=== PATIENT | female | born 1970 | race Caucasian/White ===

== ENCOUNTER 2017-05-24 13:49 | Emergency (ER) | payer MEDICARE, OTHER ==
[2017-05-24 13:59] VITALS: BP 123/62; PULSE 69; RESP 20; TEMP 98
--- NOTE | 2017-05-24 14:07 | ED ---
General Adult HPI - General Chief complaint: ENT Stated complaint: R ear pain Time Seen by Provider: 05/24/17 13:59 Source: patient, RN notes reviewed Mode of arrival: ambulatory Limitations: no limitations - History of Present Illness Initial comments: 46-year-old female presents emergency Department chief complaint of right ear pain. Patient states she's having some right ear pain and drainage and pain when she moves the ear. Patient states that she has no pain. Patient states she chronically is congestion because she is a smoker. Patient states she had some chills no history of fever. Patient states that she was concerned due to her pain and discomfort so she thought that she should be evaluated.Patient denies any recent fever, chills, shortness of breath, chest pain, back pain, abdominal pain, nausea vomiting, numbness or tingling, dysuria or hematuria, constipation or diarrhea, headaches or visual changes, or any other current symptoms. - Related Data Home Medications Medication Instructions Recorded Confirmed Aspirin [Adult Low Dose Aspirin EC] 1 tab PO DAILY 05/24/17 05/24/17 Previous Rx's Medication Instructions Recorded Ofloxacin 0.3% Otic Soln [Floxin 10 drops RIGHT EAR BID 10 Days 05/24/17 0.3% Otic Soln] Allergies Allergy/AdvReac Type Severity Reaction Status Date / Time No Known Allergies Allergy Verified 05/24/17 13:56 Review of Systems ROS Statement: Those systems with pertinent positive or pertinent negative responses have been documented in the HPI. ROS Other: All systems not noted in ROS Statement are negative. Past Medical History Past Medical History: GERD/Reflux History of Any Multi-Drug Resistant Organisms: None Reported Past Surgical History: Tubal Ligation Past Psychological History: Anxiety, Depression Smoking Status: Current every day smoker Past Alcohol Use History: None Reported Past Drug Use History: Marijuana General Exam - General Exam Comments Initial Comments: General exam: Alert, active, comfortable in no apparent distress Head: Normocephalic Eyes: Normal reaction of pupils, equal size, normal range of extraocular motion Ears: normal external ear canals on the left, pink tympanic membranes with normal cone of light, patient does have some fluid collection behind the right tympanic membrane with pain to movement of the tragus and auricle of the right ear. There is some swelling to the external ear canal noted. Nose: clear with pink turbinates Throat: no erythema or exudates with normal sized tonsils Neck: no masses, no nuchal rigidity Chest: no chest wall deformity Lungs: equal air entry with no crackles or wheeze CVS: S1 and S2 normal with no audible mumurs, regular rhythm Abdomen: no hepatosplenomegaly, normal bowel sounds, no guarding or rigidity Spine: no scoliosis or deformity Skin: no rashes Neurological: No focal deficits, tone is normal in all 4 extremities Limitations: no limitations Course Vital Signs 05/24/17 13:57 Temperature 98 F Pulse Rate 69 Respiratory 20 Rate Blood Pressure 123/62 O2 Sat by Pulse 98 Oximetry Medical Decision Making - Medical Decision Making 46-year-old male presents for appears to be otitis externa. Patient is fairly for pain. We discussed [id number] Zyrtec for her congestion symptoms. We did discuss return parameters and follow-up. Patient stated she understood and all her questions and she'll be discharged. Disposition Clinical Impression: Right otitis externa Disposition: HOME SELF-CARE Condition: Stable Instructions: Otitis Externa (ED) Additional Instructions: Please use medication as discussed. Please follow up with family doctor if symptoms have not improved over the next two days. Please return to the emergency room if your symptoms increase or worsen or for any other concerns. Prescriptions: Ofloxacin 0.3% Otic Soln [Floxin 0.3% Otic Soln] 10 drops RIGHT EAR BID 10 Days Referrals: Ruth Dugan MD [STAFF PHYSICIAN] - 1-2 days Time of Disposition: 14:06
== END 2017-05-24 14:15 | disposition home or self-care (01) ==
LOC: EC 13:49
DX: H60.91 Unspecified otitis externa, right ear (principal); R09.89 Other specified symptoms and signs involving the circulatory and respiratory systems; Z79.82 Long term (current) use of aspirin; F17.200 Nicotine dependence, unspecified, uncomplicated
CPT/HCPCS: 99282

== ENCOUNTER 2017-12-08 14:27 | Inpatient (IN) | payer MEDICARE, MEDICAID ==
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
[2017-12-08 15:28] LABS: Amphetamine Screen,Urine Not Detected (NotDetected); Barbiturate Screen,Urine Not Detected (NotDetected); Benzodiazepines Screen,Urine Not Detected (NotDetected); Cocaine Screen,Urine Not Detected (NotDetected); Methadone Screen, Urine Not Detected (NotDetected); Opiate Screen,Urine Not Detected (NotDetected); Oxycodone Screen, Urine Not Detected (NotDetected); Phencyclidine Screen,Urine Not Detected (NotDetected); Tricyclic Antidepressant,Urine Not Detected (NotDetected); Urn Cannabinoid Scrn Detected (NotDetected)
[2017-12-08] MEDS ORDERED: LORazepam 1 MG TAB PO PRN (18:18)
[2017-12-08] MEDS ORDERED: ZIPRASIDONE 20 MG VIAL IM PRN (18:18)
[2017-12-08] MEDS ORDERED: MAG HYDROX/AL HYDROX/SIMETH 30 ML CUP PO PRN (18:18)
[2017-12-08] MEDS ORDERED: ACETAMINOPHEN TAB 325 MG TAB PO PRN (18:18)
[2017-12-08 18:38] LABS: Appearance,Urine Cloudy (Clear); Bilirubin,Urine Negative (Negative); Blood,Urine Moderate (Negative); Color,Urine Yellow; Glucose,Urine (UA) Negative (Negative); Ketones,Urine 1+ (Negative); Leukocyte Esterase,Urine Negative (Negative); Mucus,Urine Many /hpf; Nitrite,Urine Negative (Negative); Protein,Urine 2+ (Negative); RBC,Urine 37 /hpf (0-5); Specific Gravity,Urine 1.021 (1.001-1.035); Squamous Epithelial Cell,Urine 2 /hpf (0-4); WBC,Urine 5 /hpf (0-5)
[2017-12-08] MEDS ORDERED: OLANZapine 10 MG TAB PO SCH (21:00)
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
[2017-12-09] MEDS: FAMOTIDINE 20 MG TAB PO SCH (08:12)
[2017-12-09] MEDS: NICOTINE 14MG/24HR PATCH TRANSDERM SCH (08:12)
[2017-12-09 09:38] LABS: Basophils # (A) 0.1 k/uL (0-0.2); Basophils % (A) 1 %; Eosinophils # (A) 0.3 k/uL (0-0.7); Eosinophils % (A) 2 %; HCT 47.9 % (34.0-46.0); HGB 15.7 gm/dL (11.4-16.0); Lymphocytes % (A) 29 %; MCH 27.6 pg (25.0-35.0); MCHC 32.7 g/dL (31.0-37.0); MCV 84.4 fL (80.0-100.0); Mean Platelet Volume 7.9; Monocytes # (A) 0.5 k/uL (0-1.0); Monocytes % (A) 5 %; Neutrophils # (A) 6.6 k/uL (1.3-7.7); Neutrophils % (A) 63 %; Platelet Count 217 k/uL (150-450); RBC 5.68 m/uL (3.80-5.40); RDW 14.2 % (11.5-15.5); WBC 10.6 k/uL (3.8-10.6)
[2017-12-09 09:58] LABS: ALT 35 U/L (9-52); AST 22 U/L (14-36); Albumin 4.4 g/dL (3.5-5.0); Alkaline Phosphatase 60 U/L (38-126); Anion Gap 10 mmol/L; Blood Urea Nitrogen 14 mg/dL (7-17); Calcium 10.1 mg/dL (8.4-10.2); Carbon Dioxide 29 mmol/L (22-30); Chloride 103 mmol/L (98-107); Cholesterol 283 mg/dL (<200); Glucose 73 mg/dL (74-99); HDL Cholesterol 59 mg/dL (40-60); LDL Cholesterol,Calculated 196 mg/dL (0-99); Potassium 4.1 mmol/L (3.5-5.1); Sodium 142 mmol/L (137-145); Total Bilirubin 0.5 mg/dL (0.2-1.3); Triglycerides 142 mg/dL (<150)
[2017-12-09] MEDS: MULTIVITAMINS, THERA 1 EACH TAB PO SCH (11:37)
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
[2017-12-09 19:34] LABS: Hemoglobin A1C 5.6 % (4.0-6.0)
[2017-12-10] MEDS: FAMOTIDINE 20 MG TAB PO SCH (08:54)
[2017-12-10] MEDS: NICOTINE 14MG/24HR PATCH TRANSDERM SCH (08:54)
--- NOTE | 2017-12-10 10:15 | P.PN ---
Progress Note - Text Progress Note Date: 12/10/17 Patient was seen for a routine follow-up examination. She came for the interview quite willingly. She is not able to provide good history she said she is here because her mother and sister where interfering with her happiness. She refused to elaborate on this statement. She also said she has invisible winks, flow to [place] and [place] in 3 minutes, stayed there for 5 minutes and returned. She also said she is but is going to get soon to a person named Eliseo in [facility]. She said she is 1 month which is and immaculate conception. She said got appeared in front of her colder to close her eyes and blessed her and is 1 month now. Initially she had told me that she is 3 months . She also said heavenly father is watching her all the time. Continues to refuse to take her medications saying that God will take care of her. Patient smiles to herself talks/mumbles to herself as if she is conversing with somebody. She continues to refuse to take medications in spite of counseling and requests to take medication. She denies suicidal and homicidal ideas. She is oriented to the place. Her insight is extremely poor and judgment is grossly impaired as evidenced by her psychotic thinking. Assessment: Schizoaffective disorder bipolar type F 25.0 Plan: Wait until after court hearing to medicate her against her will unless she gets acutely agitated and needs when necessary medication.
[2017-12-10] MEDS: MULTIVITAMINS, THERA 1 EACH TAB PO SCH (12:52)
[2017-12-11] MEDS: FAMOTIDINE 20 MG TAB PO SCH ×2 (08:39→09:21)
[2017-12-11] MEDS: MULTIVITAMINS, THERA 1 EACH TAB PO SCH (08:39)
--- NOTE | 2017-12-11 10:17 | P.PN ---
Progress Note - Text Progress Note Date: 12/11/17 Patient was seen for a routine follow-up examination. She is lying down in bed. She is friendly and cooperative. She has not been taking her medications , has not been attending groups, and does not socialize with peers and usually stays by herself. Has not engaged in any bizarre violent or self destructive behavior. Continues to refuse to take her medications. This is a white ambulatory female with adequate hygiene she is like friendly and cooperative. She does not show any psychomotor agitation or retardation. Her speech is spontaneous becomes quite irrelevant and irrational. Talks about being engaged having a fiance and another boyfriend etc. she also talks about being from [facility] and her intention to go back there. She denies hallucinations but appears to be responding to internal stimuli. She denies suicidal and homicidal ideas. She is well oriented with adequate memory concentration etc. Next Plan: Waiting for court hearing to start her on medications to stabilize her mood and improve her thinking.
[2017-12-12] MEDS: FAMOTIDINE 20 MG TAB PO SCH (08:57)
--- NOTE | 2017-12-12 09:25 | P.PN ---
Progress Note - Text Progress Note Date: 12/12/17 Patient was seen for routine follow-up examination. She came for the interview willingly. But, she continues to refuse to take medications, insists that she is doing well, and does not need to be in the hospital, will get to [place] today etc. She reported that she can sing any kind of songs, the animals are talking to her. She said the animals are in [facility]. She said the animals talk 5 different languages and she knows all those languages. She refused to tell me what these animals tell her. She also said she can be in [facility] in 3 minutes and get . When she was asked if she has anything else to tell me she said "go fuck yourself". She also told me not to make her mad. Patient usually stays by herself and does not socialize with peers, continues to refuse to take her medications. Otherwise she is cheerful and does not show any psychomotor agitation or retardation. Continues to be quite paranoid and grandiose. Denies suicidal and homicidal ideas. She is oriented with adequate memory concentration etc. Plan: Wait until she has court hearing and is committed before I can start her on any medication.
[2017-12-12] MEDS: MULTIVITAMINS, THERA 1 EACH TAB PO SCH (11:30)
[2017-12-13] MEDS: FAMOTIDINE 20 MG TAB PO SCH (07:59)
--- NOTE | 2017-12-13 10:48 | P.PN ---
Progress Note - Text Progress Note Date: 12/13/17 Patient was seen for routine follow-up examination. She continues to deny all psychiatric problems and refuses to take medications. She was seen by her packing machine inspector for court hearing this morning. She said she had fired him since her packing machine inspector is Mr. Vazquez. She continues to make delusional remarks. She does not attend groups. But she socializes with peers sometimes. This is a white ambulatory female with adequate hygiene. She is superficially cooperative. She continues to report of delusional including. She denies suicidal and homicidal ideas. Her insight is poor and judgment is impaired as evidenced by denying her problems and refusing treatment. She is well oriented with adequate memory concentration etc. Plan: Wait until after she is committed to administer medications.
[2017-12-13] MEDS: MULTIVITAMINS, THERA 1 EACH TAB PO SCH (12:01)
[2017-12-14] MEDS: FAMOTIDINE 20 MG TAB PO SCH (09:25)
--- NOTE | 2017-12-14 10:02 | P.PN ---
Progress Note - Text Progress Note Date: 12/14/17 Patient continues to refuse to take her medication. Apparently her assistant county attorney came to see her but she had refused to talk to him insisting that she has a different assistant county attorney. She stays by herself most of the time except occasional interaction with her peers she does not attend the groups. She continues to be delusional, elated with labile affect. She did not exhibit any bizarre violent or inappropriate behavior while in the unit. This is a white ambulatory female with adequate hygiene. She does not show any psychomotor agitation or retardation. Her speech is spontaneous and goal- directed. Her mood is cheerful and affect is labile. She continues to be quite delusional with grandiose and persecutory thinking. She denies hallucinations, suicidal and homicidal thoughts. She is well oriented with adequate memory concentration general fund of knowledge etc. Plan: Wait for court order to start her on medication.
[2017-12-14] MEDS: MULTIVITAMINS, THERA 1 EACH TAB PO SCH (12:26)
[2017-12-15] MEDS: FAMOTIDINE 20 MG TAB PO SCH (09:03)
[2017-12-15] MEDS: MULTIVITAMINS, THERA 1 EACH TAB PO SCH (12:18)
--- NOTE | 2017-12-15 12:59 | P.PN ---
Progress Note - Text Progress Note Date: 12/15/17 Patient was seen for a follow-up examination. She is polite and fairly cooperative except for taking medications and attending groups. She does not have any particular complaints. She continues to refuse medications. This is a white ambulatory female with good hygiene. She is polite and cooperative except with her treatment. She has not shown any violent or bizarre behavior. Her speech is spontaneous and goal-directed. Her mood is euthymic to cheerful and affect is appropriate to the thought content. She continues to be quite delusional with grandiose and [place] thinking. She denies suicidal and homicidal thoughts. She is well oriented with good memory concentration etc. Plan: Continue milieu therapy and wait for the court order to start her on medication.
[2017-12-16] MEDS: FAMOTIDINE 20 MG TAB PO SCH (08:52)
[2017-12-16] MEDS: MULTIVITAMINS, THERA 1 EACH TAB PO SCH (13:28)
--- NOTE | 2017-12-16 14:34 | P.PN ---
Progress Note - Text Progress Note Date: 12/16/17 Patient was seen for a follow-up examination. She does not have any particular complaint. She does not attend groups, socializes minimally with peers and interacts with staff only when necessary. Continues to refuse to take medication. This is a white ambulatory female with adequate hygiene. She does not show any psychomotor agitation or retardation. Her speech is spontaneous and goal- directed. Her mood is euthymic and affect is appropriate to the thought content she continues to deny suicide and homicide thoughts. She continues to be quite delusional with grandiose thinking. Her insight is poor and judgment is impaired as evidenced by refusal to be treated. She is well oriented with adequate memory concentration etc. Plan: Wait until she is committed to administer medications against her will.
--- NOTE | 2017-12-17 10:12 | P.PN ---
Progress Note - Text Progress Note Date: 12/17/17 Patient refused to talk to me today, used very foul language and walked away. She continues to refuse medications, does not attend the groups, does not socialize with peers and does not interact with staff except to meet her needs. This is an uncooperative ambulatory white female with adequate hygiene. She is irritable and hostile. Her speech is short, cryptic and hostile. She apparently continues to be delusional with grandiose thinking. Her cognitive functions appear to be intact. Her suicide and homicide thoughts could not be assessed because of her hostility and uncooperativeness. Plan: Start on antipsychotic medications after she is committed by the court.
[2017-12-17] MEDS: FAMOTIDINE 20 MG TAB PO SCH (10:30)
[2017-12-17] MEDS: MULTIVITAMINS, THERA 1 EACH TAB PO SCH (11:24)
[2017-12-17] MEDS ORDERED: ZIPRASIDONE 20 MG VIAL IM ONE (20:41)
[2017-12-17] MEDS: LORazepam 2 MG/ML INJ IM PRN (20:43)
[2017-12-18] MEDS: FAMOTIDINE 20 MG TAB PO SCH (08:02)
--- NOTE | 2017-12-18 09:53 | P.PN ---
Progress Note - Text Progress Note Date: 12/18/17 Patient was briefly seen for a follow-up examination. She is laying down in her bed. She refused to talk to me and repeatedly said "Go fuck yourself" when I approached her to inquire about her status today. She is also breathing loudly grabbing her hands and is saying "" repeatedly. She has been more irritable hostile and uncooperative for the last 2 or 3 days now. She continues not to socialize with peers or interact with staff members. Continues to refuse medications. This is a white ambulatory female with adequate hygiene. She is quite uncooperative and hostile. She is agitated. She repeats her statements and refuses to participate in a conversation. Her mood is angry and affect is increased in intensity. She continues to be quite delusional with grandiose and persecutory thinking. Cognitive functions could not be assessed but it appears to be intact. Suicide and homicide risk could not be assessed completely but she appears to have increased potential for violence. Plan: She will have a court hearing tomorrow. Start her on antipsychotic medication if the director of web marketing commits her.
[2017-12-18] MEDS: MULTIVITAMINS, THERA 1 EACH TAB PO SCH (12:40)
[2017-12-19] MEDS: FAMOTIDINE 20 MG TAB PO SCH (08:06)
--- NOTE | 2017-12-19 11:27 | P.PN ---
Progress Note - Text Progress Note Date: 12/19/17 Patient continues to refuse medication. He has a court hearing this afternoon. He said he is quite a bit nervous about it. He was counseled. No behavioral issues except for medication refusal. This is a white ambulatory male with adequate hygiene. He does not show psychomotor agitation or retardation. His speech is spontaneous and goal- directed. His mood is anxious and affect is appropriate to the thought content. He denies hallucinations. He continues to be delusional with thoughts of persecution and paranoia. He denies suicide and homicide thoughts. He is well oriented with good memory concentration etc. Plan: Start him on Abilify by mouth and then consider long-acting Abilify if he is committed by the modeling agency manager this afternoon.
--- NOTE | 2017-12-19 11:29 | P.PN ---
Progress Note - Text Progress Note Date: 12/19/17 Patient is lying down in bed and refused to speak or acknowledge my presence. This is a ambulatory white female. She is uncooperative and refuses to speak. She does not show psychomotor agitation or retardation. Her speech is short and was using foul language yesterday. She continues to be delusional with grandiose thinking. Her sensorium appears to be intact. Her insight and judgment are poor. Plan: Start her on Haldol by mouth or IM if refuses by mouth and then Haldol D if she does not have any adverse effect if the tribal judge commits her this afternoon.
[2017-12-19] MEDS: MULTIVITAMINS, THERA 1 EACH TAB PO SCH (12:46)
--- NOTE | 2017-12-19 14:51 | P.PN ---
Progress Note - Text Progress Note Date: 12/19/[address] hearing this afternoon and judgment has ordered her to be treated even if she refuses treatment. Plan: Start on Haldol 5 mg twice a day by mouth and if she refuses by mouth, give Haldol 5 mg IM twice a day. If she does not develop any adverse effect start her on Haldol D monthly injection.
[2017-12-19] MEDS: HALOPERIDOL 5 MG TAB PO SCH (21:12)
[2017-12-19] MEDS: HALOPERIDOL LACTATE 5 MG/ML 1 ML VIAL IM PRN (21:13)
[2017-12-20] MEDS: HALOPERIDOL 5 MG TAB PO SCH ×2 (10:09→22:44)
[2017-12-20] MEDS: FAMOTIDINE 20 MG TAB PO SCH (10:09)
[2017-12-20] MEDS: HALOPERIDOL LACTATE 5 MG/ML 1 ML VIAL IM PRN ×2 (10:10→22:50)
--- NOTE | 2017-12-20 11:50 | P.PN ---
Progress Note - Text Progress Note Date: 12/20/17 Patient has been refusing Haldol by mouth. But she is willingly taking Haldol IM 5 mg twice a day. She does not have any adverse effects from Haldol so far. She continues to stay by herself and does not socialize or attend groups. She does not have any particular complaint today and she did not use foul language. This is a white ambulatory female with fair hygiene. She does not show any psychomotor agitation or retardation. Her speech is spontaneous and goal- directed. Her mood is dull to euphoric. Affect is appropriate to the thought content. She denies hallucinations but she is quite delusional. Her insight is poor and judgment is impaired. She is well oriented with adequate memory concentration etc. Plan: Continue Haldol 5 mg twice a day. Start on Haldol D IM on 01-09 if she does not develop any adverse effects. Continue groups and other therapies if she will attend.
[2017-12-20] MEDS: MULTIVITAMINS, THERA 1 EACH TAB PO SCH (13:03)
[2017-12-21] MEDS: HALOPERIDOL 5 MG TAB PO SCH ×2 (08:56→20:55)
[2017-12-21] MEDS: FAMOTIDINE 20 MG TAB PO SCH (08:56)
[2017-12-21] MEDS: HALOPERIDOL LACTATE 5 MG/ML 1 ML VIAL IM PRN (09:02)
--- NOTE | 2017-12-21 10:18 | P.PN ---
Progress Note - Text Progress Note Date: 12/21/17 Patient refuses to participate in the examination. She usually stays by herself and does not attend the groups. She continues to refuse oral Haldol and has been getting IM Haldol. So far she does not have any adverse effects from Haldol. This is a white ambulatory female with adequate hygiene. She is uncooperative. She does not show any psychomotor agitation or retardation. Her speech is unspontaneous very short or refuses to speak. Formal assessment of her hallucinations delusional thinking cognition etc. could not be made. But she does not appear to be confused and did not show any suicidal or homicidal behavior. Plan: Continue Haldol 5 mg twice a day and start on Haldol D on Sunday the December 24 if she continues not to have adverse effects from Haldol.
[2017-12-21] MEDS: MULTIVITAMINS, THERA 1 EACH TAB PO SCH (12:50)
[2017-12-22] MEDS: FAMOTIDINE 20 MG TAB PO SCH (09:13)
[2017-12-22] MEDS: HALOPERIDOL 5 MG TAB PO SCH ×2 (09:13→21:46)
[2017-12-22] MEDS: MULTIVITAMINS, THERA 1 EACH TAB PO SCH (12:58)
--- NOTE | 2017-12-22 20:01 | P.PN ---
Progress Note - Text Progress Note Date: 12/22/17 Patient was seen today. She is delusional and states krystal andrade visited her at her door two days ago. She also says she goes up and down to heaven and earth. She reports hearing voices of krystal father, fish, whales telling her that they all are her pets. She reports seeing ghosts. She says voices and visual hallucinations bother her sometimes but not most of the time. She reports feeling sad about not being able to her children and claims her mother is blocking her from not seeing her children. She also says that her fiance is trying to visit her but the staff her are not not letting him come visit her. SHe says her fiance will take her tanesha enad that she is ready to get discharged. She reorts good sleep and appetite. Her insight and judgment are limited Patient is 47 year old women. She appeared her stated age in fair grooming and hygiene. She is pleasant and cooperative. She maintains good eye contact. She is dressed casually. Her mood is reported as sad and affect flat. She is delusional, paranoid. She reports hearing voices of krystal father and reports seeing ghosts. She is alert and oreinted to time, place and person. She denies current suicidal or homicidal ideations. Her insight and judgment are limited Assessment Schizophrenia Plan Continue her current medications. No side effects reported. Plan to be started on haldol decanoate on december. Monitor for symptoms.
[2017-12-23] MEDS: HALOPERIDOL 5 MG TAB PO SCH ×2 (10:38→21:29)
[2017-12-23] MEDS: FAMOTIDINE 20 MG TAB PO SCH (10:38)
[2017-12-23] MEDS: LORazepam 2 MG/ML INJ IM PRN (11:22)
[2017-12-23] MEDS: HALOPERIDOL LACTATE 5 MG/ML 1 ML VIAL IM PRN (11:23)
[2017-12-23] MEDS: MULTIVITAMINS, THERA 1 EACH TAB PO SCH (13:43)
--- NOTE | 2017-12-23 21:19 | P.PN ---
Progress Note - Text Progress Note Date: 12/23/17 Patient was seen today. She reports hearing voices sometimes. she reports going to some group therapies and not all. She says she has her own group called to su. She asked if she could go home to [facility] and stated its been six months since she has been with a man. She reports good sleep and appetite. Patient is 47 year old women. She appeared her stated age in fair grooming and hygiene. She is pleasant and cooperative. She maintains good eye contact. She is dressed casually. Her mood is reported as good and affect blunt. She is delusional, paranoid. She reports hearing voices . She is alert and oreinted to time, place and person. She denies current suicidal or homicidal ideations. Her insight and judgment are limited Assessment Schizophrenia Plan Continue Haldol 5 mg twice a day. Start on Haldol D on Sunday the December 24 2017
--- NOTE | 2017-12-24 09:37 | P.PN ---
Progress Note - Text Progress Note Date: 12/24/17 Patient was seen for follow-up examination. She did not use foul language and participated in the exam fairly well. She has been taking either Haldol by mouth or sometimes by injections. She does not have any adverse effect from Haldol. But she has been telling staff that we are killing her spirits by giving her medication. She does not attend groups regularly and does not interact with peers and staff regularly. This is a white ambulatory female with adequate hygiene. She does not show any psychomotor agitation or retardation. Her speech is fairly spontaneous and goal -directed. Her mood is euthymic and affect is fairly appropriate to the thought content. She continues to be delusional with ideas of grandeur and persecution. She denies suicide and homicide thoughts. She seems to be well oriented with adequate memory concentration general fund of knowledge etc. Plan: Continue Haldol 5 mg twice a day and start on Haldol D 150 mg IM today and every month since she continues to be delusional and not very cooperative.
[2017-12-24] MEDS ORDERED: HALOPERIDOL DECANOATE 100 MG/ML 1 ML VIAL IM SCH (09:45)
[2017-12-24] MEDS: HALOPERIDOL 5 MG TAB PO SCH ×2 (09:55→21:11)
[2017-12-24] MEDS: MULTIVITAMINS, THERA 1 EACH TAB PO SCH ×2 (12:13→22:03)
[2017-12-25] MEDS: HALOPERIDOL 5 MG TAB PO SCH ×2 (09:37→20:18)
[2017-12-25] MEDS: MULTIVITAMINS, THERA 1 EACH TAB PO SCH (09:37)
--- NOTE | 2017-12-25 10:19 | P.PN ---
Progress Note - Text Progress Note Date: 12/25/17 Patient was seen for a follow-up examination. Today she came to the office to talk. Apparently she has not been showering or changing her clothes. She was strongly requested to shower and changed clothes. But she is reluctant. She sometimes takes by mouth Haldol and sometimes she takes only IM Haldol. She had her Haldol D injection yesterday. She does not have any adverse effects. She continues to stay by herself, does not socialize or attend groups. Today she said she would like to go home, stay with her father in [place] for a couple of days before she goes to her "'s" house. This is a white ambulatory female with chin hair about half a centimeter long. She refuses to shave it. She has strong body odor. She does not show any psychomotor agitation or retardation. Her speech is fairly spontaneous short and goal directed. She continues to be delusional but is not preoccupied with those. She denies suicide and homicide thoughts her sensorium is intact. Plan: Continue Haldol by mouth, groups and other therapies.
[2017-12-26] MEDS: HALOPERIDOL 5 MG TAB PO SCH ×2 (09:21→20:17)
--- NOTE | 2017-12-26 10:26 | P.PN ---
Progress Note - Text Progress Note Date: 12/26/17 Patient was seen in her room. She was lying down when I talked to her. The room is filled with foul odor. She continues not to shower or changed clothes. She said she does not like the medication she is on because it took away her pleasures. When it was further discussed she implied she is masturbating and is not able to reach orgasm. She said she did not talk with her father since she doesn't have the number. She said her sister is in correction or fci and does not have her mother's number either. This is in ambulatory female with poor hygiene and very foul body odor. She continues to refuse to shower. She has taken her oral Haldol yesterday and this morning. She does not show any psychomotor agitation or retardation. She continues to be delusional with grandiose and piscatory ideas. Her insight is poor and judgment is impaired by refusing to shower and changed clothes. She is oriented with adequate memory concentration etc. Plan: Continue Haldol by mouth and discussed with the treatment team about getting her to shower.
[2017-12-26] MEDS: MULTIVITAMINS, THERA 1 EACH TAB PO SCH (12:36)
[2017-12-27] MEDS: HALOPERIDOL 5 MG TAB PO SCH ×2 (09:45→20:03)
[2017-12-27] MEDS: MULTIVITAMINS, THERA 1 EACH TAB PO SCH (09:45)
--- NOTE | 2017-12-27 11:40 | P.PN ---
Progress Note - Text Progress Note Date: 12/27/17 Patient was seen for a follow-up examination. She stays by herself, does not shower or changed clothes. She has a very foul body odor. She was again advised to shower since she can develop skin infection if she doesn't shower and clean herself well. She said she may do it after lunch today. She does not attend groups and does not socialize or interact with others. She has been taking her Haldol by mouth. This is a white ambulatory female with poor hygiene. She has very strong body odor. She does not show any psychomotor agitation or retardation. Her speech is spontaneous and goal-directed. Her mood is euthymic and affect is somewhat constricted in range. She denies suicidal and homicidal thoughts. She denies hallucinations. She continues to be quite delusional with very poor insight and judgment. She is oriented with adequate memory concentration etc. Plan: Continue Haldol, groups and other therapies.
[2017-12-28] MEDS: HALOPERIDOL 5 MG TAB PO SCH ×2 (09:30→21:52)
--- NOTE | 2017-12-28 11:41 | P.PN ---
Progress Note - Text Progress Note Date: 12/28/17 Patient was seen for routine follow-up examination. She continues to stay in her room, does not change her clothes or shower. Even though she had promised her short as today she did not. She said she will shower today. She has been taking her Haldol by mouth without any problems. Continues not to have any adverse effects from Haldol. This is a white ambulatory female with pretty strong body odor. She does not show any psychomotor agitation or retardation. Her speech is spontaneous and goal-directed. She denies suicidal and homicidal ideas. She denies hallucinations. She continues to be quite delusional with grandiose thinking. She is oriented with adequate memory concentration etc. Plan: Continue Haldol by mouth, groups and other therapies.
[2017-12-28] MEDS: MULTIVITAMINS, THERA 1 EACH TAB PO SCH (11:56)
[2017-12-29] MEDS: HALOPERIDOL 5 MG TAB PO SCH ×2 (08:37→20:07)
--- NOTE | 2017-12-29 08:56 | P.PN ---
Progress Note - Text Progress Note Date: 12/29/17 Interval History: Patient is a 47-year-old female who was seen today, she was in her room. Patient states that she did not sleep well last evening or the night before. She states that she has been eating well but not attending groups because she does not like them. She reports continuing to hear voices which are making positive statements about her and she feels that they are from the spiritual world. Patient denied that these were bothersome to her and denied that she felt anyone was after her out to get her. Patient states when she is lying in bed her thoughts are racing, she then stated she was "talking to the [email or web address] and zoo". Patient had no complaints of side effects from the medication. Mental Status: Appearance/Attitude: Patient was dressed in a hospital gown, made intermittent eye contact and was cooperative Behavior: Patient did not display any psychomotor agitation or retardation Speech/Language: Patient only responded to questions, speech was of normal volume and a slightly slowed rhythm and she was coherent Thought Process: Patient's responses to questions were very brief, no evidence of loose associations Thought Content: Patient reported that she continues to hear voices which are not bothersome mentor saying positive things about her. She denied visual hallucinations. Patient denied any paranoid ideation she stated when she is lying in bed she is talking to the [email or web address] and zoo. Patient states that she did not sleep well the last 2 evenings although per report she did sleep. Patient states that her appetite is good. Suicidal/Homicidal Ideation: Patient denied any current suicidal or homicidal ideation Sensorium/Cognition: Patient is alert and oriented to person, place and further cognitive testing was not performed Mood/Affect: Patient's mood is restricted and her affect is flat Insight/Judgment: Patient's insight and judgment are limited Assessment: Patient reports that she is not sleeping [facility] reported that the patient slept 6 hours last evening. Patient is not attending groups or activities she states that she stays in her room in bed all day. Patient has been eating. She has been taking her medication. Patient reported that she continues to hear voices that are saying positive things to her and she thinks that they're from the spiritual world. She reports when she is lying in bed and her thoughts are racing she's talking to the [employer] [place] and zoo. Patient is dressed in a hospital gown today was no evidence of body odor. Plan: Patient will continue on Haldol 5 mg twice a day and she received Haldol long-acting on December 24. There is no evidence of any side effects. Patient continues to require hospitalization and was encouraged to attend groups and activities.
[2017-12-29] MEDS: MULTIVITAMINS, THERA 1 EACH TAB PO SCH (12:15)
[2017-12-29] MEDS: DOCUSATE 100 MG CAP PO SCH (12:15)
[2017-12-30] MEDS: DOCUSATE 100 MG CAP PO SCH (08:50)
[2017-12-30] MEDS: HALOPERIDOL 5 MG TAB PO SCH ×2 (08:50→20:38)
[2017-12-30] MEDS: MAGNESIUM HYDROXIDE 2,400 MG/10 ML CUP PO PRN (08:51)
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
[2017-12-30] MEDS: MULTIVITAMINS, THERA 1 EACH TAB PO SCH (12:30)
[2017-12-31] MEDS: HALOPERIDOL 5 MG TAB PO SCH ×2 (09:01→21:29)
[2017-12-31] MEDS: DOCUSATE 100 MG CAP PO SCH (09:02)
--- NOTE | 2017-12-31 11:44 | P.PN ---
Progress Note - Text Progress Note Date: 12/31/17 Patient was seen for routine follow-up examination. She usually stays in her bed and does not socialize with peers. She has been taking her medications orally. She showered and is currently wearing hospital gowns. She still talks about her father, /future and says she can go and stay with her future . She was asked to tell him to give us a call so that we can make some arrangements for her. She agreed. This is a white ambulatory female wearing hospital gowns. She does not show any psychomotor agitation or retardation. Her speech is spontaneous and goal- directed. Her mood is euthymic and affect is appropriate. She denies hallucinations, but, she is still delusional. However she is not preoccupied with those delusions. She is oriented with adequate memory concentration etc. Plan: Continue Haldol by mouth and Haldol D IM every 28 days. Continue groups and other therapies. Patient is again encouraged to attend the groups.
[2017-12-31] MEDS: MULTIVITAMINS, THERA 1 EACH TAB PO SCH (12:18)
[2018-01-01] MEDS: HALOPERIDOL 5 MG TAB PO SCH ×2 (08:14→21:47)
[2018-01-01] MEDS: DOCUSATE 100 MG CAP PO SCH (08:14)
--- NOTE | 2018-01-01 09:25 | P.PN ---
Progress Note - Text Progress Note Date: 01/01/18 Patient was seen for routine follow-up examination. She is friendly and cooperative. She spontaneously told me today that she will be showering later today. She has been showering, taking her medications attending some of the groups etc. She also agreed to discuss her discharge plans with her transition social worker. This is a white ambulatory female with adequate hygiene. She is polite and cooperative. She does not show any psychomotor agitation or retardation. Her speech is spontaneous and goal-directed. Her mood is euthymic and affect is appropriate. She continues to hallucinate and is delusional. But, she is not preoccupied and does not spontaneously talk about it. She is well oriented with adequate memory concentration etc. Plan: Continue Haldol by mouth, groups and other therapies.
--- NOTE | 2018-01-01 09:35 | P.PN ---
Progress Note - Text Progress Note Date: 01/01/18 Patient was seen for routine follow-up examination. He has been attending groups, socializes with select group of peers and interacts with staff to meet his needs. He again asked to be put back on Cymbalta. He was again counseled that Cymbalta is an antidepressant and antidepressants are not recommended for a person with mood changes/bipolar disorder since it interferes with mood stabilization. He reluctantly agreed. He apparently has requested a change of doctor and wants to be seen by Dr. Fernando who had prescribed Cymbalta in the past. He said he had already talked to the patient patient access representative about it. He also said he is fine with Geodon 40 mg twice a day and does not want that to be increased to 60 mg twice a day. This is an obese ambulatory white male with adequate hygiene. But he is poorly combed. He does not show psychomotor agitation or retardation. But he is quite obese and is slow in moving around. His speech is spontaneous and goal- directed. His mood is rather dull and affect is fairly appropriate to the thought content. He continues to report of having suicidal thoughts, but, he said he is not going to do anything to hurt himself and will discuss that with staff if he should get any. He denies homicidal thoughts. He is well oriented with adequate memory concentration etc. Plan: Continue Geodon, Trileptal, naproxen and Neurontin, groups and other therapies.
[2018-01-01] MEDS: MULTIVITAMINS, THERA 1 EACH TAB PO SCH (11:32)
[2018-01-01] MEDS: MAGNESIUM HYDROXIDE 2,400 MG/10 ML CUP PO PRN (18:57)
[2018-01-02] MEDS: HALOPERIDOL 5 MG TAB PO SCH ×2 (08:58→21:37)
[2018-01-02] MEDS: DOCUSATE 100 MG CAP PO SCH (08:58)
[2018-01-02] MEDS: MULTIVITAMINS, THERA 1 EACH TAB PO SCH (11:56)
--- NOTE | 2018-01-02 12:06 | P.PN ---
Progress Note - Text Progress Note Date: 01/02/18 Patient was seen for a follow-up examination. She continues to stay in her bed a lot. She however socializes with peers and little and interacts a little also. She has been showering and taking her medications regularly. She said she had talked to her /boyfriend who said she can come and stay with him in his house in [facility]. She also said he had called here and talk to somebody. This happens to be untrue since her reported / boyfriend apparently is her high school sweetheart whom she had not seen or talked to in multiple years. She insists that she does not want to return to her sister's or mother's house. This is a white ambulatory female with adequate hygiene. She is polite and cooperative. She does not show any psychomotor agitation or retardation. Her speech is spontaneous and goal-directed. But they do not make good sense. She denies hallucinations, suicidal and homicidal ideas. But she appears to be quite delusional and does not make good sense in her history or her plans for the future. She is well oriented with adequate memory concentration etc. Plan: Continue Haldol by mouth and Haldol D IM every 28 days. Continue groups and other therapies.
[2018-01-02] MEDS ORDERED: diphenhydrAMINE 50 MG CAP PO STA (22:15)
[2018-01-03] MEDS: HALOPERIDOL 5 MG TAB PO SCH ×2 (08:33→21:47)
[2018-01-03] MEDS: DOCUSATE 100 MG CAP PO SCH (08:34)
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
[2018-01-03 10:31] VITALS: BMI 26.6
[2018-01-03] MEDS: MULTIVITAMINS, THERA 1 EACH TAB PO SCH (11:08)
[2018-01-04] MEDS: HALOPERIDOL 5 MG TAB PO SCH ×2 (09:16→21:48)
[2018-01-04] MEDS: DOCUSATE 100 MG CAP PO SCH (09:16)
[2018-01-04] MEDS: MULTIVITAMINS, THERA 1 EACH TAB PO SCH (09:16)
--- NOTE | 2018-01-04 09:44 | P.PN ---
Progress Note - Text Progress Note Date: 01/04/18 Today patient said she was able to talk to her mother, got her sister's number and hopefully will be able to talk with the sister about her discharge plan. Patient became quite paranoid when I asked her if she will be taking her medications when she goes home. She said a lot of people are after her don't like her etc. She has not been violent or combative. She has been showering and is wearing hospital gowns. She said she is saving her street clothes to use when she goes home. She has been taking her by mouth medications. This is a white ambulatory female with adequate hygiene. She is polite and cooperative. She does not show any psychomotor agitation or retardation. Her speech is spontaneous. Her mood is euthymic and affect is appropriate. She denies suicide and homicide thoughts. She denies hallucinations but she is still quite delusional. She is oriented with adequate memory concentration etc. Plan: continue Haldol by mouth, groups and other therapies
[2018-01-05] MEDS: HALOPERIDOL 5 MG TAB PO SCH ×2 (09:29→20:15)
[2018-01-05] MEDS: DOCUSATE 100 MG CAP PO SCH (09:29)
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
[2018-01-05] MEDS: MULTIVITAMINS, THERA 1 EACH TAB PO SCH (12:48)
[2018-01-06] MEDS: DOCUSATE 100 MG CAP PO SCH (09:43)
[2018-01-06] MEDS: HALOPERIDOL 5 MG TAB PO SCH ×2 (09:43→22:01)
--- NOTE | 2018-01-06 13:55 | P.PN ---
Progress Note - Text Interval history: The patient is found in group she follows me to an interview room. She states her mood is much improved. She had a family meeting involving her sister. She was told that she could put a lock on her door so she had more privacy. The patient states she feels more optimistic. She reports no hallucinations today and she states she has no suicidal thoughts. Mental status exam: The patient is alert she is dressed in hospital gowns hygiene grooming adequate. Eye contact is appropriate. Her affect is much brighter she demonstrates smiling and laughter. She reports having no suicidal or homicidal ideation intent or plan. She is endorsing no symptoms of psychosis including hallucinations. Thought process is linear she demonstrates no tangential thinking loose associations or flight of ideas. She demonstrates no verbal or physical aggressiveness. She demonstrates no abnormal involuntary movements. She remains oriented to person place and date. Plan: The patient will continue on her current psychotropic medications. We will continue to monitor her for safety. She is encouraged to continue participating in the milieu.
[2018-01-06] MEDS: MULTIVITAMINS, THERA 1 EACH TAB PO SCH (15:23)
[2018-01-07] MEDS: DOCUSATE 100 MG CAP PO SCH (09:14)
[2018-01-07] MEDS: HALOPERIDOL 5 MG TAB PO SCH ×2 (09:14→20:14)
--- NOTE | 2018-01-07 09:54 | P.PN ---
Progress Note - Text Progress Note Date: 01/07/18 Patient was seen for a follow-up examination. She said she has talked to her sister and she can return to live with her. She also agreed to take her medications as prescribed. I am waiting for the high school social studies teacher to make sure patient can return and live with her sister who can supervise her medications before I can discharge the patient. This is a white ambulatory female with good hygiene. She is polite and cooperative. She does not show any psychomotor agitation or retardation. Her speech is spontaneous relevant and goal-directed. Her mood is euthymic and affect is appropriate. She denies hallucinations but she is still delusional and states that she is and has some grandiose thinking. She denies suicide and homicide thoughts. She is well oriented with adequate memory concentration general knowledge etc. Plan: Continue Haldol by mouth and Haldol D IM. Discharged to sister if the high school social studies teacher can verify that patient can go there and sister can supervise her medication compliance. Continue groups and other therapies.
[2018-01-07] MEDS ORDERED: HALOPERIDOL DECANOATE 100 MG/ML 1 ML VIAL IM STA (12:09)
[2018-01-07] MEDS: MULTIVITAMINS, THERA 1 EACH TAB PO SCH (12:18)
[2018-01-08 06:36] VITALS: BP 96/46; PULSE 78; RESP 18; TEMP 98.4
[2018-01-08] MEDS: HALOPERIDOL 5 MG TAB PO SCH (08:45)
[2018-01-08] MEDS: DOCUSATE 100 MG CAP PO SCH (08:45)
[2018-01-08] MEDS: MULTIVITAMINS, THERA 1 EACH TAB PO SCH (08:45)
--- NOTE | 2018-01-08 12:25 | P.DS ---
Providers Date of admission: 12/08/17 17:57 Attending physician: Dakota Davila Consults: 12/08/17 18:18 Consult Physician Routine Consulting Provider: Scott Rader Consult Reason/Comments: follow up H & P Do you want consulting provider notified?: Yes Primary care physician: Stated None Hospital Course: Patient had psychiatric evaluation done by Dr. Lyn, had physical examination and psychosocial evaluation. After psychiatric evaluation patient was started on Zyprexa. But she refused to take medication. In view of this a psych consult was made and sent to court. Patient continued to refuse to take medication. She continued to make delusional remarks, stayed by herself, stopped showering, was wearing the same clothes and started to have panic body odor. Encouragement to shower and changed clothes did not help at all. After the court hearing she was ordered to take her medications by the immigration judge and was started on Haldol 5 mg twice a day. Initially she took only IM Haldol. Later on she started to take by mouth. She did not have any adverse effects and so she was started on Haldol D 150 mg IM. Gradually she improved, agreed to shower , change clothes, attending groups, socialize with others etc. But she continued to be delusional stating that she is to her high school boyfriend whom she did not meet or hearing things since schooldays, grandiose statements etc. Finally she agreed to talk to her sister about returning home and was not preoccupied with delusional thinking. She has been complying with medications milieu therapies etc. She continued not to have any adverse effects from medications. Since she promised to comply with treatment and her sister is willing to take her home it was agreed to discharge her. She got her second dose of Haldol D 150 mg IM yesterday. Condition on discharge: This is a white ambulatory female with good hygiene. She is polite and cooperative. She apologized a few times for using bad language yesterday. She was counseled. She does not show any psychomotor agitation or retardation. Her speech is spontaneous relevant and goal- directed. Her mood is euthymic and affect is appropriate. She denies hallucinations and is not preoccupied with delusional thinking. She denies suicidal and homicidal thoughts. She is oriented with adequate memory concentration general fund of knowledge etc. Her insight and judgment have improved. She agreed to take her medications as prescribed and go to [facility] for outpatient follow-up. Diagnosis on discharge: Schizoaffective disorder bipolar type F 25.0. ALLERGY to codeine. Patient was advised and agreed to take her medications as prescribed, not to drink alcohol or use drugs, not to drive or operate machinery if she feels sleepy, to call her psychiatrist or therapist if she feels confused, agitated or gets thoughts of suicide and if she cannot get hold of them to go to nearest ER. Plan - Discharge Summary Discharge Rx Participant: No New Discharge Prescriptions: New Docusate [Colace] 100 mg PO DAILY 30 Days #30 cap Haloperidol [Haldol] 5 mg PO BID 30 Days #60 tab Haloperidol Decanoate [Haldol D] 150 mg IM Q28D 30 Days #1 vial Continue Multivit-Min/Iron/Folic/Lutein [Centrum Silver Women Tablet] 1 tab PO DAILY Discontinued OLANZapine [ZyPREXA] 10 mg PO DAILY Discharge Medication List Multivit-Min/Iron/Folic/Lutein [Centrum Silver Women Tablet] 1 tab PO DAILY [History] Docusate [Colace] 100 mg PO DAILY 30 Days #30 cap 01/08/18 [Rx] Haloperidol Decanoate [Haldol D] 150 mg IM Q28D 30 Days #1 vial 01/08/18 [Rx] Haloperidol [Haldol] 5 mg PO BID 30 Days #60 tab 01/08/18 [Rx] Follow up Appointment(s)/Referral(s): Ofelia Aguilar MD [STAFF PHYSICIAN] - 1-2 days Patient Instructions/Handouts: Depression (DC), Brief Psychotic Disorder (DC) Activity/Diet/Wound Care/Special Instructions: Activity and diet as tolerated. Avoid the use of street drugs and alcohol. Remove all firearms from the home. Take all medications as prescribed. Follow up with you Primary Care provider in 1-2 days. When you are in need of refills on your medications please contact your medical provider and/or outpatient psychiatrist to have this done. Please go to scheduled outpatient appointment for aftercare. If symptoms return or become worse call the crisis line at [phone] and/or go to the nearest emergency room for an evaluation.
== END 2018-01-08 14:08 | disposition home or self-care (01) | DRG 885 ==
LOC: EC 14:27 → 3MHU 17:57
PROVIDERS: ADMIT Psychiatry & Neurology Psychiatry; ATTEND Psychiatry & Neurology Psychiatry
DX: F25.0 Schizoaffective disorder, bipolar type (principal); F22 Delusional disorders; F12.90 Cannabis use, unspecified, uncomplicated; F17.210 Nicotine dependence, cigarettes, uncomplicated; K21.9 Gastro-esophageal reflux disease without esophagitis; K59.00 Constipation, unspecified; R51 Headache; R45.1 Restlessness and agitation; R45.5 Hostility; Z88.5 Allergy status to narcotic agent; Z79.899 Other long term (current) drug therapy; Z91.5 Personal history of self-harm; Z98.51 Tubal ligation status; W22.09XA Striking against other stationary object, initial encounter
CPT/HCPCS: 70450; 80053; 80061; 80306; 81001; 81025; 82075; 83036; 84443; 85025

== ENCOUNTER 2018-01-20 21:05 | Emergency (ER) | payer MEDICARE, OTHER ==
[2018-01-20 21:26] VITALS: TEMP 97.8
--- NOTE | 2018-01-20 22:11 | ED ---
Psych HPI - General Chief Complaint: Psychiatric Symptoms Stated Complaint: Suicidal Time Seen by Provider: 01/20/18 21:57 Source: patient, RN notes reviewed Mode of arrival: ambulatory - History of Present Illness Initial Comments: This is a 47-year-old female who presents to the emergency department with chief complaint of suicidal ideation. Patient is accompanied by her sister who did transport patient to the emergency department for evaluation. They state the patient has a history of bipolar and schizophrenia. She was discharged 2 weeks ago from our psychiatric unit here. She states the patient is currently on Haldol 5 mg daily. Patient states that she has been having suicidal thoughts for the past couple of weeks. She states that she plans to cut herself and attempted to do so this evening. She states that the razor blade was too dull to cause any significant harm to self. She denies homicidal ideation but states that she feels "like I'm going to get angry." She denies auditory or visual hallucinations. She denies alcohol or illicit drug use. She denies any recent illnesses. Denies fever, chills, chest pain, shortness of breath, abdominal pain, nausea or vomiting, diarrhea, dysuria or hematuria, numbness or tingling, headache or vision changes. She does state that she has chronic constipation which she takes stool softeners for. She states her last bowel movement was today. - Related Data Home Medications Medication Instructions Recorded Confirmed Multivit-Min/Iron/Folic/Lutein 1 tab PO DAILY 12/08/17 12/09/17 [Centrum Silver Women Tablet] Previous Rx's Medication Instructions Recorded Docusate [Colace] 100 mg PO DAILY 30 Days #30 cap 01/08/18 Haloperidol Decanoate [Haldol D] 150 mg IM Q28D 30 Days #1 vial 01/08/18 Haloperidol [Haldol] 5 mg PO BID 30 Days #60 tab 01/08/18 Allergies Allergy/AdvReac Type Severity Reaction Status Date / Time codeine Allergy Unknown Verified 01/20/18 21:25 Review of Systems ROS Statement: Those systems with pertinent positive or pertinent negative responses have been documented in the HPI. ROS Other: All systems not noted in ROS Statement are negative. Past Medical History Past Medical History: GERD/Reflux History of Any Multi-Drug Resistant Organisms: None Reported Past Surgical History: Tubal Ligation Past Psychological History: Anxiety, Depression Smoking Status: Current every day smoker Past Alcohol Use History: None Reported Past Drug Use History: None Reported - Past Family History Family Family Medical History: Coronary Artery Disease (CAD) General Exam - General Exam Comments Initial Comments: General: Awake and alert, well-developed; in no apparent distress. Lying comfortably on ED stretcher with sister and niece at bedside. HEENT: Head atraumatic, normocephalic. Pupils are equal, round and reactive to light. Extraocular movements intact. Oropharynx moist without erythema or exudate. Neck: Supple. Normal ROM. Cardiovascular: Regular rate and rhythm. No murmurs, rubs or gallops. Chest symmetrical. Respiratory: Lungs clear to auscultation bilaterally. No wheezes, rales or rhonchi. Normal respiratory effort with no use of accessory muscles. Abdomen: Soft, non-tender, non-distended. No rigidity, rebound or guarding. Normal bowel sounds in all 4 quadrants. Musculoskeletal: Normal ROM, no tenderness bilateral upper and lower extremities. Ambulating normally. Skin: [place], warm and dry without rashes or lesions. Neurological: Alert and oriented x3. CN II-XII grossly intact. Speech is fluent and answers are appropriate. No focal neuro deficits. Psychiatric: Flat affect. Making bizarre movements with her hands. Limitations: no limitations Course Vital Signs 01/20/18 21:20 Temperature 97.8 F Pulse Rate 114 H Respiratory 18 Rate Blood Pressure 132/87 O2 Sat by Pulse 97 Oximetry Medical Decision Making - Medical Decision Making This is a 47-year-old female who presented to the emergency department with chief complaint of suicidal ideation. Patient was medically cleared and evaluated by EPS. They are recommending discharge home. Patient denies current suicidal ideation and contracts for safety. She will follow up with [facility] tomorrow. Patient's vital signs are stable and she is in no acute distress. She will be discharged home at this time. - Lab Data Lab Results 01/20/18 Range/Units 22:30 Urine Opiates Screen Not Detected (NotDetected) Ur Oxycodone Screen Not Detected (NotDetected) Urine Methadone Screen Not Detected (NotDetected) Ur Propoxyphene Screen Not Detected (NotDetected) Ur Barbiturates Screen Not Detected (NotDetected) U Tricyclic Antidepress Not Detected (NotDetected) Ur Phencyclidine Scrn Not Detected (NotDetected) Ur Amphetamines Screen Not Detected (NotDetected) U Methamphetamines Scrn Not Detected (NotDetected) U Benzodiazepines Scrn Not Detected (NotDetected) Urine Cocaine Screen Not Detected (NotDetected) U Marijuana (THC) Screen Not Detected (NotDetected) Disposition Clinical Impression: Suicidal ideation Disposition: HOME SELF-CARE Condition: Good Instructions: Bipolar Disorder (ED), Depression (ED) Additional Instructions: Please follow up with [facility] tomorrow. Please follow up with primary care provider within 1-2 days. Return to emergency department if symptoms should worsen or any concerns arise. Is patient prescribed a controlled substance at d/c from ED?: No Referrals: Ofelia Aguilar MD [Primary Care Provider] - 1-2 days Time of Disposition: 00:14
[2018-01-20] MEDS ORDERED: LORazepam 1 MG TAB PO STA (22:27)
[2018-01-20 22:48] LABS: Amphetamine Screen,Urine Not Detected (NotDetected); Barbiturate Screen,Urine Not Detected (NotDetected); Benzodiazepines Screen,Urine Not Detected (NotDetected); Cocaine Screen,Urine Not Detected (NotDetected); Methadone Screen, Urine Not Detected (NotDetected); Opiate Screen,Urine Not Detected (NotDetected); Oxycodone Screen, Urine Not Detected (NotDetected); Phencyclidine Screen,Urine Not Detected (NotDetected); Tricyclic Antidepressant,Urine Not Detected (NotDetected); Urn Cannabinoid Scrn Not Detected (NotDetected)
[2018-01-21 00:25] VITALS: BP 138/75; PULSE 95; RESP 16
== END 2018-01-21 00:25 | disposition home or self-care (01) ==
LOC: EC 21:05
DX: R45.851 Suicidal ideations (principal); F20.9 Schizophrenia, unspecified; F17.200 Nicotine dependence, unspecified, uncomplicated; Z79.899 Other long term (current) drug therapy; Z88.5 Allergy status to narcotic agent
CPT/HCPCS: 80306; 82075; 99284

== ENCOUNTER → 2018-01-28 | Outpatient (CLI) | payer MEDICARE, OTHER ==
[2018-01-28 10:47] LABS: Blood Urea Nitrogen 14 mg/dL (7-17); Cholesterol 168 mg/dL (<200); Glucose 89 mg/dL (74-99); HDL Cholesterol 53 mg/dL (40-60); LDL Cholesterol,Calculated 93 mg/dL (0-99); Triglycerides 108 mg/dL (<150)
[2018-01-28 10:55] LABS: T4, Free (Free Thyroxine) 1.14 ng/dL (0.78-2.19)
[2018-01-28 11:39] LABS: Lithium 0.5 mmol/L
[2018-01-28 18:55] LABS: Hemoglobin A1C 5.4 % (4.0-6.0)
== END | disposition home or self-care (01) ==
LOC: LABWHC1 09:49
PROVIDERS: ATTEND Psychiatry & Neurology Psychiatry
DX: Z51.81 Encounter for therapeutic drug level monitoring (principal); Z79.899 Other long term (current) drug therapy
CPT/HCPCS: 36415; 80061; 80178; 82565; 82947; 83036; 84439; 84443; 84520

== ENCOUNTER 2018-05-17 17:12 | Inpatient (IN) | payer MEDICARE, MEDICAID ==
--- NOTE | 2018-05-17 17:53 | ED ---
General Adult HPI - General Chief complaint: Psychiatric Symptoms Stated complaint: Mental Health Time Seen by Provider: 05/17/18 17:26 Source: patient, RN notes reviewed Mode of arrival: ambulatory - History of Present Illness Initial comments: 47-year-old pleasant female presents to the emergency department for EPS evaluation. Patient states she was seen at [facility] earlier today and they recommended she be evaluated in the emergency department. Patient states she does have a history of bipolar disorder. She also states she has a history of schizophrenia but states she does not believe this is an accurate diagnosis. Patient states she is on medications but is unsure of what they are at this time. Patient speaks often in a disorganized manner and states that she is a whale living in the ocean. She also talks about [place] quite often. Patient denies suicidal thoughts or thoughts of harming herself. She does admit to thoughts of harming others, specifically her brother -in-law who she states is a "child of the devil." Patient has no other complaints at this time including fevers, shortness of breath, chest pain, abdominal pain, nausea or vomiting, headache, or visual changes. - Related Data Home Medications Medication Instructions Recorded Confirmed Aspirin EC [Ecotrin Low Dose] 81 mg PO DAILY 05/17/18 05/17/18 Brexpiprazole [Rexulti] 1 mg PO HS 05/17/18 05/17/18 Ibuprofen [Motrin] 800 mg PO Q6H 05/17/18 05/17/18 Hood Carbonate 600 mg PO HS 05/17/18 05/17/18 Venlafaxine HCl [Effexor XR] 75 mg PO DAILY 05/17/18 05/17/18 Venlafaxine HCl [Effexor XR] 150 mg PO DAILY 05/17/18 05/17/18 Previous Rx's Medication Instructions Recorded Docusate [Colace] 100 mg PO DAILY 30 Days #30 cap 01/08/18 Allergies Allergy/AdvReac Type Severity Reaction Status Date / Time codeine Allergy Unknown Verified 05/17/18 17:30 Review of Systems ROS Statement: Those systems with pertinent positive or pertinent negative responses have been documented in the HPI. ROS Other: All systems not noted in ROS Statement are negative. Past Medical History Past Medical History: GERD/Reflux History of Any Multi-Drug Resistant Organisms: None Reported Past Surgical History: Tubal Ligation Past Psychological History: Anxiety, Bipolar, Depression Smoking Status: Current every day smoker Past Alcohol Use History: None Reported Past Drug Use History: None Reported - Past Family History Family Family Medical History: Coronary Artery Disease (CAD) General Exam General appearance: alert (sitting on edge of bed, pleasant, cooperative, patients speech is often non-sensicle.), in no apparent distress Head exam: Present: atraumatic, normocephalic, normal inspection Eye exam: Present: normal appearance. Absent: scleral icterus, conjunctival injection ENT exam: Present: normal exam, mucous membranes moist Neck exam: Present: normal inspection, full ROM. Absent: tenderness, meningismus, lymphadenopathy Respiratory exam: Present: normal lung sounds bilaterally. Absent: respiratory distress, wheezes, rales, rhonchi, stridor Cardiovascular Exam: Present: regular rate, normal rhythm, normal heart sounds. Absent: systolic murmur, diastolic murmur, rubs, gallop, clicks Neurological exam: Present: alert, CN II-XII intact Psychiatric exam: Present: manic (patient is pleasant, cooperative, calm but speaks in a nonsensical manner). Absent: homicidal ideation, suicidal ideation Course Vital Signs 05/17/18 05/17/18 17:15 19:31 Temperature 97.9 F Pulse Rate 98 88 Respiratory 18 18 Rate Blood Pressure 138/59 122/62 O2 Sat by Pulse 100 99 Oximetry Medical Decision Making - Medical Decision Making 47-year-old female presents to the emergency department for EPS evaluation. Patient was started she should be seen in the emergency department by [facility]. Patient does have a history of bipolar disorder and schizophrenia. Patient speaking in a nonsensical manner. She is seeking about [place]. She is stating she is a white male in the ocean. Otherwise, patient is cooperative and pleasant. She denies suicidal or homicidal thoughts. She does admit to thoughts of hurting her [id number] as he is a "child of the devil." Patient was cleared medically for evaluation. EPS did evaluate and recommend admission due to patient's history, manic thoughts at this time, and past refusal to change medications. Dr Saucedo did fill out petition. - Lab Data Lab Results 05/17/18 05/17/18 Range/Units 18:47 18:47 Urine HCG, Qual Not Detected (Not Detectd) Urine Opiates Screen Not Detected (NotDetected) Ur Oxycodone Screen Not Detected (NotDetected) Urine Methadone Screen Not Detected (NotDetected) Ur Propoxyphene Screen Not Detected (NotDetected) Ur Barbiturates Screen Not Detected (NotDetected) U Tricyclic Antidepress Not Detected (NotDetected) Ur Phencyclidine Scrn Not Detected (NotDetected) Ur Amphetamines Screen Not Detected (NotDetected) U Methamphetamines Scrn Not Detected (NotDetected) U Benzodiazepines Scrn Not Detected (NotDetected) Urine Cocaine Screen Not Detected (NotDetected) U Marijuana (THC) Screen Detected H (NotDetected) Disposition Clinical Impression: Bipolar disorder Disposition: TRANSFER TO PSYCH HOSP/UNIT Condition: Good Is patient prescribed a controlled substance at d/c from ED?: No Referrals: Ofelia Aguilar MD [Primary Care Provider] - 1-2 days Time of Disposition: 20:02
[2018-05-17 19:13] LABS: Amphetamine Screen,Urine Not Detected (NotDetected); Barbiturate Screen,Urine Not Detected (NotDetected); Benzodiazepines Screen,Urine Not Detected (NotDetected); Cocaine Screen,Urine Not Detected (NotDetected); Methadone Screen, Urine Not Detected (NotDetected); Opiate Screen,Urine Not Detected (NotDetected); Oxycodone Screen, Urine Not Detected (NotDetected); Phencyclidine Screen,Urine Not Detected (NotDetected); Tricyclic Antidepressant,Urine Not Detected (NotDetected); Urn Cannabinoid Scrn Detected (NotDetected)
[2018-05-17] MEDS ORDERED: MAGNESIUM HYDROXIDE 2,400 MG/10 ML CUP PO PRN (20:21)
[2018-05-17] MEDS ORDERED: MAG HYDROX/AL HYDROX/SIMETH 30 ML CUP PO PRN (20:21)
[2018-05-17] MEDS ORDERED: REXULTI 1 MG PO SCH (21:00)
[2018-05-17] MEDS: IBUPROFEN 800 MG TAB PO SCH (21:10)
[2018-05-17] MEDS: LORazepam 1 MG TAB PO PRN (21:11)
[2018-05-18] MEDS: IBUPROFEN 800 MG TAB PO SCH ×4 (03:03→21:31)
[2018-05-18 08:26] LABS: Basophils # (A) 0.1 k/uL (0-0.2); Basophils % (A) 1 %; Eosinophils # (A) 0.5 k/uL (0-0.7); Eosinophils % (A) 5 %; HCT 48.2 % (34.0-46.0); HGB 16.1 gm/dL (11.4-16.0); Lymphocytes # (A) 2.7 k/uL (1.0-4.8); Lymphocytes % (A) 29 %; MCH 29.4 pg (25.0-35.0); MCHC 33.4 g/dL (31.0-37.0); Mean Platelet Volume 7.6; Monocytes # (A) 0.5 k/uL (0-1.0); Monocytes % (A) 5 %; Neutrophils # (A) 5.5 k/uL (1.3-7.7); Neutrophils % (A) 59 %; Platelet Count 251 k/uL (150-450); RBC 5.48 m/uL (3.80-5.40); RDW 12.8 % (11.5-15.5); WBC 9.3 k/uL (3.8-10.6)
[2018-05-18] MEDS: ASPIRIN 81 MG PO SCH (08:27)
[2018-05-18] MEDS: VENLAFAXINE HCL ER 150 MG CAP PO SCH (08:27)
[2018-05-18] MEDS: NICOTINE 14MG/24HR PATCH TRANSDERM SCH (08:27)
[2018-05-18 08:46] LABS: ALT 30 U/L (9-52); AST 24 U/L (14-36); Albumin 4.3 g/dL (3.5-5.0); Alkaline Phosphatase 61 U/L (38-126); Anion Gap 7 mmol/L; Bilirubin, Delta 0.3 mg/dL (0.0-0.2); Bilirubin,Unconjugated 0.4 mg/dL (0.0-1.1); Blood Urea Nitrogen 11 mg/dL (7-17); Calcium 10.3 mg/dL (8.4-10.2); Carbon Dioxide 28 mmol/L (22-30); Chloride 105 mmol/L (98-107); Cholesterol 258 mg/dL (<200); Glucose 101 mg/dL (74-99); HDL Cholesterol 57 mg/dL (40-60); LDL Cholesterol,Calculated 167 mg/dL (0-99); Potassium 4.4 mmol/L (3.5-5.1); Sodium 140 mmol/L (137-145); Total Bilirubin 0.7 mg/dL (0.2-1.3); Triglycerides 169 mg/dL (<150)
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
[2018-05-18] MEDS: ARIPiprazole 5 MG TAB PO SCH (09:36)
[2018-05-18 17:46] LABS: Hemoglobin A1C 5.4 % (4.0-6.0)
--- NOTE | 2018-05-18 18:32 | P.MDCNMH ---
History of Present Illness H&P Date: 05/18/18 Chief Complaint: Schizoaffective disorder Mrs. Koch is a 47-year-old female with a past medical history of bipolar disorder and she is or affective disorder, GERD admitted to the psych unit for exacerbation of her symptoms. We have been consulted for a medical H&P. Patient has past medical history of GERD and chronic low back pain. Reviewed her home medications- Colace, aspirin, Effexor, lithium carbonate, Motrin, Rexulti. Patient is currently in the psych unit. She states that she has chronic low back pain and Motrin helps her on and off with her low back pain. Other than that patient denies having any chest pain cough difficulty in breathing. No fevers chills or rigors. She complains of some sores in her feet. Patient denies having any abdominal pain nausea vomiting or diarrhea. No dysuria or hematuria. Review of Systems REVIEW OF SYSTEMS: NEURO:No c/o weakness of the extremties, No facial droop, No speech abnormalities. VASCULAR: Peripheral nervous system within the normal limits no edema HEMATOLOGIC: No history of easy bleeding and bruising . No recent infections . RESPIRATORY: No cough, No SOB, No chest discomfort. IMMUNE: No infections INTEGUMENT: no rashes OPHTHALMOLOGIC: No blurry vision and no eye discharge : No dysuria or hematuria CORPORATE DEVELOPMENT OFFICER: No bleeding PV CARDIAC: No chest pain , shortness of breath , paroxysmal nocturnal dyspnea MUSCULOSKELETAL : Chronic low back pain GI: No abdominal pain, Nausea or vomiting. No constipation or diarrhea. Past Medical History Past Medical History: GERD/Reflux History of Any Multi-Drug Resistant Organisms: None Reported Past Surgical History: Tubal Ligation Smoking Status: Current every day smoker - Past Family History Family Family Medical History: Coronary Artery Disease (CAD) Medications and Allergies Home Medications Medication Instructions Recorded Confirmed Type Docusate [Colace] 100 mg PO DAILY 30 Days #30 cap 01/08/18 05/18/18 Rx Aspirin EC [Ecotrin Low Dose] 81 mg PO DAILY 05/17/18 05/18/18 History Brexpiprazole [Rexulti] 1 mg PO HS 05/17/18 05/18/18 History Ibuprofen [Motrin] 800 mg PO Q6H 05/17/18 05/18/18 History [place] Carbonate 600 mg PO HS 05/17/18 05/18/18 History Venlafaxine HCl [Effexor XR] 75 mg PO DAILY 05/17/18 05/18/18 History Venlafaxine HCl [Effexor XR] 150 mg PO DAILY 05/17/18 05/18/18 History Allergies Allergy/AdvReac Type Severity Reaction Status Date / Time codeine Allergy Unknown Verified 05/18/18 01:37 Physical Exam Vitals: Vital Signs Temp Pulse Pulse Resp BP BP Pulse Ox 05/18/18 06:42 98.0 F 84 14 104/60 05/17/18 21:10 97.1 F L 83 148/97 05/17/18 20:28 97.4 F L 85 18 145/81 100 05/17/18 19:31 88 18 122/62 99 - Constitutional General appearance: average body habitus - EENT Eyes: PERRLA ENT: normal oropharynx - Neck Neck: normal ROM - Respiratory Bilateral breath sounds positive no wheezes - Cardiovascular S1 S2 heardnot sounds Heart sounds: normal: S1, S2 - Gastrointestinal Normal bowel sounds no organomegaly - Genitourinary Not done - Integumentary Integumentary: calor - Neurologic Neurologic: CNII-XII intact - Musculoskeletal Musculoskeletal: gait normal - Psychiatric Psychiatric: A&O x's 3 Cranial Nerve Examination - Cranial Nerves Cranial Nerve II- Optic: Intact Cranial Nerve III- Oculomotor: Intact Cranial Nerve IV- Trochlear: Intact Cranial Nerve V- Trigeminal: Intact Cranial Nerve - Abducens: Intact Cranial Nerve VII- Facial: Intact Cranial Nerve VIII- Auditory: Intact Cranial Nerve IX- Glossopharyngeal: Intact Cranial Nerve X- Vagus: Intact Cranial Nerve XI- Accessory: Intact Cranial Nerve XII- Hypoglossal: Intact Results CBC & Chem 7: 05/18/18 08:02 05/18/18 08:02 Labs: Abnormal Lab Results - Last 24 Hours (Table) 05/17/18 05/18/18 05/18/18 Range/Units 18:47 08:02 08:02 RBC 5.48 H (3.80-5.40) m/uL Hgb 16.1 H (11.4-16.0) gm/dL Hct 48.2 H (34.0-46.0) % Glucose 101 H (74-99) mg/dL Calcium 10.3 H (8.4-10.2) mg/dL Delta Bilirubin 0.3 H (0.0-0.2) mg/dL Triglycerides 169 H (<150) mg/dL Cholesterol 258 H (<200) mg/dL LDL Cholesterol, Calc 167 H (0-99) mg/dL U Marijuana (THC) Screen Detected H (NotDetected) Assessment and Plan Assessment: ASSESSMENT Schizoeffective disorder GERD Chronic low back pain Mild polycythemia Mild hypercalcemia Hypercholesterolemia Urine positive for marijuana Plan: Management of her acute issues by psych team. Motrin when necessary for her low chronic back pain. Eucerin for had bilateral dry feet. Repeat CBC and BMP for tomorrow morning. We will follow the patient on when necessary basis.
[2018-05-18] MEDS: MINERAL OIL-WHITE PETROLATUM 120 GM JAR TOPICAL SCH (21:31)
[2018-05-19] MEDS: IBUPROFEN 800 MG TAB PO SCH ×5 (04:31→20:31)
[2018-05-19] MEDS ORDERED: WATER FOR INJECTION, STERILE 10 ML IV ONE (06:26)
[2018-05-19] MEDS: ZIPRASIDONE 20 MG VIAL IM PRN (06:34)
[2018-05-19] MEDS: NICOTINE 14MG/24HR PATCH TRANSDERM SCH (08:58)
[2018-05-19] MEDS: ARIPiprazole 5 MG TAB PO SCH (09:00)
[2018-05-19] MEDS: VENLAFAXINE HCL ER 150 MG CAP PO SCH (09:00)
[2018-05-19] MEDS: ASPIRIN 81 MG PO SCH (09:00)
[2018-05-19] MEDS: MINERAL OIL-WHITE PETROLATUM 120 GM JAR TOPICAL SCH ×2 (09:00→20:32)
--- NOTE | 2018-05-19 12:51 | P.PN ---
Progress Note - Text Progress Note Date: 05/19/18 Interval History: Patient is a 47-year-old female who was seen today and she reports that she wasn't able to sleep last night. She states that the aneeshy father is working through her. She also reports that she continues to have auditory hallucinations they are her family's voices. Patient stated that she was afraid of another patient and then made the comment that her kidneys were fine. Patient denies any suicidal or homicidal ideation. Mental Status: Appearance/Attitude: Patient is casually dressed, makes intermittent eye contact and was cooperative Behavior: Patient does not exhibit any psychomotor agitation or retardation. Speech/Language: Agents speech is spontaneous of normal volume and rhythm and she is coherent Thought Process: Patient at times is goal-directed at other times her responses are irrelevant with evidence of loose associations Thought Content: Patient reports hearing voices that are her family, no visual hallucinations and patient continues to feel that the aneeshy father is working through her, she states that she was frightened of one of the other patients was yelling at her. During our interview she stopped and asked the aneeshy father if it was okay to continue taking her medication. Patient did not sleep last night Suicidal/Homicidal Ideation: Patient denies any current suicidal or homicidal ideation Sensorium/Cognition: Patient alert and oriented to person, place, and time Mood/Affect: Patient's mood is distressed and her affect is blunted Insight/Judgment: Patient's insight and judgment are fair Assessment: Patient continues to express delusional ideation, evidence of loose associations today and continues to have auditory hallucinations. Patient did not sleep at all last evening denies any current suicidal or homicidal ideation. She was frightened about another patient, she states that she's been trying to attend groups but today was too tired. Plan: Will increase patient's Abilify to 10 mg beginning tomorrow morning and continue to taper her Effexor but currently at 150 mg extended release in the morning. Will add melatonin 3 mg at bedtime to target her sleep. Patient continues to require hospitalization to target her mood and psychotic symptoms.
[2018-05-19 13:44] LABS: Appearance,Urine Clear (Clear); Bacteria,Urine Rare /hpf; Bilirubin,Urine Negative (Negative); Blood,Urine Small (Negative); Color,Urine Yellow; Glucose,Urine (UA) Negative (Negative); Hyaline Casts,Urine 4 /lpf (0-2); Ketones,Urine Negative (Negative); Leukocyte Esterase,Urine Negative (Negative); Mucus,Urine Occasional /hpf; Nitrite,Urine Negative (Negative); PH, Urine 5.5 (5.0-8.0); Protein,Urine Trace (Negative); RBC,Urine 4 /hpf (0-5); Specific Gravity,Urine 1.018 (1.001-1.035); Squamous Epithelial Cell,Urine 1 /hpf (0-4); Urobilinogen,Urine <2.0 mg/dL (<2.0); WBC,Urine 5 /hpf (0-5)
[2018-05-19] MEDS: MELATONIN 3 MG TABLET PO SCH ×2 (23:38→23:39)
[2018-05-20] MEDS ORDERED: VENLAFAXINE HCL ER 75 MG CAP PO SCH (09:00)
[2018-05-20] MEDS: MINERAL OIL-WHITE PETROLATUM 120 GM JAR TOPICAL SCH ×2 (09:52→21:11)
[2018-05-20] MEDS: ASPIRIN 81 MG PO SCH (09:52)
[2018-05-20] MEDS: ARIPiprazole 10 MG TAB PO SCH (09:53)
[2018-05-20] MEDS: IBUPROFEN 800 MG TAB PO SCH ×4 (09:54→21:10)
[2018-05-20] MEDS: NICOTINE 14MG/24HR PATCH TRANSDERM SCH (09:54)
--- NOTE | 2018-05-20 12:37 | P.PN ---
Progress Note - Text Progress Note Date: 05/20/18 Interval History: Patient is a 47-year-old female who was seen today and she states that she refused her medication because the heavenly father was telling her to not take the medication. She states that the Holy Ghost is in her and that her wings are flapping. 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 Patient states that she has been refusing her medication and will pray about whether she should take it or not. Patient states she doesn't think that she needs the medication because she's been told this by the heavenly father. Mental Status: Appearance/Attitude: Patient is casually dressed, makes good eye contact and was cooperative Behavior: Patient did not exhibit any psychomotor agitation or retardation but was praying during the interview Speech/Language: Patient speech is of normal volume and rhythm and she is coherent Thought Process: Patient's responses at times are goal-directed at other times they're irrelevant and delusional Thought Content: Patient states that she hears hegregy father talking to her, she states that she sees angels and continues to state that she is a whale and was up working in the [place] last evening. Patient states that she is refusing medications because the heavenly father has told her to do so and during the interview the patient was praying to the heavenly father asking him she should take medications if she should trust me. Patient slept 2 hours last night. Suicidal/Homicidal Ideation: Patient denies suicidal or homicidal ideation at this time Sensorium/Cognition: Patient is alert and oriented to person, place, and time Mood/Affect: Patient's mood is bland and her affect is blunted Insight/Judgment: Patient's insight and judgment are impaired Assessment: Patient today refused her medication because she states that the heavenly father is telling her to not take the medication, does not trust me. Patient continues to report that she is a whale, and states that she was up all night swimming in the [place]. Patient states that she will pray to see if she should trust me and if the heavenly father will tell her to take her medication. Patient slept about 2 hours last night. Plan: Patient is refused her medications today, her Effexor was decreased to 75 mg extended release if she does not take the Effexor over the next 3 days will eventually discontinue it. We will continue the Abilify 10 mg daily and encourage the patient to take her medications. The patient's deferral hearing is scheduled for Sunday. Patient continues to require hospitalization to stabilize her psychotic symptoms.
[2018-05-20] MEDS: MELATONIN 3 MG TABLET PO SCH (21:11)
[2018-05-21] MEDS: ASPIRIN 81 MG PO SCH (09:19)
[2018-05-21] MEDS: IBUPROFEN 800 MG TAB PO SCH ×4 (09:19→20:36)
[2018-05-21] MEDS: MINERAL OIL-WHITE PETROLATUM 120 GM JAR TOPICAL SCH ×3 (09:23→20:37)
[2018-05-21] MEDS: ARIPiprazole 10 MG TAB PO SCH (09:23)
[2018-05-21] MEDS: NICOTINE 14MG/24HR PATCH TRANSDERM SCH (09:23)
--- NOTE | 2018-05-21 14:40 | P.PN ---
Progress Note - Text Progress Note Date: 05/21/18 Interval History: Patient is a 47-year-old female seen today and she states that she is not going to take her Abilify because the chucking machine set up operator tool has been watching. She stated that she is in [place] and the [facility] and doesn't need the medication. She again stated that she was a whale and doesn't trust them believe in trouble. She stated that she doesn't trust me and stated that I had sex with a greenhouse assistant, the one that has been watching her on camera. Patient stated that she only needs marijuana and tobacco smoke as her medication. Mental Status: Appearance/Attitude: Patient is casually dressed, makes intermittent eye contact and is cooperative Behavior: Patient does not exhibit any psychomotor agitation or retardation, patient was noted to be praying during the interview, stating krystal andrade can I trust her Speech/Language: Patient's speech is of normal volume and rhythm and she is coherent Thought Process: Patient at times is goal-directed at other times her responses are irrelevant to the question there is evidence of loose associations Thought Content: Patient is responding to internal stimuli, states that krystal andrade is talking to her, states that she does see things. Patient stated again that she was a whale, stated that she couldn't trust me that she thought I had sex with a greenhouse assistant who is watching her on camera. She then went on to discuss the chucking machine set up operator tool has been watching her that she is in [place] in the [facility], she declines medication stating she only needs marijuana and tobacco smoke. Patient states that she is eating and sleeping. Suicidal/Homicidal Ideation: Patient denied any current suicidal or homicidal ideation Sensorium/Cognition: She is alert and oriented to person, place, and time Mood/Affect: Patient's mood is restricted and her affect is blunted Insight/Judgment: Patient's insight and judgment are impaired Assessment: Patient continues to express delusional ideation, refusing medication stating that she can't trust me, stating that she only needs tobacco smoke and marijuana. Patient has not been attending groups or activities, slept for 6 hours last night. Patient states that she will continue to refuse medication until she meets with the chucking machine set up operator tool who knows her. Plan: Patient will continue to be offered Abilify 10 mg daily, her Effexor is been discontinued. Patient is also being given melatonin 3 mg at bedtime to target her sleep. Patient declined a deferral and her hearing will be SundayMay 29. Patient continues to require hospitalization to stabilize her psychotic symptoms.
[2018-05-21] MEDS: MELATONIN 3 MG TABLET PO SCH (20:37)
[2018-05-22] MEDS ORDERED: ZIPRASIDONE 20 MG VIAL IM ONE (00:11)
[2018-05-22] MEDS: MELATONIN 3 MG TABLET PO SCH ×2 (00:11→22:22)
[2018-05-22] MEDS ORDERED: WATER FOR INJECTION, STERILE 10 ML IV ONE (00:11)
[2018-05-22] MEDS: ZIPRASIDONE 20 MG VIAL IM PRN ×2 (00:14→18:53)
[2018-05-22] MEDS: LORazepam 2 MG/ML INJ IM PRN ×2 (00:14→18:53)
[2018-05-22] MEDS: NICOTINE 14MG/24HR PATCH TRANSDERM SCH (09:02)
[2018-05-22] MEDS: IBUPROFEN 800 MG TAB PO SCH ×4 (09:03→20:19)
[2018-05-22] MEDS: ASPIRIN 81 MG PO SCH (09:03)
[2018-05-22] MEDS: ARIPiprazole 10 MG TAB PO SCH (09:03)
[2018-05-22] MEDS: MINERAL OIL-WHITE PETROLATUM 120 GM JAR TOPICAL SCH ×2 (09:03→20:22)
--- NOTE | 2018-05-22 13:53 | P.PN ---
Progress Note - Text Progress Note Date: 05/22/18 Interval History: Patient is a 47-year-old female who was seen today and she was noticed in the hallway walking with her arms up in the air, she later told me she was Reji. Patient in the office told me that she did take her medicine this morning, she states that the beverage inspection machine tender told me to take it, I'm going to be president. She stated then that she is a whale at the [employer], the eagles or dancing and are upset that she is on Abilify. She then made the statement that "Manjeet's are not in the [facility]". She supposed to not be sleeping at night she stated because the whale needs to bless the [employer], needs to find the evil whale. Mental Status: Appearance/Attitude: Patient is dressed in a hospital gown, makes intermittent eye contact, cooperative Behavior: Patient does not display any psychomotor agitation or retardation although she is noticed to be talking to herself during the interview. Speech/Language: Patient's speech is of normal volume and rhythm and she is coherent however at times is not relevant Thought Process: Patient's responses are nonsensical, not relevant to the questions and exhibited loose associations Thought Content: Patient is responding to internal stimuli, she was talking to herself during the interview, she states that she is talking to see if I am to be trusted. Patient continues to report multiple delusional thoughts regarding being a whale, going to the [place] or [employer], that she is going to be president. Patient stated her name was Jennifer Tracey. Suicidal/Homicidal Ideation: Patient denies any current suicidal or homicidal ideation Sensorium/Cognition: Patient is alert and oriented to person, place, and time Mood/Affect: Patient's mood remains bland and blunted Insight/Judgment: Patient's insight and judgment are poor Assessment: Patient did take her Abilify this morning but during our interview continued to verbalize multiple delusional thoughts regarding being a whale, being the president going to the [employer] some of which are nonsensical and exhibit loose associations. Patient continues to report that she doesn't trust me doesn't trust that she should be taking the medications, stating that the eagles are upset that she is on Abilify. Patient was noticed in the hallway walking with her arms up in the air bent at the elbow and stated she was Reji. Patient is not attending groups or activities. Plan: patient will continue on Abilify 10 mg and continue to be encouraged to take each day, her Effexor has been discontinued. Patient's hearing is scheduled for Sunday, May 29. Patient continues to require hospitalization to target her psychotic symptoms.
[2018-05-22] MEDS: LORazepam 1 MG TAB PO PRN (16:17)
[2018-05-23] MEDS: ACETAMINOPHEN TAB 325 MG TAB PO PRN (04:35)
[2018-05-23] MEDS: NICOTINE 14MG/24HR PATCH TRANSDERM SCH (08:05)
[2018-05-23] MEDS: ASPIRIN 81 MG PO SCH (08:05)
[2018-05-23] MEDS: IBUPROFEN 800 MG TAB PO SCH ×4 (08:05→21:06)
[2018-05-23] MEDS: ARIPiprazole 10 MG TAB PO SCH (08:05)
[2018-05-23] MEDS: LORazepam 1 MG TAB PO PRN ×2 (08:06→17:50)
[2018-05-23] MEDS: MINERAL OIL-WHITE PETROLATUM 120 GM JAR TOPICAL SCH ×2 (08:48→21:05)
[2018-05-23] MEDS ORDERED: ARIPiprazole 5 MG TAB PO STA (11:35)
--- NOTE | 2018-05-23 12:24 | P.PN ---
Progress Note - Text Progress Note Date: 05/23/18 Interval History: Patient is a 47-year-old female who was seen today and she reports that the Azerbaijani on the unit told her to bury her bracelet. She states that this will help us to have not no. Patient states that she didn't sleep last night at all. Patient states that she wants to be discharged home because she is doing fine. Patient reports no side effects from the medication. Mental Status: Appearance/Attitude: Patient is casually dressed, makes eye contact and was cooperative Behavior: Patient did not exhibit any psychomotor agitation or retardation Speech/Language: Patient's speech is of normal volume and rhythm, she is not pressured and she is coherent however at times not relevant Thought Process: Patient's responses at times or not relevant with evidence of loose associations Thought Content: Patient is responding to internal stimuli, she stated today that the member of the legislative council was talking to her and that she was responding to him, during the interview she was whispering. Patient states that she does see things but could not describe it to me. She requested that she wanted to leave the hospital because she felt better. She told me that the member of the legislative council is an alcoholic and wants her to leave as well. Patient also stated that the Azerbaijani on the unit wanted her to bury her bracelet so there would be no snow. Patient has not been sleeping at night and her appetite is been fair. Suicidal/Homicidal Ideation: Patient denied any current suicidal or homicidal ideation Sensorium/Cognition: Patient is alert and oriented to person, place and time Mood/Affect: Patient's mood remains irritable at times her affect is blunted Insight/Judgment: Patient's insight and judgment are poor Assessment: Patient today requested she wanted to leave the hospital, she has been compliant with her medication last several days she required IM Geodon and Ativan last night for agitated behavior. She also received oral Ativan this morning because she was becoming increasingly agitated loudly singing on the unit. Patient continues to exhibit loose association and delusional ideation and is responding to internal stimuli. Patient does not report any side effects from the medication. Patient is not able to attend groups or activities but did shower this morning. Plan: Will increase the patient's Abilify to 15 mg daily, I encouraged the patient to continue taking her medications and discussed with her that her court date was next May 29. Patient continues to require hospitalization to target her psychotic symptoms.
[2018-05-23] MEDS: MELATONIN 3 MG TABLET PO SCH (21:05)
[2018-05-23] MEDS: LORazepam 2 MG/ML INJ IM PRN (23:56)
[2018-05-23] MEDS: ZIPRASIDONE 20 MG VIAL IM PRN (23:57)
[2018-05-24] MEDS: ASPIRIN 81 MG PO SCH (08:56)
[2018-05-24] MEDS: IBUPROFEN 800 MG TAB PO SCH ×4 (08:56→20:16)
[2018-05-24] MEDS: ARIPiprazole 15 MG TAB PO SCH (08:57)
[2018-05-24] MEDS: NICOTINE 14MG/24HR PATCH TRANSDERM SCH (09:23)
[2018-05-24] MEDS: MINERAL OIL-WHITE PETROLATUM 120 GM JAR TOPICAL SCH ×2 (09:23→21:51)
--- NOTE | 2018-05-24 15:57 | P.PN ---
Progress Note - Text Progress Note Date: 05/24/18 Interval History: Patient is a 47-year-old female who is dressed in a hospital gown and states that she got upset last night because she wants a cigarette and the patch welsh and the gum is no good either. She states that she is being tested by the Holy Ghost and the krystal father because Ebony is here with Russ at the [place]. Patient states that she still a whale and can't speak well and alien. She states that she walks with the krystal father and then began talking to herself. Patient became quite tearful during the interview stating that [place] is going to flood and her friends surgery has been delayed. Mental Status: Appearance/Attitude: Patient is dressed in a hospital gown, makes intermittent eye contact and was cooperative. Behavior: Patient does not exhibit any psychomotor retardation or agitation but became quite tearful during the interview and she began discussing a friend and her upcoming surgery. Speech/Language: Patient's speech is of normal volume and rhythm and she is coherent Thought Process: Patient's thought processes exhibit loose association Thought Content: Patient is responding to auditory stimuli stating that the krystal father is speaking to her, patient begins talking to herself during the interview, patient is having visual hallucinations which she cannot describe and patient continues to exhibit delusional ideation that she is a whale, that she is talking alien and whale, that her dog was talking to her as well as oriental orthodox preoccupation. Patient slept 6 hours last night and states that her appetite is good. Suicidal/Homicidal Ideation: Patient denies any suicidal or homicidal ideation at this time Sensorium/Cognition: Patient is alert and oriented to person, place and time Mood/Affect: Patient's mood is labile, she was calm during the interview and then began sobbing and became quite upset and then return to being calm her affect is appropriate to her mood Insight/Judgment: Patient's insight and judgment are limited Assessment: Patient continues to exhibit loose association, delusional ideation and auditory hallucinations. Patient required injectable Geodon and Ativan last night because she became quite agitated and upset patient states it was because she wanted a cigarette and declines using a patch because it welsh and gum because it doesn't work. Patient is not attending groups or activities, she has been caring for her personal hygiene. Patient slept 6 hours last night and is eating. Plan: Patient's Abilify was increased yesterday to 15 mg daily and will continue to titrate the dose to 20 mg. Patient is also receiving melatonin 3 mg at bedtime. Patient has been taking her medications and has a court hearing on Sunday, May 29. Patient continues to require hospitalization to further target her psychotic symptoms.
[2018-05-24] MEDS: MELATONIN 3 MG TABLET PO SCH (20:16)
[2018-05-25] MEDS: LORazepam 1 MG TAB PO PRN (00:55)
[2018-05-25] MEDS: IBUPROFEN 800 MG TAB PO SCH ×4 (08:44→21:47)
[2018-05-25] MEDS: ASPIRIN 81 MG PO SCH (08:44)
[2018-05-25] MEDS: NICOTINE 14MG/24HR PATCH TRANSDERM SCH (08:45)
[2018-05-25] MEDS: MINERAL OIL-WHITE PETROLATUM 120 GM JAR TOPICAL SCH ×2 (08:45→21:47)
[2018-05-25] MEDS: ARIPiprazole 15 MG TAB PO SCH (08:45)
[2018-05-25] MEDS: ACETAMINOPHEN TAB 325 MG TAB PO PRN (12:11)
--- NOTE | 2018-05-25 19:21 | P.PN ---
Progress Note - Text Progress Note Date: 05/25/18 IDENTIFICATION DATA: 47-year-old female with history of Schizoaffective disorder was referred to the emergency room by [facility] due to not taking care of self and being delusional. INTERVAL HISTORY : She is still delusional and states she has satan inside her. She reports hearing voices telling her good things and bad things. She claims to have not slept well over the past one month but [facility]. She is delusional about Christopher the sindy coming. MENTAL STATUS EXAMINATION: Patient is 47 year old woman, dressed in hospital gown. She appears in fair grooming and hygiene. She maintains good eye contact. No abnormal movements noted. Her speech and thought process are disorganized and illogical. Her mood is labile, became tearful during the interview. She is delusional and reports hearing voices. She reports being referred to the hospital by her therapist. She is alert and oriented X 4. Her insight and judgment are poor. ASSESSMENT AND PLAN: Continue her current treatment Encourage participation in groups Monitor symptoms Continue safety precautions
[2018-05-25] MEDS ORDERED: WATER FOR INJECTION, STERILE 10 ML IV ONE (21:10)
[2018-05-25] MEDS ORDERED: ZIPRASIDONE 20 MG VIAL IM ONE (21:10)
[2018-05-25] MEDS: LORazepam 2 MG/ML INJ IM PRN (21:22)
[2018-05-25] MEDS: ZIPRASIDONE 20 MG VIAL IM PRN (21:22)
[2018-05-25] MEDS: MELATONIN 3 MG TABLET PO SCH (21:47)
[2018-05-26] MEDS: IBUPROFEN 800 MG TAB PO SCH ×4 (08:38→20:43)
[2018-05-26] MEDS: ASPIRIN 81 MG PO SCH (08:38)
[2018-05-26] MEDS: ARIPiprazole 15 MG TAB PO SCH (08:38)
[2018-05-26] MEDS: MINERAL OIL-WHITE PETROLATUM 120 GM JAR TOPICAL SCH ×2 (08:39→20:43)
[2018-05-26] MEDS: NICOTINE 14MG/24HR PATCH TRANSDERM SCH (09:38)
--- NOTE | 2018-05-26 12:01 | P.PN ---
Progress Note - Text Progress Note Date: 05/26/18 IDENTIFYING INFORMATION 47-year-old female with history of Schizoaffective disorder was [facility] due to not taking care of self and being delusional. INTERVAL HISTORY : She has received geodon IM last night due to being delusional responding to internal stimuli and going into other patients rooms. She is still delusional and states she her dinosaur is going to be [place] and will be brought to [place]. She is paranoid that hospital staff are forbidding her family members to come and visit her. She states [facility] and will change the diet plan for every one. She claims she is 14 million years old and states she doesnt go the groups but blesses the groups. She was seen walking it the hallways drawing lines in the air. MENTAL STATUS EXAMINATION: Patient is 47 year old woman, dressed in hospital gown. She appears in fair grooming and hygiene. She maintains good eye contact. No abnormal movements noted. Her speech and thought process are disorganized and illogical. Her mood is elated and affect flat. She is delusional and reports hearing voices. She is alert and oriented X 4. Her insight and judgment are poor. ASSESSMENT AND PLAN: Will increase the dose of abilify to 20mg po qday Encourage participation in groups Monitor symptoms Continue safety precautions
[2018-05-26] MEDS ORDERED: ZIPRASIDONE 20 MG VIAL IM ONE (15:29)
[2018-05-26] MEDS ORDERED: WATER FOR INJECTION, STERILE 10 ML IV ONE (15:30)
[2018-05-26] MEDS: ZIPRASIDONE 20 MG VIAL IM PRN (15:32)
[2018-05-26] MEDS: LORazepam 2 MG/ML INJ IM PRN (15:33)
[2018-05-26] MEDS: MELATONIN 3 MG TABLET PO SCH (20:43)
[2018-05-27] MEDS: ACETAMINOPHEN TAB 325 MG TAB PO PRN ×2 (02:41→09:31)
[2018-05-27] MEDS: ASPIRIN 81 MG PO SCH (09:29)
[2018-05-27] MEDS: IBUPROFEN 800 MG TAB PO SCH ×5 (09:29→21:37)
[2018-05-27] MEDS: NICOTINE 14MG/24HR PATCH TRANSDERM SCH (09:32)
[2018-05-27] MEDS: MINERAL OIL-WHITE PETROLATUM 120 GM JAR TOPICAL SCH ×2 (09:34→21:29)
--- NOTE | 2018-05-27 17:12 | P.PN ---
Progress Note - Text Progress Note Date: 05/27/18 Clinical Problems: Schizoaffective disorder bipolar type Interim history: I reviewed the medical record and attempted to interview the patient. She would not come into my office for interview but spoke to me at a table in the hallway. She denied problems or concerns. She voluntarily expressed unusual beliefs such as she is , she has a appointment at the [facility] and that she is in conference with her toppiece cutter (she pointed to an empty chair at the table). She has been compliant with her current medication Abilify 20 mg daily. Mental status exam: She presented as a casually dressed and groomed 47-year-old female who was guarded and suspicious. She made eye contact and appeared to attend to the interview. She had no prominent physical modalities. She had a blunted facial expression. She showed psychomotor retardation but no abnormal movements. Her speech was spontaneous with normal rate, rhythm and volume. She had no articulation difficulty. Affect was guarded, suspicious and at times intense and appropriate. She did not express suicidal ideation or wishes. She's she denied homicidal ideation. She did not express such depressive cognitions as hopelessness, helplessness or worthlessness. She described ideas reference, paranoid ideation and multiple delusional beliefs. His thinking was concrete and associations were not coherent, logical and goal directed. She appeared to be responding to internal stimuli and described auditory and visual hallucinations. Assessment: She is chronically and severely mentally ill and experiencing acute psychotic symptoms. Plan: Continue inpatient psychiatric hospitalization. Continue safety precautions. She has a probate hearing for involuntary hospitalization scheduled for 05/29/2018. Continue Abilify 20 mg daily and consider transitioning to Abilify Maintenna after the court hearing. Continue Geodon 20 mg IM twice a day when necessary for agitation and lorazepam 1 mg 3 times a day by mouth when necessary and 1 mg IM every 8 hours when necessary for agitation or anxiety. Encourage participation in therapeutic groups and activities as tolerated. Evaluate clinical status response to treatment daily basis.
[2018-05-27] MEDS: MELATONIN 3 MG TABLET PO SCH ×2 (21:28→21:37)
[2018-05-28] MEDS: ACETAMINOPHEN TAB 325 MG TAB PO PRN ×2 (06:28→16:28)
[2018-05-28] MEDS: ASPIRIN 81 MG PO SCH (09:04)
[2018-05-28] MEDS: NICOTINE 14MG/24HR PATCH TRANSDERM SCH (09:05)
[2018-05-28] MEDS: MINERAL OIL-WHITE PETROLATUM 120 GM JAR TOPICAL SCH ×2 (09:05→20:29)
[2018-05-28] MEDS: IBUPROFEN 800 MG TAB PO SCH ×4 (09:05→20:29)
--- NOTE | 2018-05-28 15:51 | P.PN ---
Progress Note - Text Progress Note Date: 05/28/18 Clinical Problems: Schizoaffective disorder bipolar type, poor compliance with psychiatric medications Interim history: I reviewed the medical records, attempted to interview the patient and discuss her treatment and treatment plan during team meeting. She refused to come into my office for the interview and would not sit down to speak with me and a public area. In the morning she told me that she is leaving. When I asked her where she is going she replied "that's none of your business." After treatment team I asked her why she refused taking her medications today. She gave an incoherent response and walked away. Mental status exam: She presented as a casually groomed 47-year-old female who was bizarre and irritable. She had no prominent physical abnormalities. She had an angry facial expression. She was intermittently restless. Her speech was not spontaneous but had normal volume. Her affect was labile, intense and appropriate. She expressed paranoid ideation. Her associations were grossly disorganized and her speech was at times incoherent. She did not appear to be responding to internal stimuli. Assessment: She remains severely mentally ill and mentally improve from admission. She is again refusing to take Abilify 20 mg daily. Plan: Continue inpatient psychiatric hospitalization. Continue safety precautions. Continue Abilify 20 mg daily and encourage compliance. Probate hearing for involuntary hospitalization and treatment scheduled for 05/29/2018. Begin Abilify Maintenna after we obtain an involuntary treatment order. Continue with when necessary Geodon and Ativan for agitation or aggressive behavior. Evaluate clinical status response to treatment on a daily basis.
[2018-05-28] MEDS: MELATONIN 3 MG TABLET PO SCH (20:29)
[2018-05-29] MEDS: ACETAMINOPHEN TAB 325 MG TAB PO PRN ×2 (00:05→04:21)
[2018-05-29] MEDS: IBUPROFEN 800 MG TAB PO SCH ×4 (09:41→21:20)
[2018-05-29] MEDS: ASPIRIN 81 MG PO SCH (09:41)
[2018-05-29] MEDS: MINERAL OIL-WHITE PETROLATUM 120 GM JAR TOPICAL SCH ×2 (09:42→21:20)
[2018-05-29] MEDS: NICOTINE 14MG/24HR PATCH TRANSDERM SCH (09:44)
--- NOTE | 2018-05-29 15:41 | P.PN ---
Progress Note - Text Progress Note Date: 05/29/18 Clinical Problems: Schizoaffective disorder bipolar type, poor compliance with psychotropic medications Interim history: I reviewed the medical record, interviewed the patient and discussed her treatment and treatment plan during team meeting. Her probate hearing was postponed until 05/31/2018. When I told her that the hearing was postponed she replied "no. the prepared foods associate told me I can go. ... My grandmother is here and if you prescribed her psychotropic medications I am going to kill you." She pointed to an another patient and stated "she is my grandmother." (The other patient is not related to her). She refused Abilify again this morning. She stated that she will not take and "does not need psychiatric medications." Mental status exam: She presented as a casually groomed 47-year-old female who was wearing a hospital gown. She made eye contact but did not appear to attend to the interview. She was restless but not agitated or aggressive. Her speech was spontaneous and the rate and volume is consistent with her affect. Her affect was labile. Her thinking was disorganized and she expressed paranoid and delusional beliefs. Her thinking was concrete and grossly disorganized. She did not appear to be responding to internal stimuli. Assessment: She remains seriously mentally ill and refusing psychotropic medications. Her probate hearing for involuntary treatment was rescheduled for 05/31/2018. Considering her lack of insight, level psychosis and: Poor compliance with psychiatric medications she will need treatment with long acting injectable antipsychotic medications. Consider haloperidol since it is available as a pill and as a short acting and long acting (decanoate) preparation. Plan: Continue inpatient hospitalization. Continue safety precautions. Begin oral or intramuscular haloperidol after receive the involuntary treatment order then transition to Haldol Decanoate. Continue ziprasidone 20 mg IM twice a day for severe agitation or aggression. Continue Ativan 1 mg by mouth/IM when necessary for anxiety or agitation. Encourage participation in therapeutic groups and activities as tolerated and appropriate. Evaluate clinical status response to treatment on a daily basis.
[2018-05-29] MEDS: MELATONIN 3 MG TABLET PO SCH (21:20)
[2018-05-30] MEDS: ASPIRIN 81 MG PO SCH (09:30)
[2018-05-30] MEDS: IBUPROFEN 800 MG TAB PO SCH ×4 (09:31→22:14)
[2018-05-30] MEDS: MINERAL OIL-WHITE PETROLATUM 120 GM JAR TOPICAL SCH ×2 (09:32→22:14)
[2018-05-30] MEDS: NICOTINE 14MG/24HR PATCH TRANSDERM SCH (09:32)
--- NOTE | 2018-05-30 14:53 | P.PN ---
Progress Note - Text Progress Note Date: 05/30/18 Clinical Problems: Schizoaffective disorder bipolar type, poor compliance with psychotropic medications Interim history: I reviewed the medical record, attempted to interview the patient and discuss her treatment and treatment plan during team meeting. The patient was not cooperative with the interview. When I approached her she said "I don't want to talk to you, I don't like to, I don't trust you. ... You tried to medicate my grandmother. You gave my son a shot. He is the holiest one here. He is the holiest." She continues to refuse to take psychotropic medication. She does not participate in therapeutic groups and activities. She slept 6 hours last night. She is not received when necessary medications for agitation or aggression over the last 24 hours. Mental status exam: She presented as a restless and irritable 47-year-old female. She did not make eye contact and would not cooperate with an interview. She had a angry facial expression. She was restless and pacing the hallways. Her speech was spontaneous and consistent with her mood. Her her affect was irritable. She was paranoid and expressed fragmented delusional beliefs. Her thinking was concrete and associations were incoherent, illogical and disorganized. She did not appear to be responding to internal stimuli. Assessment: She remains severely mentally ill and noncompliant with psychiatric treatment. We will need a court order to involuntarily administer antipsychotic medications. Plan: Continue inpatient psychiatric hospitalization. Probate hearing is scheduled for 05/31/2018. I completed the second clinical certificate and the school secretary faxed the document to probate court. Begin Haldol 5 mg by mouth or IM (if she refused the by mouth medication) after receive the involuntary treatment order and transition to Haldol Decanoate. Continue safety precautions. Evaluate clinical status response to treatment daily basis.
[2018-05-30] MEDS: ZIPRASIDONE 20 MG VIAL IM PRN (19:30)
[2018-05-30] MEDS: LORazepam 2 MG/ML INJ IM PRN (19:31)
[2018-05-30] MEDS: MELATONIN 3 MG TABLET PO SCH (22:14)
[2018-05-31] MEDS: NICOTINE 14MG/24HR PATCH TRANSDERM SCH (07:55)
[2018-05-31] MEDS: MINERAL OIL-WHITE PETROLATUM 120 GM JAR TOPICAL SCH ×2 (07:55→20:56)
[2018-05-31] MEDS: ASPIRIN 81 MG PO SCH (07:55)
[2018-05-31] MEDS: IBUPROFEN 800 MG TAB PO SCH ×4 (07:55→20:56)
--- NOTE | 2018-05-31 15:28 | P.PN ---
Progress Note - Text Progress Note Date: 05/31/18 Clinical Problems: Schizoaffective disorder bipolar type severe, noncompliance with psychiatric treatment Interim history: I reviewed the medical record, attempted to interview the patient and discussed her treatment and treatment plan during team meeting. She told me that she is leaving the hospital today because she is going to [place] to become "the president". When I asked her how she could become president when presidents are usually elected she replied "I am the exception." She then began singing a christian hymn. She took the 20 mg dose of Abilify today. The probate hearing was rescheduled today because the petitioner did not show. Mental status exam: She presented as a casually groomed 47-year-old woman who made eye contact and appeared to attend to the interview. She had a euphoric facial expression. She was alert to person. She was restless but not agitated or impulsive. His speech was spontaneous with increased rate but normal volume. Her affect was elevated and inappropriate. She did not express suicidal ideations, wishes or homicidal ideation. She expressed grandiose delusional beliefs. Her thinking was concrete and associations were not coherent and logical. She did not appear to be responding to internal stimuli. Assessment: She remains psychotic and only intermittently compliant with antipsychotic medications. Her probate hearing was once again postponed Plan: Continue inpatient hospitalization. Continue safety precautions. Continue to encourage her to take Abilify 20 mg daily. Continue Ativan Geodon when necessary for agitation or aggressive behavior. Encourage participation in therapeutic groups and activities as tolerated. Evaluate clinical status response to treatment daily basis.
[2018-05-31] MEDS ORDERED: WATER FOR INJECTION, STERILE 10 ML IV ONE ×2 (15:40→21:51)
[2018-05-31] MEDS: MELATONIN 3 MG TABLET PO SCH (20:56)
[2018-05-31] MEDS: LORazepam 2 MG/ML INJ IM PRN (21:56)
[2018-05-31] MEDS: ZIPRASIDONE 20 MG VIAL IM PRN (21:56)
[2018-06-01] MEDS: NICOTINE 14MG/24HR PATCH TRANSDERM SCH (09:33)
[2018-06-01] MEDS: ASPIRIN 81 MG PO SCH (09:34)
[2018-06-01] MEDS: ACETAMINOPHEN TAB 325 MG TAB PO PRN (09:35)
[2018-06-01] MEDS: IBUPROFEN 800 MG TAB PO SCH ×4 (09:35→21:04)
[2018-06-01] MEDS: MINERAL OIL-WHITE PETROLATUM 120 GM JAR TOPICAL SCH ×2 (09:39→20:31)
--- NOTE | 2018-06-01 15:38 | P.PN ---
Progress Note - Text Progress Note Date: 06/01/18 Interval history: Patient seen in [facility] today. She makes reference to being ready to go to the [facility]. She reports that she does have a history of anxiety and she manages it as an outpatient was smoking cigarettes or marijuana it sounds. She does make reference to having some ongoing anxiety. She does have Ativan ordered as needed. Mental status exam: She is alert and cooperative. She does not show any significant agitation. Her thought processes are disorganized. Her affect overall is restricted. She does not verbalize any thoughts of harm to self. Regarding thoughts of harm to others she makes reference to at times having some thoughts to kill, then relays thoughts of harm to others being in response to them messing with her, relays that she is able to not hurt people here. Plan: Maintain current psychotropic medication regimen. Continue to monitor regarding any thoughts of harm to self or others. Discussed with patient regarding going to staff if she needs. Continue to monitor for any medication side effects. We'll continue to cover this patient through the weekend.
[2018-06-01] MEDS: LORazepam 1 MG TAB PO PRN (19:19)
[2018-06-01] MEDS: MELATONIN 3 MG TABLET PO SCH (20:31)
[2018-06-02] MEDS: ASPIRIN 81 MG PO SCH (08:52)
[2018-06-02] MEDS: IBUPROFEN 800 MG TAB PO SCH ×4 (08:52→20:44)
[2018-06-02] MEDS: NICOTINE 14MG/24HR PATCH TRANSDERM SCH (08:53)
[2018-06-02] MEDS: MINERAL OIL-WHITE PETROLATUM 120 GM JAR TOPICAL SCH ×2 (08:53→20:04)
--- NOTE | 2018-06-02 12:53 | P.PN ---
Progress Note - Text Progress Note Date: 06/02/18 Interval history: Patient seen in [facility] today. She makes reference to wanting to be out of the hospital. She says she hasn't slept for at least 6 weeks. She initially just seems to describe her mood is good and then describes it as a 3 out of 10, relays it would be better if she were with her family. Mental status exam: She is alert and overall cooperative. Her affect is restricted. Her mood she initially described as doing well and then describes it as a 3 out of 10. She when asked about thoughts of harm to self or others relays "don't tread on me." When asked about thoughts of harm to self or others again she relays that she has thoughts of harm to the people playing with themselves in the lobby. Her thought processes are disorganized. She does not show any significant agitation. I met with the patient again to encourage her to go to staff if she needs help and she made reference to concerns about the food being poisoned and also about her medication this morning not being baby aspirin. Plan: Continue current psychotropic medications, patient is encouraged to take her medication as prescribed. Continue to monitor her response to treatment monitor for any medication side effects.
[2018-06-02] MEDS: MELATONIN 3 MG TABLET PO SCH (20:04)
[2018-06-03] MEDS: MINERAL OIL-WHITE PETROLATUM 120 GM JAR TOPICAL SCH ×2 (10:05→20:58)
[2018-06-03] MEDS: NICOTINE 14MG/24HR PATCH TRANSDERM SCH (10:05)
[2018-06-03] MEDS: ASPIRIN 81 MG PO SCH (10:05)
[2018-06-03] MEDS: IBUPROFEN 800 MG TAB PO SCH ×4 (10:05→20:58)
--- NOTE | 2018-06-03 15:25 | P.PN ---
Progress Note - Text Progress Note Date: 06/03/18 Clinical Problems: Schizoaffective disorder, poor compliance with psychiatric treatment Interim history: Reviewed the medical record, interviewed the patient and discuss her treatment and treatment plan during team meeting. She refused to take Abilify yesterday and this morning. She would not speak to me. She became upset when I attempted to enter room. She demanded that I speak to her from the threshold of her room. Her probate hearing was rescheduled for 06/05/18. Mental status exam: She presented as a neatly groomed middle-aged woman who is dressed in hospital. She did not make eye contact but appeared to attend to the interview. Her speech was spontaneous but not coherent and organized. She had intermittent periods of restlessness throughout the day but displayed no agitation or aggressive behavior. She appears to be responding to internal stimuli. Assessment: She remains severely mentally ill and unchanged from admission. She continues to be intermittently noncompliant with treatment. Plan: Continue hospitalization. Continue safety precautions. Encourage compliance with prescribed medication Abilify 20 mg daily. She will definitely need treatment for a long acting injectable antipsychotic. Encourage participation in therapeutic groups and activities as tolerated. Evaluate clinical status response to treatment daily basis.
[2018-06-03] MEDS ORDERED: WATER FOR INJECTION, STERILE 10 ML IV ONE (18:28)
[2018-06-03] MEDS ORDERED: ZIPRASIDONE 20 MG VIAL IM ONE (18:28)
[2018-06-03] MEDS: LORazepam 2 MG/ML INJ IM PRN (18:39)
[2018-06-03] MEDS: ZIPRASIDONE 20 MG VIAL IM PRN (18:39)
[2018-06-03] MEDS: MELATONIN 3 MG TABLET PO SCH (20:58)
[2018-06-04] MEDS: ASPIRIN 81 MG PO SCH (09:27)
[2018-06-04] MEDS: NICOTINE 14MG/24HR PATCH TRANSDERM SCH (09:28)
[2018-06-04] MEDS: IBUPROFEN 800 MG TAB PO SCH ×4 (09:28→20:24)
[2018-06-04] MEDS: MINERAL OIL-WHITE PETROLATUM 120 GM JAR TOPICAL SCH ×2 (09:28→20:24)
--- NOTE | 2018-06-04 14:05 | P.PN ---
Progress Note - Text Progress Note Date: 06/04/18 Clinical Problems: Schizoaffective disorder bipolar type, poor compliance with mental health treatment Interim history: I reviewed the medical record, attempted to interview the patient and discuss her treatment and treatment plan during team meeting. She received 20 mg of Geodon and 1 mg of lorazepam IM yesterday at 1839 for agitation and psychotic behavior. She threw a cup of pop at one of the staff accusing staff of poisoning her. She again refused Abilify today. Mental status exam: She was uncooperative and did not make eye contact. She was restless but displayed no aggressive behavior today. She appears to be responding to internal stimuli and she paces the unit. Assessment: She remains severely mentally ill and unchanged from admission. We are awaiting involuntary treatment order to forcibly administer antipsychotic medications. Plan: Continue inpatient hospitalization. Continue safety precautions. Encourage compliance with Abilify 20 mg daily. Probate hearing scheduled for . She will need treatment with long acting injectable antipsychotic.
--- NOTE | 2018-06-04 14:07 | P.PN ---
Subjective Progress Note Date: 06/04/18 Principal diagnosis: Interval History: The patient presents alert, pleasant, and cooperative. There seated with agitated behavior. [She reports that she hears things and voices telling her to kill other people including killing myself while examining family room] reports that [she admits to being depressed and agitated] mood is poor. Affect is congruent and . [She] having any suicidal or homicidal ideation intent or plan. [She has auditory and visual hallucinations] a There is evidence of any delusional thought content. [] thought process is disorganized and not goal-directed. [] speech is fluent and pressured. [] memory and concentration is grossly intact for the purposes of this session. Mental Status: [She is not oriented to person place and time she denies any psychiatric problems but rambles and very tangential and circumstantial] Appearance/Attitude: [Very withdrawn agitated and responding to internal stimuli ] Behavior: [Dressed in hospital gown and was unable to sit still during the interview] Speech/Language: [She has very pressured speech tangential and circumstantial nature] Thought Process: [Delusional with ideas of homicide] Thought Content: [Delusional content regarding thoughts ideas racing thoughts and unable to focus] Suicidal/Homicidal Ideation: [Currently homicidal towards others] Sensorium/Cognition: [Not oriented to person place or time] Mood/Affect: [Depressed angry irritable and agitated] Insight/Judgment: [Poor insight and does not know why she needs to be here] Assessment: [Schizoaffective bipolar type] Plan: [second clinical service a lot today for court tomorrow; continued treatment and encourage her to take her antipsychotics which she is very resistant to do] Objective - Vital Signs Vital signs: Vital Signs Temp 97.7 F 06/04/18 02:46 Pulse 98 06/04/18 02:46 Resp 20 06/04/18 02:46 BP 153/59 06/04/18 02:46 Pulse Ox 99 06/04/18 02:46 - Labs CBC & Chem 7: 05/18/18 08:02 05/18/18 08:02
[2018-06-04] MEDS: ACETAMINOPHEN TAB 325 MG TAB PO PRN ×2 (17:14→22:00)
[2018-06-04] MEDS: MELATONIN 3 MG TABLET PO SCH (20:23)
[2018-06-05] MEDS: IBUPROFEN 800 MG TAB PO SCH ×4 (07:37→20:28)
[2018-06-05] MEDS: ASPIRIN 81 MG PO SCH (07:37)
[2018-06-05] MEDS: MINERAL OIL-WHITE PETROLATUM 120 GM JAR TOPICAL SCH ×2 (07:38→20:28)
[2018-06-05] MEDS: NICOTINE 14MG/24HR PATCH TRANSDERM SCH (07:38)
--- NOTE | 2018-06-05 12:54 | P.PN ---
Progress Note - Text Progress Note Date: 06/05/18 Clinical Problems: Schizoaffective disorder bipolar type, poor compliance with mental health treatment Interim history: I reviewed the medical record, attempted to interview the patient and discuss her treatment and treatment plan during team meeting. She threw a cup of pop at one of the staff accusing staff of poisoning her. She again refused Abilify today. Mental status exam: She was uncooperative and did not make eye contact. She was restless but displayed no aggressive behavior today. She appears to be responding to internal stimuli and she paces the unit. Assessment: She remains severely mentally ill and unchanged from admission. We are awaiting involuntary treatment order to forcibly administer antipsychotic medications. Plan: Continue inpatient hospitalization. Continue safety precautions. Encourage compliance with Abilify 20 mg daily. Probate hearing scheduled for . She will need treatment with long acting injectable antipsychotic. Plan today is court hearing for involuntary treatment since she has been so treatment resistant and not wanting to take medications as bizarre and delusional
[2018-06-05] MEDS: ZIPRASIDONE 20 MG VIAL IM PRN (18:35)
[2018-06-05] MEDS: LORazepam 2 MG/ML INJ IM PRN (18:35)
[2018-06-05] MEDS ORDERED: WATER FOR INJECTION, STERILE 10 ML IV ONE (19:19)
[2018-06-05] MEDS: MELATONIN 3 MG TABLET PO SCH (20:28)
[2018-06-06] MEDS: MINERAL OIL-WHITE PETROLATUM 120 GM JAR TOPICAL SCH ×2 (08:22→19:42)
[2018-06-06] MEDS: IBUPROFEN 800 MG TAB PO SCH ×4 (08:22→19:44)
[2018-06-06] MEDS: ASPIRIN 81 MG PO SCH (08:22)
[2018-06-06] MEDS: NICOTINE 14MG/24HR PATCH TRANSDERM SCH (08:23)
--- NOTE | 2018-06-06 11:19 | P.PN ---
Progress Note - Text Progress Note Date: 06/06/18 Clinical Problems: Schizoaffective disorder bipolar type, poor compliance with mental health treatment Interim history: I reviewed the medical record, attempted to interview the patient and discuss her treatment and treatment plan during team meeting. She threw a cup of pop at one of the staff accusing staff of poisoning her. Mental status exam: She was uncooperative and did not make eye contact. She was restless but displayed no aggressive behavior today. She appears to be responding to internal stimuli and she paces the unit. She remains delusional psychotic tangential with magical thinking. Assessment: She remains severely mentally ill and unchanged from admission. We are awaiting involuntary treatment order to forcibly administer antipsychotic medications. She has diagnoses of schizoaffective disorder bipolar type. Plan: Continue inpatient hospitalization. Continue safety precautions. Encourage compliance with Abilify 20 mg daily. Probate hearing scheduled for . She will need treatment with long acting injectable antipsychotic. Plan today is court hearing for involuntary treatment since she has been so treatment resistant and not wanting to take medications as bizarre and delusional Discussed with patient today that she is court ordered and needs medication and she'll be started on Geodon 20 mg twice a day I am on a schedule. Discussed the treatment with the treatment team this morning and they agreed that she needs this medication.
[2018-06-06] MEDS: LORazepam 2 MG/ML INJ IM PRN (14:45)
[2018-06-06] MEDS ORDERED: WATER FOR INJECTION, STERILE 10 ML IV ONE (18:05)
[2018-06-06] MEDS: ZIPRASIDONE 20 MG VIAL IM SCH (19:44)
[2018-06-07] MEDS: ZIPRASIDONE 20 MG VIAL IM SCH ×2 (09:23→21:06)
[2018-06-07] MEDS: NICOTINE 14MG/24HR PATCH TRANSDERM SCH (09:27)
[2018-06-07] MEDS: ASPIRIN 81 MG PO SCH (09:27)
[2018-06-07] MEDS: IBUPROFEN 800 MG TAB PO SCH ×4 (09:27→20:29)
[2018-06-07] MEDS: MINERAL OIL-WHITE PETROLATUM 120 GM JAR TOPICAL SCH ×2 (09:27→20:29)
--- NOTE | 2018-06-07 10:20 | P.PN ---
Progress Note - Text Progress Note Date: 06/07/18 Progress Note - Text Progress Note Date: 06/06/18 Clinical Problems: Schizoaffective disorder bipolar type, poor compliance with mental health treatment Interim history: I reviewed the medical record, attempted to interview the patient and discuss her treatment and treatment plan during team meeting. She threw a cup of pop at one of the staff accusing staff of poisoning her. Mental status exam: She was uncooperative and did not make eye contact. She was restless but displayed no aggressive behavior today. She appears to be responding to internal stimuli and she paces the unit. She remains delusional psychotic tangential with magical thinking. Assessment: She remains severely mentally ill and unchanged from admission. We are awaiting involuntary treatment order to forcibly administer antipsychotic medications. She has diagnoses of schizoaffective disorder bipolar type. Plan: Continue inpatient hospitalization. Continue safety precautions. Encourage compliance with Abilify 20 mg daily. Probate hearing scheduled for . She will need treatment with long acting injectable antipsychotic. Plan today is court hearing for involuntary treatment since she has been so treatment resistant and not wanting to take medications as bizarre and delusional Discussed with patient today that she is court ordered and needs medication and she'll be started on Geodon 20 mg twice a day I am on a schedule. Discussed the treatment with the treatment team this morning and they agreed that she needs this medication. Patient discussed today in a lengthy process that she wants to smoke cigarettes because it's part of the earth. Explained to her that it is not approved in this hospital and she will not get a cigarette when she is in the hospital. I did discuss with her Nicotrol inhaler but is not on the hospital formulary. She needs constant redirection. [id number] time 15 minutes.
[2018-06-08] MEDS: NICOTINE 14MG/24HR PATCH TRANSDERM SCH (10:01)
[2018-06-08] MEDS: MINERAL OIL-WHITE PETROLATUM 120 GM JAR TOPICAL SCH ×2 (10:01→20:34)
[2018-06-08] MEDS: IBUPROFEN 800 MG TAB PO SCH ×4 (10:02→20:34)
[2018-06-08] MEDS: ASPIRIN 81 MG PO SCH (10:02)
[2018-06-08] MEDS: ZIPRASIDONE 20 MG VIAL IM SCH ×2 (10:02→20:34)
[2018-06-08] MEDS: ACETAMINOPHEN TAB 325 MG TAB PO PRN (17:44)
--- NOTE | 2018-06-08 19:22 | PN ---
PROGRESS NOTE The patient is seen, interviewed in detail. I found her in a better mood. She reports that she came here because she was suicidal and she said her medications were not working and she came in a depressed phase. She states she has been dealing with the mood swings all her life. She states she did not sleep good last night because she has a habit of sleeping with her . She is missing her family. She is missing her kids. Very pleasant in approach. Denies any other issues. MENTAL STATUS EXAM: Patient is alert, oriented x4. Has fair eye contact. Speech few word sentences. Mood anxious, dysphoric with congruent affect. Denies suicidal ideation. I did not see her responding to internal stimuli. Insight and judgment are improving slowly and gradually. ASSESSMENT: Schizoaffective disorder, bipolar type. PLAN OF TREATMENT: We will continue to adjust medications accordingly. So far, she is responding well to Abilify. We might titrate up the Abilify to 25 and may offer the Abilify Maintena for complaints purposes. Encouraged groups and meetings. Supportive therapy provided. MMPATTIL / SABASN: [id number] /
[2018-06-08] MEDS ORDERED: WATER FOR INJECTION, STERILE 10 ML IV ONE (20:28)
[2018-06-08] MEDS ORDERED: ZIPRASIDONE 20 MG VIAL IM ONE (20:28)
[2018-06-09] MEDS: NICOTINE 14MG/24HR PATCH TRANSDERM SCH (09:40)
[2018-06-09] MEDS: MINERAL OIL-WHITE PETROLATUM 120 GM JAR TOPICAL SCH ×2 (09:40→21:07)
[2018-06-09] MEDS: IBUPROFEN 800 MG TAB PO SCH ×4 (09:40→21:07)
[2018-06-09] MEDS: ZIPRASIDONE 20 MG VIAL IM SCH ×2 (09:40→21:10)
[2018-06-09] MEDS: ASPIRIN 81 MG PO SCH (09:40)
[2018-06-09] MEDS: ACETAMINOPHEN TAB 325 MG TAB PO PRN (10:48)
--- NOTE | 2018-06-09 12:53 | PN ---
PROGRESS NOTE Patient seen, interviewed. Found writing in a journal, which she was writing a lot of disorganized thoughts. She said she continues to hear voices. She stated this time she has peaceful thoughts and then she went on saying that she has holy dreams. She is very preoccupied religiously and also having some somatic delusions. She said she has not been sleeping as good and she sleeps only a couple of hours. She did receive intramuscular p.r.n. for agitation and psychosis. MENTAL STATUS EXAM: Patient is alert, oriented x3. Has fair eye contact. Speech few word sentences. Mood dysphoric with flat affect. Denies suicidal, homicidal ideation. She continues to respond to internal stimuli. She has paranoid delusional. Insight and judgment are still impaired. ASSESSMENT: Schizoaffective disorder, bipolar type. PLAN: Will continue to adjust medications accordingly. Encouraged her to attend groups and meetings. Support therapy provided. We might increase Abilify to 25 mg daily to optimize efficacy of medication. MMDELILAH / SABASN: [id number] /
[2018-06-10] MEDS: ACETAMINOPHEN TAB 325 MG TAB PO PRN ×2 (05:11→20:18)
[2018-06-10] MEDS ORDERED: WATER FOR INJECTION, STERILE 10 ML IV ONE (06:30)
[2018-06-10] MEDS: NICOTINE 14MG/24HR PATCH TRANSDERM SCH (08:11)
[2018-06-10] MEDS: IBUPROFEN 800 MG TAB PO SCH ×4 (08:11→20:19)
[2018-06-10] MEDS: ZIPRASIDONE 20 MG VIAL IM SCH (08:11)
[2018-06-10] MEDS: ASPIRIN 81 MG PO SCH (08:11)
[2018-06-10] MEDS: MINERAL OIL-WHITE PETROLATUM 120 GM JAR TOPICAL SCH ×2 (08:13→20:19)
[2018-06-10] MEDS: flUPHENAZine 2.5 MG/ML (MDV) 10 ML VIAL IM SCH ×2 (11:18→11:32)
--- NOTE | 2018-06-10 11:36 | P.PN ---
Progress Note - Text Progress Note Date: 06/10/18 Clinical Problems: Schizoaffective disorder bipolar type, poor compliance with mental health treatment severe Interim history: I reviewed the medical record, attempted to interview the patient and discuss her treatment and treatment plan during team meeting. She . You are fired !!!!!!!! Mental status exam: She was uncooperative and did not make eye contact. She was restless but displayed no aggressive behavior today. She appears to be responding to internal stimuli and she paces the unit. She remains delusional psychotic tangential with magical thinking. She was actually got worse since 06/07/2018 and appears quite delusional and not slow down. Assessment: She remains severely mentally ill and unchanged from admission. We are awaiting involuntary treatment order to forcibly administer antipsychotic medications. She has diagnoses of schizoaffective disorder bipolar type. Her current intellectual functioning is severely impaired Plan: Continue inpatient hospitalization. Continue safety precautions. Encourage compliance with Abilify 20 mg daily. Probate hearing scheduled for . She will need treatment with long acting injectable antipsychotic. Plan today is court hearing for involuntary treatment since she has been so treatment resistant and not wanting to take medications as bizarre and delusional Discussed with patient today that she is court ordered and needs medication. Discussed the treatment with the treatment team this morning and they agreed that she needs this medication. Today after seeing the patient this would after this weekend she is tired and fatigued irritable and agitated and overwhelmed. It appears German has not been decreasing her agitation and will changed to Prolixin 2 mg 3 times a day or Prolixin IM daily and gave her the choice and she prefers to take the Tablet. Patient discussed today in a lengthy process why she is in the hospital and she lacks total insight and has no memory of the court hearing last week. I did discuss with her Nicotrol inhaler but is not on the hospital formulary. She needs constant redirection. [id number] time 15 minutes.
[2018-06-10] MEDS ORDERED: flUPHENAZine 2.5 MG/ML (MDV) 10 ML VIAL IM PRN ×2 (12:15)
[2018-06-10] MEDS ORDERED: flUPHENAZine 2.5 MG/ML (MDV) 10 ML VIAL IM ONE (18:34)
[2018-06-11] MEDS: ACETAMINOPHEN TAB 325 MG TAB PO PRN ×2 (09:06→21:11)
[2018-06-11] MEDS: ASPIRIN 81 MG PO SCH (09:06)
[2018-06-11] MEDS: MINERAL OIL-WHITE PETROLATUM 120 GM JAR TOPICAL SCH ×2 (09:07→21:11)
[2018-06-11] MEDS: IBUPROFEN 800 MG TAB PO SCH ×4 (09:07→21:14)
[2018-06-11] MEDS: NICOTINE 14MG/24HR PATCH TRANSDERM SCH (09:07)
[2018-06-11] MEDS: LITHIUM CARBONATE ER 450 MG TABLET.ER PO SCH (21:11)
[2018-06-12] MEDS: ASPIRIN 81 MG PO SCH (09:34)
[2018-06-12] MEDS: LITHIUM CARBONATE ER 450 MG TABLET.ER PO SCH ×3 (09:35→11:21)
[2018-06-12] MEDS: NICOTINE 14MG/24HR PATCH TRANSDERM SCH (09:41)
[2018-06-12] MEDS: MINERAL OIL-WHITE PETROLATUM 120 GM JAR TOPICAL SCH ×2 (09:41→22:10)
[2018-06-12] MEDS: IBUPROFEN 800 MG TAB PO SCH ×4 (09:42→22:10)
--- NOTE | 2018-06-12 13:00 | P.PN ---
Subjective Progress Note Date: 06/12/18 Principal diagnosis: Interval History: The patient presents alert, pleasant, and cooperative. There seated with agitated behavior. [She reports that she hears things and voices telling her to kill other people including killing myself while examining family room] reports that [she admits to being depressed and agitated] mood is poor. Affect is congruent and . [She] having any suicidal or homicidal ideation intent or plan. [She has auditory and visual hallucinations] a There is evidence of any delusional thought content. [] thought process is disorganized and not goal-directed. [] speech is fluent and pressured. [] memory and concentration is grossly intact for the purposes of this session. Mental Status: [She is not oriented to person place and time she denies any psychiatric problems but rambles and very tangential and circumstantial] Appearance/Attitude: [Very withdrawn agitated and responding to internal stimuli ] Behavior: [Dressed in hospital gown and was unable to sit still during the interview] Speech/Language: [She has very pressured speech tangential and circumstantial nature] Thought Process: [Delusional with ideas of homicide] Thought Content: [Delusional content regarding thoughts ideas racing thoughts and unable to focus] Suicidal/Homicidal Ideation: [Currently homicidal towards others] Sensorium/Cognition: [Not oriented to person place or time] Mood/Affect: [Depressed angry irritable and agitated] Insight/Judgment: [Poor insight and does not know why she needs to be here] Assessment: [Schizoaffective bipolar type] Plan: [second clinical service a lot today for court tomorrow; continued treatment and encourage her to take her antipsychotics which she is very resistant to do] Interim history: I reviewed the medical record, attempted to interview the patient and discuss her treatment and treatment plan during team meeting. She remains tangential and delusional. Mental status exam: She was uncooperative and did not make eye contact. She was restless but displayed no aggressive behavior today. She appears to be responding to internal stimuli and she paces the unit. She remains delusional psychotic tangential with magical thinking. She was actually got worse since 06/07/2018 and appears quite delusional and not slow down. Assessment: She remains severely mentally ill and unchanged from admission. We are awaiting involuntary treatment order to forcibly administer antipsychotic medications. She has diagnoses of schizoaffective disorder bipolar type. Her current intellectual functioning is severely impaired Plan: Continue inpatient hospitalization. Continue safety precautions. Encourage compliance with Abilify 20 mg daily. Probate hearing scheduled for . She will need treatment with long acting injectable antipsychotic. Plan is court mandated for involuntary treatment since she has been so treatment resistant and not wanting to take medications as bizarre and delusional Discussed with patient today that she is court ordered and needs medication. Discussed the treatment with the treatment team this morning and they agreed that she needs this medication. Today after seeing the patient this would after this weekend she is tired and fatigued irritable and agitated and overwhelmed. It appears German has not been decreasing her agitation and will changed to Prolixin 2 mg 3 times a day or Prolixin IM daily and gave her the choice and she prefers to take the Tablet.Will add Lithobid 450 mgat bedtime. She was able to take her Lithobid today when the nurse offered that she would have to get him a Prolixin shot. Slow status and treatment but slowly getting to treatment. Patient discussed today in a lengthy process why she is in the hospital and she lacks total insight and has no memory of the court hearing last week. I did discuss with her Nicotrol inhaler but is not on the hospital formulary. She needs constant redirection. [id number] time 15 minutes. Objective - Vital Signs Vital signs: Vital Signs Temp 98.1 F 06/11/18 03:46 Pulse 80 06/11/18 03:46 Resp 18 06/11/18 03:46 BP 133/69 06/11/18 03:46 Pulse Ox 97 06/10/18 06:18 - Labs CBC & Chem 7: 05/18/18 08:02 05/18/18 08:02
[2018-06-13] MEDS: ASPIRIN 81 MG PO SCH (09:35)
[2018-06-13] MEDS: IBUPROFEN 800 MG TAB PO SCH ×4 (09:41→20:49)
[2018-06-13] MEDS: LITHIUM CARBONATE ER 450 MG TABLET.ER PO SCH (09:41)
[2018-06-13] MEDS: NICOTINE 14MG/24HR PATCH TRANSDERM SCH (09:41)
[2018-06-13] MEDS: MINERAL OIL-WHITE PETROLATUM 120 GM JAR TOPICAL SCH ×2 (09:41→20:49)
--- NOTE | 2018-06-13 10:08 | P.PN ---
Subjective Progress Note Date: 06/13/18 Principal diagnosis: Interval History: The patient presents alert, pleasant, and cooperative. There seated with agitated behavior. [She reports that she hears things and voices telling her to kill other people including killing myself while examining family room] reports that [she admits to being depressed and agitated] mood is poor. Affect is congruent and . [She] having any suicidal or homicidal ideation intent or plan. [She has auditory and visual hallucinations] a There is evidence of any delusional thought content. [] thought process is disorganized and not goal-directed. [] speech is fluent and pressured. [] memory and concentration is grossly intact for the purposes of this session. Mental Status: [She is not oriented to person place and time she denies any psychiatric problems but rambles and very tangential and circumstantial] Appearance/Attitude: [Very withdrawn agitated and responding to internal stimuli ] Behavior: [Dressed in hospital gown and was unable to sit still during the interview] Speech/Language: [She has very pressured speech tangential and circumstantial nature] Thought Process: [Delusional with ideas of homicide] Thought Content: [Delusional content regarding thoughts ideas racing thoughts and unable to focus] Suicidal/Homicidal Ideation: [Currently homicidal towards others] Sensorium/Cognition: [Not oriented to person place or time] Mood/Affect: [Depressed angry irritable and agitated] Insight/Judgment: [Poor insight and does not know why she needs to be here] Assessment: [Schizoaffective bipolar type] Plan: [second clinical service a lot today for court tomorrow; continued treatment and encourage her to take her antipsychotics which she is very resistant to do] Interim history: I reviewed the medical record, attempted to interview the patient and discuss her treatment and treatment plan during team meeting. She remains tangential and delusional. Mental status exam: She was uncooperative and did not make eye contact. She was restless but displayed no aggressive behavior today. She appears to be responding to internal stimuli and she paces the unit. She remains delusional psychotic tangential with magical thinking. She was actually got worse since 06/07/2018 and appears quite delusional and not slow down. Assessment: She remains severely mentally ill and unchanged from admission. We are awaiting involuntary treatment order to forcibly administer antipsychotic medications. She has diagnoses of schizoaffective disorder bipolar type. Her current intellectual functioning is severely impaired Plan: Continue inpatient hospitalization. Continue safety precautions. Encourage compliance with Abilify 20 mg daily. Probate hearing scheduled for . She will need treatment with long acting injectable antipsychotic. Plan is court mandated for involuntary treatment since she has been so treatment resistant and not wanting to take medications as bizarre and delusional Discussed with patient today that she is court ordered and needs medication. Discussed the treatment with the treatment team this morning and they agreed that she needs this medication. Today after seeing the patient this would after this weekend she is tired and fatigued irritable and agitated and overwhelmed. It appears German has not been decreasing her agitation and will changed to Prolixin 2 mg 3 times a day or Prolixin IM daily and gave her the choice and she prefers to take the Tablet.Will add Lithobid 450 mgat bedtime. She was able to take her Lithobid today when the nurse offered that she would have to get him a Prolixin shot. Slow status and treatment but slowly getting to treatment. Patient discussed today in a lengthy process why she is in the hospital and she lacks total insight and has no memory of the court hearing last week. I did discuss with her Nicotrol inhaler but is not on the hospital formulary. She needs constant redirection. [id number] time 15 minutes. Objective - Vital Signs Vital signs: Vital Signs Temp 97.8 F 06/13/18 07:02 Pulse 69 06/13/18 07:02 Resp 12 06/13/18 07:02 BP 107/61 06/13/18 07:02 Pulse Ox 97 06/10/18 06:18 Intake & Output 06/12/18 06/13/18 06/13/18 18:59 06:59 18:59 Weight 75.7 kg - Labs CBC & Chem 7: 05/18/18 08:02 05/18/18 08:02
[2018-06-14] MEDS: IBUPROFEN 800 MG TAB PO SCH ×4 (08:15→20:53)
[2018-06-14] MEDS: NICOTINE 14MG/24HR PATCH TRANSDERM SCH (08:15)
[2018-06-14] MEDS: LITHIUM CARBONATE ER 450 MG TABLET.ER PO SCH ×2 (08:15→16:01)
[2018-06-14] MEDS: MINERAL OIL-WHITE PETROLATUM 120 GM JAR TOPICAL SCH ×2 (08:16→20:53)
[2018-06-14] MEDS: ASPIRIN 81 MG PO SCH (08:16)
--- NOTE | 2018-06-14 14:09 | P.PN ---
Subjective Progress Note Date: 06/14/18 Principal diagnosis: Interval History: The patient presents alert, pleasant, and cooperative. There seated with agitated behavior. [She reports that she hears things and voices telling her to kill other people including killing myself while examining family room] reports that [she admits to being depressed and agitated] mood is poor. Affect is congruent and . [She] having any suicidal or homicidal ideation intent or plan. [She has auditory and visual hallucinations] a There is evidence of any delusional thought content. [] thought process is disorganized and not goal-directed. [] speech is fluent and pressured. [] memory and concentration is grossly intact for the purposes of this session. Mental Status: [She is not oriented to person place and time she denies any psychiatric problems but rambles and very tangential and circumstantial] Appearance/Attitude: [Very withdrawn agitated and responding to internal stimuli ] Behavior: [Dressed in hospital gown and was unable to sit still during the interview] Speech/Language: [She has very pressured speech tangential and circumstantial nature] Thought Process: [Delusional with ideas of homicide] Thought Content: [Delusional content regarding thoughts ideas racing thoughts and unable to focus] Suicidal/Homicidal Ideation: [Currently homicidal towards others] Sensorium/Cognition: [Not oriented to person place or time] Mood/Affect: [Depressed angry irritable and agitated] Insight/Judgment: [Poor insight and does not know why she needs to be here] Assessment: [Schizoaffective bipolar type] Plan: [second clinical service a lot today for court tomorrow; continued treatment and encourage her to take her antipsychotics which she is very resistant to do] Interim history: I reviewed the medical record, attempted to interview the patient and discuss her treatment and treatment plan during team meeting. She remains tangential and delusional. Mental status exam: She was uncooperative and did not make eye contact. She was restless but displayed no aggressive behavior today. She appears to be responding to internal stimuli and she paces the unit. She remains delusional psychotic tangential with magical thinking. She was actually got worse since 06/07/2018 and appears quite delusional and not slow down. However she is slowly gettting better. Assessment: She remains severely mentally ill and unchanged from admission. We are awaiting involuntary treatment order to forcibly administer antipsychotic medications. She has diagnoses of schizoaffective disorder bipolar type. Her current intellectual functioning is severely impaired Plan: Continue inpatient hospitalization. Continue safety precautions. Encourage compliance with Abilify 20 mg daily. Probate hearing scheduled for . She will need treatment with long acting injectable antipsychotic. Plan is court mandated for involuntary treatment since she has been so treatment resistant and not wanting to take medications as bizarre and delusional Discussed with patient today that she is court ordered and needs medication. Discussed the treatment with the treatment team this morning and they agreed that she needs this medication. Today after seeing the patient this would after this weekend she is tired and fatigued irritable and agitated and overwhelmed. It appears German has not been decreasing her agitation and will changed to Prolixin 2 mg 3 times a day or Prolixin IM daily and gave her the choice and she prefers to take the Tablet.Will add Lithobid 450 mgat bedtime. She was able to take her Lithobid today when the nurse offered that she would have to get him a Prolixin shot. Slow status and treatment but slowly getting to treatment.She is not to refuse medications otherwise she is to be injectable prolixin. Patient discussed today in a lengthy process why she is in the hospital and she lacks total insight and has no memory of the court hearing last week. She is able sleep now and eat meals. I did discuss with her Nicotrol inhaler but is not on the hospital formulary. She needs constant redirection. [id number]-[id number]-[id number] time 15 minutes. Objective - Vital Signs Vital signs: Vital Signs Temp 97.9 F 06/14/18 06:45 Pulse 81 06/14/18 06:45 Resp 18 06/14/18 06:45 BP 111/80 06/14/18 06:45 Pulse Ox 97 06/10/18 06:18 Intake & Output 06/13/18 06/14/18 06/14/18 18:59 06:59 18:59 Weight 75.7 kg - Labs CBC & Chem 7: 05/18/18 08:02 05/18/18 08:02
[2018-06-15] MEDS: ASPIRIN 81 MG PO SCH (09:20)
[2018-06-15] MEDS: IBUPROFEN 800 MG TAB PO SCH ×4 (09:20→21:33)
[2018-06-15] MEDS: LITHIUM CARBONATE ER 450 MG TABLET.ER PO SCH (09:20)
[2018-06-15] MEDS: MINERAL OIL-WHITE PETROLATUM 120 GM JAR TOPICAL SCH ×2 (09:21→21:33)
[2018-06-15] MEDS: NICOTINE 14MG/24HR PATCH TRANSDERM SCH (09:21)
--- NOTE | 2018-06-15 12:51 | P.PN ---
Progress Note - Text Interval history: The patient is found in her room she follows me to an interview room. The patient has a known schizoaffective disorder. She is being treated with Prolixin and lithium. The patient states she's not doing well because she is being "From the ones I love". She has not been attending groups. Mental status exam: The patient is alert she is dressed in her own clothing she is mildly disheveled. Eye contact is staring in nature. She does have spontaneous speech. She is verbose but nonpressured. She denies experiencing any hallucinations. She feels that she is being kept from family and friends. She demonstrates poor insight into her presenting symptoms. She is not able to provide any rationale as to why she would've been hospitalized. Insight and judgment are impaired. She demonstrates no verbal or physical aggressiveness she demonstrates no abnormal involuntary movements. Affect is flat throughout the session. She remains calmly seated in the chair. Plan: The patient will continue on her current medication. Vital signs reviewed they're within normal limits. We will continue to monitor her for safety and encourage participation in the milieu.
[2018-06-16] MEDS: IBUPROFEN 800 MG TAB PO SCH ×4 (08:07→20:46)
[2018-06-16] MEDS: ASPIRIN 81 MG PO SCH (08:07)
[2018-06-16] MEDS: NICOTINE 14MG/24HR PATCH TRANSDERM SCH (08:07)
[2018-06-16] MEDS: MINERAL OIL-WHITE PETROLATUM 120 GM JAR TOPICAL SCH ×2 (08:07→20:46)
[2018-06-16] MEDS: LITHIUM CARBONATE ER 450 MG TABLET.ER PO SCH (08:08)
--- NOTE | 2018-06-16 12:09 | P.PN ---
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 She states that she is tired of being here and being kept from her family. She believes the nurses and doctors were giving her medication at inappropriate times and amounts. She spontaneously states that she is . She has not been attending groups and did not attend breakfast this morning per her report. Mental status exam: The patient is an alert female she has a disheveled appearance she is dressed in her own clothing. She is observed ambulating without difficulty. She is seated in a chair calmly. Eye contact is poor. She has little spontaneous speech but provides brief answers to questions asked. She reports no thoughts of harming herself or others. She endorses feelings of persecution and that she is here in the hospital and being provided education she does not believe she needs. She endorses a delusion of being . Thought process is disorganized at times. She demonstrates no abnormal involuntary movements she demonstrates no verbal or physical aggressiveness. Insight and judgment are impaired. Affect is flat with no reactivity. Plan: The patient will continue on the prescribe psychotropic medication. We' ll continue to monitor her for safety. Reality orientation is provided when possible. Vital signs reviewed.
[2018-06-17] MEDS: LITHIUM CARBONATE ER 450 MG TABLET.ER PO SCH ×2 (08:36→20:25)
[2018-06-17] MEDS: IBUPROFEN 800 MG TAB PO SCH ×4 (08:36→21:27)
[2018-06-17] MEDS: ASPIRIN 81 MG PO SCH (08:36)
[2018-06-17] MEDS: NICOTINE 14MG/24HR PATCH TRANSDERM SCH (08:37)
[2018-06-17] MEDS: MINERAL OIL-WHITE PETROLATUM 120 GM JAR TOPICAL SCH ×2 (08:37→20:27)
--- NOTE | 2018-06-17 15:23 | P.PN ---
Subjective Progress Note Date: 06/17/18 Principal diagnosis: Interval History: The patient presents alert, pleasant, and cooperative. There seated with agitated behavior. [She reports that she hears things and voices telling her to kill other people including killing myself while examining family room] reports that [she admits to being depressed and agitated] mood is poor. Affect is congruent and . [She] having any suicidal or homicidal ideation intent or plan. [She has auditory and visual hallucinations] a There is evidence of any delusional thought content. [] thought process is disorganized and not goal-directed. [] speech is fluent and pressured. [] memory and concentration is grossly intact for the purposes of this session. Mental Status: [She is not oriented to person place and time she denies any psychiatric problems but rambles and very tangential and circumstantial] Appearance/Attitude: [Very withdrawn agitated and responding to internal stimuli ] Behavior: [Dressed in hospital gown and was unable to sit still during the interview] Speech/Language: [She has very pressured speech tangential and circumstantial nature] Thought Process: [Delusional with ideas of homicide] Thought Content: [Delusional content regarding thoughts ideas racing thoughts and unable to focus] Suicidal/Homicidal Ideation: [Currently homicidal towards others] Sensorium/Cognition: [Not oriented to person place or time] Mood/Affect: [Depressed angry irritable and agitated] Insight/Judgment: [Poor insight and does not know why she needs to be here] Assessment: [Schizoaffective bipolar type] Plan: [second clinical service a lot today for court tomorrow; continued treatment and encourage her to take her antipsychotics which she is very resistant to do] Interim history: I reviewed the medical record, interviewed the patient and discuss her treatment and treatment plan during team meeting. She remains tangential and delusional but complains of sleep and less disorganized. Mental status exam: She was uncooperative and did not make eye contact. She was restless but displayed no aggressive behavior today. She appears to be responding to internal stimuli and she paces the unit. She remains delusional psychotic tangential with magical thinking. She was actually got worse since 06/07/2018 and appears quite delusional and not slow down. However she is slowly gettting better. Assessment: She remains severely mentally ill and unchanged from admission. We are awaiting involuntary treatment order to forcibly administer antipsychotic medications. She has diagnoses of schizoaffective disorder bipolar type. Her current intellectual functioning has improved since Sunday. Plan: Continue inpatient hospitalization. Continue safety precautions. Change her medication to Prolixin and will increase to 7.5 mg tonight and add Cogentin 1 mg at bedtime. She will need treatment with long acting injectable antipsychotic. This patient may be a state hospital candidate since she's relapsed 3 times in the last [address] mandated for involuntary treatment since she has been so treatment resistant and not wanting to take medications as bizarre and delusional Discussed with patient today that she is court ordered and needs medication. Discussed the treatment with the treatment team this morning and they agreed that she needs this medication. Today after seeing the patient this would after this weekend she is tired and fatigued irritable and agitated and overwhelmed. It appears Geodon has not been decreasing her agitation and will changed to Prolixin 7.5 mg at bedtime a day or Prolixin IM daily and gave her the choice and she prefers to take the Tablet.Will add Lithobid 450 mg twice a day, we'll obtain CBC CMP lithium level. She was able to take her Lithobid today when the nurse offered that she would have to get him a Prolixin shot. Slow status and treatment but slowly getting to treatment.She is not to refuse medications otherwise she is to be injectable prolixin. Patient discussed today in a lengthy process why she is in the hospital and she lacks total insight and has no memory of the court hearing last week. She is able sleep now and eat meals but complains of insomnia at night. This may be related to the Prolixin 3 times a day therefore changed to Prolixin at bedtime. I did discuss with her Nicotrol inhaler but is not on the hospital formulary. She needs less redirection today. [id number] time 15 minutes. Objective - Vital Signs Vital signs: Vital Signs Temp 97.7 F 06/17/18 06:38 Pulse 59 L 06/17/18 06:38 Resp 14 06/17/18 06:38 BP 103/51 06/17/18 06:38 Pulse Ox 97 06/10/18 06:18 - Labs CBC & Chem 7: 05/18/18 08:02 05/18/18 08:02
[2018-06-17] MEDS: BENZTROPINE MESYLATE 1 MG TAB PO SCH (20:25)
[2018-06-18] MEDS: ASPIRIN 81 MG PO SCH (08:34)
[2018-06-18] MEDS: IBUPROFEN 800 MG TAB PO SCH ×4 (08:34→22:41)
[2018-06-18] MEDS: MINERAL OIL-WHITE PETROLATUM 120 GM JAR TOPICAL SCH ×2 (08:34→20:48)
[2018-06-18] MEDS: LITHIUM CARBONATE ER 450 MG TABLET.ER PO SCH ×2 (08:34→20:47)
[2018-06-18] MEDS: NICOTINE 14MG/24HR PATCH TRANSDERM SCH (08:34)
[2018-06-18 09:52] LABS: Basophils # (A) 0.1 k/uL (0-0.2); Basophils % (A) 1 %; Eosinophils # (A) 0.5 k/uL (0-0.7); Eosinophils % (A) 5 %; HCT 44.1 % (34.0-46.0); HGB 14.2 gm/dL (11.4-16.0); Lymphocytes # (A) 2.5 k/uL (1.0-4.8); Lymphocytes % (A) 27 %; MCH 28.4 pg (25.0-35.0); MCHC 32.3 g/dL (31.0-37.0); Mean Platelet Volume 7.3; Monocytes # (A) 0.4 k/uL (0-1.0); Monocytes % (A) 5 %; Neutrophils # (A) 5.4 k/uL (1.3-7.7); Neutrophils % (A) 60 %; Platelet Count 202 k/uL (150-450); RBC 5.01 m/uL (3.80-5.40); RDW 12.6 % (11.5-15.5)
[2018-06-18 10:18] LABS: ALT 20 U/L (9-52); AST 18 U/L (14-36); Albumin 3.7 g/dL (3.5-5.0); Alkaline Phosphatase 45 U/L (38-126); Anion Gap 9 mmol/L; Blood Urea Nitrogen 17 mg/dL (7-17); Carbon Dioxide 25 mmol/L (22-30); Chloride 105 mmol/L (98-107); Glucose 113 mg/dL (74-99); Potassium 4.4 mmol/L (3.5-5.1); Sodium 139 mmol/L (137-145); Total Bilirubin 0.3 mg/dL (0.2-1.3); Total Protein 6.1 g/dL (6.3-8.2)
--- NOTE | 2018-06-18 11:47 | P.PN ---
Subjective Progress Note Date: 06/18/18 Principal diagnosis: Interval History: The patient presents alert, pleasant, and cooperative. There seated with agitated behavior. [She reports that she hears things and voices telling her to kill other people including killing myself while examining family room] reports that [she admits to being depressed and agitated] mood is poor. Affect is congruent and . [She] having any suicidal or homicidal ideation intent or plan. [She has auditory and visual hallucinations] a There is evidence of any delusional thought content. [] thought process is disorganized and not goal-directed. [] speech is fluent and pressured. [] memory and concentration is grossly intact for the purposes of this session. Mental Status: [She is not oriented to person place and time she denies any psychiatric problems but rambles and very tangential and circumstantial] Appearance/Attitude: [Very withdrawn agitated and responding to internal stimuli ] Behavior: [Dressed in hospital gown and was unable to sit still during the interview] Speech/Language: [She has very pressured speech tangential and circumstantial nature] Thought Process: [Delusional with ideas of homicide] Thought Content: [Delusional content regarding thoughts ideas racing thoughts and unable to focus] Suicidal/Homicidal Ideation: [Currently homicidal towards others] Sensorium/Cognition: [Not oriented to person place or time] Mood/Affect: [Depressed angry irritable and agitated] Insight/Judgment: [Poor insight and does not know why she needs to be here] Assessment: [Schizoaffective bipolar type] Plan: [second clinical service a lot today for court tomorrow; continued treatment and encourage her to take her antipsychotics which she is very resistant to do] Interim history: I reviewed the medical record, interviewed the patient and discuss her treatment and treatment plan during team meeting. She is less tangential and delusional but complains of sleep and less disorganized. Mental status exam: She was cooperative and did not make eye contact. She was restless but displayed no aggressive behavior today. She appears to be responding to less internal stimuli and isolating to room. She remains delusional psychotic tangential with magical thinking. Assessment: She remains severely mentally ill and is taking medications . She is involuntary treatment order to forcibly administer antipsychotic medications. She has diagnoses of schizoaffective disorder bipolar type. Her current intellectual functioning has improved since Sunday. Plan: Continue inpatient hospitalization. Continue safety precautions. Change her medication to Prolixin and will increase to 7.5 mg tonight and add Cogentin 1 mg at bedtime. She will need treatment with long acting injectable antipsychotic. This patient may be a state hospital candidate since she's relapsed 3 times in the last 6 months. Added venlafaxine 37.5 mg po qhs for depression and anxiety. Plan is court mandated for involuntary treatment since she has been so treatment resistant and not wanting to take medications as bizarre and delusional Discussed with patient today that she is court ordered and needs medication. Discussed the treatment with the treatment team this morning and they agreed that she needs this medication. Today after seeing the patient this would after this weekend she is tired and fatigued irritable and agitated and overwhelmed. It appears German has not been decreasing her agitation and will changed to Prolixin 7.5 mg at bedtime a day or Prolixin IM daily and gave her the choice and she prefers to take the Tablet.Will add Lithobid 450 mg twice a day, we'll obtain CBC CMP lithium level which is wnl. She was able to take her Lithobid today when the nurse offered that she would have to get him a Prolixin shot. Slow status and treatment but slowly getting to adhere to medical/ psychiatric treatment.She is not to refuse medications otherwise she is to be injectable prolixin. Patient discussed today in a lengthy process why she is in the hospital and she lacks total insight and has no memory of the court hearing last week. She is able sleep now and eat meals but complains of insomnia at night. This may be related to the Prolixin 3 times a day therefore changed to Prolixin at bedtime. I did discuss with her Nicotrol inhaler but is not on the hospital formulary. She needs less redirection today. [id number] time 15 minutes. Objective - Vital Signs Vital signs: Vital Signs Temp 98 F 06/18/18 06:30 Pulse 66 06/18/18 06:30 Resp 16 06/18/18 06:30 BP 102/53 06/18/18 06:30 Pulse Ox 97 06/10/18 06:18 - Labs CBC & Chem 7: 06/18/18 09:09 06/18/18 09:09 Labs: Abnormal Lab Results - Last 24 Hours (Table) 06/18/18 Range/Units 09:09 Glucose 113 H (74-99) mg/dL Total Protein 6.1 L (6.3-8.2) g/dL
[2018-06-18] MEDS: BENZTROPINE MESYLATE 1 MG TAB PO SCH (20:47)
[2018-06-18] MEDS ORDERED: VENLAFAXINE HCL ER 37.5 MG CAP PO SCH (21:00)
[2018-06-19] MEDS: ASPIRIN 81 MG PO SCH (08:03)
[2018-06-19] MEDS: NICOTINE 14MG/24HR PATCH TRANSDERM SCH (08:03)
[2018-06-19] MEDS: IBUPROFEN 800 MG TAB PO SCH ×4 (08:03→20:22)
[2018-06-19] MEDS: LITHIUM CARBONATE ER 450 MG TABLET.ER PO SCH ×2 (08:04→20:20)
[2018-06-19] MEDS: MINERAL OIL-WHITE PETROLATUM 120 GM JAR TOPICAL SCH ×2 (08:14→20:22)
--- NOTE | 2018-06-19 13:52 | P.PN ---
Subjective Progress Note Date: 06/19/18 Principal diagnosis: Interval History: The patient presents alert, pleasant, and cooperative. There seated with agitated behavior. [She reports that she hears things and voices telling her to kill other people including killing myself while examining family room] reports that [she admits to being depressed and agitated] mood is poor. Affect is congruent and . [She] having any suicidal or homicidal ideation intent or plan. [She has auditory and visual hallucinations] a There is evidence of any delusional thought content. [] thought process is disorganized and not goal-directed. [] speech is fluent and pressured. [] memory and concentration is grossly intact for the purposes of this session. Mental Status: [She is not oriented to person place and time she denies any psychiatric problems but rambles and very tangential and circumstantial] Appearance/Attitude: [Very withdrawn agitated and responding to internal stimuli ] Behavior: [Dressed in hospital gown and was unable to sit still during the interview] Speech/Language: [She has very pressured speech tangential and circumstantial nature] Thought Process: [Delusional with ideas of homicide] Thought Content: [Delusional content regarding thoughts ideas racing thoughts and unable to focus] Suicidal/Homicidal Ideation: [Currently homicidal towards others] Sensorium/Cognition: [Not oriented to person place or time] Mood/Affect: [Depressed angry irritable and agitated] Insight/Judgment: [Poor insight and does not know why she needs to be here] Assessment: [Schizoaffective bipolar type] Plan: [second clinical service a lot today for court tomorrow; continued treatment and encourage her to take her antipsychotics which she is very resistant to do] Interim history: I reviewed the medical record, interviewed the patient and discuss her treatment and treatment plan during team meeting. She is less tangential and delusional but complains of sleep and less disorganized. Mental status exam: She was cooperative and did not make eye contact. She was restless but displayed no aggressive behavior today. She appears to be responding to less internal stimuli and isolating to room. She remains delusional psychotic tangential with magical thinking. Assessment: She remains severely mentally ill and is taking medications . She is involuntary treatment order to forcibly administer antipsychotic medications. She has diagnoses of schizoaffective disorder bipolar type. Her current intellectual functioning has improved since Sunday. Plan: Continue inpatient hospitalization. Continue safety precautions. Change her medication to Prolixin and will increase to 7.5 mg tonight and add Cogentin 1 mg at bedtime. She will need treatment with long acting injectable antipsychotic. This patient may be a state hospital candidate since she's relapsed 3 times in the last 6 months. Added venlafaxine 75 mf ER mg po qhs for depression and anxiety. Plan is court mandated for involuntary treatment since she has been so treatment resistant and not wanting to take medications as bizarre and delusional Discussed with patient today that she is court ordered and needs medication. Discussed the treatment with the treatment team this morning and they agreed that she needs this medication. Today after seeing the patient this would after this weekend she is tired and fatigued irritable and agitated and overwhelmed. It appears German has not been decreasing her agitation and will changed to Prolixin 7.5 mg at bedtime a day or Prolixin IM daily and gave her the choice and she prefers to take the Tablet.Will add Lithobid 450 mg twice a day, we'll obtain CBC CMP lithium level which is wnl. She was able to take her Lithobid today when the nurse offered.. Slow status and treatment but slowly getting to adhere to medical/psychiatric treatment.She is not to refuse medications otherwise she is to be injectable prolixin. Today she was able to go her medications in detail and discuss the side effect risk-benefit profile and she signed for her medications. Patient discussed today in a lengthy process why she is in the hospital and she lacks total insight and has no memory of the court hearing last week. She is able sleep now and eat meals but complains of insomnia at night. This may be related to the Prolixin 3 times a day therefore changed to Prolixin at bedtime. I did discuss with her Nicotrol inhaler but is not on the hospital formulary. She needs less redirection today. [id number] time 20 minutes. She will need to continue mental health involvement including act team for adherence to her medications and therefore her Prolixin will be titrated until resolution and Prolixin Decanoate will be given the day before she is discharged. Objective - Vital Signs Vital signs: Vital Signs Temp 98 F 06/18/18 06:30 Pulse 66 09/25/18 06:30 Resp 16 06/18/18 06:30 BP 102/53 06/18/18 06:30 Pulse Ox 97 06/10/18 06:18 - Labs CBC & Chem 7: 06/18/18 09:09 06/18/18 09:09
[2018-06-19] MEDS: VENLAFAXINE HCL ER 75 MG CAP PO SCH (20:20)
[2018-06-19] MEDS: BENZTROPINE MESYLATE 1 MG TAB PO SCH (20:20)
[2018-06-20] MEDS: LITHIUM CARBONATE ER 450 MG TABLET.ER PO SCH ×2 (08:14→22:40)
[2018-06-20] MEDS: NICOTINE 14MG/24HR PATCH TRANSDERM SCH (08:14)
[2018-06-20] MEDS: ASPIRIN 81 MG PO SCH (08:15)
[2018-06-20] MEDS: MINERAL OIL-WHITE PETROLATUM 120 GM JAR TOPICAL SCH ×2 (08:16→20:47)
[2018-06-20] MEDS: IBUPROFEN 800 MG TAB PO SCH ×4 (08:16→20:46)
--- NOTE | 2018-06-20 11:26 | P.PN ---
Subjective Progress Note Date: 06/20/18 Principal diagnosis: Interval History: The patient presents alert, pleasant, and cooperative. There seated with agitated behavior. [She reports that she hears things and voices telling her to kill other people including killing myself while examining family room] reports that [she admits to being depressed and agitated] mood is poor. Affect is congruent and . [She] having any suicidal or homicidal ideation intent or plan. [She has auditory and visual hallucinations] a There is evidence of any delusional thought content. [] thought process is disorganized and not goal-directed. [] speech is fluent and pressured. [] memory and concentration is grossly intact for the purposes of this session. Mental Status: [She is not oriented to person place and time she denies any psychiatric problems but rambles and very tangential and circumstantial] Appearance/Attitude: [Very withdrawn agitated and responding to internal stimuli ] Behavior: [Dressed in hospital gown and was unable to sit still during the interview] Speech/Language: [She has very pressured speech tangential and circumstantial nature] Thought Process: [Delusional with ideas of homicide] Thought Content: [Delusional content regarding thoughts ideas racing thoughts and unable to focus] Suicidal/Homicidal Ideation: [Currently homicidal towards others] Sensorium/Cognition: [Not oriented to person place or time] Mood/Affect: [Depressed angry irritable and agitated] Insight/Judgment: [Poor insight and does not know why she needs to be here] Assessment: [Schizoaffective bipolar type] Plan: [second clinical service a lot today for court tomorrow; continued treatment and encourage her to take her antipsychotics which she is very resistant to do] Interim history: I reviewed the medical record, interviewed the patient and discuss her treatment and treatment plan during team meeting. She is less tangential and delusional but complains of sleep and less disorganized. Mental status exam: She was cooperative and did not make eye contact. She was restless but displayed no aggressive behavior today. She appears to be responding to less internal stimuli and isolating to room. She remains delusional psychotic tangential with magical thinking. Assessment: She remains severely mentally ill and is taking medications . She is involuntary treatment order to forcibly administer antipsychotic medications. She has diagnoses of schizoaffective disorder bipolar type. Her current intellectual functioning has improved since Sunday. Plan: Continue inpatient hospitalization. Continue safety precautions. Change her medication to Prolixin and will increase to 7.5 mg tonight and add Cogentin 1 mg at bedtime. She will need treatment with long acting injectable antipsychotic. This patient may be a state hospital candidate since she's relapsed 3 times in the last 6 months. Added venlafaxine 75 mf ER mg po qhs for depression and anxiety. Plan is court mandated for involuntary treatment since she has been so treatment resistant and not wanting to take medications as bizarre and delusional Discussed with patient today that she is court ordered and needs medication. Discussed the treatment with the treatment team this morning and they agreed that she needs this medication. Today after seeing the patient this would after this weekend she is tired and fatigued irritable and agitated and overwhelmed. It appears German has not been decreasing her agitation and will changed to Prolixin 7.5 mg at bedtime a day or Prolixin IM daily and gave her the choice and she prefers to take the Tablet.Will add Lithobid 450 mg twice a day, we'll obtain CBC CMP lithium level which is wnl. She was able to take her Lithobid today when the nurse offered.. Slow status and treatment but slowly getting to adhere to medical/psychiatric treatment.She is not to refuse medications otherwise she is to be injectable prolixin. Today she was able to go her medications in detail and discuss the side effect risk-benefit profile and she signed for her medications. Patient discussed today in a lengthy process why she is in the hospital and she lacks total insight and has no memory of the court hearing last week. She is able sleep now and eat meals but complains of insomnia at night. This may be related to the Prolixin 3 times a day therefore changed to Prolixin at bedtime. I did discuss with her Nicotrol inhaler but is not on the hospital formulary. She needs less redirection today. [id number] time 20 minutes. She will need to continue mental health involvement including act team for adherence to her medications and therefore her Prolixin will be titrated until resolution and Prolixin Decanoate 27.5 mg was given today and that for will be given the day before she is discharged. Objective - Vital Signs Vital signs: Vital Signs Temp 98 F 09/25/18 06:30 Pulse 67 06/19/18 20:21 Resp 16 06/18/18 06:30 BP 115/59 06/19/18 20:21 Pulse Ox 97 06/10/18 06:18 - Labs CBC & Chem 7: 06/18/18 09:09 06/18/18 09:09
[2018-06-20] MEDS ORDERED: fluPHENAZine DECANOATE 25 MG/ML 5ML MDV IM ONE (12:00)
[2018-06-20] MEDS ORDERED: LITHIUM CARBONATE ER 450 MG TABLET.ER PO SCH (16:00)
[2018-06-20] MEDS: BENZTROPINE MESYLATE 1 MG TAB PO SCH (20:46)
[2018-06-20] MEDS: VENLAFAXINE HCL ER 75 MG CAP PO SCH (20:46)
[2018-06-21] MEDS: IBUPROFEN 800 MG TAB PO SCH ×4 (08:28→20:24)
[2018-06-21] MEDS: MINERAL OIL-WHITE PETROLATUM 120 GM JAR TOPICAL SCH ×2 (08:28→20:24)
[2018-06-21] MEDS: NICOTINE 14MG/24HR PATCH TRANSDERM SCH (08:28)
[2018-06-21] MEDS: LITHIUM CARBONATE ER 450 MG TABLET.ER PO SCH ×3 (08:29→20:22)
[2018-06-21] MEDS: ASPIRIN 81 MG PO SCH (08:29)
--- NOTE | 2018-06-21 12:06 | P.PN ---
Subjective Progress Note Date: 06/21/18 Principal diagnosis: Interval History: The patient presents alert, pleasant, and cooperative. There seated with agitated behavior. [She reports that she hears things and voices telling her to kill other people including killing myself while examining family room] reports that [she admits to being depressed and agitated] mood is poor. Affect is congruent and . [She] having any suicidal or homicidal ideation intent or plan. [She has auditory and visual hallucinations] a There is evidence of any delusional thought content. [Her] thought process is disorganized and not goal-directed. [Her] speech is fluent and pressured. [ Her] memory and concentration is grossly intact for the purposes of this session. Mental Status: [She is not oriented to person place and time she denies any psychiatric problems but rambles and very tangential and circumstantial] Appearance/Attitude: [Very withdrawn agitated and responding to internal stimuli ] Behavior: [Dressed in hospital gown and was unable to sit still during the interview] Speech/Language: [She has very pressured speech tangential and circumstantial nature] Thought Process: [Delusional with ideas of homicide] Thought Content: [ racing thoughts and unable to focus] Suicidal/Homicidal Ideation: [Denies] Sensorium/Cognition: [person place or time] Mood/Affect: [Stable] Insight/Judgment: [Poor insight and does not know why she needs to be here] Assessment: [Schizoaffective bipolar type] Plan: [second clinical service a lot today for court tomorrow; continued treatment and encourage her to take her antipsychotics which she is very resistant to do] Interim history: I reviewed the medical record, interviewed the patient and discuss her treatment and treatment plan during team meeting. She is less tangential and delusional but complains of sleep and less disorganized. Mental status exam: She was cooperative and did not make eye contact. She was restless but displayed no aggressive behavior today. She appears to be responding to less internal stimuli and isolating to room. She remains delusional psychotic tangential with magical thinking. Assessment: She remains severely mentally ill and is taking medications . She is involuntary treatment order to forcibly administer antipsychotic medications. She has diagnoses of schizoaffective disorder bipolar type. Her current intellectual functioning has improved since Sunday. Plan: Continue inpatient hospitalization. Continue safety precautions. Change her medication to Prolixin and will increase to 7.5 mg tonight and add Cogentin 1 mg at bedtime. She will need treatment with long acting injectable antipsychotic. This patient may be a state hospital candidate since she's relapsed 3 times in the last 6 months. Added venlafaxine 150 mg ER mg po qhs for depression and anxiety. Plan is court mandated for involuntary treatment since she has been so treatment resistant and not wanting to take medications as bizarre and delusional Discussed with patient today that she is court ordered and needs medication. Discussed the treatment with the treatment team this morning and they agreed that she needs this medication. Today after seeing the patient this would after this weekend she is tired and fatigued irritable and agitated and overwhelmed. It appears German has not been decreasing her agitation and will changed to Prolixin 7.5 mg at bedtime a day or Prolixin IM daily and gave her the choice and she prefers to take the Tablet.Will add Lithobid 450 mg twice a day, we'll obtain CBC CMP lithium level which is wnl. She was able to take her Lithobid today when the nurse offered.. Slow status and treatment but slowly getting to adhere to medical/psychiatric treatment.She is not to refuse medications otherwise she is to be injectable prolixin. Today she was able to go her medications in detail and discuss the side effect risk-benefit profile and she signed for her medications. [id number] time 20 minutes. She will need to continue mental health involvement including act team for adherence to her medications and therefore her Prolixin will be titrated until resolution and Prolixin Decanoate 27.5 mg was given today and that for will be given the day before she is discharged. Wants to move close to boyfriend. Objective - Vital Signs Vital signs: Vital Signs Temp 98.1 F 06/21/18 07:06 Pulse 65 06/21/18 07:06 Resp 18 06/21/18 07:06 BP 118/56 06/21/18 07:06 Pulse Ox 97 06/10/18 06:18 - Constitutional General appearance: Present: mild distress - Labs CBC & Chem 7: 06/18/18 09:09 06/18/18 09:09 Assessment and Plan (1) Bipolar disorder Current Visit: Yes Status: Acute Code(s): F31.9 - BIPOLAR DISORDER, UNSPECIFIED SNOMED Code(s): 21231574 (2) Acute psychosis Current Visit: No Status: Acute Code(s): F23 - BRIEF PSYCHOTIC DISORDER SNOMED Code(s): 93312791 Time with Patient: Less than 30
[2018-06-21] MEDS: VENLAFAXINE HCL ER 150 MG CAP PO SCH (20:22)
[2018-06-21] MEDS: BENZTROPINE MESYLATE 1 MG TAB PO SCH (20:22)
[2018-06-22] MEDS: MINERAL OIL-WHITE PETROLATUM 120 GM JAR TOPICAL SCH ×2 (08:00→21:06)
[2018-06-22] MEDS: LITHIUM CARBONATE ER 450 MG TABLET.ER PO SCH ×3 (08:00→21:00)
[2018-06-22] MEDS: NICOTINE 14MG/24HR PATCH TRANSDERM SCH (08:00)
[2018-06-22] MEDS: IBUPROFEN 800 MG TAB PO SCH ×4 (08:00→21:06)
[2018-06-22] MEDS: ASPIRIN 81 MG PO SCH (08:00)
--- NOTE | 2018-06-22 19:35 | P.PN ---
Progress Note - Text Progress Note Date: 06/22/18 IDENTIFICATION DATA: 47-year-old female with history of Schizoaffective disorder was referred to the emergency room by [facility] due to not taking care of self and being delusional. INTERVAL HISTORY: Behavioral problems No major behavioral problems reported. Per staff patients symptoms have improved significantly. She denies symptoms of psychosis. Is complaint with medications. No side effects reported. She reports good sleep and appetite. She communicates well with staff and peers. She is able to voice her needs and is able to handle stress well with getting overwhelmed or delusional . MENTAL STATUS EXAMINATION: 47- year-old female. appeared stated age in fair grooming and hygiene. dressed casually. No abnormal movements noted. The patient is alert and oriented 4 and in no apparent distress. speech and thought process are linear and goal directed. Mood is reported as getting better and affect is constricted. Denies suicidal or homicidal ideation. Denies auditory and visual hallucaintions. Not delusional. insight and judgment are improving. ASSESSMENT AND PLAN: Continue current medications Continue all precuations Monitor for symptoms
[2018-06-22] MEDS: BENZTROPINE MESYLATE 1 MG TAB PO SCH (21:00)
[2018-06-22] MEDS: VENLAFAXINE HCL ER 150 MG CAP PO SCH (21:01)
[2018-06-23] MEDS: LITHIUM CARBONATE ER 450 MG TABLET.ER PO SCH ×3 (08:33→21:03)
[2018-06-23] MEDS: IBUPROFEN 800 MG TAB PO SCH ×4 (08:33→21:04)
[2018-06-23] MEDS: ASPIRIN 81 MG PO SCH (08:33)
[2018-06-23] MEDS: NICOTINE 14MG/24HR PATCH TRANSDERM SCH (08:34)
[2018-06-23] MEDS: MINERAL OIL-WHITE PETROLATUM 120 GM JAR TOPICAL SCH ×2 (08:34→21:04)
--- NOTE | 2018-06-23 18:13 | P.PN ---
Progress Note - Text Progress Note Date: 06/23/18 IDENTIFICATION DATA : 47-year-old female with history of Schizoaffective disorder was referred to the emergency room by [facility] due to not taking care of self and being delusional. INTERVAL HISTORY: Patient claims to have slept only for three hours last night. She reports good appetite. She participates in groups and is complaint with unit rules. She is planning to move back with her boyfriend in [place]. She denies current symptoms of depression. She is able to communicate her needs and is no longer delusional. MENTAL STATUS EXAMINATION: The patient is alert and oriented 4 and in no apparent distress. She appears in fair grooming and hygiene. Dressed casually. SHe is pleasant and cooperative. Mood is "better" and affect is constricted. Denies auditory and visual hallucinations. thought processes is linear and goal directed. thought content is negative for suicidal or homicidal ideation. insight and judgment are improving ASSESSMENT AND PLAN: Continue current medications Continue precuations Monitor for symptoms
[2018-06-23] MEDS: VENLAFAXINE HCL ER 150 MG CAP PO SCH (21:01)
[2018-06-23] MEDS: BENZTROPINE MESYLATE 1 MG TAB PO SCH (21:03)
[2018-06-24] MEDS: LITHIUM CARBONATE ER 450 MG TABLET.ER PO SCH ×3 (08:07→20:32)
[2018-06-24] MEDS: IBUPROFEN 800 MG TAB PO SCH ×4 (08:07→20:32)
[2018-06-24] MEDS: ASPIRIN 81 MG PO SCH (08:07)
[2018-06-24] MEDS: NICOTINE 14MG/24HR PATCH TRANSDERM SCH (08:07)
[2018-06-24] MEDS: MINERAL OIL-WHITE PETROLATUM 120 GM JAR TOPICAL SCH ×2 (08:08→20:30)
--- NOTE | 2018-06-24 09:48 | P.PN ---
Subjective Progress Note Date: 06/24/18 Principal diagnosis: Interval History: The patient presents alert, pleasant, and cooperative. There seated with agitated behavior. [She reports that she hears things and voices telling her to kill other people including killing myself while examining family room] reports that [she admits to being depressed and agitated] mood is poor. Affect is congruent and . [She] having any suicidal or homicidal ideation intent or plan. [She has auditory and visual hallucinations] a There is evidence of any delusional thought content. [Her] thought process is disorganized and not goal-directed. [Her] speech is fluent and pressured. [ Her] memory and concentration is grossly intact for the purposes of this session. Mental Status: [She is not oriented to person place and time she denies any psychiatric problems but rambles and very tangential and circumstantial] Appearance/Attitude: [Very withdrawn agitated and responding to internal stimuli ] Behavior: [Dressed in hospital gown and was unable to sit still during the interview] Speech/Language: [She has very pressured speech tangential and circumstantial nature] Thought Process: [Delusional with ideas of homicide] Thought Content: [ racing thoughts and unable to focus] Suicidal/Homicidal Ideation: [Denies] Sensorium/Cognition: [person place or time] Mood/Affect: [Stable] Insight/Judgment: [Poor insight and does not know why she needs to be here] Assessment: [Schizoaffective bipolar type] Plan: [second clinical service a lot today for court tomorrow; continued treatment and encourage her to take her antipsychotics which she is very resistant to do] Interim history: I reviewed the medical record, interviewed the patient and discuss her treatment and treatment plan during team meeting. She is less tangential and delusional but complains of sleep and less disorganized. Mental status exam: She was cooperative and did not make eye contact. She was restless but displayed no aggressive behavior today. She appears to be responding to less internal stimuli and isolating to room. She remains delusional psychotic tangential with magical thinking. Assessment: She remains severely mentally ill and is taking medications . She is involuntary treatment order to forcibly administer antipsychotic medications. She has diagnoses of schizoaffective disorder bipolar type. Her current intellectual functioning has improved since Sunday. Plan: Continue inpatient hospitalization. Continue safety precautions. Change her medication to Prolixin and will increase to 7.5 mg tonight and add Cogentin 1 mg at bedtime. She will need treatment with long acting injectable antipsychotic. This patient may be a state hospital candidate since she's relapsed 3 times in the last 6 months. Added venlafaxine 150 mg ER mg po qhs for depression and anxiety. Plan is court mandated for involuntary treatment since she has been so treatment resistant and not wanting to take medications as bizarre and delusional Discussed with patient today that she is court ordered and needs medication. Discussed the treatment with the treatment team this morning and they agreed that she needs this medication. Today after seeing the patient this would after this weekend she is tired and fatigued irritable and agitated and overwhelmed. It appears German has not been decreasing her agitation and will changed to Prolixin 7.5 mg at bedtime a day or Prolixin IM daily and gave her the choice and she prefers to take the Tablet.Will add Lithobid 450 mg three a day, we'll obtain CBC CMP lithium level which is wnl. She was able to take her Lithobid today when the nurse offered.. Slow status and treatment but slowly getting to adhere to medical/psychiatric treatment.She is not to refuse medications otherwise she is to be injectable prolixin. Today she was able to go her medications in detail and discuss the side effect risk-benefit profile and she signed for her medications. [id number] time 20 minutes. She will need to continue mental health involvement including act team for adherence to her medications and therefore her Prolixin will be titrated until resolution and Prolixin Decanoate 27.5 mg was given today and that for will be given the day before she is discharged. Wants to move close to boyfriend. Objective - Vital Signs Vital signs: Vital Signs Temp 98.0 F 06/24/18 07:12 Pulse 60 06/24/18 07:12 Resp 14 06/24/18 07:12 BP 122/58 06/24/18 07:12 Pulse Ox 97 06/10/18 06:18 Intake & Output 06/23/18 06/24/18 06/24/18 18:59 06:59 18:59 Weight 78.1 kg - Labs CBC & Chem 7: 06/18/18 09:09 09/25/18 09:09 Assessment and Plan (1) Bipolar disorder Current Visit: Yes Status: Acute Code(s): F31.9 - BIPOLAR DISORDER, UNSPECIFIED SNOMED Code(s): 37698037 (2) Acute psychosis Current Visit: No Status: Acute Code(s): F23 - BRIEF PSYCHOTIC DISORDER SNOMED Code(s): 36573568
[2018-06-24] MEDS: BENZTROPINE MESYLATE 1 MG TAB PO SCH (20:32)
[2018-06-24] MEDS: VENLAFAXINE HCL ER 150 MG CAP PO SCH (20:33)
[2018-06-25 07:08] VITALS: PULSE 61; TEMP 97.9
[2018-06-25] MEDS: IBUPROFEN 800 MG TAB PO SCH ×4 (08:44→20:16)
[2018-06-25] MEDS: NICOTINE 14MG/24HR PATCH TRANSDERM SCH (08:44)
[2018-06-25] MEDS: LITHIUM CARBONATE ER 450 MG TABLET.ER PO SCH ×3 (08:44→20:16)
[2018-06-25] MEDS: ASPIRIN 81 MG PO SCH (08:44)
[2018-06-25] MEDS: MINERAL OIL-WHITE PETROLATUM 120 GM JAR TOPICAL SCH ×2 (08:45→20:16)
[2018-06-25] MEDS: ACETAMINOPHEN TAB 325 MG TAB PO PRN (09:24)
--- NOTE | 2018-06-25 11:09 | P.PN ---
Subjective Progress Note Date: 06/25/18 Principal diagnosis: Interval History: The patient presents alert, pleasant, and cooperative. There seated with agitated behavior. [She reports that she hears things and voices telling her to kill other people including killing myself while examining family room] reports that [she admits to being depressed and agitated] mood is poor. Affect is congruent and . [She] having any suicidal or homicidal ideation intent or plan. [She has auditory and visual hallucinations] a There is evidence of any delusional thought content. [Her] thought process is disorganized and not goal-directed. [Her] speech is fluent and pressured. [ Her] memory and concentration is grossly intact for the purposes of this session. Mental Status: [She is not oriented to person place and time she denies any psychiatric problems but rambles and very tangential and circumstantial] Appearance/Attitude: [Very withdrawn agitated and responding to internal stimuli ] Behavior: [Dressed in hospital gown and was unable to sit still during the interview] Speech/Language: [She has very pressured speech tangential and circumstantial nature] Thought Process: [Delusional with ideas of homicide] Thought Content: [ racing thoughts and unable to focus] Suicidal/Homicidal Ideation: [Denies] Sensorium/Cognition: [person place or time] Mood/Affect: [Stable] Insight/Judgment: [Poor insight and does not know why she needs to be here] Assessment: [Schizoaffective bipolar type] Plan: [second clinical service a lot today for court tomorrow; continued treatment and encourage her to take her antipsychotics which she is very resistant to do] Interim history: I reviewed the medical record, interviewed the patient and discuss her treatment and treatment plan during team meeting. She is less tangential and delusional but complains of sleep and less disorganized. Mental status exam: She was cooperative and did not make eye contact. She was restless but displayed no aggressive behavior today. She appears to be responding to less internal stimuli and isolating to room. She remains delusional psychotic tangential with magical thinking. Assessment: She remains severely mentally ill and is taking medications . She is involuntary treatment order to forcibly administer antipsychotic medications. She has diagnoses of schizoaffective disorder bipolar type. Her current intellectual functioning has improved since Sunday. Plan: Continue inpatient hospitalization. Continue safety precautions. Change her medication to Prolixin and will increase to 7.5 mg tonight and add Cogentin 1 mg at bedtime. She will need treatment with long acting injectable antipsychotic. This patient may be a state hospital candidate since she's relapsed 3 times in the last 6 months. Added venlafaxine 150 mg ER mg po qhs for depression and anxiety. Plan is court mandated for involuntary treatment since she has been so treatment resistant and not wanting to take medications as bizarre and delusional Discussed with patient today that she is court ordered and needs medication. Discussed the treatment with the treatment team this morning and they agreed that she needs this medication. Today after seeing the patient this would after this weekend she is tired and fatigued irritable and agitated and overwhelmed. It appears German has not been decreasing her agitation and will changed to Prolixin 7.5 mg at bedtime a day or Prolixin IM daily and gave her the choice and she prefers to take the Tablet.Will add Lithobid 450 mg three a day, we'll obtain CBC CMP lithium level which is wnl. She was able to take her Lithobid today when the nurse offered.. Slow status and treatment but slowly getting to adhere to medical/psychiatric treatment.She is not to refuse medications otherwise she is to be injectable prolixin. Today she was able to go her medications in detail and discuss the side effect risk-benefit profile and she signed for her medications. [id number] time 20 minutes. She will need to continue mental health involvement including act team for adherence to her medications and therefore her Prolixin will be titrated until resolution and Prolixin Decanoate 27.5 mg was given today and that for will be given the day before she is discharged. Discussed nursing home care but decided on ACT team and [facility]/ Objective - Vital Signs Vital signs: Vital Signs Temp 97.9 F 06/25/18 07:07 Pulse 61 06/25/18 07:07 Resp 18 06/25/18 07:07 BP 91/54 06/25/18 07:07 Pulse Ox 97 06/10/18 06:18 - Labs CBC & Chem 7: 06/18/18 09:09 06/18/18 09:09 Assessment and Plan (1) Bipolar disorder Current Visit: Yes Status: Acute Code(s): F31.9 - BIPOLAR DISORDER, UNSPECIFIED SNOMED Code(s): 83963548 (2) Acute psychosis Current Visit: No Status: Acute Code(s): F23 - BRIEF PSYCHOTIC DISORDER SNOMED Code(s): 94556580
[2018-06-25] MEDS: VENLAFAXINE HCL ER 150 MG CAP PO SCH (20:16)
[2018-06-25] MEDS: BENZTROPINE MESYLATE 1 MG TAB PO SCH (20:16)
[2018-06-26] MEDS: IBUPROFEN 800 MG TAB PO SCH ×4 (07:58→20:20)
[2018-06-26] MEDS: NICOTINE 14MG/24HR PATCH TRANSDERM SCH (07:58)
[2018-06-26] MEDS: MINERAL OIL-WHITE PETROLATUM 120 GM JAR TOPICAL SCH ×2 (07:58→20:20)
[2018-06-26] MEDS: ASPIRIN 81 MG PO SCH (07:58)
[2018-06-26] MEDS: LITHIUM CARBONATE ER 450 MG TABLET.ER PO SCH ×3 (07:58→20:20)
[2018-06-26 09:37] VITALS: BMI 29.5
--- NOTE | 2018-06-26 12:34 | P.PN ---
Subjective Progress Note Date: 06/26/18 Principal diagnosis: Interval History: The patient presents alert, pleasant, and cooperative. There seated with agitated behavior. [She reports that she hears things and voices telling her to kill other people including killing myself while examining family room] reports that [she admits to being depressed and agitated] mood is poor. Affect is congruent and . [She] having any suicidal or homicidal ideation intent or plan. [She has auditory and visual hallucinations] a There is evidence of any delusional thought content. [Her] thought process is disorganized and not goal-directed. [Her] speech is fluent and pressured. [ Her] memory and concentration is grossly intact for the purposes of this session. Mental Status: [She is not oriented to person place and time she denies any psychiatric problems but rambles and very tangential and circumstantial] Appearance/Attitude: [Very withdrawn agitated and responding to internal stimuli ] Behavior: [Dressed in hospital gown and was unable to sit still during the interview] Speech/Language: [She has very pressured speech tangential and circumstantial nature] Thought Process: [Delusional with ideas of homicide] Thought Content: [ racing thoughts and unable to focus] Suicidal/Homicidal Ideation: [Denies] Sensorium/Cognition: [person place or time] Mood/Affect: [Stable] Insight/Judgment: [Poor insight and does not know why she needs to be here] Assessment: [Schizoaffective bipolar type] Plan: [second clinical service a lot today for court tomorrow; continued treatment and encourage her to take her antipsychotics which she is very resistant to do] Interim history: I reviewed the medical record, interviewed the patient and discuss her treatment and treatment plan during team meeting. She is less tangential and delusional but complains of sleep and less disorganized. Mental status exam: She was cooperative and did not make eye contact. She was restless but displayed no aggressive behavior today. She appears to be responding to less internal stimuli and isolating to room. She remains delusional psychotic tangential with magical thinking. Assessment: She remains severely mentally ill and is taking medications . She is involuntary treatment order to forcibly administer antipsychotic medications. She has diagnoses of schizoaffective disorder bipolar type. Her current intellectual functioning has improved since daily.. Plan: Continue inpatient hospitalization. Continue safety precautions. Change her medication to Prolixin and will increase to 7.5 mg tonight and add Cogentin 1 mg at bedtime. She will need treatment with long acting injectable antipsychotic. This patient may be a state hospital candidate since she's relapsed 3 times in the last 6 months. venlafaxine 150 mg ER mg po qhs for depression (10/03) and anxiety (10/03). Plan is court mandated for involuntary treatment since she has been so treatment resistant and not wanting to take medications as bizarre and delusional Discussed with patient today that she is court ordered and needs medication. Discussed the treatment with the treatment team this morning and they agreed that she needs this medication. Today after seeing the patient this would after this weekend she is tired and fatigued irritable and agitated and overwhelmed. It appears German has not been decreasing her agitation and will changed to Prolixin 7.5 mg at bedtime a day or Prolixin IM daily and gave her the choice and she prefers to take the Tablet. Lithobid 450 mg three a day, we' ll obtain CBC CMP lithium level which is wnl. She was able to take her Lithobid today when the nurse offered.. Slow status and treatment but slowly getting to adhere to medical/psychiatric treatment.She is not to refuse medications otherwise she is to be injectable prolixin. Today she was able to go her medications in detail and discuss the side effect risk-benefit profile and she signed for her medications. [id number] time 20 minutes. She will need to continue mental health involvement including act team for adherence to her medications and therefore her Prolixin will be titrated until resolution and Prolixin Decanoate 27.5 mg and that for will be given the day before she is discharged. Discussed alf care but decided on ACT team and [facility]. Talked with Eliseo her boyfriend/fiance and he is willing to take care of her. Objective - Vital Signs Vital signs: Vital Signs Temp 97.9 F 06/26/18 06:24 Pulse 61 06/26/18 06:24 Resp 12 06/26/18 06:24 BP 106/57 06/26/18 06:24 Pulse Ox 97 06/10/18 06:18 Intake & Output 06/25/18 06/26/18 06/26/18 18:59 06:59 18:59 Weight 78.1 kg - Labs CBC & Chem 7: 06/18/18 09:09 06/18/18 09:09 Assessment and Plan (1) Bipolar disorder Current Visit: Yes Status: Acute Priority: Low Code(s): F31.9 - BIPOLAR DISORDER, UNSPECIFIED SNOMED Code(s): 74748461 (2) Acute psychosis Current Visit: No Status: Acute Priority: Low Code(s): F23 - BRIEF PSYCHOTIC DISORDER SNOMED Code(s): 90655926 Time with Patient: Less than 30
[2018-06-26] MEDS: BENZTROPINE MESYLATE 1 MG TAB PO SCH (20:20)
[2018-06-26] MEDS: VENLAFAXINE HCL ER 150 MG CAP PO SCH (20:20)
[2018-06-27] MEDS: MINERAL OIL-WHITE PETROLATUM 120 GM JAR TOPICAL SCH ×2 (08:02→20:42)
[2018-06-27] MEDS: IBUPROFEN 800 MG TAB PO SCH ×3 (08:02→17:24)
[2018-06-27] MEDS: LITHIUM CARBONATE ER 450 MG TABLET.ER PO SCH ×3 (08:02→20:42)
[2018-06-27] MEDS: ASPIRIN 81 MG PO SCH (08:02)
[2018-06-27] MEDS: NICOTINE 14MG/24HR PATCH TRANSDERM SCH (08:03)
--- NOTE | 2018-06-27 17:31 | P.PN ---
Subjective Progress Note Date: 06/27/18 Interim history: I reviewed the medical record, interviewed the patient and discuss her treatment and treatment plan during team meeting. She is less tangential and delusional but complains of sleep and less disorganized. Mental status exam: She was cooperative and did not make eye contact. She was restless but displayed no aggressive behavior today. She appears to be responding to less internal stimuli and isolating to room. Mental Status: [She is oriented to person place and time she denies any psychiatric problems] Appearance/Attitude: [more stable but tearful] Behavior: [She was unable to sit still during the interview] Speech/Language: [She has very pressured speech] Thought Process: [wnl] Thought Content: [ racing thoughts and able to focus] Suicidal/Homicidal Ideation: [Denies] Sensorium/Cognition: [person place or time] Mood/Affect: [Stable] Insight/Judgment: [Poor insight and tearful today] Assessment: [Schizoaffective bipolar type] Assessment: She remains severely mentally ill and is taking medications . She is involuntary treatment order to forcibly administer antipsychotic medications. She has diagnoses of schizoaffective disorder bipolar type. Her current intellectual functioning has improved since daily.. Plan: Continue inpatient hospitalization. Continue safety precautions. Change her medication to Prolixin and will increase to 7.5 mg tonight and add Cogentin 1 mg at bedtime. She will need treatment with long acting injectable antipsychotic. This patient may be a state hospital candidate since she's relapsed 3 times in the last 6 months. venlafaxine 150 mg ER mg po qhs for depression (11/03) and anxiety (2/). Plan is court mandated for involuntary treatment since she has been so treatment resistant and not wanting to take medications as bizarre and delusional Discussed with patient today that she is court ordered and needs medication. Discussed the treatment with the treatment team this morning and they agreed that she needs this medication. Today after seeing the patient this would after this weekend she is tired and fatigued irritable and agitated and overwhelmed. Prolixin 7.5 mg at bedtime a day or Prolixin IM daily and gave her the choice and she prefers to take the Tablet. Lithobid 450 mg three a day, we'll obtain CBC CMP lithium level which is wnl. She was able to take her Lithobid today when the nurse offered.. Slow status and treatment but slowly getting to adhere to medical/psychiatric treatment.She is not to refuse medications otherwise she is to be injectable prolixin. Today she was able to go her medications in detail and discuss the side effect risk-benefit profile and she signed for her medications. [id number] time 15 minutes. She will need to continue mental health involvement including act team for adherence to her medications and therefore her Prolixin will be titrated until resolution and Prolixin Decanoate 27.5 mg and that for will be given the day before she is discharged. Discussed jail care but decided on ACT team and [facility] Talked with Eliseo her boyfriend/fiance and he is willing to take care of her. Decrease dose of [place]ley 450 mg po bid and draw labs Objective - Vital Signs Vital signs: Vital Signs Temp 97.9 F 06/26/18 06:24 Pulse 61 06/26/18 06:24 Resp 12 06/26/18 06:24 BP 106/57 06/26/18 06:24 Pulse Ox 97 06/10/18 06:18 Intake & Output 06/26/18 06/27/18 06/27/18 18:59 06:59 18:59 Weight 78.1 kg - Labs CBC & Chem 7: 06/18/18 09:09 06/18/18 09:09 Assessment and Plan (1) Bipolar disorder Current Visit: Yes Status: Acute Priority: Low Code(s): F31.9 - BIPOLAR DISORDER, UNSPECIFIED SNOMED Code(s): 78181526 (2) Acute psychosis Current Visit: No Status: Acute Priority: Low Code(s): F23 - BRIEF PSYCHOTIC DISORDER SNOMED Code(s): 64784846 Time with Patient: Less than 30
[2018-06-27] MEDS: VENLAFAXINE HCL ER 150 MG CAP PO SCH (20:42)
[2018-06-27] MEDS: BENZTROPINE MESYLATE 1 MG TAB PO SCH (20:42)
[2018-06-28] MEDS: IBUPROFEN 800 MG TAB PO SCH ×3 (01:08→12:54)
[2018-06-28 07:04] VITALS: BP 115/54; RESP 14
[2018-06-28] MEDS: MINERAL OIL-WHITE PETROLATUM 120 GM JAR TOPICAL SCH (09:47)
[2018-06-28] MEDS: LITHIUM CARBONATE ER 450 MG TABLET.ER PO SCH (09:47)
[2018-06-28] MEDS: NICOTINE 14MG/24HR PATCH TRANSDERM SCH (09:47)
[2018-06-28] MEDS: ASPIRIN 81 MG PO SCH (09:47)
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
== END 2018-06-28 15:06 | disposition home or self-care (01) | DRG 885 ==
LOC: EC 17:12 → 3MHU 20:13
PROVIDERS: ADMIT Psychiatry & Neurology Psychiatry; ATTEND Psychiatry & Neurology Psychiatry
DX: F25.0 Schizoaffective disorder, bipolar type (principal); F17.200 Nicotine dependence, unspecified, uncomplicated; F41.9 Anxiety disorder, unspecified; K21.9 Gastro-esophageal reflux disease without esophagitis; Z79.899 Other long term (current) drug therapy; Z82.49 Family history of ischemic heart disease and other diseases of the circulatory system; Z85.41 Personal history of malignant neoplasm of cervix uteri; Z91.19 Patient's noncompliance with other medical treatment and regimen; Z98.51 Tubal ligation status; Z88.5 Allergy status to narcotic agent; Z79.1 Long term (current) use of non-steroidal anti-inflammatories (NSAID); Z79.82 Long term (current) use of aspirin; D75.1 Secondary polycythemia; M54.5 Low back pain; G89.29 Other chronic pain; E83.52 Hypercalcemia; E78.00 Pure hypercholesterolemia, unspecified
CPT/HCPCS: 80053; 80061; 80178; 80306; 81001; 81025; 82075; 82248; 83036; 84443; 85025; 87086; 93005; 99285

== ENCOUNTER 2020-06-29 17:17 | Inpatient (IN) | payer MEDICARE, MEDICAID ==
[2020-06-29] MEDS ORDERED: HALOPERIDOL LACTATE 5 MG/ML 1 ML VIAL IM PRN (18:05)
[2020-06-29] MEDS ORDERED: LORazepam 2 MG/ML INJ IM STA ×2 (18:05→20:18)
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
[2020-06-29 19:55] LABS: Amphetamine Screen,Urine Not Detected (NotDetected); Barbiturate Screen,Urine Not Detected (NotDetected); Benzodiazepines Screen,Urine Not Detected (NotDetected); Cocaine Screen,Urine Not Detected (NotDetected); Methadone Screen, Urine Not Detected (NotDetected); Opiate Screen,Urine Not Detected (NotDetected); Oxycodone Screen, Urine Not Detected (NotDetected); Phencyclidine Screen,Urine Not Detected (NotDetected); Tricyclic Antidepressant,Urine Not Detected (NotDetected); Urn Cannabinoid Scrn Not Detected (NotDetected)
[2020-06-29] MEDS ORDERED: MAG HYDROX/AL HYDROX/SIMETH 30 ML CUP PO PRN (22:07)
[2020-06-29] MEDS ORDERED: ZIPRASIDONE 20 MG VIAL IM PRN (22:07)
[2020-06-29] MEDS ORDERED: hydrOXYzine HCL 50 MG/ML 1 ML VIAL IM PRN (22:10)
--- NOTE | 2020-06-29 22:48 | P.EN ---
Notified regarding new admission however patient was uncooperative was medicated and currently sleeping unable to evaluate at this time Please notify sound physician when patient is more appropriate for evaluation please verify primary care physician
[2020-06-29] MEDS: NICOTINE 14MG/24HR PATCH TRANSDERM SCH (23:24)
[2020-06-30 08:10] LABS: Basophils # (A) 0.1 k/uL (0-0.2); Basophils % (A) 1 %; Eosinophils # (A) 0.2 k/uL (0-0.7); Eosinophils % (A) 3 %; HCT 46.9 % (34.0-46.0); HGB 15.3 gm/dL (11.4-16.0); Lymphocytes # (A) 2.3 k/uL (1.0-4.8); Lymphocytes % (A) 33 %; MCH 28.6 pg (25.0-35.0); MCHC 32.7 g/dL (31.0-37.0); MCV 87.4 fL (80.0-100.0); Mean Platelet Volume 8.7; Monocytes # (A) 0.4 k/uL (0-1.0); Monocytes % (A) 6 %; Neutrophils % (A) 56 %; Platelet Count 173 k/uL (150-450); RBC 5.36 m/uL (3.80-5.40); RDW 14.3 % (11.5-15.5)
[2020-06-30] MEDS: NICOTINE 14MG/24HR PATCH TRANSDERM SCH (08:21)
[2020-06-30 08:30] LABS: ALT 104 U/L (4-34); AST 59 U/L (14-36); African American GFR (CKD) >90 (>60 ml/min/1.73 sqM); Alkaline Phosphatase 56 U/L (38-126); Anion Gap 6 mmol/L; Blood Urea Nitrogen 13 mg/dL (7-17); Calcium 9.8 mg/dL (8.4-10.2); Carbon Dioxide 25 mmol/L (22-30); Chloride 106 mmol/L (98-107); Cholesterol 217 mg/dL (<200); Glucose 98 mg/dL (74-99); HDL Cholesterol 50 mg/dL (40-60); LDL Cholesterol,Calculated 132 mg/dL (0-99); Non-African American GFR(CKD) >90 (>60 ml/min/1.73 sqM); Potassium 4.2 mmol/L (3.5-5.1); Sodium 137 mmol/L (137-145); Total Bilirubin 0.6 mg/dL (0.2-1.3); Total Protein 6.4 g/dL (6.3-8.2); Triglycerides 175 mg/dL (<150)
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
[2020-06-30] MEDS: LITHIUM CARBONATE 300 MG CAP PO SCH ×2 (17:11→20:45)
[2020-06-30 18:52] LABS: Hemoglobin A1C 5.6 % (4.0-6.0)
[2020-06-30] MEDS: risperiDONE 0.5 MG TAB PO SCH (20:45)
--- NOTE | 2020-07-01 00:53 | P.CONS ---
History of Present Illness - Reason for Consult Consult date: 07/01/20 medical eval Requesting physician: Waldo Vallejo - Chief Complaint delusional thoughts - History of Present Illness patient agreed to be evaluated , she walked into the exam room, she was mumbling incoherent words. then showed me her ankle and was telling me that it hurts. then suddenly put her socks back on and said "I am done, " and " thank you!" she was very nice, however, did not agree to my request to stay in the exam room for evaluation and interview , and claimed that she is done with me and has no other medical concerns. and she left the room when I explained to her RN, she indicated that the patient is still delusional per ED notes, she was petitioned by her sister due to hearing voices and delusional thoughts regarding imaginary boy friend that she was waiting for in a gas station . she is non compliant with her meds Review of Systems ROS unobtainable: due to mental status Past Medical History Past Medical History: GERD/Reflux, Seizure Disorder History of Any Multi-Drug Resistant Organisms: None Reported Past Surgical History: Unable to Obtain, Tubal Ligation Past Anesthesia/Blood Transfusion Reactions: Unable to Obtain Past Psychological History: Anxiety, Bipolar, Depression Smoking Status: Current every day smoker Past Alcohol Use History: None Reported Past Drug Use History: None Reported - Past Family History Family Family Medical History: Coronary Artery Disease (CAD) Medications and Allergies Home Medications Medication Instructions Recorded Confirmed Type Benztropine Mesylate [Cogentin] 1 mg PO BID 06/29/20 06/29/20 History Divalproex [Depakote] 500 mg PO BID 06/29/20 06/29/20 History Paliperidone IM [Invega Sustenna] 234 mg IM QMONTHLY 06/29/20 06/29/20 History Paliperidone [Paliperidone ER] 6 mg PO DAILY 06/29/20 06/29/20 History Allergies Allergy/AdvReac Type Severity Reaction Status Date / Time codeine Allergy Unknown Verified 05/18/18 01:37 Physical Exam Vitals: Vital Signs Temp Pulse Resp BP Pulse Ox 06/30/20 06:23 98.0 F 67 17 132/67 99 patient was not interested in continuing the interview. Results CBC & Chem 7: 06/30/20 07:34 06/30/20 07:34 Labs: Abnormal Lab Results - Last 24 Hours (Table) 06/30/20 06/30/20 Range/Units 07:34 07:34 Hct 46.9 H (34.0-46.0) % AST 59 H (14-36) U/L ALT 104 H (4-34) U/L Triglycerides 175 H (<150) mg/dL Cholesterol 217 H (<200) mg/dL LDL Cholesterol, Calc 132 H (0-99) mg/dL Assessment and Plan Assessment: delusional thoughts bipolar disorder schizoaffective disorder management per psych please notify sound physician group for any medical concerns if patient is willing to talk
[2020-07-01] MEDS: NICOTINE 14MG/24HR PATCH TRANSDERM SCH (09:08)
[2020-07-01] MEDS: LITHIUM CARBONATE 300 MG CAP PO SCH ×3 (09:08→20:44)
[2020-07-01] MEDS: risperiDONE 0.5 MG TAB PO SCH ×2 (09:08→20:44)
--- NOTE | 2020-07-01 09:17 | P.PN ---
Progress Note - Text Progress Note Date: 07/01/20 Interval History: Patient was seen resting in bed and was directable and agreeable to speak with signwriter in the office. A she continues to endorse delusional thinking. She asked this provider if he is a space cowboys. She asked this provider if he believes in aliens, space cowboys, and UFOs. She has been refusing medications and reports that she does not believe she needs any. She is expressing a strong desire for discharge. At this time patient denies any suicidal or homicidal ideations, intent or plan. She continues to endorse auditory and visual hallucinations but has been unable to share the content. She denies any issues with sleep. She reports mild nausea. Mental Status Exam: General Appearance: Patient appears to be stated age is alert, directable, and intermittently cooperative. Behavior: Patient is calmly seated without any agitated behavior. Speech: Patient's speech is fluent and nonpressured. Monotone. Spontaneous. Mood/Affect: Mood is nauseous, affect is flat. Suicidality/Homicidality: Patient denies having any suicidal or homicidal i deation intent or plan. Perceptions: Patient endorses both auditory and visual hallucinations. Though content/process: To delusional thought processes are evident. Patient is illogical. Memory and concentration: AOX3, grossly intact for the purposes of this session Judgment and insight: Very poor Assessment Schizoaffective disorder, bipolar type Plan: -Patient is admitted under involuntary status to [facility] for stabilization of psychiatric symptoms and safety. A second certificate was completed on 06/30/2020. -She has been refusing following medications: [place] 300 mg by mouth 3 times a day for mood stabilization Risperdal 0.5 mg by mouth twice a day for mood stabilization/psychosis -When necessary Ativan and Geodon for agitation/aggression. -NRT - nicotine patch -SW on board for discharge planning. Encouraged the patient to participate in milieu.
[2020-07-01] MEDS: ACETAMINOPHEN TAB 325 MG TAB PO PRN ×2 (09:53→21:22)
--- NOTE | 2020-07-02 09:59 | P.PN ---
Progress Note - Text Progress Note Date: 07/02/20 Interval History: Patient was seen resting in bed and was directable and agreeable to speak with underwriter in the office. Patient continues to endorse some delusional thoughts. She is endorsing sikh preoccupation today. She states that she is out here fighting the devil. She is carrying with her a copy of the clinical certificate's which she states are lies. She is not endorsing any visual hallucinations today. She reports auditory hallucinations of hearing the devil. At this time patient denies any suicidal or homical ideations, intent or plan. She continues to refuse any medications and states that she does not need any of them. Mental Status Exam: General Appearance: Patient appears to be stated age is alert, directable, and cooperative. Behavior: Patient is calmly seated without any agitated behavior. Speech: Patient's speech is fluent and nonpressured. Monotone. Spontaneous. Mood/Affect: Mood is "okay," affect is flat. Suicidality/Homicidality: Patient denies having any suicidal or homicidal ideation intent or plan. Perceptions: Patient endorses both auditory and visual hallucinations. Though content/process: delusional thought processes are evident. Patient is illogical. Religiously preoccupied. Memory and concentration: AOX3, grossly intact for the purposes of this session Judgment and insight: Very poor Assessment Schizoaffective disorder, bipolar type Plan: -Patient is admitted under involuntary status to [facility] for stabilization of psychiatric symptoms and safety. A second certificate was completed on 06/30/2020. -She has been refusing following medications: [place] 300 mg by mouth 3 times a day for mood stabilization Risperdal 0.5 mg by mouth twice a day for mood stabilization/psychosis -When necessary Ativan and Geodon for agitation/aggression. -NRT - nicotine patch -SW on board for discharge planning. Encouraged the patient to participate in milieu.
[2020-07-02] MEDS: NICOTINE 14MG/24HR PATCH TRANSDERM SCH (10:09)
[2020-07-02] MEDS: LITHIUM CARBONATE 300 MG CAP PO SCH ×2 (10:09→20:08)
[2020-07-02] MEDS: risperiDONE 0.5 MG TAB PO SCH ×2 (10:09→20:08)
--- NOTE | 2020-07-03 08:48 | P.PN ---
Progress Note - Text Progress Note Date: 07/03/20 Interval history: Patient was seen in her bedroom and was directable and agreeable to speak with writer technical publications. Patient states that she has a headache today. She refuses to take any as needed pain medications as she states that it will give her Coronavirus. She continues to endorse auditory hallucinations. She states that she hears the voices of her fianc calling out to her. At this time patient denies any suicidal or homicidal ideations intent or plan. Denies any visual hallucinations at this time. She is noncompliant with any medications prescribed. Mental status exam: General Appearance: Patient appears to be stated age is alert, directable, and cooperative. Behavior: No agitated behavior. Patient is calm and directable patient is resting in bed comfortably in no acute distress. Speech: Patient's speech is fluent and nonpressured. Mood/Affect: Mood is ""okay", affect is congruent and blunted. Suicidality/Homicidality: Patient denies having any suicidal or homicidal ideation intent or plan. Perceptions: Patient endorses auditory hallucinations. She denies any visual hallucinations today. Though content/process: She continues to be quite delusional. She is illogical. Memory and concentration: AOX3, grossly intact for the purposes of this session Judgment and insight: Very poor Assessment/Plan: Continue with current diagnosis. Patient continues to meet criteria for inpatient psychiatric admission for symptom stabilization and safety.Patient will be maintained on current psychotropic medication regimen. She continues to refuse any medications. We are awaiting court order. Monitor for medication compliance and for any psychotropic medication side effects. Will continue to monitor ongoing response to treatment. Encouraged participation in milieu.
[2020-07-03] MEDS: risperiDONE 0.5 MG TAB PO SCH ×2 (09:44→20:59)
[2020-07-03] MEDS: LITHIUM CARBONATE 300 MG CAP PO SCH ×3 (09:44→21:00)
[2020-07-03] MEDS: NICOTINE 14MG/24HR PATCH TRANSDERM SCH (09:44)
[2020-07-04] MEDS: risperiDONE 0.5 MG TAB PO SCH ×2 (10:52→21:11)
[2020-07-04] MEDS: NICOTINE 14MG/24HR PATCH TRANSDERM SCH (10:52)
[2020-07-04] MEDS: LITHIUM CARBONATE 300 MG CAP PO SCH ×3 (10:52→21:12)
--- NOTE | 2020-07-04 11:12 | P.PN ---
Progress Note - Text Progress Note Date: 07/04/20 Interval history: Patient was seen resting in bed and was directable and agreeable to speak with procedure writer. She continues to endorse delusional thinking. She endorses auditory and visual hallucinations. She states her fianc came to visit her last night and spoke with her. She is continuing to demand discharge. At this time patient denies any suicidal or homicidal ideations intent or plan. Denies any Auditory or visual hallucinations. She continues to refuse any medication. Mental status exam: General Appearance: Patient appears to be stated age is alert, directable, and cooperative. Behavior: No agitated behavior. Patient is calm and directable patient is resti ng in bed comfortably in no acute distress. Speech: Patient's speech is fluent and nonpressured. Mood/Affect: Mood is "ready to go", affect is congruent and blunted. Suicidality/Homicidality: Patient denies having any suicidal or homicidal ideation intent or plan. Perceptions: Patient endorses auditory and visual hallucinations. Though content/process: She continues to be quite delusional. She is illogical. Memory and concentration: AOX3, grossly intact for the purposes of this session Judgment and insight: Very poor Assessment/Plan: Continue with current diagnosis. Patient continues to meet criteria for inpatient psychiatric admission for symptom stabilization and safety. Patient will be maintained on current psychotropic medication regimen that she has been refusing. We are awaiting court order. Monitor for medication compliance and for any psychotropic medication side effects. Will continue to monitor ongoing response to treatment. Encouraged participation in milieu.
[2020-07-05] MEDS: NICOTINE 14MG/24HR PATCH TRANSDERM SCH (07:59)
[2020-07-05] MEDS: LITHIUM CARBONATE 300 MG CAP PO SCH ×3 (07:59→20:39)
[2020-07-05] MEDS: risperiDONE 0.5 MG TAB PO SCH ×2 (07:59→20:39)
--- NOTE | 2020-07-05 09:09 | P.PN ---
Progress Note - Text Progress Note Date: 07/05/20 Interval History: Patient was seen wandering the hallways and was directable and agreeable to speak with underwriter solicitation director in the office. She continues to believe that she is being discharged. When confronted with the reasons for admission, patient reports that she is only here because of what her sister said. This provider discussed that she has been noted not by just her sister but also by the officer as well as multiple staff as well as this provider himself that she has been delusional. Patient reports that the officer apologized and that this provider will no longer be her provider. She reports that "[facility] will be my psychiatrist.". Patient endorses auditory, visual hallucinations and delusions. She continues to refuse any medications. She is unable to verbalize reasons why she wants to refuse. Mental Status Exam: General Appearance: Patient appears to be stated age is alert, directable, and cooperative. Behavior: Patient is calmly seated without any agitated behavior. Eye contact is intense. Speech: Patient's speech is monotone, nonspontaneous, and paucity of speech. Mood/Affect: Mood is "ready to go." Affect is flat. Suicidality/Homicidality: Patient denies having any suicidal or homicidal ideation intent or plan. Perceptions: Auditory and visual hallucinations are evident. Though content/process: Delusional thought content is evident. Patient is responding to internal stimuli. Memory and concentration: AOX3, grossly intact for the purposes of this session Judgment and insight: Very poor Assessment Schizoaffective disorder, bipolar type Tobacco use Plan: -Patient continues to meet criteria for inpatient psychiatric admission for s ymptom stabilization and safety. Patient is scheduled for court on 07/14/2020 -She has been refusing following medications: [place] 300 mg by mouth 3 times a day for mood stabilization Risperdal 0.5 mg by mouth twice a day for mood stabilization/psychosis -When necessary Ativan and Geodon for agitation/aggression. -NRT - nicotine patch -SW on board for discharge planning. Encouraged the patient to participate in milieu.
[2020-07-05] MEDS: ACETAMINOPHEN TAB 325 MG TAB PO PRN (20:42)
[2020-07-06] MEDS: risperiDONE 0.5 MG TAB PO SCH ×2 (11:42→21:12)
[2020-07-06] MEDS: NICOTINE 14MG/24HR PATCH TRANSDERM SCH (11:42)
[2020-07-06] MEDS: LITHIUM CARBONATE 300 MG CAP PO SCH ×3 (11:42→21:12)
[2020-07-07] MEDS: NICOTINE 14MG/24HR PATCH TRANSDERM SCH (09:05)
[2020-07-07] MEDS: LITHIUM CARBONATE 300 MG CAP PO SCH ×3 (09:05→21:10)
[2020-07-07] MEDS: risperiDONE 0.5 MG TAB PO SCH ×2 (09:05→21:09)
--- NOTE | 2020-07-07 09:23 | P.PN ---
Progress Note - Text Progress Note Date: 07/06/20 This note was entered in error on another patient's chart. It is now corrected: Interval History: Patient was seen resting in bed and was undirectable and refused to speak with singer songwriter in the office. Patient expresses that she is discharged and refused to cooperate with this provider. She states that Jaxon Angel came in and told her she is discharged. She said that she does not need court because the supreme court has told her she is free. She continues to be very delusional and refusing medications. Mental Status Exam: General Appearance: Patient appears to be stated age is alert, undirectable, and uncooperative. Behavior: Patient is calmly lying in bed without any agitated behavior. Speech: Patient's speech is fluent and nonpressured. Monotone. Mood/Affect: Mood is upset, affect is congruent and flat. Suicidality/Homicidality: Patient denies having any suicidal or homicidal ideation intent or plan. Perceptions: Endorses both auditory and visual hallucinations Though content/process: Very delusional and illogical. Memory and concentration: AOX3, grossly intact for the purposes of this session Judgment and insight: Very poor Assessment Schizoaffective Disorder, bipolar type Tobacco Use Disorder Plan: -Patient continues to meet criteria for inpatient psychiatric admission for symptom stabilization and safety. Patient is currently awaiting court scheduled for 07/14/2020. -She continues to refuse the following medications: [place] 300 mg by mouth 3 times a day for mood stabilization Risperdal 0.5 mg by mouth twice a day for mood stabilization/psychosis -When necessary Ativan and Geodon for agitation/aggression. -NRT - nicotine patch -SW on board for discharge planning. Encouraged the patient to participate in milieu.
--- NOTE | 2020-07-07 09:25 | P.PN ---
Progress Note - Text Progress Note Date: 07/07/20 Interval History: Patient was seen resting in bed and was undirectable and not agreeable to speak with copy writer in the office. Patient continues to express a strong desire for discharge. Currently she is stating she has "fifth amendment rights." She continues to endorse psychotic symptoms of auditory and visual hallucinations and delusions. She reports speaking and seeing her family on the unit as well as having the [address] visit her. At this time patient denies any suicidal or homicidal ideations, intent or plan. She continues to refuse medications. Mental Status Exam: General Appearance: Patient appears to be stated age is alert, undirectable, and uncooperative. Behavior: Patient is calmly lying in bed without any agitated behavior. Speech: Patient's speech is fluent and nonpressured. Monotone. Mood/Affect: Mood is upset, affect is congruent and flat. Suicidality/Homicidality: Patient denies having any suicidal or homicidal ideation intent or plan. Perceptions: Endorses both auditory and visual hallucinations Though content/process: Very delusional and illogical. Memory and concentration: AOX3, grossly intact for the purposes of this session Judgment and insight: Very poor Assessment Schizoaffective Disorder, bipolar type Tobacco Use Disorder Plan: No change in plan. Waiting court order. -Patient continues to meet criteria for inpatient psychiatric admission for symptom stabilization and safety. Patient is currently awaiting court scheduled for 07/14/2020. -She continues to refuse the following medications: [place] 300 mg by mouth 3 times a day for mood stabilization Risperdal 0.5 mg by mouth twice a day for mood stabilization/psychosis -When necessary Ativan and Geodon for agitation/aggression. -NRT - nicotine patch -SW on board for discharge planning. Encouraged the patient to participate in milieu.
[2020-07-08] MEDS: NICOTINE 14MG/24HR PATCH TRANSDERM SCH (08:29)
[2020-07-08] MEDS: risperiDONE 0.5 MG TAB PO SCH ×2 (08:29→20:02)
[2020-07-08] MEDS: LITHIUM CARBONATE 300 MG CAP PO SCH ×3 (08:29→20:02)
--- NOTE | 2020-07-08 11:14 | P.PN ---
Progress Note - Text Progress Note Date: 07/08/20 Interval History: Patient was seen resting in bed and refused to get out of bed to speak with press writer. Patient continues endorse significant psychotic symptoms including auditory and visual hallucinations. She also reports delusions. She states that she hears her family and hat renovator talking to her despite no one visiting her on the unit. She continues to refuse any medications. Mental Status Exam: General Appearance: Patient appears to be stated age is alert, undirectable, and uncooperative. Behavior: Patient is calmly lying in bed without any agitated behavior. Speech: Patient's speech is fluent and nonpressured. Monotone. Mood/Affect: Mood is upset, affect is congruent and flat. Suicidality/Homicidality: Patient denies having any suicidal or homicidal ideation intent or plan. Perceptions: Endorses both auditory and visual hallucinations Though content/process: Very delusional and illogical. Memory and concentration: AOX3, grossly intact for the purposes of this session Judgment and insight: Very poor Assessment Schizoaffective Disorder, bipolar type Tobacco Use Disorder Plan: No change in plan. Waiting court order. -Patient continues to meet criteria for inpatient psychiatric admission for symptom stabilization and safety. Patient is currently awaiting court scheduled for 07/14/2020. -She continues to refuse the following medications: [place] 300 mg by mouth 3 times a day for mood stabilization Risperdal 0.5 mg by mouth twice a day for mood stabilization/psychosis -When necessary Ativan and Geodon for agitation/aggression. -NRT - nicotine patch -SW on board for discharge planning. Encouraged the patient to participate in milieu.
[2020-07-09] MEDS: risperiDONE 0.5 MG TAB PO SCH ×2 (08:04→17:00)
[2020-07-09] MEDS: NICOTINE 14MG/24HR PATCH TRANSDERM SCH (08:04)
[2020-07-09] MEDS: LITHIUM CARBONATE 300 MG CAP PO SCH ×3 (08:04→18:39)
--- NOTE | 2020-07-09 10:00 | P.PN ---
Progress Note - Text Progress Note Date: 07/09/20 Interval History: Patient was seen resting in bed and was directable and agreeable to speak with writer technical publications in the office. She continues endorse auditory and visual hallucinations. She states that her family members, cleaning custodian, and the ELECTRICAL ASSEMBLY SUPERVISOR were present in her room. At this time patient denies any suicidal or homicidal ideations, intent or plan. Patient denies any auditory, visual hallucinations and denies any paranoia or delusions. She continues to refuse any medications. Mental Status Exam: General Appearance: Patient appears to be stated age is alert, directable, and intermittently cooperative. Behavior: Patient is calmly seated without any agitated behavior. Speech: Patient's speech is fluent and nonpressured. Mood/Affect: Mood is improving mildly, affect is congruent and blunted. Suicidality/Homicidality: Patient denies having any suicidal or homicidal ideation intent or plan. Perceptions: Auditory and visual hallucinations are endorsed. Though content/process: Delusional thought content is evident. Patient is illogical. Memory and concentration: AOX3, grossly intact for the purposes of this session Judgment and insight: Very poor Assessment Schizophrenia Autism spectrum disorder Intellectual disability Plan: -Patient continues to meet criteria for inpatient psychiatric admission for symptom stabilization and safety. Patient is waiting for court order. -Medications: Patient is refusing Abilify and other medications: [place] 30 mg by mouth twice a day Lexapro 20 mg by mouth at bedtime -When necessary Ativan and Geodon for agitation/aggression. -SW on board for discharge planning. Encouraged the patient to participate in milieu.
[2020-07-10] MEDS: LITHIUM CARBONATE 300 MG CAP PO SCH ×3 (08:27→21:00)
[2020-07-10] MEDS: risperiDONE 0.5 MG TAB PO SCH ×2 (08:27→21:00)
[2020-07-10] MEDS: NICOTINE 14MG/24HR PATCH TRANSDERM SCH (08:27)
--- NOTE | 2020-07-10 22:35 | PN ---
PROGRESS NOTE DATE OF SERVICE: 07/10/2020 CHIEF COMPLAINT: The patient was having delusions and disorganized thoughts. She had some high-risk behaviors. She was admitted on petition for involuntary hospitalization. INTERVAL HISTORY: The patient has been quite resistant to care. She has chosen not to take medications. She says she does not believe she needs medications. She has not been attending groups. Mostly she keeps to herself. She will spend a fair amount of time in bed. She will come out some in the day area. She makes statements that she has no thoughts of harming herself or others. She does not engage much in conversations so it is difficult to assess her thought process or issues relating to mood. When I talked to her today, she declined coming to the office and insisted with staff that she just was going to stay in her bed. I stood in the doorway with staff and made an effort to interview her. She did raise her head up some, though did not really respond to any questions in any direct way other than saying she was not needing medications and did not have any specific complaints or concerns. MENTAL STATUS: Patient was in bed. She gave a little eye contact at the most. She responded to few questions. She declined to answer most questions. Her affect was flat. Her mood reserved. It was difficult to say if she was distressed. It was difficult to assess for thought disorder. She denied any thoughts of self-harm. She appeared oriented to surroundings and her circumstances. She understood that she is under petition and is facing a court process. ASSESSMENT: I will continue the current diagnosis and treatment plan. We will continue to make efforts to engage the patient in individual and group therapeutic activities. I strongly encouraged the patient to reach out to staff with any problems or concerns. I made an effort to review some of her history briefly, though the patient did not pay much attention to that. We will focus on stabilization and discharge planning. MMODL / IJN: [id number] /
[2020-07-11] MEDS: NICOTINE 14MG/24HR PATCH TRANSDERM SCH (09:07)
[2020-07-11] MEDS: LITHIUM CARBONATE 300 MG CAP PO SCH ×3 (09:07→20:50)
[2020-07-11] MEDS: risperiDONE 0.5 MG TAB PO SCH ×2 (09:08→20:50)
--- NOTE | 2020-07-11 16:06 | PN ---
PROGRESS NOTE DATE OF SERVICE: 07/11/2020 CHIEF COMPLAINT: The patient was having delusions and disorganized thoughts. She had some high-risk behavior. She was admitted on petition for involuntary hospitalization. INTERVAL HISTORY: Patient continues to do the same. Yesterday she spent most of the day in her room in bed. She will come out for meals. She continues to decline consideration of taking any medications. She slept 6 hours last night. Today she has been up and again she was in her room. She does not come down to the office when staff encouraged her to do so. She continues to say that she has no interest in taking medications. I had an extensive discussion with the patient regarding expectations relating to her involuntary status. We discussed the process of the court issues. In spite of that, the patient was quite clear that she would not take any medications. She felt that she was being "harassed." She made odd comments about some outpatient people she has worked with, though it was not clear what her references were or what that had to do with her current situation or taking medications. She did not seem to have a clear understanding about what is anticipated with the involuntary treatment process. MENTAL STATUS EXAM: Patient was in her room lying down. She sat somewhat up. She gave fair eye contact. She responded to questions though mostly she made comments about not believing she should be in the hospital. She made references to things that was difficult for me to follow what she was referring to. Her affect was somewhat constricted. Her mood reserved. She seems somewhat distressed. It was difficult to assess for thought disorder or thoughts of harm. She was oriented to her immediate circumstances and surroundings. ASSESSMENT: I will continue the current diagnosis and treatment plan. I had an extensive discussion with the patient regarding the potential situation if she does go to court and is given a treatment order. We discussed the option of long-acting injectables. I did encourage the patient to consider taking oral medications. We will focus on stabilization and discharge plan. MMODL / IJN: [id number] /
[2020-07-12] MEDS: risperiDONE 0.5 MG TAB PO SCH ×2 (09:31→21:50)
[2020-07-12] MEDS: NICOTINE 14MG/24HR PATCH TRANSDERM SCH (09:31)
[2020-07-12] MEDS: LITHIUM CARBONATE 300 MG CAP PO SCH ×3 (09:31→21:50)
--- NOTE | 2020-07-12 10:07 | P.PN ---
Progress Note - Text Progress Note Date: 07/12/20 Interval History: Patient was seen resting in bed and was refused to get out of bed and speak with the repairer typewriter in the office. She continues to endorse auditory and visual hallucinations. She reports that she has been able to speak with her family members while on the unit and see them. She is not endorsing any suicidal or homicidal ideations, intentions, and/or plans. She continues to be quite delusional. She continues to refuse any medications. Mental Status Exam: General Appearance: Patient appears to be stated age is alert, directable, and intermittently cooperative. Behavior: Patient is calmly seated without any agitated behavior. Speech: Patient's speech is fluent and nonpressured. Mood/Affect: Mood is"okay", affect is congruent and blunted. Suicidality/Homicidality: Patient denies having any suicidal or homicidal ideation intent or plan. Perceptions: Auditory and visual hallucinations are endorsed. Though content/process: Delusional thought content is evident. Patient is illogical. Memory and concentration: AOX3, grossly intact for the purposes of this session Judgment and insight: Very poor Assessment Schizophrenia Autism spectrum disorder Intellectual disability Plan: No change in plan. Waiting court order. -Patient continues to meet criteria for inpatient psychiatric admission for symptom stabilization and safety. Patient is currently awaiting court scheduled for 07/14/2020. -She continues to refuse the following medications: [place] 300 mg by mouth 3 times a day for mood stabilization Risperdal 0.5 mg by mouth twice a day for mood stabilization/psychosis -When necessary Ativan and Geodon for agitation/aggression. -NRT - nicotine patch -SW on board for discharge planning. Encouraged the patient to participate in milieu.
[2020-07-13] MEDS: NICOTINE 14MG/24HR PATCH TRANSDERM SCH (09:26)
[2020-07-13] MEDS: LITHIUM CARBONATE 300 MG CAP PO SCH ×3 (09:26→21:05)
[2020-07-13] MEDS: risperiDONE 0.5 MG TAB PO SCH ×2 (09:26→21:05)
--- NOTE | 2020-07-13 09:42 | P.PN ---
Progress Note - Text Progress Note Date: 07/13/20 Interval History: Patient was seen resting in bed and was directable and refused to get out of bed to speak with designer writer. He continues to endorse significant psychotic symptoms. She is reporting auditory hallucinations. She states that she is hearing the voice of the "sergeant mccormack, captain, as well as her attorneys and family." She continues to refuse any medications. She does not endorse any suicidal ideation or intention. She reports homicidal thoughts towards "the Captain." She denies any issues with appetite or sleep. She reports no health concerns at this time. Mental Status Exam: General Appearance: Patient appears to be stated age is alert, directable, and intermittently cooperative. Behavior: Patient is calmly seated without any agitated behavior. Speech: Patient's speech is fluent and nonpressured. Mood/Affect: Mood is"okay", affect is congruent and blunted. Suicidality/Homicidality: Patient denies having any suicidal or homicidal ideation intent or plan. Perceptions: Auditory and visual hallucinations are endorsed. Though content/process: Delusional thought content is evident. Patient is illogical. Memory and concentration: AOX3, grossly intact for the purposes of this session Judgment and insight: Very poor Assessment Schizoaffective Disorder, bipolar type Tobacco Use Disorder Plan: -Patient continues to meet criteria for inpatient psychiatric admission for symptom stabilization and safety. Patient is scheduled for court appearance tomorrow at 10:45 AM. -Medications: -She continues to refuse the following medications: Lawson 300 mg by mouth 3 times a day for mood stabilization Risperdal 0.5 mg by mouth twice a day for mood stabilization/psychosis -When necessary Ativan and Geodon for agitation/aggression. -NRT - nicotine patch -SW on board for discharge planning. Encouraged the patient to participate in milieu.
[2020-07-14] MEDS: risperiDONE 0.5 MG TAB PO SCH (09:33)
[2020-07-14] MEDS: NICOTINE 14MG/24HR PATCH TRANSDERM SCH (09:33)
[2020-07-14] MEDS: LITHIUM CARBONATE 300 MG CAP PO SCH ×3 (09:33→21:29)
--- NOTE | 2020-07-14 10:59 | P.PN ---
Progress Note - Text Progress Note Date: 07/14/20 Interval History: Patient was seen wandering the hallways and was directable and agreeable to speak with process description writer in the office. Patient continues to endorse significant psychotic symptoms. She is reporting auditory hallucinations. She states she is able to hear her to director of casino, family members, as well as her . She reports that 2 psychiatrists have told her that she does not require any medications. She reports visual hallucinations stating that she has seen [facility] [place] [facility]. She states that she will continue to refuse any medications. She is not endorsing any suicidal or homicidal ideation or intention. She reports no health concerns at this time. Patient is scheduled for court today. Mental Status Exam: General Appearance: Patient appears to be stated age is alert, directable, and intermittently cooperative. Behavior: Patient is calmly seated without any agitated behavior. Speech: Patient's speech is fluent and nonpressured. Mood/Affect: Mood is"okay", affect is congruent and blunted. Suicidality/Homicidality: Patient denies having any suicidal or homicidal ideation intent or plan. Perceptions: Auditory and visual hallucinations are endorsed. Though content/process: Delusional thought content is evident. Patient is illogical. Memory and concentration: AOX3, grossly intact for the purposes of this session Judgment and insight: Very poor Assessment Schizoaffective Disorder, bipolar type Tobacco Use Disorder Plan: -Patient continues to meet criteria for inpatient psychiatric admission for symptom stabilization and safety. Patient has received a court order on 07/14/2020. -Medications: We will start invega 3 mg by mouth at bedtime for mood stabilization/psychosis with plans to transition her to invega sustenna. If patient refuses invega, she will receive 5 mg IM Zyprexa. -When necessary Ativan and Geodon for agitation/aggression. -NRT - nicotine patch -SW on board for discharge planning. Encouraged the patient to participate in milieu.
[2020-07-14] MEDS ORDERED: OLANZapine 10 MG VIAL IM PRN (11:47)
[2020-07-14] MEDS: PALIPERIDONE 3 MG TAB.ER.24 PO SCH (21:29)
[2020-07-15] MEDS ORDERED: PALIPERIDONE 3 MG TAB.ER.24 PO SCH (09:00)
--- NOTE | 2020-07-15 09:27 | P.PN ---
Progress Note - Text Progress Note Date: 07/15/20 Interval History: Patient was seen resting in bed and was directable and agreeable to speak with group underwriter in the office. Patient is not endorsing any psychotic symptoms today. She reports no auditory or visual hallucinations. She does appear to respond to internal stimuli and stares off blankly prior to answering these questions. At this time patient denies any suicidal or homicidal ideations, intent or plan. She expresses a strong desire to not be on any medications. Despite being on court order, the patient states that she will refuse any medications. Mental Status Exam: General Appearance: Patient appears to be stated age is alert, directable, and uncooperative. Behavior: Patient is calmly seated but after the topic medications came about, the patient abruptly ended the interview and walked out of the room. Speech: Patient's speech is fluent and nonpressured. Mood/Affect: Mood is"ready to go", affect is flat. Suicidality/Homicidality: Patient denies having any suicidal or homicidal ideation intent or plan. Perceptions: Auditory and visual hallucinations are endorsed. Though content/process: Patient appears to respond to internal stimuli. Memory and concentration: AOX3, grossly intact for the purposes of this session Judgment and insight: Very poor Assessment Schizoaffective Disorder, bipolar type Tobacco Use Disorder Plan: -Patient continues to meet criteria for inpatient psychiatric admission for symptom stabilization and safety. Patient has received a court order on 07/14/2020. -Medications: Continue invega 3 mg by mouth at bedtime for mood stabilization/psychosis with plans to transition her to invega sustenna. If patient refuses invega, she will receive 5 mg IM Zyprexa. -When necessary Ativan and Geodon for agitation/aggression. -NRT - nicotine patch -SW on board for discharge planning. Encouraged the patient to participate in milieu.
[2020-07-15] MEDS: NICOTINE 14MG/24HR PATCH TRANSDERM SCH (12:22)
[2020-07-15] MEDS: LITHIUM CARBONATE 300 MG CAP PO SCH ×3 (12:22→21:39)
[2020-07-15] MEDS: PALIPERIDONE 3 MG TAB.ER.24 PO SCH (19:23)
--- NOTE | 2020-07-16 10:00 | P.PN ---
Progress Note - Text Progress Note Date: 07/16/20 Interval History: Patient was seen in and [facility] and was directable and refused to speak with the signwriter in the office. Patient continues to endorse psychotic symptoms. She expresses that the "academy education director of the hospital is raping my Ronaldo." She expresses a strong desire to leave here so that she may help Ronaldo. She is endorsing auditory and visual hallucinations. She is not endorsing any suicidal or homicidal ideation, intention, and/or plan. She continues to refuse any medications but is not endorsing any side effects of the IM Zyprexa Mental Status Exam: General Appearance: Patient appears to be stated age is alert, directable, and uncooperative. Behavior: Psychomotor activity slightly elevated. Eye contact is intense. Speech: Patient's speech is fluent and nonpressured. Mood/Affect: Mood is " angry and worried", affect is blunted. Suicidality/Homicidality: Patient denies having any suicidal or homicidal ideation intent or plan. Perceptions: Auditory and visual hallucinations are endorsed. Though content/process: Delusions are evident. Memory and concentration: AOX3, grossly intact for the purposes of this session Judgment and insight: Very poor Assessment Schizoaffective Disorder, bipolar type Tobacco Use Disorder Plan: -Patient continues to meet criteria for inpatient psychiatric admission for symptom stabilization and safety. Patient has received a court order on 07/14/2020. -Medications: We will increase Invega to 3 mg by mouth twice a day for mood stabilization/psychosis. The patient refuses Invega, she will receive 5 g IM of Zyprexa. Over the weekend, we will increase Zyprexa to 7.5 mg IM if she continues to refuse oral medications. -When necessary Ativan and Geodon for agitation/aggression. -NRT - nicotine patch -SW on board for discharge planning. Encouraged the patient to participate in milieu.
[2020-07-16] MEDS: LITHIUM CARBONATE 300 MG CAP PO SCH (10:16)
[2020-07-16] MEDS: NICOTINE 14MG/24HR PATCH TRANSDERM SCH (10:16)
[2020-07-16] MEDS: PALIPERIDONE 3 MG TAB.ER.24 PO SCH (22:12)
[2020-07-17] MEDS: PALIPERIDONE 3 MG TAB.ER.24 PO SCH ×2 (10:04→22:26)
[2020-07-17] MEDS: NICOTINE 14MG/24HR PATCH TRANSDERM SCH (10:07)
--- NOTE | 2020-07-17 11:49 | P.PN ---
Progress Note - Text Progress Note Date: 07/17/20 Interval history: Patient was seen coming out of her room today and was directable and agreeable to speak with science writer. Patient was cooperative with science writer however claims that she wants to be discharged and does not want to take her medications. She states that she was just started on paliperidone and "hates it". When asked why she states that "it takes away my emotions". She states that she wants to get out of the hospital does not believe she needs to be here. She states that other people on the unit are "not nice". She claims that her mood has been okay and denies any anxiety. States he was able to sleep throughout the night. She denies going to any groups and she is not interested in them. At this time patient denies any suicidal or homicidal ideations intent or plan. Denies any Auditory or visual hallucinations. Mental status exam: General Appearance: Patient appears to be stated age is alert, directable, and attempts to be cooperative. Significant facial hair, disheveled appearance. Behavior: No agitated behavior. Patient is calm and directable Speech: Patient's speech is fluent and nonpressured. Mood/Affect: Mood is improving mildly, affect is congruent and constricted. Suicidality/Homicidality: Patient denies having any suicidal or homicidal ideation intent or plan. Perceptions: Patient denies any auditory or visual hallucinations. Though content/process: Thought process is linear and goal-directed. Poor insight when speaking about medications. Not endorsing any delusions Memory and concentration: AOX3, grossly intact for the purposes of this session Judgment and insight: Poor, improving mildly Assessment/Plan: Continue with current diagnosis. Patient continues to meet criteria for inpatient psychiatric admission for symptom stabilization and safety.Patient will be maintained on current psychotropic medication regimen. Monitor for medication compliance and for any psychotropic medication side effects. Will continue to monitor ongoing response to treatment. Encouraged participation in milieu.
[2020-07-18] MEDS ORDERED: OLANZapine 10 MG VIAL IM PRN (08:00)
[2020-07-18] MEDS: PALIPERIDONE 3 MG TAB.ER.24 PO SCH ×2 (09:32→21:16)
[2020-07-18] MEDS: NICOTINE 14MG/24HR PATCH TRANSDERM SCH (09:32)
--- NOTE | 2020-07-18 12:25 | P.PN ---
Progress Note - Text Progress Note Date: 07/18/20 Interval history: Patient was seen laying down in her bed this morning and was directable and a greeable to speak with director underwriter sales. Patient was cooperative with director underwriter sales however continues to focus on discharge. She has poor insight and judgment and claims that "I don't need medications". She states that the medications are making her feel tired throughout the day and states that she is not able to participate in groups. She also claims that she is not interested in going to any groups at this time. She states that she wants to talk to her doctor about the medications and wants to "get off of them". She also claims that her sister petitioned her to be in the hospital. She states that her mood is "fine" and denies any anxiety today. States he was able to sleep throughout the night. She denies going to any groups and she is not interested in them. At this time patient denies any suicidal or homicidal ideations intent or plan. She admits to hearing her and her childrens voice. Denies any visual hallucinations. Mental status exam: General Appearance: Patient appears to be stated age is alert, directable, and attempts to be cooperative. Significant facial hair, disheveled appearance. Behavior: No agitated behavior. Patient is calm and directable Speech: Patient's speech is fluent and nonpressured. Mood/Affect: Mood is improving mildly, affect is congruent and constricted. Suicidality/Homicidality: Patient denies having any suicidal or homicidal ideation intent or plan. Perceptions: Patient denies any visual hallucinations. Admits to hearing her and her children's voice. Though content/process: Thought process is linear and goal-directed. Poor i nsight when speaking about medications. Not endorsing any delusions Memory and concentration: AOX3, grossly intact for the purposes of this session Judgment and insight: Poor Assessment/Plan: Continue with current diagnosis. Patient continues to meet criteria for inpatient psychiatric admission for symptom stabilization and safety.Patient will be maintained on current psychotropic medication regimen. Monitor for medication compliance and for any psychotropic medication side effects. Will continue to monitor ongoing response to treatment. Encouraged participation in milieu.
[2020-07-18] MEDS: hydrOXYzine pamoate 25 MG CAP PO PRN (21:16)
[2020-07-19] MEDS ORDERED: OLANZapine 10 MG VIAL IM PRN (09:31)
[2020-07-19] MEDS: NICOTINE 14MG/24HR PATCH TRANSDERM SCH (09:35)
--- NOTE | 2020-07-19 09:38 | P.PN ---
Progress Note - Text Progress Note Date: 07/19/20 Interval History: Patient was seen resting in bed and refused to get out of bed to speak with service writer in the office. She preferred to stay in her room as there was no one else present. Patient continues to endorse significant psychotic symptoms. She reports that she has been talking to and seeing her Ronaldo. She reports that she also has 7 children but not with Ronaldo. She expresses that she does not want any medications as she is concerned about weight gain and high blood pressure. She was informed of the treatment team will be monitoring closely her blood pressure. She did not endorse any suicidal ideation, intention, and/or plan. She stated that she started feeling homicidal towards this provider as she wants to be discharged and not taking any medications. Mental Status Exam: General Appearance: Patient appears to be stated age is alert, directable, and uncooperative. Behavior: Psychomotor activity is normal Eye contact is intense. Patient is resting in bed. Speech: Patient's speech is fluent and nonpressured. Mood/Affect: Mood is " angry", affect is blunted. Suicidality/Homicidality: Patient denies having any suicidal ideation. She reports homicidal ideation towards this provider. Perceptions: Auditory and visual hallucinations are endorsed. Though content/process: Delusions are evident. Memory and concentration: AOX3, grossly intact for the purposes of this session Judgment and insight: Very poor Assessment Schizoaffective Disorder, bipolar type Tobacco Use Disorder Plan: -Patient continues to meet criteria for inpatient psychiatric admission for symptom stabilization and safety. Patient has received a court order on 07/14/2020. -Medications: We will increase Invega to 3 mg by mouth every morning and 6 mg by mouth daily at bedtime for mood stabilization/psychosis. If the patient refuses Invega, she will receive 10 mg IM of Zyprexa. -When necessary Vistaril and Geodon for agitation/aggression. -NRT - nicotine patch -SW on board for discharge planning. Encouraged the patient to participate in milieu.
[2020-07-19] MEDS: PALIPERIDONE 3 MG TAB.ER.24 PO SCH (10:01)
[2020-07-19] MEDS: PALIPERIDONE 6 MG TAB.ER.24 PO SCH (21:44)
[2020-07-20] MEDS: PALIPERIDONE 3 MG TAB.ER.24 PO SCH (09:24)
[2020-07-20] MEDS: NICOTINE 14MG/24HR PATCH TRANSDERM SCH (09:24)
--- NOTE | 2020-07-20 10:15 | P.PN ---
Progress Note - Text Progress Note Date: 07/20/20 Interval History: Patient was seen standing in bed and refused to get out of bed to speak with the senior grant writer in the office. Patient preferred to stay in her room as there was no one else present. Patient has been adherent with her oral Invega. Today she expresses continued delusional thoughts and auditory hallucinations stating that she has been speaking with her cooker cleaner as well as Ronaldo. She does express no visual hallucinations today. She states that she has not seen anyone today. She is not reporting any suicidal or homicidal ideation, intention, and/or plan. She reports weight gain and elevated blood pressure as side effects of the medications. Her blood pressure is observed to be 112/75. It is unlikely that the patient has gained weight over the 3 days of taking Invega. Mental Status Exam: General Appearance: Patient appears to be stated age is alert, directable, and uncooperative. Behavior: Psychomotor activity is normal Eye contact is intense. Patient is resting in bed. Speech: Patient's speech is fluent and nonpressured. Mood/Affect: Mood is "annoyed", affect is blunted. Suicidality/Homicidality: Patient denies any suicidal or homicidal ideation. Perceptions: Auditory hallucinations are endorsed. No visual hallucinations today. Though content/process: Delusions are evident. Memory and concentration: AOX3, grossly intact for the purposes of this session Judgment and insight: Very poor Assessment Schizoaffective Disorder, bipolar type Tobacco Use Disorder Plan: -Patient continues to meet criteria for inpatient psychiatric admission for symptom stabilization and safety. Patient has received a court order on 07/14/2020. -Medications: We will increase Invega to 3 mg by mouth every morning and 6 mg by mouth daily at bedtime for mood stabilization/psychosis. If the patient refuses Invega, she will receive 10 mg IM of Zyprexa. We will likely transition the patient to Invega Sustenna if she remains adherent with the medications with no significant side effects in the next 1-2 days. -When necessary Vistaril and Geodon for agitation/aggression. -NRT - nicotine patch -SW on board for discharge planning. Encouraged the patient to participate in milieu.
[2020-07-20] MEDS: PALIPERIDONE 6 MG TAB.ER.24 PO SCH (21:05)
[2020-07-21] MEDS: PALIPERIDONE 3 MG TAB.ER.24 PO SCH (09:19)
[2020-07-21] MEDS: NICOTINE 14MG/24HR PATCH TRANSDERM SCH (09:20)
--- NOTE | 2020-07-21 10:05 | P.PN ---
Progress Note - Text Progress Note Date: 07/21/20 Interval History: Patient was seen resting in bed and was directable and agreeable to speak with staff writer in the office. Patient reports that she is feeling "okay." She continues to endorse auditory hallucinations, stating that she has been able to hear the voice of Ronaldo as well as that of her [place] attorney. She reports that they told her that she will be discharged soon. Despite all of this, the patient is less forthcoming with any paranoia or other delusions. She is not reporting any visual hallucinations either. She has been adherent with her medications and denies any side effects at this time. She reports no suicidal or homicidal ideation, intention, and/or plan. She reports sleep has been difficult due to the milieu. She denies any issues with appetite. She does express some vaginal pain. Mental Status Exam: General Appearance: Patient appears to be stated age is alert, directable, and cooperative. Patient has noticeable hirsutism. Behavior: Psychomotor activity is normal Eye contact is intense. Speech: Patient's speech is fluent and nonpressured. Mood/Affect: Mood is "okay", affect is blunted. Suicidality/Homicidality: Patient denies any suicidal or homicidal ideation. Perceptions: Auditory hallucinations are endorsed. No visual hallucinations today. Though content/process: Patient continues to be somewhat illogical but is less forthcoming with delusions. She does not appear to be responding to internal stimuli as much as before. Memory and concentration: AOX3, grossly intact for the purposes of this session Judgment and insight: Very poor Assessment Schizoaffective Disorder, bipolar type Tobacco Use Disorder Plan: -Patient continues to meet criteria for inpatient psychiatric admission for symptom stabilization and safety. Patient has received a court order on 07/14/2020. -Medications: We will increase Invega to 3 mg by mouth every morning and 6 mg by mouth daily at bedtime for mood stabilization/psychosis. If the patient refuses Invega, she will receive 10 mg IM of Zyprexa. Invega Sustenna 234 mg IM will be admi nistered tomorrow. Once administered, we will decrease her oral Invega to 3 mg by mouth twice a day. -When necessary Vistaril and Geodon for agitation/aggression. -NRT - nicotine patch -SW on board for discharge planning. Encouraged the patient to participate in milieu.
[2020-07-21] MEDS: PALIPERIDONE 6 MG TAB.ER.24 PO SCH (20:14)
[2020-07-21 22:24] LABS: Appearance,Urine Clear (Clear); Bacteria,Urine Few /hpf; Bilirubin,Urine Negative (Negative); Blood,Urine Moderate (Negative); Color,Urine Yellow; Glucose,Urine (UA) Negative (Negative); Ketones,Urine Negative (Negative); Leukocyte Esterase,Urine Small (Negative); Mucus,Urine Rare /hpf; Nitrite,Urine Negative (Negative); Protein,Urine Trace (Negative); RBC,Urine 8 /hpf (0-5); Specific Gravity,Urine 1.021 (1.001-1.035); Squamous Epithelial Cell,Urine 1 /hpf (0-4); Urobilinogen,Urine <2.0 mg/dL (<2.0); WBC,Urine 2 /hpf (0-5)
[2020-07-22] MEDS ORDERED: PALIPERIDONE IM 234 MG/1.5 ML SYG IM STA (08:59)
[2020-07-22] MEDS ORDERED: PALIPERIDONE IM 234 MG/1.5 ML SYG IM ONE (09:00)
--- NOTE | 2020-07-22 09:18 | P.PN ---
Progress Note - Text Progress Note Date: 07/22/20 Interval History: Patient was seen resting in bed and was directable and agreeable to speak with grant writer in the office. Patient is less forthcoming with her hallucinations and delusions today. She does report that she continues to express auditory hallucinations and is able to hear Ronaldo and her family. She reports that they are becoming harder to hear. She states that she last heard them last night. She is not reporting any visual hallucinations. She denies any pa ranoia. She reports no significant side effects of her medications. She does express some pain on urination. She denies any suicidal or homicidal ideation, intention, and/or plan. Mental Status Exam: General Appearance: Patient appears to be stated age is alert, directable, and cooperative. Patient has noticeable hirsutism. Behavior: Psychomotor activity is normal normal eye contact. Speech: Patient's speech is fluent and nonpressured. Mood/Affect: Mood is "fine", affect is blunted. Suicidality/Homicidality: Patient denies any suicidal or homicidal ideation. Perceptions: Auditory hallucinations are endorsed. No visual hallucinations today. Though content/process: Mild delusional thinking but is overall less forthcoming with her delusions. Does not appear to respond to internal stimuli at this time. Memory and concentration: AOX3, grossly intact for the purposes of this session Judgment and insight: Improving mildly Assessment Schizoaffective Disorder, bipolar type Tobacco Use Disorder Plan: -Patient continues to meet criteria for inpatient psychiatric admission for symptom stabilization and safety. Patient has signed adult voluntary form and medication consent and was placed in patient's chart. -Medications: Invega Sustenna 234 mg IM will be administered today. We will decrease oral Invega to 3 mg twice a day for mood stabilization/psychosis. -When necessary Vistaril and Geodon for agitation/aggression. -NRT - nicotine patch -SW on board for discharge planning. Encouraged the patient to participate in milieu.
[2020-07-22] MEDS: NICOTINE 14MG/24HR PATCH TRANSDERM SCH (09:26)
[2020-07-22] MEDS: PALIPERIDONE 3 MG TAB.ER.24 PO SCH ×2 (09:26→20:43)
[2020-07-23] MEDS: NICOTINE 14MG/24HR PATCH TRANSDERM SCH (08:57)
[2020-07-23] MEDS: PALIPERIDONE 3 MG TAB.ER.24 PO SCH ×5 (08:57→21:29)
--- NOTE | 2020-07-23 09:53 | P.PN ---
Progress Note - Text Progress Note Date: 07/23/20 Interval History: Patient was seen resting in bed and was directable and agreeable to speak with senior writer in the office. Patient reports that she has auditory hallucinations but states that they are less frequent than before. She is not reporting any visual hallucinations. She continues to report hearing the voice of "Ronaldo." She denies any other delusions at this time. She reports no suicidal or homicidal ideation, intention, and/or plan. She reports sleep was difficult last night but is unable to explain why. She appears to be tolerating the medications well and has been adherent. Mental Status Exam: General Appearance: Patient appears to be stated age is alert, directable, and cooperative. Patient has noticeable hirsutism. Behavior: Psychomotor activity is normal normal eye contact. Speech: Patient's speech is fluent and nonpressured. Mood/Affect: Mood is "okay", affect is blunted. Suicidality/Homicidality: Patient denies any suicidal or homicidal ideation. Perceptions: Auditory hallucinations are endorsed. No visual hallucinations today. Though content/process: Patient is not endorsing any delusional thoughts aside believing that she is to a "Ronaldo." She does not appear to respond to internal stimuli. Memory and concentration: AOX3, grossly intact for the purposes of this session Judgment and insight: Improving mildly Assessment Schizoaffective Disorder, bipolar type Tobacco Use Disorder Plan: -Patient continues to meet criteria for inpatient psychiatric admission for symptom stabilization and safety. Patient has been court ordered for psychiatric treatment on 07/14/2020. -Medications: Invega Sustenna 234 mg IM was administered on 07/22/2020. We will continue Invega 3 mg by mouth twice a day for mood stabilization/psychosis. We will gradually taper over the weekend. -When necessary Vistaril and Geodon for agitation/aggression. -NRT - nicotine patch -SW on board for discharge planning. Encouraged the patient to participate in milieu.
[2020-07-24] MEDS: PALIPERIDONE 3 MG TAB.ER.24 PO SCH ×3 (08:54→20:49)
[2020-07-24] MEDS: NICOTINE 14MG/24HR PATCH TRANSDERM SCH (08:54)
[2020-07-24] MEDS: MAGNESIUM HYDROXIDE 2,400 MG/10 ML CUP PO PRN (11:30)
--- NOTE | 2020-07-24 11:36 | P.PN ---
Subjective Progress Note Date: 07/24/20 Principal diagnosis: schizoaffective disorder bipolar type SUBJECTIVE:I am constipated but I don't want medications, give me a list of my medications to give to my tanbark laborer. OBJECTIVE: Vital signs:temp 97.8, patient resistive to vital signs Labs:nothing new Staff report:Patient remains on safety precautions with 15 min checks without incident, no threats to self or others observed at this time, no behaviors. No concerns voiced at this time. She is reported to be calm withdrawn disheveled cooperative guarded vague low energy but denies hallucinations delusions or suicidal ideas or desire to hurt others. She has not been attending groups Medications:Invega 3mg TID Mental status:The patient is oriented x4 gait and station are normal eye contact good evidence of responding to voices or delusions: behaviour she came to the interview but was anxious about any changes even to help with sleep or constipation insight:none cognitive funtion: affect:Flat stare appearance:in a hospital gown with minimal ADL's ASSESSMENT:She has not been needing prn's so the Invega must be starting to help PLAN:no change Objective - Vital Signs Vital signs: Vital Signs Temp 97.8 F 07/23/20 19:04 Pulse 67 07/23/20 06:31 Resp 16 07/23/20 06:31 BP 127/57 07/23/20 06:31 Pulse Ox 98 07/23/20 06:31 Intake & Output 07/23/20 07/24/20 07/24/20 18:59 06:59 18:59 Weight 83.3 kg - Labs CBC & Chem 7: 06/30/20 07:34 06/30/20 07:34
[2020-07-24] MEDS: hydrOXYzine pamoate 25 MG CAP PO PRN (20:49)
[2020-07-25] MEDS: NICOTINE 14MG/24HR PATCH TRANSDERM SCH (08:21)
[2020-07-25] MEDS: PALIPERIDONE 3 MG TAB.ER.24 PO SCH ×2 (16:41→21:20)
[2020-07-26] MEDS: PALIPERIDONE 3 MG TAB.ER.24 PO SCH (08:20)
[2020-07-26] MEDS: NICOTINE 14MG/24HR PATCH TRANSDERM SCH (08:21)
[2020-07-26] MEDS ORDERED: PALIPERIDONE IM 156 MG/ML SYG IM STA (08:56)
--- NOTE | 2020-07-26 11:06 | P.PN ---
Progress Note - Text Progress Note Date: 07/26/20 Interval History: Patient was seen wandering the hallways and was directable and agreeable to speak with life insurance underwriter in the office. Patient reports that upon discharge, that she will be going to stay with her "Ronaldo." She refuses to sign a release of information for her sister with whom she was originally staying with prior to this admission. She does not endorse any auditory or visual hallucinations. She reports no other delusions aside from being " to Ronaldo." She has been adherent with her medications and denies any side effects. She reports no suicidal or homicidal ideation, intention, and/or plan. She has been adherent with the medications and denies any side effects at this time. Mental Status Exam: General Appearance: Patient appears to be stated age is alert, directable, and cooperative. Behavior: Psychomotor activity is normal normal eye contact. Speech: Patient's speech is fluent and nonpressured. Mood/Affect: Mood is "okay", affect is blunted. Suicidality/Homicidality: Patient denies any suicidal or homicidal ideation. Perceptions: Auditory hallucinations are endorsed. No visual hallucinations today. Though content/process: Patient is not endorsing any delusional thoughts aside believing that she is to a "Ronaldo." She does not appear to respond to internal stimuli. Memory and concentration: AOX3, grossly intact for the purposes of this session Judgment and insight: Poor Assessment Schizoaffective Disorder, bipolar type Tobacco Use Disorder Plan: -Patient continues to meet criteria for inpatient psychiatric admission for symptom stabilization and safety. Patient has been court ordered for psychiatric treatment on 07/14/2020. -Medications: Invega sustenna 234 mg IM was administered on 07/22/2020. Invega sustenna 156 mg IM was administered on 07/26/2020. We will decrease oral invega to 3 mg by mouth at bedtime for psychosis We will need to consider alternative placement if patient is unwilling to return to her home. Questionable whether patient is at a new baseline or if medications will require augmentation or more itme. -When necessary Vistaril and Geodon for agitation/aggression. -NRT - nicotine patch -SW on board for discharge planning. Encouraged the patient to participate in milieu.
[2020-07-26] MEDS: MAGNESIUM HYDROXIDE 2,400 MG/10 ML CUP PO PRN (16:47)
[2020-07-26] MEDS ORDERED: PALIPERIDONE 3 MG TAB.ER.24 PO SCH (21:00)
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
[2020-07-27] MEDS ORDERED: PALIPERIDONE 3 MG TAB.ER.24 PO SCH (21:00)
--- NOTE | 2020-07-28 10:10 | P.PN ---
Progress Note - Text Progress Note Date: 07/28/20 Interval History: Patient was seen wandering the hallways and was directable and agreeable to speak with tag writer in the office. She continues to endorse delusion that she is to Ronaldo. She expresses tearfully, "Why does nobody believed me that Ronaldo is real?" She does express that she will return to live with her sister. When informed that this entails not leaving the home and wandering off, the patient reports she would not wander off if she had someone to drive her to picker and packer cigarettes. She does report other delusional thoughts that she has children with Ronaldo and that they are being abused but is able to challenge the validity of these thoughts. She denies any suicidal or homicidal ideation, intention, and/or plan. She reports no side effects of her medications. Mental Status Exam: General Appearance: Patient appears to be stated age is alert, directable, and cooperative. Behavior: Psychomotor activity is normal normal eye contact. Speech: Patient's speech is fluent and nonpressured. Mood/Affect: Mood is "upset", affect is tearful but blunted Suicidality/Homicidality: Patient denies any suicidal or homicidal ideation. Perceptions: Auditory hallucinations are endorsed. No visual hallucinations today. Though content/process: Patient is not endorsing any delusional thoughts aside believing that she is to a "Ronaldo." She does not appear to respond to internal stimuli. Memory and concentration: AOX3, grossly intact for the purposes of this session Judgment and insight: Poor Assessment Schizoaffective Disorder, bipolar type Tobacco Use Disorder Plan: -Patient continues to meet criteria for inpatient psychiatric admission for symptom stabilization and safety. Patient has been court ordered for psychiatric treatment on 07/14/2020. -Medications: Invega sustenna 234 mg IM was administered on 07/22/2020. Invega sustenna 156 mg IM was administered on 07/26/2020. Change invega to risperdal 1 my by mouth in the morning and 2 mg by mouth at bedtime for psychosis. -May need to discuss alternative housing for the patient. -When necessary Vistaril and Geodon for agitation/aggression. -NRT - nicotine patch -SW on board for discharge planning. Encouraged the patient to participate in milieu.
[2020-07-28] MEDS: risperiDONE 2 MG TAB PO SCH (20:58)
[2020-07-29] MEDS: risperiDONE 1 MG TAB PO SCH (09:29)
--- NOTE | 2020-07-29 09:44 | P.PN ---
Progress Note - Text Progress Note Date: 07/29/20 Interval History: Patient was seen resting in bed. No one else was present in the room and the patient preferred to be interviewed in her room by herself. Patient continues to endorse a delusion that she is to Ronaldo. She reports that she is going to be picked up by her Ronaldo's children. She states that they will pick her up if she is not otherwise going to her sister Justine's place. She does report that she slept better last night after trying Risperdal. She is not reporting any visual hallucinations. She reports that she was able to her Ronaldo's voice last night. She denies any paranoia or other delusions. She denies any side effects of medications. She reports no suicidal or homicidal ideation, intention, and/or plan. Mental Status Exam: General Appearance: Patient appears to be stated age is alert, directable, and cooperative. Behavior: Psychomotor activity is normal normal eye contact. Speech: Patient's speech is fluent and nonpressured. Mood/Affect: Mood is "okay", affect is blunted but otherwise euthymic Suicidality/Homicidality: Patient denies any suicidal or homicidal ideation. Perceptions: Auditory hallucinations are endorsed of Ronaldo' voice. No visual hallucinations today. Though content/process: Patient is not endorsing any delusional thoughts aside believing that she is to a "Ronaldo." She does not appear to respond to internal stimuli. Memory and concentration: AOX3, grossly intact for the purposes of this session Judgment and insight: Poor Assessment Schizoaffective Disorder, bipolar type Tobacco Use Disorder Plan: -Patient continues to meet criteria for inpatient psychiatric admission for [facility] stabilization and safety. Patient has been court ordered for psychiatric treatment on 07/14/2020. -Medications: Invega sustenna 234 mg IM was administered on 07/22/2020. Invega sustenna 156 mg IM was administered on 07/26/2020. Continue risperdal 1 my by mouth in the morning and 2 mg by mouth at bedtime for psychosis. -May need to discuss alternative housing for the patient. -When necessary Vistaril and Geodon for agitation/aggression. -NRT - nicotine patch -SW on board for discharge planning. Encouraged the patient to participate in milieu.
[2020-07-29] MEDS: MAGNESIUM HYDROXIDE 2,400 MG/10 ML CUP PO PRN (16:28)
[2020-07-29] MEDS: risperiDONE 2 MG TAB PO SCH (20:42)
--- NOTE | 2020-07-29 22:20 | P.PN ---
Subjective Progress Note Date: 07/25/20 Principal diagnosis: schizoaffective disorder bipolar type SUBJECTIVE:I am doing fine, I have a good appetite and sleep well, no sucidal or homicidal ideas OBJECTIVE: Vital signs: temp 98.2 resp 14 heart rate 63 blood pressure 114/59 Labs:none new STAFF REPORT:group report:not attending on the unit they see her only out for meals and meds is very vague and superficial disheveled and needs encouragement to shower low energy, alert, minimal interactions MENTAL STATUS: Appearance: basic ADL'S adequate with urging Gait and station:normal Speech:normal in rate and volume but not detailed or goal directed , it is as if she is afraid to talk lest she revel her problems Eye contact: good Behavior: cooperative Affect:flat No evidence or acknowlegment of voices or delusions Orientation: good to person place and time MEDICATIONS:She is on invega 3 mg TID and somehow the BID part was discontinued so I reinstated it as she needs to full dose because she is still paranoid ASSESSMENT:patient is not participant in the program and still too anxious and fearful PLAN: no change Objective - Vital Signs Vital signs: Vital Signs Temp 98.0 F 07/25/20 13:03 Pulse 63 07/25/20 06:45 Resp 14 07/25/20 06:45 BP 114/59 07/25/20 06:45 Pulse Ox 98 07/23/20 06:31 Intake & Output 07/24/20 07/25/20 07/25/20 19:59 06:59 18:59 Weight 84.7 kg - Labs CBC & Chem 7: 06/30/20 07:34 06/30/20 07:34
[2020-07-30] MEDS: risperiDONE 1 MG TAB PO SCH (09:11)
--- NOTE | 2020-07-30 09:51 | P.PN ---
Progress Note - Text Progress Note Date: 07/30/20 Interval History: Patient was seen wandering the hallways and was directable and agreeable to speak with inspector automatic typewriter in the office. Patient continues to endorse her illusion about being to Ronaldo. She reports that she talked to her sister, and was told that she would not be able to live with her sister. She reports that she would be picked up by Ronaldo to live somewhere else. She is otherwise not reporting any auditory or visual hallucinations. She does state that she has "visions of Ronaldo and my family" but does not see them physically present on the psychiatric unit. She is not reporting any significant side effects or medications and has been adherent. She denies any suicidal or homicidal ideation, intention, and/or plan. Mental Status Exam: General Appearance: Patient appears to be stated age is alert, directable, and cooperative. Behavior: Psychomotor activity is normal normal eye contact. Speech: Patient's speech is fluent and nonpressured. Mood/Affect: Mood is "okay", affect is blunted but otherwise euthymic Suicidality/Homicidality: Patient denies any suicidal or homicidal ideation. Perceptions: Auditory hallucinations are endorsed of Ronaldo' voice. No visual hallucinations today. Though content/process: Patient is not endorsing any delusional thoughts aside believing that she is to a "Ronaldo." She does not appear to respond to internal stimuli. Memory and concentration: AOX3, grossly intact for the purposes of this session Judgment and insight: Poor Assessment Schizoaffective Disorder, bipolar type Tobacco Use Disorder Plan: -Patient continues to meet criteria for inpatient psychiatric admission for symptom stabilization and safety. Patient has been court ordered for psychiatric treatment on 07/14/2020. -Medications: Invega sustenna 234 mg IM was administered on 07/22/2020. Invega sustenna 156 mg IM was administered on 07/26/2020. Increase Risperdal to 2 mg by mouth twice daily for psychosis. -May need to discuss alternative housing for the patient. -When necessary Vistaril and Urbanodon for agitation/aggression. -NRT - nicotine patch -SW on board for discharge planning. Encouraged the patient to participate in milieu.
[2020-07-30] MEDS: risperiDONE 2 MG TAB PO SCH (20:40)
[2020-07-31] MEDS: risperiDONE 2 MG TAB PO SCH ×2 (08:57→20:43)
[2020-07-31] MEDS: MAGNESIUM HYDROXIDE 2,400 MG/10 ML CUP PO PRN (13:08)
--- NOTE | 2020-08-01 00:17 | PN ---
PROGRESS NOTE DATE OF SERVICE: 07/31/2020. CHIEF COMPLAINT: The patient was delusional. She had auditory and visual hallucinations and was quite disorganized in her thoughts. INTERVAL HISTORY: Patient had a quiet day yesterday, mostly she stayed in her room. She did not attend groups. She continues with delusional thinking, though was not reporting any auditory or visual hallucinations. Has not had problems with initiation of Invega Sustenna. Has received her 2nd dose of 156 mg IM on the 3rd. She apparently sleeps on and off through the day. Today, she has continued to isolate to her room. She will make vague comments that are not in touch with reality. As noted by Dr. Jacobs, she has not been able to engage in discussion about housing and followup care. She appears to tolerate her psychotropic medications. MENTAL STATUS: Patient was in her room lying down. She chose not to come to the office. She responded with brief answers to questions. She did not say much. Her affect was flat. Her mood reserved. She did not appear to be significantly distressed. She continues to have delusional thinking. She voiced no thoughts of harm. She appeared to be oriented to his circumstances and surroundings. ASSESSMENT: I will continue the current diagnosis and treatment plan. Patient continues to show psychotic symptoms. I will increase Risperdal from 2 mg twice a day to 3 mg twice a day. I made an effort at reviewing medication issues with the patient. I kept the discussion brief as the patient did not make much effort to engage in the conversation. We will focus on stabilization and discharge planning. MMODL / SABASN: [id number] /
[2020-08-01] MEDS: risperiDONE 2 MG TAB PO SCH ×2 (08:44→20:31)
[2020-08-02] MEDS: hydrOXYzine pamoate 25 MG CAP PO PRN ×2 (01:13→22:29)
--- NOTE | 2020-08-02 02:56 | PN ---
PROGRESS NOTE DATE OF SERVICE: 08/01/2020. CHIEF COMPLAINT: The patient was delusional. She had auditory and visual hallucinations and was quite disorganized in her thoughts. INTERVAL HISTORY: Patient has been doing fair. She has not shown significant changes one way or another. Yesterday things were quiet for her. She tends to stay in her room more than not. She will come out and walk some around the unit. She does not interact much with others. She will respond appropriately to staff. She said she slept fair last night. Today she has been up again. She has spent most of the time in her room. She did attend the late afternoon group today. She has been taking her medications. When I reviewed some of her history, she continues to see things quite differently compared to what is documented in the record. On the other hand, she seemed to be a little less delusional in the thoughts she was expressing. She voiced no specific complaints or concerns today. She feels that she is tolerating her psychotropic medications. She has not needed or requested p.r.n. MENTAL STATUS: Patient gave fairly good eye contact. Psychomotor activity was slowed. At times she seemed to have a staring gaze. She answered questions with brief responses. Her thoughts were at times vague and generalized without giving specifics. She was not spontaneous or interactive. Her affect was blunted. Her mood reserved. It was difficult to assess if she was distressed in any way. I suspect she has some underlying thought disorder issues based on a sense of hesitancy that she has in her thought process. She voiced no thoughts of harm. She was oriented and alert. ASSESSMENT: I will continue the current diagnosis and treatment plan. I will continue psychotropic medications the same. I briefly reviewed discharge planning issues. At this point it is not clear what her living circumstances would be. I reviewed issues relating to her Invega Sustenna and discussed issues relating to the indication for the medication, potential side effects along with metabolic concerns and potential for movement disorder issues. We will focus on stabilization and discharge planning. MMODL / IJN: [id number] /
[2020-08-02] MEDS: risperiDONE 2 MG TAB PO SCH ×2 (09:51→22:29)
--- NOTE | 2020-08-02 14:05 | P.PN ---
Progress Note - Text Progress Note Date: 08/02/20 Interval History: Patient was seen resting in bed and was agreeable to speak to the teletypewriter operator in her room with no one else present. today, the patient is not endorsing any auditory or visual hallucinations. She is not reporting any suicidal or homicidal ideation, intention, and/or plan. She has been adherent with her medications and denies any side effects. She is unsure about where she is to go after discharge as her sister does not want herto return to her home. The patient is less forthcoming with any delusions and does not make any mention of Ronaldo today. Mental Status Exam: General Appearance: Patient appears to be stated age is alert, directable, and cooperative. Behavior: Psychomotor activity is normal normal eye contact. Speech: Patient's speech is fluent and nonpressured. Mood/Affect: Mood is "okay", affect is blunted but otherwise euthymic Suicidality/Homicidality: Patient denies any suicidal or homicidal ideation. Perceptions: Auditory hallucinations are endorsed of Ronaldo' voice. No visual hallucinations today. Though content/process: Patient is not endorsing any delusions. She is linear and logical in short conversation. Memory and concentration: AOX3, grossly intact for the purposes of this session Judgment and insight: Improving Assessment Schizoaffective Disorder, bipolar type Tobacco Use Disorder Plan: -Patient continues to meet criteria for inpatient psychiatric admission for symptom stabilization and safety. Patient has been court ordered for psychiatric treatment on 07/14/2020. -Medications: Invega sustenna 234 mg IM was administered on 07/22/2020. Invega sustenna 156 mg IM was administered on 07/26/2020. Continue Risperdal to 3 mg by mouth twice daily for psychosis. -May need to discuss alternative housing for the patient. -When necessary Vistaril and Geodon for agitation/aggression. -NRT - nicotine patch -SW on board for discharge planning. Encouraged the patient to participate in milieu. Possible discharge in 1-2 days.
[2020-08-03] MEDS: risperiDONE 2 MG TAB PO SCH ×2 (08:36→20:27)
[2020-08-03 11:28] VITALS: BMI 31.5
--- NOTE | 2020-08-03 13:00 | P.PN ---
Progress Note - Text Progress Note Date: 08/03/20 Interval History: Patient was seen resting in bed and was agreeable to speak to the speech writer in her room with no one else present. Patient is not endorsing any significant psychotic symptoms today. She denies any delusion that is not as forthcoming with any delusional thoughts today. She does not mention "Ronaldo" today. She reports no auditory or visual hallucinations. She denies any paranoia. She reports no significant side effects of her medications. She denies any chest pain, shortness of breath, muscle tightness, or other EPS symptoms. She reports no suicidal or homicidal ideation, intention, and/or plan. Mental Status Exam: General Appearance: Patient appears to be stated age is alert, directable, and cooperative. Behavior: Psychomotor activity is normal normal eye contact. Speech: Patient's speech is fluent and nonpressured. Mood/Affect: Mood is "okay", affect is blunted but otherwise euthymic Suicidality/Homicidality: Patient denies any suicidal or homicidal ideation. Perceptions: Patient reports no auditory or visual hallucinations today. Though content/process: Patient is not endorsing any delusions. She is linear and logical in short conversation. Memory and concentration: AOX3, grossly intact for the purposes of this session Judgment and insight: Improving Assessment Schizoaffective Disorder, bipolar type Tobacco Use Disorder Plan: -Patient continues to meet criteria for inpatient psychiatric admission for symptom stabilization and safety. Patient has been court ordered for psychiatric treatment on 07/14/2020. -Medications: Invega sustenna 234 mg IM was administered on 07/22/2020. Invega sustenna 156 mg IM was administered on 07/26/2020. Continue Risperdal to 3 mg by mouth twice daily for psychosis. -Will consider possible jail placement if we are unable to find housing at this time. -When necessary Vistaril and Geodon for agitation/aggression. -NRT - nicotine patch -SW on board for discharge planning. Encouraged the patient to participate in milieu. Possible discharge in 1-2 days.
[2020-08-03 14:40] VITALS: RESP 16
[2020-08-03] MEDS: hydrOXYzine pamoate 25 MG CAP PO PRN (22:18)
[2020-08-04] MEDS: risperiDONE 2 MG TAB PO SCH ×2 (08:52→20:43)
--- NOTE | 2020-08-04 09:40 | P.PN ---
Progress Note - Text Progress Note Date: 08/04/20 Interval History: Patient was seen resting in bed and was agreeable to speak to the justowriter operator in the office. Patient is not endorsing any significant psychotic symptoms today. She is not reporting any auditory or visual hallucinations. She denies any delusions and makes no mention of "Ronaldo" today. She expresses that her mother is requesting that she move closer to her home in [place]. Patient is not reporting any significant paranoia or other delusions. She is currently tolerating her medications well and denies any side effects. She denies any chest pain, shortness of breath, muscle tightness, or other EPS symptoms. She reports no suicidal or homicidal ideation, intention, and/or plan. Mental Status Exam: General Appearance: Patient appears to be stated age is alert, directable, and cooperative. Behavior: Psychomotor activity is normal normal eye contact. Speech: Patient's speech is fluent and nonpressured. Mood/Affect: Mood is "okay", affect is blunted but otherwise euthymic Suicidality/Homicidality: Patient denies any suicidal or homicidal ideation. Perceptions: Patient reports no auditory or visual hallucinations today. Though content/process: Patient is not endorsing any delusions. She is linear and logical in short conversation. Memory and concentration: AOX3, grossly intact for the purposes of this session Judgment and insight: Improving Assessment Schizoaffective Disorder, bipolar type Tobacco Use Disorder Plan: -Patient continues to meet criteria for inpatient psychiatric admission for symptom stabilization and safety. Patient has been court ordered for psychiatric treatment on 07/14/2020. -Medications: Invega sustenna 234 mg IM was administered on 07/22/2020. Invega sustenna 156 mg IM was administered on 07/26/2020. We will decrease Risperdal to 2 mg by mouth twice daily for psychosis. -Will consider possible skilled nursing placement if we are unable to find housing at this time. -When necessary Vistaril and Geodon for agitation/aggression. -NRT - nicotine patch -SW on board for discharge planning. Encouraged the patient to participate in milieu.
[2020-08-04] MEDS: hydrOXYzine pamoate 25 MG CAP PO PRN (20:43)
[2020-08-05] MEDS: risperiDONE 2 MG TAB PO SCH ×2 (08:52→20:32)
--- NOTE | 2020-08-05 10:04 | P.PN ---
Progress Note - Text Progress Note Date: 08/05/20 Interval History: Patient was seen resting in bed and was agreeable to speak to the program writer in the office. Patient is not reporting any significant psychiatric pathology today. She reports no auditory or visual hallucinations. She reports no paranoia or other delusions. She denies any suicidal or homicidal ideation, intention, or plan. She reports no issues with her prescribed medications and has been adherent. She reports she is okay to wait for [facility]'s recommendation on placement and is agreeable to the treatment team's plans. Mental Status Exam: General Appearance: Patient appears to be stated age is alert, directable, and cooperative. Behavior: Psychomotor activity is normal normal eye contact. Speech: Patient's speech is fluent and nonpressured. Mood/Affect: Mood is "okay", affect is blunted but otherwise euthymic Suicidality/Homicidality: Patient denies any suicidal or homicidal ideation. Perceptions: Patient reports no auditory or visual hallucinations today. Though content/process: Patient is not endorsing any delusions. She is linear and logical in short conversation. Memory and concentration: AOX3, grossly intact for the purposes of this session Judgment and insight: Improving Assessment Schizoaffective Disorder, bipolar type Tobacco Use Disorder Plan: -Patient continues to meet criteria for inpatient psychiatric admission for symptom stabilization and safety. Patient has been court ordered for psychiatric treatment on 07/14/2020. -Medications: Invega sustenna 234 mg IM was administered on 07/22/2020. Invega sustenna 156 mg IM was administered on 07/26/2020. Continue Risperdal 2 mg by mouth twice daily for psychosis. Will taper again tomorrow. -When necessary Vistaril and Geodon for agitation/aggression. -NRT - nicotine patch -SW on board for discharge planning. Encouraged the patient to participate in milieu.
[2020-08-06 06:23] VITALS: BP 123/59; PULSE 76; TEMP 97.9
[2020-08-06] MEDS: risperiDONE 2 MG TAB PO SCH (08:45)
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
== END 2020-08-06 13:00 | disposition home or self-care (01) | DRG 885 ==
LOC: EC 17:17 → 3MHU 21:02
PROVIDERS: ADMIT Psychiatry & Neurology Psychiatry; ATTEND Psychiatry & Neurology Psychiatry
DX: F25.0 Schizoaffective disorder, bipolar type (principal); F17.210 Nicotine dependence, cigarettes, uncomplicated; F79 Unspecified intellectual disabilities; F84.0 Autistic disorder; G40.909 Epilepsy, unspecified, not intractable, without status epilepticus; K59.00 Constipation, unspecified; R45.850 Homicidal ideations; Z91.5 Personal history of self-harm; Z91.19 Patient's noncompliance with other medical treatment and regimen; T43.96XA Underdosing of unspecified psychotropic drug, initial encounter; Z91.128 Patient's intentional underdosing of medication regimen for other reason; Z79.899 Other long term (current) drug therapy; Z82.49 Family history of ischemic heart disease and other diseases of the circulatory system; Z88.5 Allergy status to narcotic agent
CPT/HCPCS: 80053; 80061; 80306; 81001; 82075; 83036; 84443; 85025; 96372; 99285

== ENCOUNTER 2020-09-05 01:03 | Emergency (ER) | payer MEDICARE, OTHER ==
--- NOTE | 2020-09-05 01:28 | ED ---
SOB HPI - General Chief Complaint: Shortness of Breath Stated Complaint: SOB Source: patient, EMS, RN notes reviewed, old records reviewed Mode of arrival: EMS Limitations: physical limitation - History of Present Illness Initial Comments: This is a 49-year-old female presented today for evaluation of cough and congestion shortness of breath. Upper respiratory type symptoms. Patient admits some some mild anxiety. Patient's from [address] [place] [address] facility agreeable, denying any known sick contacts. Patient has no specific medical history aside from seizures as of psychiatric illness as well as otherwise has no complaints MD Complaint: shortness of breath, cough, anxiety -: hour(s) Radiation: back Severity: mild Severity scale (1-10): 3 Quality: aching Consistency: intermittent Improves With: nothing Worsens With: nothing Context: recent URI - Related Data Previous Rx's Medication Instructions Recorded Paliperidone IM [Invega Sustenna] 156 mg IM QMONTHLY #1 syr 08/02/20 risperiDONE [RisperDAL] 2 mg PO BID 30 Days tab 08/06/20 Allergies Allergy/AdvReac Type Severity Reaction Status Date / Time codeine Allergy Unknown Verified 09/05/20 01:09 Review of Systems ROS Statement: Those systems with pertinent positive or pertinent negative responses have been documented in the HPI. ROS Other: All systems not noted in ROS Statement are negative. Past Medical History Past Medical History: GERD/Reflux, Seizure Disorder History of Any Multi-Drug Resistant Organisms: None Reported Past Surgical History: Unable to Obtain, Tubal Ligation Past Anesthesia/Blood Transfusion Reactions: Unable to Obtain Past Psychological History: Anxiety, Bipolar, Depression Smoking Status: Current every day smoker Past Alcohol Use History: None Reported Past Drug Use History: None Reported - Past Family History Family Family Medical History: Coronary Artery Disease (CAD) General Exam Limitations: physical limitation General appearance: alert, in no apparent distress Head exam: Present: atraumatic, normocephalic, normal inspection Eye exam: Present: normal appearance, PERRL, EOMI. Absent: scleral icterus, conjunctival injection, periorbital swelling ENT exam: Present: normal exam, mucous membranes moist Neck exam: Present: normal inspection. Absent: tenderness, meningismus, lymphadenopathy Respiratory exam: Present: normal lung sounds bilaterally. Absent: respiratory distress, wheezes, rales, rhonchi, stridor Cardiovascular Exam: Present: regular rate, normal rhythm, normal heart sounds. Absent: systolic murmur, diastolic murmur, rubs, gallop, clicks GI/Abdominal exam: Present: soft, normal bowel sounds. Absent: distended, tenderness, guarding, rebound, rigid Extremities exam: Present: normal inspection, full ROM, normal capillary refill. Absent: tenderness, pedal edema, joint swelling, calf tenderness Back exam: Present: normal inspection Neurological exam: Present: alert, oriented X3, CN II-XII intact Psychiatric exam: Present: normal affect, normal mood Skin exam: Present: warm, dry, intact, normal color. Absent: rash Course Vital Signs 09/05/20 09/05/20 09/05/20 01:04 02:00 02:11 Temperature 98.5 F Pulse Rate 95 75 82 Respiratory 16 18 Rate Blood Pressure 155/65 O2 Sat by Pulse 97 99 Oximetry 09/05/20 02:22 Temperature Pulse Rate 78 Respiratory Rate Blood Pressure O2 Sat by Pulse Oximetry - Reevaluation(s) Reevaluation #1: 09/05/20 03:28 Medical records reviewed Reevaluation #2: 09/05/20 03:28 Patient without complaint Reevaluation #3: 09/05/20 03:28 Patient is informed of results and questions answered Medical Decision Making - Medical Decision Making 49 female patient does have occasional cough and shortness of breath but no specific findings here in the ER. Patient can be discharged home - Lab Data Result diagrams: 09/05/20 02:09 09/05/20 02:10 Lab Results 09/05/20 09/05/20 09/05/20 Range/Units 02:09 02:10 02:10 WBC 9.0 (3.8-10.6) k/uL RBC 4.88 (3.80-5.40) m/uL Hgb 14.6 (11.4-16.0) gm/dL Hct 42.4 (34.0-46.0) % MCV 86.8 (80.0-100.0) fL MCH 29.8 (25.0-35.0) pg MCHC 34.4 (31.0-37.0) g/dL RDW 13.1 (11.5-15.5) % Plt Count 194 (150-450) k/uL MPV 9.0 Neutrophils % 56 % Lymphocytes % 33 % Monocytes % 5 % Eosinophils % 3 % Basophils % 2 % Neutrophils # 5.1 (1.3-7.7) k/uL Lymphocytes # 2.9 (1.0-4.8) k/uL Monocytes # 0.5 (0-1.0) k/uL Eosinophils # 0.3 (0-0.7) k/uL Basophils # 0.1 (0-0.2) k/uL Sodium 139 (137-145) mmol/L Potassium 4.0 (3.5-5.1) mmol/L Chloride 108 H (98-107) mmol/L Carbon Dioxide 25 (22-30) mmol/L Anion Gap 6 mmol/L BUN 13 (7-17) mg/dL Creatinine 0.61 (0.52-1.04) mg/dL Est GFR (CKD-EPI)AfAm >90 (>60 ml/min/1.73 sqM) Est GFR (CKD-EPI)NonAf >90 (>60 ml/min/1.73 sqM) Glucose 118 H (74-99) mg/dL Calcium 9.4 (8.4-10.2) mg/dL Total Bilirubin 0.3 (0.2-1.3) mg/dL AST 29 (14-36) U/L ALT 43 H (4-34) U/L Alkaline Phosphatase 66 (38-126) U/L Troponin I <0.012 (0.000-0.034) ng/mL NT-Pro-B Natriuret Pep pg/mL Total Protein 6.2 L (6.3-8.2) g/dL Albumin 3.8 (3.5-5.0) g/dL 09/05/20 Range/Units 02:10 WBC (3.8-10.6) k/uL RBC (3.80-5.40) m/uL Hgb (11.4-16.0) gm/dL Hct (34.0-46.0) % MCV (80.0-100.0) fL MCH (25.0-35.0) pg MCHC (31.0-37.0) g/dL RDW (11.5-15.5) % Plt Count (150-450) k/uL MPV Neutrophils % % Lymphocytes % % Monocytes % % Eosinophils % % Basophils % % Neutrophils # (1.3-7.7) k/uL Lymphocytes # (1.0-4.8) k/uL Monocytes # (0-1.0) k/uL Eosinophils # (0-0.7) k/uL Basophils # (0-0.2) k/uL Sodium (137-145) mmol/L Potassium (3.5-5.1) mmol/L Chloride (98-107) mmol/L Carbon Dioxide (22-30) mmol/L Anion Gap mmol/L BUN (7-17) mg/dL Creatinine (0.52-1.04) mg/dL Est GFR (CKD-EPI)AfAm (>60 ml/min/1.73 sqM) Est GFR (CKD-EPI)NonAf (>60 ml/min/1.73 sqM) Glucose (74-99) mg/dL Calcium (8.4-10.2) mg/dL Total Bilirubin (0.2-1.3) mg/dL AST (14-36) U/L ALT (4-34) U/L Alkaline Phosphatase (38-126) U/L Troponin I (0.000-0.034) ng/mL NT-Pro-B Natriuret Pep 117 pg/mL Total Protein (6.3-8.2) g/dL Albumin (3.5-5.0) g/dL - EKG Data -: EKG Interpreted by Me (EKG is sinus rhythm 83, ND 160 QRS 78 QTc 434) - Radiology Data Radiology results: report reviewed (Chest x-rays negative for acute disease), image reviewed Disposition Clinical Impression: Upper respiratory infection Disposition: HOME SELF-CARE Condition: Good Instructions (If sedation given, give patient instructions): Upper Respiratory Infection (ED) Is patient prescribed a controlled substance at d/c from ED?: No Referrals: None,Stated [Primary Care Provider] - 1-2 days
[2020-09-05] MEDS ORDERED: IPRATROPIUM-ALBUTEROL 3 ML NEB INHALATION STA (01:45)
[2020-09-05] MEDS ORDERED: DEXAMETHASONE SOD PHOSPHATE 10 MG/ML 1 ML VIAL IM STA (01:46)
[2020-09-05] MEDS ORDERED: SODIUM CHLORIDE 0.9% 1,000 ML IV STA (02:06)
[2020-09-05] MEDS ORDERED: DEXAMETHASONE SOD PHOSPHATE 10 MG/ML 1 ML VIAL IV STA (02:11)
--- NOTE | 2020-09-05 02:17 | XR ---
EXAM: XR Chest, 2 Views CLINICAL HISTORY: ITS.REASON XR Reason: cough TECHNIQUE: Frontal and lateral views of the chest. COMPARISON: None available FINDINGS: Lungs: Clear lungs. No consolidation reticulation or nodules. Pleural space: Unremarkable. No pneumothorax. Heart: Unremarkable. No cardiomegaly. Mediastinum: Unremarkable. Bones/joints: Unremarkable. IMPRESSION: No acute pulmonary process.
[2020-09-05 02:24] LABS: Chloride 108 mmol/L (98-107)
[2020-09-05 02:26] LABS: Basophils # (A) 0.1 k/uL (0-0.2); Basophils % (A) 2 %; Eosinophils # (A) 0.3 k/uL (0-0.7); Eosinophils % (A) 3 %; HCT 42.4 % (34.0-46.0); HGB 14.6 gm/dL (11.4-16.0); Lymphocytes # (A) 2.9 k/uL (1.0-4.8); Lymphocytes % (A) 33 %; MCH 29.8 pg (25.0-35.0); MCHC 34.4 g/dL (31.0-37.0); MCV 86.8 fL (80.0-100.0); Monocytes # (A) 0.5 k/uL (0-1.0); Monocytes % (A) 5 %; Neutrophils # (A) 5.1 k/uL (1.3-7.7); Neutrophils % (A) 56 %; Platelet Count 194 k/uL (150-450); RBC 4.88 m/uL (3.80-5.40); RDW 13.1 % (11.5-15.5)
[2020-09-05 02:26] LABS: ALT 43 U/L (4-34); AST 29 U/L (14-36); African American GFR (CKD) >90 (>60 ml/min/1.73 sqM); Albumin 3.8 g/dL (3.5-5.0); Alkaline Phosphatase 66 U/L (38-126); Anion Gap 6 mmol/L; Blood Urea Nitrogen 13 mg/dL (7-17); Calcium 9.4 mg/dL (8.4-10.2); Carbon Dioxide 25 mmol/L (22-30); Glucose 118 mg/dL (74-99); Non-African American GFR(CKD) >90 (>60 ml/min/1.73 sqM); Sodium 139 mmol/L (137-145); Total Bilirubin 0.3 mg/dL (0.2-1.3); Total Protein 6.2 g/dL (6.3-8.2)
[2020-09-05 05:14] VITALS: PULSE 85; RESP 16
[2020-09-05 05:15] VITALS: BP 142/62; TEMP 97.8
== END 2020-09-05 04:45 | disposition home or self-care (01) ==
LOC: EC 01:03
DX: J06.9 Acute upper respiratory infection, unspecified (principal); F17.200 Nicotine dependence, unspecified, uncomplicated; Z88.5 Allergy status to narcotic agent
CPT/HCPCS: 36415; 94640; 93005; 83880; 80053; 84484; 85025; 71046; 99285; 96374; J1100

== ENCOUNTER 2020-09-05 10:08 | Emergency (ER) | payer MEDICARE, OTHER ==
[2020-09-05 10:19] VITALS: BP 127/74; TEMP 98.1
[2020-09-05] MEDS ORDERED: ALBUTEROL NEBULIZED 2.5 MG/3 ML INHALATION STA (10:33)
--- NOTE | 2020-09-05 10:43 | ED ---
SOB HPI - General Chief Complaint: Shortness of Breath Stated Complaint: SOB Time Seen by Provider: 09/05/20 10:19 Source: patient, EMS Mode of arrival: EMS - History of Present Illness Initial Comments: Patient is a 49-year-old female, well-known to the ER, was psychiatric history, presenting to the emergency Department with complaints of shortness of breath. Patient was evaluated for the same complaint less than 8 hours ago. Patient had a full workup including lab work, chest x-ray, EKG and did receive some medications. She was discharged home. Patient states she came back because she was still feeling "short of breath." Patient denies any chest pain, no abdominal pain, no fever or chills. She states she has a mild cough but states she always does. Patient states she has been eating and drinking as normal. Patient has no further complaints at this time. Upon arrival to the ER, her vital signs are completely normal. - Related Data Previous Rx's Medication Instructions Recorded Paliperidone IM [Invega Sustenna] 156 mg IM QMONTHLY #1 syr 08/02/20 risperiDONE [RisperDAL] 2 mg PO BID 30 Days tab 08/06/20 Allergies Allergy/AdvReac Type Severity Reaction Status Date / Time codeine Allergy Unknown Verified 09/05/20 10:16 Review of Systems ROS Statement: Those systems with pertinent positive or pertinent negative responses have been documented in the HPI. ROS Other: All systems not noted in ROS Statement are negative. Past Medical History Past Medical History: GERD/Reflux, Seizure Disorder History of Any Multi-Drug Resistant Organisms: None Reported Past Surgical History: Tubal Ligation Past Anesthesia/Blood Transfusion Reactions: Unable to Obtain Past Psychological History: Anxiety, Bipolar, Depression, Schizophrenia Smoking Status: Current every day smoker Past Alcohol Use History: None Reported Past Drug Use History: None Reported - Past Family History Family Family Medical History: Coronary Artery Disease (CAD) General Exam - General Exam Comments Initial Comments: GENERAL: Patient is well-developed and well-nourished. Patient is nontoxic and in no acute distress, she asked for lights to be turned off so she can rest. HEAD: Atraumatic, normocephalic. EYES: Pupils equal round and reactive to light, extraocular movements intact, sclera anicteric, conjunctiva are normal. Eyelids were unremarkable. ENT: TMs normal, nares patent, oropharynx clear without exudates. Moist mucous membranes. NECK: Normal range of motion, supple without lymphadenopathy or JVD. LUNGS: Unlabored respirations. Breath sounds clear to auscultation bilaterally and equal. No wheezes rales or rhonchi. HEART: Regular rate and rhythm without murmurs, rubs or gallops. ABDOMEN: Soft, nontender, normoactive bowel sounds. No guarding, no rebound. No masses appreciated. : Deferred MUSCULOSKELETAL: Normal extremities with adequate strength and normal range of motion, no pitting or edema. No clubbing or cyanosis. NEUROLOGICAL: Patient is alert and oriented x 3. Motor and sensory are also intact. Cranial nerves II through XII grossly intact. Symmetrical smile. Normal speech, normal gait. PSYCH: Normal mood, normal affect. SKIN: Warm, Dry, normal turgor, no rashes or lesions noted. Course Vital Signs 09/05/20 09/05/20 09/05/20 10:16 10:51 11:00 Temperature 98.1 F Pulse Rate 90 80 80 Respiratory 16 Rate Blood Pressure 127/74 O2 Sat by Pulse 99 Oximetry 09/05/20 11:16 Temperature Pulse Rate 80 Respiratory 18 Rate Blood Pressure O2 Sat by Pulse 98 Oximetry Medical Decision Making - Medical Decision Making Patient is a 49-year-old female presenting with shortness of breath, she was here less than 8 hours ago for same complaint. Her workup earlier was completely normal, labs, EKG, chest x-ray. She did receive some steroids and a breathing treatment. Her vital signs today are normal. Her exam is unremarkable. Patient is concerned for possible Covid, I will order Covid test, this is pending. I did give patient another albuterol treatment. Her vital signs remained stable. She has been sleeping in the ER room. I discussed with patient that her vital signs are fine, this could be a mild upper respiratory viral infection. She is stable for discharge. She can follow-up with her regular doctor. She is in agreement this plan of care. Discussed with Dr. Haas. Disposition Clinical Impression: Viral illness Disposition: HOME SELF-CARE Condition: Stable Instructions (If sedation given, give patient instructions): Upper Respiratory Infection (ED) Additional Instructions: Please return to the Emergency Department if symptoms worsen or any other concerns. Covid test is pending, they will call you with results. Follow-up with your regular doctor. Is patient prescribed a controlled substance at d/c from ED?: No Referrals: None,Stated [Primary Care Provider] - 1-2 days
[2020-09-05 10:54] VITALS: PULSE 80
[2020-09-05 11:27] VITALS: RESP 18
== END 2020-09-05 11:20 | disposition home or self-care (01) ==
LOC: EC 10:08
DX: B34.9 Viral infection, unspecified (principal); F17.200 Nicotine dependence, unspecified, uncomplicated; Z88.5 Allergy status to narcotic agent; Z20.828 Contact with and (suspected) exposure to other viral communicable diseases
CPT/HCPCS: 94640; 99285; U0003

== ENCOUNTER 2022-12-15 14:05 | Emergency (ER) | payer MEDICARE, OTHER ==
[2022-12-15 14:47] VITALS: BP 116/76; PULSE 77; RESP 18; TEMP 98.3
--- NOTE | 2022-12-15 15:06 | ED ---
General Adult HPI - General Chief complaint: Urogenital Stated complaint: dysuria Time Seen by Provider: 12/15/22 14:58 Source: patient, RN notes reviewed Mode of arrival: ambulatory Limitations: no limitations - History of Present Illness Initial comments: Patient is a pleasant 52-year-old female presenting to the emergency department with urinary symptoms. Onset of symptoms was 2 days ago. Patient did recently finish antibiotics, she thinks amoxicillin for strep throat. Patient does question of that could be causing her symptoms. Symptoms are similar to previous urinary tract infection that she had years ago. Patient has frequency, urgency and dysuria. No nausea vomiting. No abdominal pain. - Related Data Home Medications Medication Instructions Recorded Confirmed Albuterol Inhaler [Ventolin Hfa 2 puff INHALATION RT-Q6H PRN 03/13/22 05/10/22 Inhaler] Ammonium Lactate Cream [Lac-Hydrin 1 applic TOPICAL DAILY@0800 PRN 03/13/22 05/10/22 12% Cream] Atorvastatin [Lipitor] 20 mg PO HS@209903/13/22 05/10/22 Cholecalciferol [Vitamin D3 (125 125 mcg PO DAILY@79903/13/22 05/10/22 Mcg = 5000 Iu)] Famotidine 20 mg PO BID@0800,209903/13/22 05/10/22 Fluticasone Propionate 44 Mcg 1 puff INHALATION RT-BID@0800,209903/13/22 05/10/22 [Flovent 44 Mcg Inhaler] Glucerna Shake 1 can PO DAILY@79903/13/22 05/10/22 Lactulose 10 gm PO DAILY PRN 03/13/22 05/10/22 Loratadine 10 mg PO DAILY@79903/13/22 05/10/22 Montelukast Sodium [Singulair] 10 mg PO HS@209903/13/22 05/10/22 Olopatadine HCl [Pataday] 1 drop BOTH EYES DAILY@79903/13/22 05/10/22 lisinopriL [Zestril] 20 mg PO DAILY@79903/13/22 05/10/22 metFORMIN HCL [Glucophage] 850 mg PO W/SUPPER@1700 03/13/22 05/10/22 Bismuth Subsalicylate 524 mg PO Q4H PRN 05/09/22 05/10/22 [Pepto-Bismol] Psyllium Husk 100% [Metamucil 6 gm PO DAILY PRN 05/09/22 05/10/22 Packet] Previous Rx's Medication Instructions Recorded Paliperidone IM [Invega Sustenna] 156 mg IM QMONTHLY #1 syr 08/02/20 risperiDONE [RisperDAL] 2 mg PO BID 30 Days tab 08/06/20 Nicotine Gum (Polacrilex) 2 mg BUCCAL Q2HR PRN 30 Days 04/06/22 [Nicorette] pieceofgum Haloperidol Decanoate [Haldol D] 100 mg IM Q28D #1 each 05/15/22 traZODone HCL [Desyrel] 200 mg PO HS@2100 30 Days tab 05/15/22 Phenazopyridine [Pyridium] 200 mg PO TID #6 tablet 12/15/22 Sulfamethox-Tmp 800-160Mg [Bactrim 1 each PO Q12HR #20 tab 12/15/22 DS 800-160 mg] Allergies Allergy/AdvReac Type Severity Reaction Status Date / Time codeine Allergy Unknown Verified 12/15/22 14:47 adhesive AdvReac Intermediate Rash/Hives Verified 12/15/22 14:47 Review of Systems ROS Statement: Those systems with pertinent positive or pertinent negative responses have been documented in the HPI. ROS Other: All systems not noted in ROS Statement are negative. Constitutional: Denies: fever, chills Eyes: Denies: eye pain ENT: Denies: ear pain Respiratory: Denies: cough Cardiovascular: Denies: chest pain Endocrine: Denies: fatigue Gastrointestinal: Denies: abdominal pain, nausea, vomiting Genitourinary: Reports: urgency, dysuria, frequency Musculoskeletal: Denies: back pain Skin: Denies: rash Neurological: Denies: weakness Past Medical History Past Medical History: GERD/Reflux, Hypertension, Seizure Disorder History of Any Multi-Drug Resistant Organisms: None Reported Past Surgical History: Tubal Ligation Past Anesthesia/Blood Transfusion Reactions: No Reported Reaction, Unable to Obtain Past Psychological History: Anxiety, Bipolar, Depression, No Psychological Hx Reported, Schizophrenia Smoking Status: Current every day smoker Past Alcohol Use History: None Reported Past Drug Use History: None Reported General Exam Limitations: no limitations General appearance: alert, in no apparent distress Head exam: Present: normocephalic Eye exam: Present: normal appearance Neck exam: Present: normal inspection Respiratory exam: Present: normal lung sounds bilaterally Cardiovascular Exam: Present: regular rate, normal rhythm GI/Abdominal exam: Present: soft. Absent: tenderness Extremities exam: Present: normal inspection Neurological exam: Present: alert Psychiatric exam: Present: normal affect, normal mood Skin exam: Present: normal color Course Vital Signs 12/15/22 14:45 Temperature 98.3 F Pulse Rate 77 Respiratory 18 Rate Blood Pressure 116/76 O2 Sat by Pulse 99 Oximetry Medical Decision Making - Medical Decision Making Was pt. sent in by a medical professional or institution (, PA, EMBRYOLOGY PROFESSOR, urgent care, hospital, or custodial...) When possible be specific @ -No Did you speak to anyone other than the patient for history (EMS, parent, family, police, friend...)? What history was obtained from this source @ -No Did you review nursing and triage notes (agree or disagree)? Why? @ -I reviewed and agree with nursing and triage notes Were old charts reviewed (outside hosp., previous admission, EMS record, old EKG, old radiological studies, urgent care reports/EKG's, custodial records)? Report findings @ -No old charts were reviewed Differential Diagnosis (chest pain, altered mental status, abdominal pain women, abdominal pain men, vaginal bleeding, weakness, fever, dyspnea, syncope, headache, dizziness, GI bleed, back pain, seizure, CVA, palpatations, mental health)? @ -not applicable EKG interpreted by me (3pts min.). @ -As above X-rays interpreted by me (1pt min.). @ -None done CT interpreted by me (1pt min.). @ -None done U/S interpreted by me (1pt. min.). @ -None done What testing was considered but not performed or refused? (CT, X-rays, U/S, labs)? Why? @ -None What meds were considered but not given or refused? Why? @ -None Did you discuss the management of the patient with other professionals (professionals i.e. , PA, EMBRYOLOGY PROFESSOR, lab, RT, psych nurse, mental health social worker, bar useful or busser, teacher, international first officer, case filler)? Give summary @ -No Was smoking cessation discussed for >3mins.? @ -No Was critical care preformed (if so, how long)? @ -No Were there social determinants of health that impacted care today? How? (Homelessness, low income, unemployed, alcoholism, drug addiction, transportati on, low edu. Level, literacy, decrease access to med. care, correction, rehab)? @ -No Was there de-escalation of care discussed even if they declined (Discuss DNR or withdrawal of care, Hospice)? DNR status @ -No What co-morbidities impacted this encounter? (DM, HTN, Smoking, COPD, CAD, Cancer, CVA, ARF, Chemo, Hep., AIDS, mental health diagnosis, sleep apnea, morbid obesity)? @ -None Was patient admitted / discharged? Hospital course, mention meds given and route, prescriptions, significant lab abnormalities, going to OR and other pertinent info. @ -Patient with urinalysis showing probable mild urinary tract infection. Patient recently on antibiotics which could account for mild changes with moderate symptoms. Patient will be prescribed antibiotics pending urine culture. Undiagnosed new problem with uncertain prognosis? @ -No Drug Therapy requiring intensive monitoring for toxicity (Heparin, Nitro, Insulin, Cardizem)? @ -No Were any procedures done? @ -No Diagnosis/symptom? @ -[Cystitis Acute, or Chronic, or Acute on Chronic? @ -Acute Uncomplicated (without systemic symptoms) or Complicated (systemic symptoms)? @ -default Side effects of treatment? @ -No Exacerbation, Progression, or Severe Exacerbation? @ -No Poses a threat to life or bodily function? How? (Chest pain, [place], [place], pneumonia, PE, COPD, DKA, ARF, appy, cholecystitis, CVA, Diverticulitis, Homicidal, Suicidal, threat to staff... and all critical care pts) @ -No - Lab Data Lab Results 12/15/22 Range/Units 15:00 Urine Color Colorless Urine Appearance Clear (Clear) Urine pH 5.5 (5.0-8.0) Ur Specific Dalton 1.001 (1.001-1.035) Urine Protein Negative (Negative) Urine Glucose (UA) Negative (Negative) Urine Ketones Negative (Negative) Urine Blood Small H (Negative) Urine Nitrite Negative (Negative) Urine Bilirubin Negative (Negative) Urine Urobilinogen <2.0 (<2.0) mg/dL Ur Leukocyte Esterase Moderate H (Negative) Urine WBC 7 H (0-5) /hpf Ur Squamous Epith Cells <1 (0-4) /hpf Disposition Clinical Impression: Cystitis Disposition: HOME SELF-CARE Condition: Stable Instructions (If sedation given, give patient instructions): Urinary Tract Infection in Women (ED) Additional Instructions: Prescription sent to pharmacy. Please do follow-up with primary care physician in the next day or 2 for recheck. Return for fevers, vomiting, increased pain, worsening or changing symptoms or other concerns. Prescriptions: Sulfamethox-Tmp 800-160Mg [Bactrim DS 800-160 mg] 1 each PO Q12HR #20 tab Phenazopyridine [Pyridium] 200 mg PO TID #6 tablet Is patient prescribed a controlled substance at d/c from ED?: No Referrals: [facility] [Primary Care Provider] - 1-2 days Time of Disposition: 15:35
[2022-12-15 15:16] LABS: Appearance,Urine Clear (Clear); Bilirubin,Urine Negative (Negative); Blood,Urine Small (Negative); Color,Urine Colorless; Glucose,Urine (UA) Negative (Negative); Ketones,Urine Negative (Negative); Leukocyte Esterase,Urine Moderate (Negative); Nitrite,Urine Negative (Negative); PH, Urine 5.5 (5.0-8.0); Protein,Urine Negative (Negative); Specific Gravity,Urine 1.001 (1.001-1.035); Squamous Epithelial Cell,Urine <1 /hpf (0-4); Urobilinogen,Urine <2.0 mg/dL (<2.0); WBC,Urine 7 /hpf (0-5)
== END 2022-12-15 15:55 | disposition home or self-care (01) ==
LOC: EC 14:05
DX: N30.90 Cystitis, unspecified without hematuria (principal); I10 Essential (primary) hypertension; F41.9 Anxiety disorder, unspecified; F31.9 Bipolar disorder, unspecified; F17.200 Nicotine dependence, unspecified, uncomplicated; Z79.899 Other long term (current) drug therapy; Z88.5 Allergy status to narcotic agent; Z91.09 Other allergy status, other than to drugs and biological substances
CPT/HCPCS: 81001; 99283

== ENCOUNTER 2023-05-13 14:57 | Observation (INO) | payer MEDICARE, OTHER ==
[2023-05-13] MEDS ORDERED: ASPIRIN 81 MG PO STA (15:12)
--- NOTE | 2023-05-13 15:14 | ED ---
General Adult HPI - General Chief complaint: Chest Pain Stated complaint: Chest Pain Time Seen by Provider: 05/13/23 15:00 Source: patient, EMS, RN notes reviewed Mode of arrival: EMS Limitations: no limitations - History of Present Illness Initial comments: Patient is a pleasant 52-year-old female presenting to the emergency department concerned with chest discomfort. Onset of symptoms was 1:30. Patient was not exerting herself that time. Discomfort felt like tightness without radiation. No associated dyspnea, nausea, or diaphoresis. Patient is currently symptom- free following aspirin by EMS. Patient states she has had similar symptoms prev iously however unclear why. Currently symptom-free. - Related Data Home Medications Medication Instructions Recorded Confirmed Albuterol Inhaler [Ventolin Hfa 2 puff INHALATION RT-Q6H PRN 03/13/22 05/10/22 Inhaler] Ammonium Lactate Cream [Lac-Hydrin 1 applic TOPICAL DAILY@0800 PRN 03/13/22 05/10/22 12% Cream] Atorvastatin [Lipitor] 20 mg PO HS@209903/13/22 05/10/22 Cholecalciferol [Vitamin D3 (125 125 mcg PO DAILY@79903/13/22 05/10/22 Mcg = 5000 Iu)] Famotidine 20 mg PO BID@0800,209903/13/22 05/10/22 Fluticasone Propionate 44 Mcg 1 puff INHALATION RT-BID@0800,209903/13/22 05/10/22 [Flovent 44 Mcg Inhaler] Glucerna Shake 1 can PO DAILY@79903/13/22 05/10/22 Lactulose 10 gm PO DAILY PRN 03/13/22 05/10/22 Loratadine 10 mg PO DAILY@79903/13/22 05/10/22 Montelukast Sodium [Singulair] 10 mg PO HS@209903/13/22 05/10/22 Olopatadine HCl [Pataday] 1 drop BOTH EYES DAILY@79903/13/22 05/10/22 lisinopriL [Zestril] 20 mg PO DAILY@79903/13/22 05/10/22 metFORMIN HCL [Glucophage] 850 mg PO W/SUPPER@169903/13/22 05/10/22 Bismuth Subsalicylate 524 mg PO Q4H PRN 05/09/22 05/10/22 [Pepto-Bismol] Psyllium Husk 100% [Metamucil 6 gm PO DAILY PRN 05/09/22 05/10/22 Packet] Previous Rx's Medication Instructions Recorded Paliperidone IM [Invega Sustenna] 156 mg IM QMONTHLY #1 syr 08/02/20 risperiDONE [RisperDAL] 2 mg PO BID 30 Days tab 08/06/20 Nicotine Gum (Polacrilex) 2 mg BUCCAL Q2HR PRN 30 Days 04/06/22 [Nicorette] pieceofgum Haloperidol Decanoate [Haldol D] 100 mg IM Q28D #1 each 05/15/22 traZODone HCL [Desyrel] 200 mg PO HS@2100 30 Days tab 05/15/22 Phenazopyridine [Pyridium] 200 mg PO TID #6 tablet 12/15/22 Sulfamethox-Tmp 800-160Mg [Bactrim 1 each PO Q12HR #20 tab 12/15/22 DS 800-160 mg] Allergies Allergy/AdvReac Type Severity Reaction Status Date / Time codeine Allergy Unknown Verified 05/13/23 15:08 adhesive AdvReac Intermediate Rash/Hives Verified 05/13/23 15:08 Review of Systems ROS Statement: Those systems with pertinent positive or pertinent negative responses have been documented in the HPI. ROS Other: All systems not noted in ROS Statement are negative. Constitutional: Denies: fever Eyes: Denies: eye pain ENT: Denies: ear pain Respiratory: Denies: dyspnea Cardiovascular: Reports: as per HPI, chest pain Endocrine: Denies: fatigue Gastrointestinal: Denies: abdominal pain, nausea, vomiting Genitourinary: Denies: dysuria Musculoskeletal: Denies: back pain Past Medical History Past Medical History: GERD/Reflux, Hypertension, Seizure Disorder History of Any Multi-Drug Resistant Organisms: None Reported Past Surgical History: Tubal Ligation Past Anesthesia/Blood Transfusion Reactions: No Reported Reaction, Unable to Obtain Past Psychological History: Anxiety, Bipolar, Depression, No Psychological Hx Reported, Schizophrenia Smoking Status: Current every day smoker Past Alcohol Use History: None Reported Past Drug Use History: None Reported - Past Family History Mother Family Medical History: Hyperlipidemia Family Family Medical History: Coronary Artery Disease (CAD) General Exam Limitations: no limitations General appearance: alert, in no apparent distress Head exam: Present: normocephalic Eye exam: Present: normal appearance Neck exam: Present: normal inspection Respiratory exam: Present: normal lung sounds bilaterally. Absent: chest wall tenderness Cardiovascular Exam: Present: regular rate, normal rhythm, normal heart sounds Expanded Peripheral pulses: 2+: Radial (R), Radial (L), Dorsalis Pedis (R), Dorsalis Pedis (L) GI/Abdominal exam: Present: soft. Absent: tenderness Extremities exam: Present: normal inspection. Absent: pedal edema, calf tenderness Neurological exam: Present: alert Psychiatric exam: Present: normal affect, normal mood Skin exam: Present: normal color Course Vital Signs 05/13/23 05/13/23 05/13/23 15:01 15:57 17:01 Temperature 98.1 F Pulse Rate 72 85 70 Respiratory 18 18 18 Rate Blood Pressure 125/79 125/79 120/65 O2 Sat by Pulse 96 98 96 Oximetry EKG Findings - EKG Results: EKG: interpreted by JEANA, sinus rhythm, normal axis, normal QRS, normal ST/T Medical Decision Making - Medical Decision Making Was pt. sent in by a medical professional or institution (, PA, INSTRUCTIONAL TECHNOLOGY DIRECTOR, urgent care, hospital, or usp...) When possible be specific @ -No Did you speak to anyone other than the patient for history (EMS, parent, family, police, friend...)? What history was obtained from this source @ -No Did you review nursing and triage notes (agree or disagree)? Why? @ -I reviewed and agree with nursing and triage notes Were old charts reviewed (outside hosp., previous admission, EMS record, old EKG, old radiological studies, urgent care reports/EKG's, usp records)? Report findings @ -No old charts were reviewed Differential Diagnosis (chest pain, altered mental status, abdominal pain women, abdominal pain men, vaginal bleeding, weakness, fever, dyspnea, syncope, headache, dizziness, GI bleed, back pain, seizure, CVA, palpatations, mental health, musculoskeletal)? @ -Differential Chest Pain: Stable Angina, Unstable Angina, STEMI, NSTEMI Aortic Dissection, Pneumothorax, Musculoskeletal, Esophageal Spasm GERD, Cholecystitis, Pancreatitis, Zoster, this is not meant to be an all-inclusive list. EKG interpreted by me (3pts min.). @ -As above X-rays interpreted by me (1pt min.). @ -Chest x-ray shows no acute process CT interpreted by me (1pt min.). @ -None done U/S interpreted by me (1pt. min.). @ -None done What testing was considered but not performed or refused? (CT, X-rays, U/S, labs)? Why? @ -None What meds were considered but not given or refused? Why? @ -None Did you discuss the management of the patient with other professionals (professionals i.e. , PA, INSTRUCTIONAL TECHNOLOGY DIRECTOR, lab, RT, psych nurse, director of social work, solar installer pv, teacher, professional security officer, watch case polisher)? Give summary @ -Case was discussed with Dr. Bhakta, who [facility]. Was smoking cessation discussed for >3mins.? @ -No Was critical care preformed (if so, how long)? @ -No Were there social determinants of health that impacted care today? How? (Homelessness, low income, unemployed, alcoholism, drug addiction, transportati on, low edu. Level, literacy, decrease access to med. care, usp, rehab)? @ -No Was there de-escalation of care discussed even if they declined (Discuss DNR or withdrawal of care, Hospice)? DNR status @ -No What co-morbidities impacted this encounter? (DM, HTN, Smoking, COPD, CAD, Cancer, CVA, ARF, Chemo, Hep., AIDS, mental health diagnosis, sleep apnea, morbid obesity)? @ -None Was patient admitted / discharged? Hospital course, mention meds given and route, prescriptions, significant lab abnormalities, going to OR and other pertinent info. @ -Patient reevaluated and updated. Patient will be admitted with cardiac consultation. Admission orders written. Undiagnosed new problem with uncertain prognosis? @ -No Drug Therapy requiring intensive monitoring for toxicity (Heparin, Nitro, Insulin, Cardizem)? @ -No Were any procedures done? @ -No Diagnosis/symptom? @ -chest pain Acute, or Chronic, or Acute on Chronic? @ -Acute Uncomplicated (without systemic symptoms) or Complicated (systemic symptoms)? @ -default Side effects of treatment? @ -No Exacerbation, Progression, or Severe Exacerbation? @ -No Poses a threat to life or bodily function? How? (Chest pain, USA, OR, pneumonia, PE, COPD, DKA, ARF, appy, cholecystitis, CVA, Diverticulitis, Homicidal, Suicidal, threat to staff... and all critical care pts) @ -No - Lab Data Result diagrams: 05/13/23 15:29 05/13/23 15:29 Lab Results 05/13/23 05/13/23 05/13/23 Range/Units 15:29 15: 15:29 WBC 8.7 (3.8-10.6) k/uL RBC 4.86 (3.80-5.40) m/uL Hgb 13.5 (11.4-16.0) gm/dL Hct 41.1 (34.0-46.0) % MCV 84.6 (80.0-100.0) fL MCH 27.9 (25.0-35.0) pg MCHC 33.0 (31.0-37.0) g/dL RDW 15.0 (11.5-15.5) % Plt Count 172 (150-450) k/uL MPV 8.9 Neutrophils % 64 % Lymphocytes % 25 % Monocytes % 5 % Eosinophils % 4 % Basophils % 1 % Neutrophils # 5.6 (1.3-7.7) k/uL Lymphocytes # 2.2 (1.0-4.8) k/uL Monocytes # 0.5 (0-1.0) k/uL Eosinophils # 0.4 (0-0.7) k/uL Basophils # 0.1 (0-0.2) k/uL PT 9.7 (9.0-12.0) sec INR 0.9 (<1.2) APTT 26.3 (22.0-30.0) sec D-Dimer 0.32 (<0.60) mg/L FEU Sodium 136 L (137-145) mmol/L Potassium 4.0 (3.5-5.1) mmol/L Chloride 105 (98-107) mmol/L Carbon Dioxide 25 (22-30) mmol/L Anion Gap 6 mmol/L BUN 8 (7-17) mg/dL Creatinine 0.52 (0.52-1.04) mg/dL Est GFR (CKD-EPI)AfAm >90 (>60 ml/min/1.73 sqM) Est GFR (CKD-EPI)NonAf >90 (>60 ml/min/1.73 sqM) Glucose 93 (74-99) mg/dL Calcium 8.9 (8.4-10.2) mg/dL Magnesium 1.7 (1.6-2.3) mg/dL Total Bilirubin 0.4 (0.2-1.3) mg/dL AST 22 (14-36) U/L ALT 23 (4-34) U/L Alkaline Phosphatase 61 (38-126) U/L Troponin I (0.000-0.034) ng/mL Total Protein 5.9 L (6.3-8.2) g/dL Albumin 3.4 L (3.5-5.0) g/dL 05/13/23 Range/Units 15:29 WBC (3.8-10.6) k/uL RBC (3.80-5.40) m/uL Hgb (11.4-16.0) gm/dL Hct (34.0-46.0) % MCV (80.0-100.0) fL MCH (25.0-35.0) pg MCHC (31.0-37.0) g/dL RDW (11.5-15.5) % Plt Count (150-450) k/uL MPV Neutrophils % % Lymphocytes % % Monocytes % % Eosinophils % % Basophils % % Neutrophils # (1.3-7.7) k/uL Lymphocytes # (1.0-4.8) k/uL Monocytes # (0-1.0) k/uL Eosinophils # (0-0.7) k/uL Basophils # (0-0.2) k/uL PT (9.0-12.0) sec INR (<1.2) APTT (22.0-30.0) sec D-Dimer (<0.60) mg/L FEU Sodium (137-145) mmol/L Potassium (3.5-5.1) mmol/L Chloride (98-107) mmol/L Carbon Dioxide (22-30) mmol/L Anion Gap mmol/L BUN (7-17) mg/dL Creatinine (0.52-1.04) mg/dL Est GFR (CKD-EPI)AfAm (>60 ml/min/1.73 sqM) Est GFR (CKD-EPI)NonAf (>60 ml/min/1.73 sqM) Glucose (74-99) mg/dL Calcium (8.4-10.2) mg/dL Magnesium (1.6-2.3) mg/dL Total Bilirubin (0.2-1.3) mg/dL AST (14-36) U/L ALT (4-34) U/L Alkaline Phosphatase (38-126) U/L Troponin I <0.012 (0.000-0.034) ng/mL Total Protein (6.3-8.2) g/dL Albumin (3.5-5.0) g/dL Disposition Clinical Impression: Chest pain Disposition: ADMITTED IP TO THIS HOSP Is patient prescribed a controlled substance at d/c from ED?: No Referrals: [facility] [Primary Care Provider] - 1-2 days Time of Disposition: 17:35
--- NOTE | 2023-05-13 15:47 | XR ---
EXAMINATION TYPE: XR chest 2V DATE OF EXAM: 05/13/2023 3:40 PM COMPARISON: Chest radiographs from 09/05/2020 TECHNIQUE: XR chest 2V Frontal and lateral views of the chest. CLINICAL INDICATION:Female, 52 years old with history of Chest Pain; FINDINGS: Lungs/Pleura: There is flattening of the diaphragm with increased lucency of the lungs. No evidence o f pneumothorax, pleural effusion or focal consolidation. Pulmonary vascularity: Unremarkable. Heart/mediastinum: Cardiomediastinal silhouette is unremarkable. Musculoskeletal: No acute osseous pathology. IMPRESSION: 1. No acute cardiopulmonary disease process. 2. COPD changes.
[2023-05-13 15:57] LABS: Basophils # (A) 0.1 k/uL (0-0.2); Basophils % (A) 1 %; Eosinophils # (A) 0.4 k/uL (0-0.7); Eosinophils % (A) 4 %; HCT 41.1 % (34.0-46.0); HGB 13.5 gm/dL (11.4-16.0); Lymphocytes # (A) 2.2 k/uL (1.0-4.8); Lymphocytes % (A) 25 %; MCH 27.9 pg (25.0-35.0); MCV 84.6 fL (80.0-100.0); Mean Platelet Volume 8.9; Monocytes # (A) 0.5 k/uL (0-1.0); Monocytes % (A) 5 %; Neutrophils # (A) 5.6 k/uL (1.3-7.7); Neutrophils % (A) 64 %; Platelet Count 172 k/uL (150-450); RBC 4.86 m/uL (3.80-5.40); WBC 8.7 k/uL (3.8-10.6)
[2023-05-13 16:05] LABS: ALT 23 U/L (4-34); AST 22 U/L (14-36); African American GFR (CKD) >90 (>60 ml/min/1.73 sqM); Albumin 3.4 g/dL (3.5-5.0); Alkaline Phosphatase 61 U/L (38-126); Anion Gap 6 mmol/L; Blood Urea Nitrogen 8 mg/dL (7-17); Calcium 8.9 mg/dL (8.4-10.2); Carbon Dioxide 25 mmol/L (22-30); Chloride 105 mmol/L (98-107); Glucose 93 mg/dL (74-99); Magnesium 1.7 mg/dL (1.6-2.3); Non-African American GFR(CKD) >90 (>60 ml/min/1.73 sqM); Sodium 136 mmol/L (137-145); Total Bilirubin 0.4 mg/dL (0.2-1.3); Total Protein 5.9 g/dL (6.3-8.2)
[2023-05-13 16:16] LABS: INR 0.9 (<1.2); Partial Thromboplastin Time 26.3 sec (22.0-30.0); Prothrombin Time 9.7 sec (9.0-12.0)
[2023-05-13] MEDS ORDERED: NITROGLYCERIN SL TABS 0.4 MG TAB SUBLINGUAL PRN (17:35)
[2023-05-13] MEDS ORDERED: NALOXONE 0.4 MG/ML 1 ML VIAL IVP PRN (18:19)
[2023-05-13] MEDS ORDERED: MELATONIN 3 MG TABLET PO PRN (18:19)
[2023-05-13] MEDS ORDERED: ONDANSETRON 4 MG/2 ML VIAL IVP PRN (18:19)
[2023-05-13] MEDS ORDERED: DEXTROSE 50% SYRINGE 50 ML IVP PRN ×2 (18:20)
[2023-05-13] MEDS ORDERED: NICOTINE GUM (POLACRILEX) 2 MG GUM BUCCAL PRN (18:28)
--- NOTE | 2023-05-13 18:28 | P.HPIM ---
History of Present Illness H&P Date: 05/13/23 Patient is a 52-year-old female with a history of hypertension, GERD, seizure disorder, and anxiety who presented to the ER with complaints of chest pain. On arrival to the ER her vital signs were within normal limits. Laboratory analysis was unremarkable. Troponin was normal at 0.012. EKG demonstrated normal sinus rhythm at a rate of 69, normal intervals, normal axis, no sig nificant ST-T wave changes. Patient seen and examined at bedside. She reports that today she was sitting and watching TV this AM when she had sudden onset left sided chest pain with radiation down her left arm. No shortness of breath, no nausea, no diaphoresis, no palpitations. She reports that early in the day she was wrestling a bull back into the fencing. She denies missing any medications or running out of medications. When she took deep breaths for her physical exam she did have some pain on the left side of her chest. She reports that she has had several episodes of chest pain and follow with Dr. Patterson she had a chemical stress test within the last year at the office, which she reports as normal. Her last visit with Dr. Patterson was in February of 2023. Vital signs reviewed General: nontoxic, no distress, appears at stated age Derm: warm, dry Eyes: EOMI, no lid lag, anicteric sclera, pupils equal round reactive to light ENT: Nose and ears atraumatic, no thrush, no pharyngeal erythema Cardiovascular: S1S2 reg, no murmur, positive posterior tibial pulse bilateral, no edema Pain in palaption and rotation of the biceps tendon insertion site. No pain with abduction/adduction/flexion and extension at the shoulder. No pain with empty can test Lungs: clear to auscultation bilateral, no rhonchi, no rales, no wheeze, no accessory muscle use Abdominal: soft, nontender to palpation, no guarding, no appreciable organomegaly, normal bowel sounds Ext: no gross muscle atrophy, no contractures Neuro: CN II-XII grossly intact, no focal neuro deficits Psych: Alert, oriented, appropriate affect Assessment/plan: Chest pain -Serial troponins -Telemetry -Aspirin 81 mg daily, Lipitor 20 mg daily -Consult cardiology -Nothing by mouth after midnight for possible stress test -Check fasting lipid profile Suspect biceps tendonitis - start motrin 600 mg TID and a medrol dose pack - outpatient PT Pre-diabetes -Sliding-scale insulin -Hold metformin Hypertension Dyslipidemia -Resume lisinopril 10 mg daily, Lipitor 20 mg daily Nicotine dependency -Cessation -Nicotine replacement Depression and bipolar - awaiting home meds to be verified, will reported once verified. Imaging: As per HPI and below Chest x-ray is reviewed by myself reveals no acute process with hyperinflated lungs. Data Review: As per HPI The patient is placed in observation with an anticipated less than 2 midnight stay for evaluation of chest pain. Anticipated discharge date: A.m. Anticipated discharge place: home This dictation was prepared using [employer] voice recognition software. Though every attempt is made to correct errors during dictation some may still exist. Past Medical History Past Medical History: GERD/Reflux, Hyperlipidemia, Hypertension, Seizure Disorder Additional Past Medical History / Comment(s): pre diabetes, GERD History of Any Multi-Drug Resistant Organisms: None Reported Past Surgical History: Tubal Ligation Past Anesthesia/Blood Transfusion Reactions: No Reported Reaction, Unable to Obtain Past Psychological History: Anxiety, Bipolar, Depression, No Psychological Hx Reported, Schizophrenia Smoking Status: Current every day smoker Past Alcohol Use History: None Reported Past Drug Use History: None Reported - Past Family History Mother Family Medical History: Hyperlipidemia Family Family Medical History: Coronary Artery Disease (CAD) Medications and Allergies Home Medications Medication Instructions Recorded Confirmed Type Paliperidone IM [Invega Sustenna] 156 mg IM QMONTHLY #1 syr 08/02/20 Rx risperiDONE [RisperDAL] 2 mg PO BID 30 Days tab 08/06/20 Rx Albuterol Inhaler [Ventolin Hfa 2 puff INHALATION RT-Q6H PRN 03/13/22 05/10/22 History Inhaler] Ammonium Lactate Cream [Lac-Hydrin 1 applic TOPICAL DAILY@0800 PRN 03/13/22 05/10/22 History 12% Cream] Atorvastatin [Lipitor] 20 mg PO HS@209903/13/22 05/10/22 History Cholecalciferol [Vitamin D3 (125 125 mcg PO DAILY@0800 03/13/22 05/10/22 History Mcg = 5000 Iu)] Famotidine 20 mg PO BID@0800,209903/13/22 05/10/22 History Fluticasone Propionate 44 Mcg 1 puff INHALATION RT-BID@0800,2100 03/13/22 05/10/22 History [Flovent 44 Mcg Inhaler] Glucerna Shake 1 can PO DAILY@0803/13/22 05/10/22 History Lactulose 10 gm PO DAILY PRN 03/13/22 05/10/22 History Loratadine 10 mg PO DAILY@0803/13/22 05/10/22 History Montelukast Sodium [Singulair] 10 mg PO HS@209903/13/22 05/10/22 History Olopatadine HCl [Pataday] 1 drop BOTH EYES DAILY@79903/13/22 05/10/22 History lisinopriL [Zestril] 20 mg PO DAILY@79903/13/22 05/10/22 History metFORMIN HCL [Glucophage] 850 mg PO W/SUPPER@1700 03/13/22 05/10/22 History Nicotine Gum (Polacrilex) 2 mg BUCCAL Q2HR PRN 30 Days 04/06/22 05/10/22 Rx [Nicorette] pieceofgum Bismuth Subsalicylate 524 mg PO Q4H PRN 05/09/22 05/10/22 History [Pepto-Bismol] Psyllium Husk 100% [Metamucil 6 gm PO DAILY PRN 05/09/22 05/10/22 History Packet] Haloperidol Decanoate [Haldol D] 100 mg IM Q28D #1 each 05/15/22 Rx traZODone HCL [Desyrel] 200 mg PO HS@2099 30 Days tab 05/15/22 Rx Phenazopyridine [Pyridium] 200 mg PO TID #6 tablet 12/15/22 Rx Sulfamethox-Tmp 800-160Mg [Bactrim 1 each PO Q12HR #20 tab 12/15/22 Rx DS 800-160 mg] Allergies Allergy/AdvReac Type Severity Reaction Status Date / Time codeine Allergy Unknown Verified 05/13/23 15:08 adhesive AdvReac Intermediate Rash/Hives Verified 05/13/23 15:08 Physical Exam Osteopathic Statement: *. No significant issues noted on an osteopathic structural exam other than those noted in the History and Physical/Consult. Vitals: Vital Signs Temp Pulse Resp BP Pulse Ox 05/13/23 17:01 70 18 120/65 96 05/13/23 15:57 85 18 125/79 98 05/13/23 15:01 98.1 F 72 18 125/79 96 Intake and Output 05/13/23 05/13/23 05/13/23 06:59 14:59 22:59 Other: Weight 87.09 kg Results CBC & Chem 7: 05/13/23 15:29 05/13/23 15:29 Labs: Abnormal Lab Results - Last 24 Hours (Table) 05/13/23 Range/Units 15:29 Sodium 136 L (137-145) mmol/L Total Protein 5.9 L (6.3-8.2) g/dL Albumin 3.4 L (3.5-5.0) g/dL
[2023-05-13] MEDS: NITROGLYCERIN OINT 1 INCH/GM PACKET TOPICAL SCH (18:40)
[2023-05-13] MEDS ORDERED: ALBUTEROL HFA INHALER INHALATION PRN (19:39)
[2023-05-13] MEDS ORDERED: LACTULOSE 200 GM/300 ML (FROM 1/2 GAL JUG) PO PRN (19:39)
[2023-05-13] MEDS ORDERED: traZODone HCL 100 MG TAB PO PRN (19:41)
[2023-05-13] MEDS ORDERED: FLUTICASONE 44 MCG INHALER INHALATION SCH (20:00)
[2023-05-13 20:24] LABS: Glucose,Whole Blood 129 mg/dL (70-110)
[2023-05-13] MEDS: INSULIN ASPART (NovoLOG) 100 UNIT/ML VIAL SQ SCH (20:46)
[2023-05-13] MEDS: FAMOTIDINE 20 MG TAB PO SCH (20:51)
[2023-05-13] MEDS: IBUPROFEN 600 MG TAB PO SCH (20:51)
[2023-05-13 20:59] VITALS: RESP 16
[2023-05-13] MEDS ORDERED: ATORVASTATIN 20 MG TAB PO SCH (21:00)
[2023-05-14] MEDS: NITROGLYCERIN OINT 1 INCH/GM PACKET TOPICAL SCH ×3 (01:03→11:14)
[2023-05-14 06:05] LABS: Glucose,Whole Blood 104 mg/dL (70-110)
[2023-05-14] MEDS: INSULIN ASPART (NovoLOG) 100 UNIT/ML VIAL SQ SCH ×2 (06:18→12:16)
[2023-05-14] MEDS ORDERED: DOBUTamine DRIP for NUC MED 500 MG in DEXTROSE/WATER 1 250ML.BAG IV PRN (07:58)
[2023-05-14] MEDS: FAMOTIDINE 20 MG TAB PO SCH (08:01)
[2023-05-14] MEDS: IBUPROFEN 600 MG TAB PO SCH ×2 (08:01→15:20)
[2023-05-14] MEDS: methylPREDNISolone 4 MG TAB TAPER PO SCH ×2 (08:02→08:03)
[2023-05-14] MEDS ORDERED: OXYBUTYNIN 10 MG TAB.ER.24 PO SCH (09:00)
[2023-05-14] MEDS ORDERED: CHOLECALCIFEROL 125 MCG (5000 IU) TABLET PO SCH (09:00)
[2023-05-14] MEDS ORDERED: ASPIRIN 81 MG PO SCH (09:00)
[2023-05-14] MEDS ORDERED: lisinopriL 10 MG TAB PO SCH (09:00)
[2023-05-14] MEDS ORDERED: ASPIRIN 325 MG TAB PO SCH (09:00)
[2023-05-14] MEDS ORDERED: NICOTINE 21MG/24HR PATCH TRANSDERM SCH (09:00)
--- NOTE | 2023-05-14 09:54 | P.CRDCN ---
History of Present Illness Consult date: 05/14/23 Consult reason: chest pain History of present illness: History of present illness: This is a 52 year old female patient of Dr. Patterson with past medical history of diabetes, hypertension, hyperlipidemia, peripheral vascular disease, family history of premature coronary artery disease, tobacco use and dependence. Patient was last seen in the office in December of this year which time she had undergone a Lexiscan stress test that came back normal. Patient now presents to the hospital due to a squeezing pain in her chest when she was watching TV. She denies any relationship to activity and no trigger factor. She has had the same type of pain about 8 times. Pain is resolved at the time of this evaluation. EKG sinus rhythm with no acute changes Chest x-ray: No acute changes. COPD CBC within normal limits. INR 0.9. D-dimer 0.32. Sodium 136, potassium 4, BUN 8 and creatinine 0.52. Blood sugar 93. Troponin negative 3. Magnesium 1.7. Liver function tests normal. Home cardiac medications: Aspirin 81 mg daily, atorvastatin 20 mg at bedtime, lisinopril 10 mg daily Review Of Systems: At the time of my evaluation: Constitutional: No fever, no chills. No weakness, fatigue or lethargy. EENT: No headache. No dizziness. Lungs: No shortness of breath, cough, no sputum production. No wheezing. Cardiovascular: No chest pain, no lower extremity edema. No palpitations. No paroxysmal nocturnal dyspnea. No orthopnea. No lightheadedness or dizziness. No syncopal episodes. Abdominal: No abdominal pain. No nausea, vomiting. No diarrhea. No constipation. No bloody or tarry stools. Genitourinary: No dysuria.. No urinary retention. Musculoskeletal: No myalgias. No muscle weakness, no frequent falls. No back pain. No neck pain. Integumentary: No wounds. No rash. No unusual bruising. Neurologic: No aphasia. No facial droop. No change in mentation. No head injury. No headache. Physical examination: Gen: This is a 52 year old obese female, lying in bed and appears to be comfortable and in no acute distress VS: reviewed HEENT: Head is atraumatic, normocephalic. Pupils equal, round. Sclerae is anicteric. NECK: Supple. No JVD. . LUNGS: Clear to auscultation. No wheezes or rhonchi. No intercostal retractio ns. HEART: Regular rate and rhythm. No murmur. ABDOMEN: Soft No tenderness. EXTREMITIES: No pedal edema. No calf tenderness. NEUROLOGICAL: Patient is awake, alert and oriented x3. Assessment: Chest pain, acute coronary syndrome ruled out Diabetes Hypertension Hyperlipidemia Peripheral vascular disease Family history of premature coronary artery disease Active tobacco use and dependence Plan: Resume patient's home cardiac medications Smoking cessation Weight loss Obtain dobutamine echocardiogram If dobutamine echocardiogram stress test is unremarkable, patient is cleared for discharge from cardiology and may follow-up in the office. Thank you kindly for this consultation. Nurse practitioner note has been reviewed, I agree with documented findings and plan of care. Patient was seen and examined. Past Medical History Past Medical History: GERD/Reflux, Hyperlipidemia, Hypertension, Seizure Disorder Additional Past Medical History / Comment(s): pre diabetes, GERD History of Any Multi-Drug Resistant Organisms: None Reported Past Surgical History: Tubal Ligation Past Anesthesia/Blood Transfusion Reactions: No Reported Reaction, Unable to Obtain Past Psychological History: Anxiety, Bipolar, Depression, No Psychological Hx Reported, Schizophrenia Smoking Status: Current every day smoker Past Alcohol Use History: None Reported Past Drug Use History: None Reported - Past Family History Mother Family Medical History: Hyperlipidemia Family Family Medical History: Coronary Artery Disease (CAD) Medications and Allergies Home Medications Medication Instructions Recorded Confirmed Type Albuterol Inhaler [Ventolin Hfa 2 puff INHALATION RT-Q4H PRN 03/13/22 05/13/23 History Inhaler] Atorvastatin [Lipitor] 20 mg PO HS 03/13/22 05/13/23 History Cholecalciferol [Vitamin D3 (125 125 mcg PO DAILY 03/13/22 05/13/23 History Mcg = 5000 Iu)] Famotidine 20 mg PO BID 03/13/22 05/13/23 History Fluticasone Propionate 44 Mcg 2 puff INHALATION RT-BID 03/13/22 05/13/23 History [Flovent 44 Mcg Inhaler] Lactulose 10 gm PO DAILY PRN 03/13/22 05/13/23 History lisinopriL [Zestril] 10 mg PO DAILY 03/13/22 05/13/23 History metFORMIN HCL [Glucophage] 850 mg PO W/SUPPER 03/13/22 05/13/23 History Haloperidol Decanoate [Haldol D] 100 mg IM Q28D #1 each 05/15/22 05/13/23 Rx Aspirin EC [Ecotrin Low Dose] 81 mg PO DAILY 05/13/23 05/13/23 History Fluticasone Nasal [place] [Flonase 1 - 2 spr EA NOSTRIL DAILY 05/13/23 05/13/23 History Nasal [place]] Oxybutynin ER [Ditropan XL] 10 mg PO DAILY 05/13/23 05/13/23 History traZODone HCL [Desyrel] 100 - 200 mg PO HS PRN 05/13/23 05/13/23 History Allergies Allergy/AdvReac Type Severity Reaction Status Date / Time codeine Allergy Unknown Verified 05/13/23 19:16 adhesive AdvReac Intermediate Rash/Hives Verified 05/13/23 19:16 Physical Exam Vitals: Vital Signs Temp Pulse Pulse Resp BP BP Pulse Ox 05/14/23 02:03 97.5 F L 60 16 122/65 97 05/13/23 18:45 97.8 F 68 16 125/76 97 05/13/23 18:21 98.3 F 63 18 126/74 99 05/13/23 17:44 98.3 F 66 16 96 05/13/23 17:01 70 18 120/65 96 05/13/23 15:57 85 18 125/79 98 05/13/23 15:01 98.1 F 72 18 125/79 96 Intake and Output 05/13/23 05/14/23 05/14/23 22:59 06:59 14:59 Other: # Voids 1 2 Weight 87.09 kg Results 05/13/23 15:29 05/13/23 15:29 Cardiac Enzymes 05/13/23 05/13/23 05/13/23 Range/Units 15:29 15:29 18:12 AST 22 (14-36) U/L Troponin I <0.012 <0.012 (0.000-0.034) ng/mL 05/13/23 Range/Units 20:13 AST (14-36) U/L Troponin I <0.012 (0.000-0.034) ng/mL Coagulation 05/13/23 Range/Units 15:29 PT 9.7 (9.0-12.0) sec APTT 26.3 (22.0-30.0) sec CBC 05/13/23 Range/Units 15:29 WBC 8.7 (3.8-10.6) k/uL RBC 4.86 (3.80-5.40) m/uL Hgb 13.5 (11.4-16.0) gm/dL Hct 41.1 (34.0-46.0) % Plt Count 172 (150-450) k/uL Comprehensive Metabolic Panel 05/13/23 Range/Units 15:29 Sodium 136 L (137-145) mmol/L Potassium 4.0 (3.5-5.1) mmol/L Chloride 105 (98-107) mmol/L Carbon Dioxide 25 (22-30) mmol/L BUN 8 (7-17) mg/dL Creatinine 0.52 (0.52-1.04) mg/dL Glucose 93 (74-99) mg/dL Calcium 8.9 (8.4-10.2) mg/dL AST 22 (14-36) U/L ALT 23 (4-34) U/L Alkaline Phosphatase 61 (38-126) U/L Total Protein 5.9 L (6.3-8.2) g/dL Albumin 3.4 L (3.5-5.0) g/dL Current Medications Generic Name Dose Route Start Last Admin Trade Name Freq PRN Reason Stop Dose Admin Albuterol Sulfate 2 puff 05/13/23 19:39 Albuterol Hfa Inhaler INHALATION RT-Q4H PRN Shortness Of Breath Aspirin 81 mg 05/14/23 09:00 Aspirin 81 Mg PO DAILY MIRANDA Atorvastatin Calcium 20 mg 05/13/23 21:00 05/13/23 20:51 Atorvastatin 20 Mg Tab PO 20 mg HS MIRANDA Administration Cholecalciferol 125 mcg 05/14/23 09:00 Cholecalciferol 125 Mcg (5000 Iu) Tablet PO DAILY MIRANDA Dextrose/Water 25 ml 05/13/23 18:20 Dextrose 50% Syringe 50 Ml IVP PER PROTOCOL PRN Hypoglycemia Protocol Dextrose/Water 50 ml 05/13/23 18:20 Dextrose 50% Syringe 50 Ml IVP PER PROTOCOL PRN Hypoglycemia Protocol Famotidine 20 mg 05/13/23 21:00 05/13/23 20:51 Famotidine 20 Mg Tab PO 20 mg BID MIRANDA Administration Fluticasone Propionate 2 puff 05/13/23 20:00 Fluticasone 44 Mcg Inhaler INHALATION RT-BID [facility] Ibuprofen 600 mg 05/13/23 22:00 05/13/23 20:51 Ibuprofen 600 Mg Tab PO 600 mg TID [facility] Administration Insulin Aspart 0 unit 05/13/23 21:00 05/14/23 06:18 Insulin Aspart (Novolog) 100 Unit/Ml Vial SQ Not Given ACHS [facility] Protocol Lactulose 10 gm 05/13/23 19:39 Lactulose 200 Gm/300 Ml (From 09/25 Gal Jug) PO DAILY PRN Constipation Lisinopril 10 mg 05/14/23 09:00 Lisinopril 10 Mg Tab PO DAILY [facility] Melatonin 3 mg 05/13/23 18:19 Melatonin 3 Mg Tablet PO HS PRN Insomnia Methylprednisolone 24 mg 05/14/23 09:00 Methylprednisolone 4 Mg Tab Taper PO 05/20/23 08:59 DAILY [facility] Taper Naloxone HCl 0.2 mg 05/13/23 18:19 Naloxone 0.4 Mg/Ml 1 Ml Vial IVP Q2M PRN Opioid Reversal Nicotine 1 patch 05/14/23 09:00 Nicotine 21mg/24hr Patch TRANSDERM DAILY [facility] Nicotine Polacrilex 2 mg 05/13/23 18:28 Nicotine Gum (Polacrilex) 2 Mg Gum BUCCAL Q2HR PRN Nicotine Cravings Nitroglycerin 0.4 mg 05/13/23 17:35 Nitroglycerin Sl Tabs 0.4 Mg Tab SUBLINGUAL Q5M PRN Chest Pain Nitroglycerin 1 inch 05/13/23 18:00 05/14/23 05:36 Nitroglycerin Oint 1 Inch/Gm Packet TOPICAL Not Given Q6HR [facility] Ondansetron HCl 4 mg 05/13/23 18:19 Ondansetron 4 Mg/2 Ml Vial IVP Q8HR PRN Nausea And Vomiting Oxybutynin Chloride 10 mg 05/14/23 09:00 Oxybutynin 10 Mg Tab.Er.24 PO DAILY [facility] Trazodone HCl 100 mg 05/13/23 19:41 05/13/23 20:51 Trazodone Hcl 100 Mg Tab PO 100 mg HS PRN Administration Insomnia Intake and Output 05/13/23 05/14/23 05/14/23 22:59 06:59 14:59 Other: # Voids 1 2 Weight 87.09 kg 05/13/23 15:29 05/13/23 15:29
[2023-05-14] MEDS ORDERED: DOBUTamine DRIP for NUC MED 500 MG/250 ML BAG IV ONE (10:05)
[2023-05-14 11:03] LABS: Chol/HDL Ratio 3.91 Ratio; LDL Cholesterol,Calculated 84.7 mg/dL (0.0-131.0)
[2023-05-14 11:55] LABS: Glucose,Whole Blood 119 mg/dL (70-110)
--- NOTE | 2023-05-14 12:19 | CA ---
Dobutamine Stress Echocardiogram Report Jennifer Koch Age: 52 Gender: F : 1970 Exam Date: 05/14/2023 09:42 Exam Location: [facility] Ordering Physician: Adilene Clements Referring Physician: Starr TOPETE Enthone Solder Stripper: Geri Zhao RDCS Technologist: Ht (in): 65 Wt (lb): 192 Procedure CPT: Indication: CP ICD-9 Codes: Rhythm: Patient History: Chest pain Cardiac Medications: Medications in past 24 hours: Contrast: Lumason Total Dose (mL): 5 Stress Results Protocol: Dobutamine Peak Dose (???g/kg/min): 40 Duration (min:sec): Atropine:(mg) Target HR: 142 Double Product: [id number] Resting HR: 56 Resting BP: 169 / 85 Peak HR: 147 Peak BP: 225 / 88 Max Predicted HR: 167 88 % Max Predicted HR Stress Summary: BP Response: Reason for Termination: Exceeded target heart rate (85% max predicted) Cardiac Symptoms: Test terminated after reaching target heart rate (85% max predicted) ECG Analysis Resting EKG: Stress EKG: Arrhythmia: Echo Analysis Base Echo Analysis: Low Echo Anaylsis: Peak Echo Analysis: Recovery Echo: MEASUREMENTS (Male/Female) Normal Values CONCLUSIONS Dobutamine stress echo with Definity contrast No ECG is for ischemia No arrhythmias No echocardiographic evidence for ischemia Hypertensive response to dobutamine Dr. Donte Weiner MD (Electronically Signed) Final Date: 14 May 2023 12:18
--- NOTE | 2023-05-14 15:41 | P.DS ---
Providers Date of admission: 05/13/23 17:35 Expected date of discharge: 05/14/23 Attending physician: Cee Gibson DO Consults: 05/13/23 17:35 Consult Physician Urgent Consulting Provider: Thien Dixon Consult Reason/Comments: cp Do you want consulting provider notified?: Yes Primary care physician: [facility] Hospital Course: Discharge Diagnosis: Chest pain, acute coronary event ruled out. Left sided bicep tendinitis, patient discharged home on Medrol Dosepak along with Motrin 800 mg every 8 hours as needed for pain. Patient instructed to follow-up with orthopedic surgery in 1-2 weeks and recommend outpatient physical therapy. Elevated hemoglobin A1c of 6.4%, patient with previous diagnosis of prediabetes. Patient strongly advised to make lifestyle and dietary modifications/changes and to follow up outpatient with her primary care doctor for repeat hemoglobin A1c as she will likely need to begin diabetes medications if no improvement. Hypertension Hyperlipidemia Nicotine dependence Bipolar disorder Hospital Course: Patient is a very pleasant 52-year-old female with a past medical history of hypertension, GERD, seizure disorder, bipolar disorder, and prediabetes. She presented to the emergency department on 05/13/23 secondary to reports of chest pain radiating down the left arm. She underwent full evaluation in the emergency department. EKG completed showing normal sinus rhythm at 69 bpm with no significant T-wave or ST abnormalities showing no signs of acute ischemia upon personal review and interpretation. Chest x-ray completed showing COPD changes with flattening of the diaphragms and increased lucency of the lungs, negative for acute cardiopulmonary process. Labs completed and reviewed. CBC was unremarkable. Coagulation profile normal findings. D-dimer negative at 0.32. BMP unremarkable. Liver profile normal findings. Troponin negative at less than 0.012. She was admitted under our services with consultation to cardiology. Patient was started on Motrin 600 mg 3 times daily and a Medrol Dosepak secondary to concerns of bicep tendinitis. Patient reported full resolution of chest pain and pain in left arm.Troponins were trended overnight all negative at less than 0.0123 draws. Lipid profile resulting showing normal findings with the exception of low HDL of 35.80. Hemoglobin A1c was slightly elevated at 6.4%. Repeat morning EKG completed showing sinus bradycardia at 53 bpm with no noted T-wave or ST abnormalities showing no signs of acute ischemia upon personal review and interpretation. Patient was evaluated by cardiology recommending stress testing. Dobutamine stress echo was negative showing no reported ECG evidence for ischemia, no arrhythmias, no echocardiographic evidence for ischemia, and hypertensive response to dobutamine. Cardiology clearing patient from cardiac perspective recommending outpatient follow-up in their office in one week. Medically, patient is stable at this time. She continues to report full resolution of previous reported chest/arm pain. She is being discharged home on Medrol Dosepak and Motrin 800 secondary to concerns of left sided bicep tendinitis. Patient educated on importance of smoking cessation and risks associated with continued use. Patient also educated on elevated A1c of 6.4% and instructed if she does not make dietary and lifestyle modifications/changes she will likely need to be started on diabetes medications. Vital signs unremarkable with blood pressure 127/65, heart rate 61, respiratory rate 16, temp 97.8F, SpO2 of 97% on room air. Patient stable for discharge and to follow up outpatient with PCP in 1-2 days, analog design engineer in 1 week, an orthopedic surgeon as needed. Patient seen and examined at bedside. Vital signs reviewed and stable. General: Nontoxic, no distress and appears stated age. Derm: Skin warm and dry, normal coloration for ethnicity. Head: Atraumatic, normocephalic and symmetric. Eyes: EOMs intact, no lid lag, and anicteric sclera Mouth: no lip lesions, mucus membranes moist Cardiovascular: regular rate and rhythm with normal S1S2, no murmur, positive posterior tibial pulses bilaterally, and cap refill < 2 seconds. Lungs: Respirations even, regular, and unlabored on room air. Lungs CTA bila terally, no rhonchi, no rales, no wheezing, and no accessory muscle usage. Abdominal: soft, nontender to palpation, no guarding, no appreciable organomegaly Ext: ROM intact. No gross muscle atrophy, no edema, no contractures Neuro: Speech clear, face symmetrical and CN II-XII grossly intact with no noted focal neuro deficits Psych: Alert and oriented to person, place, time, and situation. Appropriate and pleasant affect. A total of 32 minutes of time were spent preparing this complex discharge summary. Pt was discharged on 05/14/23 at 3:35 PM Patient was seen independently by Nurse Practitioner. This document was prepared using [employer] dictation software. Please allow for errors in wood shop teacher while rare they do occur. I reviewed the documentation as provided by the ALDEN above, who is the original author of this note. I agree with the documented assessment and plan, with the following changes: none Patient Condition at Discharge: Stable Plan - Discharge Summary New Discharge Prescriptions: New Ibuprofen [Motrin] 800 mg PO Q8H PRN #30 tab PRN Reason: Pain methylPREDNISolone Dose Pack [Medrol Dose Pack] 4 mg PO DIRECTED #21 tab Continue Lactulose 10 gm PO DAILY PRN PRN Reason: Constipation metFORMIN HCL [Glucophage] 850 mg PO W/SUPPER lisinopriL [Zestril] 10 mg PO DAILY Fluticasone Propionate 44 Mcg [Flovent 44 Mcg Inhaler] 2 puff INHALATION RT- BID Aspirin EC [Ecotrin Low Dose] 81 mg PO DAILY Fluticasone Nasal [place] [Flonase Nasal [place]] 1 - 2 spr EA NOSTRIL DAILY Oxybutynin ER [Ditropan XL] 10 mg PO DAILY Albuterol Inhaler [Ventolin Hfa Inhaler] 2 puff INHALATION RT-Q4H PRN PRN Reason: Shortness Of Breath Cholecalciferol [Vitamin D3 (125 Mcg = 5000 Iu)] 125 mcg PO DAILY Famotidine 20 mg PO BID Atorvastatin [Lipitor] 20 mg PO HS Haloperidol Decanoate [Haldol D] 100 mg IM Q28D #1 each traZODone HCL [Desyrel] 100 - 200 mg PO HS PRN PRN Reason: Insomnia Discharge Medication List Albuterol Inhaler [Ventolin Hfa Inhaler] 2 puff INHALATION RT-Q4H PRN 03/13/22 [History] Atorvastatin [Lipitor] 20 mg PO HS 03/13/22 [History] Cholecalciferol [Vitamin D3 (125 Mcg = 5000 Iu)] 125 mcg PO DAILY 03/13/22 [History] Famotidine 20 mg PO BID 03/13/22 [History] Fluticasone Propionate 44 Mcg [Flovent 44 Mcg Inhaler] 2 puff INHALATION RT-BID 03/13/22 [History] Lactulose 10 gm PO DAILY PRN 03/13/22 [History] lisinopriL [Zestril] 10 mg PO DAILY 03/13/22 [History] metFORMIN HCL [Glucophage] 850 mg PO W/SUPPER 03/13/22 [History] Haloperidol Decanoate [Haldol D] 100 mg IM Q28D #1 each 05/15/22 [Rx] Aspirin EC [Ecotrin Low Dose] 81 mg PO DAILY 05/13/23 [History] Fluticasone Nasal [place] [Flonase Nasal [place]] 1 - 2 spr EA NOSTRIL DAILY 05/13/23 [History] Oxybutynin ER [Ditropan XL] 10 mg PO DAILY 05/13/23 [History] traZODone HCL [Desyrel] 100 - 200 mg PO HS PRN 05/13/23 [History] Ibuprofen [Motrin] 800 mg PO Q8H PRN #30 tab 05/14/23 [Rx] methylPREDNISolone Dose Pack [Medrol Dose Pack] 4 mg PO DIRECTED #21 tab 05/14/23 [Rx] Follow up Appointment(s)/Referral(s): [facility] [Primary Care Provider] - 1-2 days Casey Patterson MD [STAFF PHYSICIAN] - 1 Week Rancho Julio MD [STAFF PHYSICIAN] - 1 Week Patient Instructions/Handouts: Chest Pain (DC), How to Stop Smoking (DC), Musculoskeletal Pain (GEN), Tendinitis (GEN) Activity/Diet/Wound Care/Special Instructions: Activity: As tolerated. Take breaks as needed. Diet: Heart healthy and carb consistent diet. Avoid salts, or foods with hidden salts such as canned or boxed foods and frozen dinners. Extra salt makes your heart work harder and traps the fluid in your body for longer. Special Instructions: Take all of your medications as directed and remember to keep all of your doctor's appointments and follow-up as needed. Your hemoglobin A1c is elevated at 6.4%, strongly advise dietary and lifestyle changes with repeat hemoglobin A1c to be completed by your PCP in 2 months. If no improvement it is likely you will need to be started on medications for diabetes. Thank you for allowing us to participate in your care, it was truly a pleasure having you for our patient!!! Discharge Disposition: HOME SELF-CARE
[2023-05-14 16:34] VITALS: BP 145/82; PULSE 72; TEMP 97.7
== END 2023-05-14 16:00 | disposition home or self-care (01) ==
LOC: EEVIPCON 14:57 → EC 14:57 → 6NMEDSUR 17:35
PROVIDERS: ADMIT Internal Medicine; ATTEND Internal Medicine
DX: R07.89 Other chest pain (principal); M75.22 Bicipital tendinitis, left shoulder; K21.9 Gastro-esophageal reflux disease without esophagitis; I10 Essential (primary) hypertension; F31.9 Bipolar disorder, unspecified; F41.9 Anxiety disorder, unspecified; E78.5 Hyperlipidemia, unspecified; E11.51 Type 2 diabetes mellitus with diabetic peripheral angiopathy without gangrene; F17.200 Nicotine dependence, unspecified, uncomplicated; Z79.51 Long term (current) use of inhaled steroids; Z79.84 Long term (current) use of oral hypoglycemic drugs; Z79.899 Other long term (current) drug therapy; Z88.5 Allergy status to narcotic agent; Z82.49 Family history of ischemic heart disease and other diseases of the circulatory system
CPT/HCPCS: 36415; 71046; 80053; 80061; 83036; 83735; 84484; 85025; 85379; 85610; 85730; 93005; 93351; 94760; 99285

== ENCOUNTER 2023-10-29 18:58 | Emergency (ER) | payer MEDICARE, OTHER ==
--- NOTE | 2023-10-29 21:31 | ED ---
Psych HPI - General Chief Complaint: Psychiatric Symptoms Stated Complaint: petition Time Seen by Provider: 10/29/23 21:00 Source: police Mode of arrival: ambulatory - History of Present Illness Initial Comments: This patient is a 53-year-old woman who is reportedly sent here by [facility] to have evaluation. When I go to interview the patient, she states that she is here for a number of reasons. She the states that she has cancer and that she has a fungal infection. The patient did state that she thought that [facility] was worried about her. She is denying significant depression or suicidal ideation. MD Complaint: other -: unknown Associated Psychiatric Symptoms: delusions Quality: constant Improves With: none Worsens With: none Associated Symptoms: denies other symptoms - Related Data Home Medications Medication Instructions Recorded Confirmed Albuterol Inhaler [Ventolin Hfa 2 puff INHALATION RT-Q4H PRN 03/13/22 05/13/23 Inhaler] Atorvastatin [Lipitor] 20 mg PO HS 03/13/22 05/13/23 Cholecalciferol [Vitamin D3 (125 125 mcg PO DAILY 03/13/22 05/13/23 Mcg = 5000 Iu)] Famotidine 20 mg PO BID 03/13/22 05/13/23 Fluticasone Propionate 44 Mcg 2 puff INHALATION RT-BID 03/13/22 05/13/23 [Flovent 44 Mcg Inhaler] Lactulose 10 gm PO DAILY PRN 03/13/22 05/13/23 lisinopriL [Zestril] 10 mg PO DAILY 03/13/22 05/13/23 metFORMIN HCL [Glucophage] 850 mg PO W/SUPPER 03/13/22 05/13/23 Aspirin EC [Ecotrin Low Dose] 81 mg PO DAILY 05/13/23 05/13/23 Fluticasone Nasal [place] [Flonase 1 - 2 spr EA NOSTRIL DAILY 05/13/23 05/13/23 Nasal [place]] Oxybutynin ER [Ditropan XL] 10 mg PO DAILY 05/13/23 05/13/23 traZODone HCL [Desyrel] 100 - 200 mg PO HS PRN 05/13/23 05/13/23 Previous Rx's Medication Instructions Recorded Haloperidol Decanoate [Haldol D] 100 mg IM Q28D #1 each 05/15/22 Ibuprofen [Motrin] 800 mg PO Q8H PRN #30 tab 05/14/23 methylPREDNISolone Dose Pack 4 mg PO DIRECTED #21 tab 05/14/23 [Medrol Dose Pack] Allergies Allergy/AdvReac Type Severity Reaction Status Date / Time codeine Allergy Unknown Verified 10/29/23 19:33 adhesive AdvReac Intermediate Rash/Hives Verified 10/29/23 19:33 Review of Systems ROS Statement: Those systems with pertinent positive or pertinent negative responses have been documented in the HPI. ROS Other: All systems not noted in ROS Statement are negative. Constitutional: Denies: fever, chills Respiratory: Reports: cough, wheezes. Denies: dyspnea Cardiovascular: Denies: chest pain, syncope Gastrointestinal: Denies: abdominal pain, vomiting, diarrhea Genitourinary: Denies: dysuria, hematuria Musculoskeletal: Denies: back pain Skin: Denies: rash Neurological: Denies: headache, weakness Psychiatric: Denies: depression, auditory hallucinations, homicidal thoughts, suicidal thoughts Past Medical History Past Medical History: GERD/Reflux, Hyperlipidemia, Hypertension, Seizure Disorder Additional Past Medical History / Comment(s): pre diabetes, GERD History of Any Multi-Drug Resistant Organisms: None Reported Past Surgical History: Tubal Ligation Past Anesthesia/Blood Transfusion Reactions: No Reported Reaction, Unable to Obtain Past Psychological History: Anxiety, Bipolar, Depression, No Psychological Hx Reported, Schizophrenia Smoking Status: Current every day smoker Past Alcohol Use History: None Reported Past Drug Use History: Marijuana - Past Family History Mother Family Medical History: Hyperlipidemia Family Family Medical History: Coronary Artery Disease (CAD) General Exam Limitations: no limitations General appearance: alert, in no apparent distress Head exam: Present: atraumatic, normocephalic Eye exam: Present: normal appearance. Absent: scleral icterus, conjunctival injection ENT exam: Present: normal oropharynx Neck exam: Present: normal inspection Respiratory exam: Present: wheezes, other (Patient with nonproductive cough). Absent: respiratory distress, rales, rhonchi, stridor, accessory muscle use Cardiovascular Exam: Present: regular rate, normal rhythm, normal heart sounds. Absent: systolic murmur, diastolic murmur, rubs, gallop GI/Abdominal exam: Present: soft. Absent: distended, tenderness, guarding, eleazar ound, rigid, mass Extremities exam: Present: normal inspection, normal capillary refill. Absent: pedal edema, calf tenderness Back exam: Present: normal inspection. Absent: CVA tenderness (R), CVA tenderness (L) Neurological exam: Present: alert Skin exam: Present: warm, dry, intact, normal color. Absent: rash Course Vital Signs 10/29/23 10/30/23 10/30/23 19:31 01:28 07:28 Temperature 98.6 F 97.7 F Pulse Rate 99 84 83 Respiratory 18 20 18 Rate Blood Pressure 177/81 141/75 159/85 O2 Sat by Pulse 95 98 96 Oximetry 10/30/23 09:41 Temperature Pulse Rate 79 Respiratory 20 Rate Blood Pressure 154/80 O2 Sat by Pulse 96 Oximetry Medical Decision Making - Medical Decision Making Was pt. sent in by a medical professional or institution (OLI Hernandez, HEAVY FORGER HELPER, urgent care, hospital, or intermediate...) When possible be specific @ -[No] Did you speak to anyone other than the patient for history (EMS, parent, family, police, friend...)? What history was obtained from this source @ -[No] Did you review nursing and triage notes (agree or disagree)? Why? @ -[I reviewed and agree with nursing and triage notes] Were old charts reviewed (outside hosp., previous admission, EMS record, old EKG, old radiological studies, urgent care reports/EKG's, intermediate records)? Report findings @ -[No old charts were reviewed] Differential Diagnosis (chest pain, altered mental status, abdominal pain women, abdominal pain men, vaginal bleeding, weakness, fever, dyspnea, syncope, headache, dizziness, GI bleed, back pain, seizure, CVA, palpatations, mental health, musculoskeletal)? @ -Differential Mental Health Depression, anxiety, bipolar, psychosis, schizophrenia, borderline personality, situational depression, adjustment disorder, behavioral disorder, brain tumor, malingering, substance abuse, encephalopathy, medication reaction, dementia, hypothyroidism, degenerative neurologic disorder, lupus.... This is not meant to be all-inclusive list EKG interpreted by me (3pts min.). @ -[As above] X-rays interpreted by me (1pt min.). @ -[None done] CT interpreted by me (1pt min.). @ -[None done] U/S interpreted by me (1pt. min.). @ -[None done] What testing was considered but not performed or refused? (CT, X-rays, U/S, labs)? Why? @ -[None] What meds were considered but not given or refused? Why? @ -[None] Did you discuss the management of the patient with other professionals (professionals i.e. , PA, HEAVY FORGER HELPER, lab, RT, psych nurse, community mental health social worker, car electronics installer, teacher, control officer manager, director of casework)? Give summary @ -I discussed case with EPS personnel, and after case was staffed with psychiatrist they are working on placing the patient to continue mental health treatment Was smoking cessation discussed for >3mins.? @ -[No] Was critical care preformed (if so, how long)? @ -[No] Were there social determinants of health that impacted care today? How? (Homelessness, low income, unemployed, alcoholism, drug addiction, transportation, low edu. Level, literacy, decrease access to med. care, snf, rehab)? @ -[No] Was there de-escalation of care discussed even if they declined (Discuss DNR or withdrawal of care, Hospice)? DNR status @ -[No] What co-morbidities impacted this encounter? (DM, HTN, Smoking, COPD, CAD, Cancer, CVA, ARF, Chemo, Hep., AIDS, mental health diagnosis, sleep apnea, morbid obesity)? @ -[None] Was patient admitted / discharged? Hospital course, mention meds given and route, prescriptions, significant lab abnormalities, going to OR and other pertinent info. @ -[Patient is pending transfer at the time of shift change Undiagnosed new problem with uncertain prognosis? @ -[No] Drug Therapy requiring intensive monitoring for toxicity (Heparin, Nitro, Insulin, Cardizem)? @ -[No] Were any procedures done? @ -[No] Diagnosis/symptom? @ -[Schizoaffective disorder Acute psychosis Acute, or Chronic, or Acute on Chronic? @ -[Acute on chronic Uncomplicated (without systemic symptoms) or Complicated (systemic symptoms)? @ -[Uncomplicated Side effects of treatment? @ -[No] Exacerbation, Progression, or Severe Exacerbation? @ -[No] Poses a threat to life or bodily function? How? (Chest pain, [place], [place], pneumonia, PE, COPD, DKA, ARF, appy, cholecystitis, CVA, Diverticulitis, Homicidal, Suicidal, threat to staff... and all critical care pts) @ -[Yes, if untreated the patient would not be able to care for self - Lab Data Result diagrams: 10/30/23 01:40 10/30/23 01:40 Lab Results 10/29/23 10/30/23 10/30/23 Range/Units 22:54 01:30 01:30 WBC (3.8-10.6) k/uL RBC (3.80-5.40) m/uL Hgb (11.4-16.0) gm/dL Hct (34.0-46.0) % MCV (80.0-100.0) fL MCH (25.0-35.0) pg MCHC (31.0-37.0) g/dL RDW (11.5-15.5) % Plt Count (150-450) k/uL MPV Neutrophils % % Lymphocytes % % Monocytes % % Eosinophils % % Basophils % % Neutrophils # (1.3-7.7) k/uL Lymphocytes # (1.0-4.8) k/uL Monocytes # (0-1.0) k/uL Eosinophils # (0-0.7) k/uL Basophils # (0-0.2) k/uL Sodium (137-145) mmol/L Potassium (3.5-5.1) mmol/L Chloride (98-107) mmol/L Carbon Dioxide (22-30) mmol/L Anion Gap mmol/L BUN (7-17) mg/dL Creatinine (0.52-1.04) mg/dL Est GFR (CKD-EPI)AfAm (>60 ml/min/1.73 sqM) Est GFR (CKD-EPI)NonAf (>60 ml/min/1.73 sqM) Glucose (74-99) mg/dL Calcium (8.4-10.2) mg/dL Total Bilirubin (0.2-1.3) mg/dL AST (14-36) U/L ALT (4-34) U/L Alkaline Phosphatase (38-126) U/L Total Protein (6.3-8.2) g/dL Albumin (3.5-5.0) g/dL Urine Color Yellow Urine Appearance Clear (Clear) Urine pH 6.0 (5.0-8.0) Ur Specific [place] 1.016 (1.001-1.035) Urine Protein 2+ H (Negative) Urine Glucose (UA) Negative (Negative) Urine Ketones Negative (Negative) Urine Blood Moderate H (Negative) Urine Nitrite Negative (Negative) Urine Bilirubin Negative (Negative) Urine Urobilinogen 2.0 (<2.0) mg/dL Ur Leukocyte Esterase Negative (Negative) Urine RBC 10 H (0-5) /hpf Urine WBC 2 (0-5) /hpf Ur Squamous Epith Cells 1 (0-4) /hpf Hyaline Casts 3 H (0-2) /lpf Urine Mucus Few H (None) /hpf Urine Opiates Screen Not Detected (NotDetected) Ur Oxycodone Screen Not Detected (NotDetected) Urine Methadone Screen Not Detected (NotDetected) Ur Barbiturates Screen Not Detected (NotDetected) U Tricyclic Antidepress Not Detected (NotDetected) Ur Phencyclidine Scrn Not Detected (NotDetected) Ur Amphetamines Screen Not Detected (NotDetected) U Methamphetamines Scrn Not Detected (NotDetected) U Benzodiazepines Scrn Not Detected (NotDetected) Urine Cocaine Screen Not Detected (NotDetected) U Marijuana (THC) Screen Not Detected (NotDetected) SARS-CoV-2 (PCR) Not Detected (Not Detectd) 10/30/23 10/30/23 Range/Units 01:40 01:40 WBC 11.5 H (3.8-10.6) k/uL RBC 5.57 H (3.80-5.40) m/uL Hgb 15.6 (11.4-16.0) gm/dL Hct 47.0 H (34.0-46.0) % MCV 84.5 (80.0-100.0) fL MCH 28.0 (25.0-35.0) pg MCHC 33.1 (31.0-37.0) g/dL RDW 15.8 H (11.5-15.5) % Plt Count 196 (150-450) k/uL MPV 8.6 Neutrophils % 60 % Lymphocytes % 30 % Monocytes % 5 % Eosinophils % 3 % Basophils % 1 % Neutrophils # 6.9 (1.3-7.7) k/uL Lymphocytes # 3.4 (1.0-4.8) k/uL Monocytes # 0.6 (0-1.0) k/uL Eosinophils # 0.4 (0-0.7) k/uL Basophils # 0.1 (0-0.2) k/uL Sodium 139 (137-145) mmol/L Potassium 4.1 (3.5-5.1) mmol/L Chloride 107 (98-107) mmol/L Carbon Dioxide 26 (22-30) mmol/L Anion Gap 6 mmol/L BUN 9 (7-17) mg/dL Creatinine 0.48 L (0.52-1.04) mg/dL Est GFR (CKD-EPI)AfAm >90 (>60 ml/min/1.73 sqM) Est GFR (CKD-EPI)NonAf >90 (>60 ml/min/1.73 sqM) Glucose 105 H (74-99) mg/dL Calcium 9.3 (8.4-10.2) mg/dL Total Bilirubin 0.9 (0.2-1.3) mg/dL AST 34 (14-36) U/L ALT 22 (4-34) U/L Alkaline Phosphatase 68 (38-126) U/L Total Protein 6.7 (6.3-8.2) g/dL Albumin 4.2 (3.5-5.0) g/dL Urine Color Urine Appearance (Clear) Urine pH (5.0-8.0) Ur Specific [place] (1.001-1.035) Urine Protein (Negative) Urine Glucose (UA) (Negative) Urine Ketones (Negative) Urine Blood (Negative) Urine Nitrite (Negative) Urine Bilirubin (Negative) Urine Urobilinogen (<2.0) mg/dL Ur Leukocyte Esterase (Negative) Urine RBC (0-5) /hpf Urine WBC (0-5) /hpf Ur Squamous Epith Cells (0-4) /hpf Hyaline Casts (0-2) /lpf Urine Mucus (None) /hpf Urine Opiates Screen (NotDetected) Ur Oxycodone Screen (NotDetected) Urine Methadone Screen (NotDetected) Ur Barbiturates Screen (NotDetected) U Tricyclic Antidepress (NotDetected) Ur Phencyclidine Scrn (NotDetected) Ur Amphetamines Screen (NotDetected) U Methamphetamines Scrn (NotDetected) U Benzodiazepines Scrn (NotDetected) Urine Cocaine Screen (NotDetected) U Marijuana (THC) Screen (NotDetected) SARS-CoV-2 (PCR) (Not Detectd) Disposition Clinical Impression: Schizoaffective disorder, bipolar type Disposition: OTHER INSTITUTION NOT DEFINED Condition: Fair Is patient prescribed a controlled substance at d/c from ED?: No Referrals: [facility] [Primary Care Provider] - 1-2 days - Out of Hospital Transfer - Req. Specs Out of Hospital Transfer - Requested Specifics: Psychiatric Non-ICU
[2023-10-30 02:00] LABS: Basophils # (A) 0.1 k/uL (0-0.2); Basophils % (A) 1 %; Eosinophils # (A) 0.4 k/uL (0-0.7); Eosinophils % (A) 3 %; HGB 15.6 gm/dL (11.4-16.0); Lymphocytes # (A) 3.4 k/uL (1.0-4.8); Lymphocytes % (A) 30 %; MCHC 33.1 g/dL (31.0-37.0); MCV 84.5 fL (80.0-100.0); Mean Platelet Volume 8.6; Monocytes # (A) 0.6 k/uL (0-1.0); Monocytes % (A) 5 %; Neutrophils # (A) 6.9 k/uL (1.3-7.7); Neutrophils % (A) 60 %; Platelet Count 196 k/uL (150-450); RBC 5.57 m/uL (3.80-5.40); RDW 15.8 % (11.5-15.5); WBC 11.5 k/uL (3.8-10.6)
[2023-10-30 02:03] LABS: Amphetamine Screen,Urine Not Detected (NotDetected); Barbiturate Screen,Urine Not Detected (NotDetected); Benzodiazepines Screen,Urine Not Detected (NotDetected); Cocaine Screen,Urine Not Detected (NotDetected); Methadone Screen, Urine Not Detected (NotDetected); Opiate Screen,Urine Not Detected (NotDetected); Oxycodone Screen, Urine Not Detected (NotDetected); Phencyclidine Screen,Urine Not Detected (NotDetected); Tricyclic Antidepressant,Urine Not Detected (NotDetected); Urn Cannabinoid Scrn Not Detected (NotDetected)
[2023-10-30 02:03] LABS: ALT 22 U/L (4-34); AST 34 U/L (14-36); African American GFR (CKD) >90 (>60 ml/min/1.73 sqM); Albumin 4.2 g/dL (3.5-5.0); Alkaline Phosphatase 68 U/L (38-126); Anion Gap 6 mmol/L; Blood Urea Nitrogen 9 mg/dL (7-17); Calcium 9.3 mg/dL (8.4-10.2); Carbon Dioxide 26 mmol/L (22-30); Chloride 107 mmol/L (98-107); Glucose 105 mg/dL (74-99); Non-African American GFR(CKD) >90 (>60 ml/min/1.73 sqM); Sodium 139 mmol/L (137-145); Total Bilirubin 0.9 mg/dL (0.2-1.3); Total Protein 6.7 g/dL (6.3-8.2)
[2023-10-30 02:30] LABS: Potassium 4.1 mmol/L (3.5-5.1)
[2023-10-30 03:49] LABS: Appearance,Urine Clear (Clear); Bilirubin,Urine Negative (Negative); Blood,Urine Moderate (Negative); Color,Urine Yellow; Glucose,Urine (UA) Negative (Negative); Hyaline Casts,Urine 3 /lpf (0-2); Ketones,Urine Negative (Negative); Leukocyte Esterase,Urine Negative (Negative); Mucus,Urine Few /hpf; Nitrite,Urine Negative (Negative); Protein,Urine 2+ (Negative); RBC,Urine 10 /hpf (0-5); Specific Gravity,Urine 1.016 (1.001-1.035); Squamous Epithelial Cell,Urine 1 /hpf (0-4); WBC,Urine 2 /hpf (0-5)
[2023-10-30 08:04] VITALS: TEMP 97.7
[2023-10-30 10:06] VITALS: BP 154/80; PULSE 79; RESP 20
== END 2023-10-30 09:45 | disposition other institution (70) ==
LOC: EC 18:58
DX: F25.0 Schizoaffective disorder, bipolar type (principal); E78.5 Hyperlipidemia, unspecified; I10 Essential (primary) hypertension; K21.9 Gastro-esophageal reflux disease without esophagitis; F41.9 Anxiety disorder, unspecified; F17.200 Nicotine dependence, unspecified, uncomplicated; Z79.51 Long term (current) use of inhaled steroids; Z79.84 Long term (current) use of oral hypoglycemic drugs; Z79.899 Other long term (current) drug therapy; Z88.5 Allergy status to narcotic agent; Z91.048 Other nonmedicinal substance allergy status; Z20.822 Contact with and (suspected) exposure to COVID-19
CPT/HCPCS: 36415; 80053; 80306; 81001; 82075; 85025; 87635; 99285

== ENCOUNTER 2023-12-12 15:15 | Inpatient (IN) | payer MEDICARE, MEDICAID ==
[2023-12-12 16:42] LABS: Amphetamine Screen,Urine Not Detected (NotDetected); Barbiturate Screen,Urine Not Detected (NotDetected); Benzodiazepines Screen,Urine Not Detected (NotDetected); Cocaine Screen,Urine Not Detected (NotDetected); Methadone Screen, Urine Not Detected (NotDetected); Opiate Screen,Urine Not Detected (NotDetected); Oxycodone Screen, Urine Not Detected (NotDetected); Phencyclidine Screen,Urine Not Detected (NotDetected); Tricyclic Antidepressant,Urine Not Detected (NotDetected); Urn Cannabinoid Scrn Not Detected (NotDetected)
--- NOTE | 2023-12-12 20:13 | ED ---
Psych HPI - General Chief Complaint: Psychiatric Symptoms Stated Complaint: mental health eval - court order Time Seen by Provider: 12/12/23 15:41 Source: patient Mode of arrival: ambulatory - History of Present Illness Initial Comments: This 53-year-old female presents with court ordered petition for psychiatric care. She was picked up by the police and brought to the ER for further treatment. The patient has very bizarre thought processes upon discussion. She states that she has been trying to deal with the Trump administration but it has been unsuccessful because they are busy in an orgy. She has multiple other bizarre thought processes. She does state that she is hearing voices. She states that she does not need to take her psychiatric medications. The petition relates that she has not been on her psychiatric medications since last psychiatric admission which was last months. She denies any drug or alcohol abuse but does smoke tobacco. She denies feeling suicidal currently. There are no medical complaints currently. She has a strong psychiatric history including schizophrenia and bipolar disorder. - Related Data Home Medications Medication Instructions Recorded Confirmed Albuterol Inhaler [Ventolin Hfa 2 puff INHALATION RT-Q4H PRN 03/13/22 05/13/23 Inhaler] Atorvastatin [Lipitor] 20 mg PO HS 03/13/22 05/13/23 Cholecalciferol [Vitamin D3 (125 125 mcg PO DAILY 03/13/22 05/13/23 Mcg = 5000 Iu)] Famotidine 20 mg PO BID 03/13/22 05/13/23 Fluticasone Propionate 44 Mcg 2 puff INHALATION RT-BID 03/13/22 05/13/23 [Flovent 44 Mcg Inhaler] Lactulose 10 gm PO DAILY PRN 03/13/22 05/13/23 lisinopriL [Zestril] 10 mg PO DAILY 03/13/22 05/13/23 metFORMIN HCL [Glucophage] 850 mg PO W/SUPPER 03/13/22 05/13/23 Aspirin EC [Ecotrin Low Dose] 81 mg PO DAILY 05/13/23 05/13/23 Fluticasone Nasal [place] [Flonase 1 - 2 spr EA NOSTRIL DAILY 05/13/23 05/13/23 Nasal [place]] Oxybutynin ER [Ditropan XL] 10 mg PO DAILY 05/13/23 05/13/23 traZODone HCL [Desyrel] 100 - 200 mg PO HS PRN 05/13/23 05/13/23 Previous Rx's Medication Instructions Recorded Haloperidol Decanoate [Haldol D] 100 mg IM Q28D #1 each 05/15/22 Ibuprofen [Motrin] 800 mg PO Q8H PRN #30 tab 05/14/23 methylPREDNISolone Dose Pack 4 mg PO DIRECTED #21 tab 05/14/23 [Medrol Dose Pack] Allergies Allergy/AdvReac Type Severity Reaction Status Date / Time codeine Allergy Unknown Verified 12/12/23 15:36 adhesive AdvReac Intermediate Rash/Hives Verified 12/12/23 15:36 Review of Systems ROS Statement: Those systems with pertinent positive or pertinent negative responses have been documented in the HPI. ROS Other: All systems not noted in ROS Statement are negative. Past Medical History Past Medical History: GERD/Reflux, Hyperlipidemia, Hypertension, Seizure Disorder Additional Past Medical History / Comment(s): pre diabetes, GERD History of Any Multi-Drug Resistant Organisms: None Reported Past Surgical History: Tubal Ligation Past Anesthesia/Blood Transfusion Reactions: No Reported Reaction, Unable to Obtain Past Psychological History: Anxiety, Bipolar, Depression, No Psychological Hx Reported, Schizophrenia Smoking Status: Current every day smoker Past Alcohol Use History: None Reported Past Drug Use History: Marijuana - Past Family History Mother Family Medical History: Hyperlipidemia Family Family Medical History: Coronary Artery Disease (CAD) General Exam - General Exam Comments Initial Comments: GENERAL: The patient is well nourished and well hydrated. VITAL SIGNS: Heart rate, blood pressure, respiratory rate reviewed as recorded in nurse's notes. EYES: Pupils are round and reactive. Extraocular movements are intact. No conjunctival / lid redness or swelling. ENT: No external evidence of injury, swelling, or ecchymosis. Airway is patent. Throat is clear. NECK: Nontender. No swelling or evidence of injury. No subcutaneous emphysema. Trachea is midline. No thyroid mass. HEART: Regular rate and rhythm. Good peripheral pulses. LUNGS/CHEST: Breath sounds clear and equal bilaterally. No rales, rhonchi, or wheezes. No ecchymosis, subcutaneous emphysema, or tenderness. ABDOMEN: Abdomen soft without tenderness. No palpable masses or organomegaly. No peritoneal signs. No abdominal wall swelling or ecchymosis. EXTREMITIES: No extremity tenderness. Normal muscle tone and function. No thoracolumbar tenderness. NEUROLOGIC: Sensation is grossly intact. Cranial nerve exam reveals face is symmetrical, tongue is midline, speech is clear. SKIN: No abrasions or ecchymosis is noted. No induration or masses noted. PSYCHIATRIC: Alert and pleasant. Bizarre behavior noted. Limitations: no limitations Course Vital Signs 12/12/23 12/12/23 15:32 18:47 Temperature 98.5 F Pulse Rate 109 H Respiratory 18 18 Rate Blood Pressure 181/84 162/97 O2 Sat by Pulse 97 97 Oximetry Medical Decision Making - Medical Decision Making The patient was seen and examined. Breath alcohol test is negative. Urine drug screen is negative. The patient is medically cleared for further psychiatric evaluation. Case is discussed with the psychiatric team and they are recommending admission to the inpatient psychiatric unit at our hospital. It is felt as though this is beneficial for the patient as she does not understand the need for treatment. They request a COVID test and this is pending. Was pt. sent in by a medical professional or institution (, PA, PROGRAM ARRANGER, urgent care, hospital, or usp...) When possible be specific @ -The patient was brought in by the police with a court ordered petition. Did you speak to anyone other than the patient for history (EMS, parent, family, police, friend...)? What history was obtained from this source @ -No Did you review nursing and triage notes (agree or disagree)? Why? @ -I reviewed and agree with nursing and triage notes Were old charts reviewed (outside hosp., previous admission, EMS record, old EKG, old radiological studies, urgent care reports/EKG's, usp records)? Report findings @ -Reviewed old records which do show that she was just admitted last month for similar psychiatric problems. Differential Diagnosis (chest pain, altered mental status, abdominal pain women, abdominal pain men, vaginal bleeding, weakness, fever, dyspnea, syncope, headache, dizziness, GI bleed, back pain, seizure, CVA, palpatations, mental health, musculoskeletal)? @ -Acute psychosis, bipolar disorder, schizophrenia. EKG interpreted by me (3pts min.). @ -Not done X-rays interpreted by me (1pt min.). @ -None done CT interpreted by me (1pt min.). @ -None done U/S interpreted by me (1pt. min.). @ -None done What testing was considered but not performed or refused? (CT, X-rays, U/S, labs)? Why? @ -None What meds were considered but not given or refused? Why? @ -None Did you discuss the management of the patient with other professionals ( professionals i.e. , PA, PROGRAM ARRANGER, lab, RT, psych nurse, social service liaison, press tender, teacher, interface control officer, behavioral health case manager)? Give summary @ -Case is discussed with the psychiatric nurse who would like to admit the patient to their psychiatric unit at our hospital. Was smoking cessation discussed for >3mins.? @ -No Was critical care preformed (if so, how long)? @ -No Were there social determinants of health that impacted care today? How? (Homelessness, low income, unemployed, alcoholism, drug addiction, transportation, low edu. Level, literacy, decrease access to med. care, group home, rehab)? @ -Social determinants are that of significant psychiatric problems. Was there de-escalation of care discussed even if they declined (Discuss DNR or withdrawal of care, Hospice)? DNR status @ -No What co-morbidities impacted this encounter? (DM, HTN, Smoking, COPD, CAD, Cancer, CVA, ARF, Chemo, Hep., AIDS, mental health diagnosis, sleep apnea, morbid obesity)? @ -Schizophrenia, bipolar disorder, anxiety, depression. Was patient admitted / discharged? Hospital course, mention meds given and route, prescriptions, significant lab abnormalities, going to OR and other pertinent info. @ -Patient is admitted to the hospital. Please see above. Undiagnosed new problem with uncertain prognosis? @ -No Drug Therapy requiring intensive monitoring for toxicity (Heparin, Nitro, Insulin, Cardizem)? @ -No Were any procedures done? @ -No Diagnosis/symptom? @ -Acute psychosis, history of bipolar disorder and schizophrenia. Acute, or Chronic, or Acute on Chronic? @ -Acute on chronic. Uncomplicated (without systemic symptoms) or Complicated (systemic symptoms)? @ -Uncomplicated Side effects of treatment? @ -No Exacerbation, Progression, or Severe Exacerbation? @ -Exacerbation Poses a threat to life or bodily function? How? (Chest pain, [place], [place], pneumonia, PE, COPD, DKA, ARF, appy, cholecystitis, CVA, Diverticulitis, Homicidal, Suicidal, threat to staff... and all critical care pts) @ -No - Lab Data Lab Results 12/12/23 Range/Units 16:12 Urine Opiates Screen Not Detected (NotDetected) Ur Oxycodone Screen Not Detected (NotDetected) Urine Methadone Screen Not Detected (NotDetected) Ur Barbiturates Screen Not Detected (NotDetected) U Tricyclic Antidepress Not Detected (NotDetected) Ur Phencyclidine Scrn Not Detected (NotDetected) Ur Amphetamines Screen Not Detected (NotDetected) U Methamphetamines Scrn Not Detected (NotDetected) U Benzodiazepines Scrn Not Detected (NotDetected) Urine Cocaine Screen Not Detected (NotDetected) U Marijuana (THC) Screen Not Detected (NotDetected) Disposition Clinical Impression: Psychosis, Bipolar disorder, Depression, Chronic schizophrenia, Anxiety, Noncompliance with medication regimen Disposition: ADMITTED IP TO THIS [facility] Condition: Fair Is patient prescribed a controlled substance at d/c from ED?: No Referrals: None,Stated [Primary Care Provider] - 1-2 days Time of Disposition: 20:12 Decision Date: 12/12/23 Decision Time: 20:13
[2023-12-12] MEDS ORDERED: MAG HYDROX/AL HYDROX/SIMETH 355 ML BOTTLE PO PRN (22:13)
[2023-12-12] MEDS ORDERED: LORazepam 1 MG TAB PO PRN (22:17)
[2023-12-12] MEDS ORDERED: LORazepam 2 MG/ML INJ IM PRN (22:17)
[2023-12-12] MEDS ORDERED: HALOPERIDOL LACTATE 5 MG/ML 1 ML VIAL IM PRN (22:17)
[2023-12-12] MEDS: traZODone HCL 100 MG TAB PO SCH (22:59)
[2023-12-12] MEDS: ATORVASTATIN 20 MG TAB PO SCH (22:59)
--- NOTE | 2023-12-13 01:48 | P.PN ---
Progress Note - Text Progress Note Date: 12/12/23 patient found to be very delusional and inappropriate for evaluation at this time, will re attempt tomorrow
[2023-12-13] MEDS: ASPIRIN 81 MG PO SCH (08:29)
[2023-12-13] MEDS: lisinopriL 10 MG TAB PO SCH (08:29)
[2023-12-13] MEDS: FLUTICASONE 50MCG/SPRAY NASAL 16GM EA NOSTRIL SCH ×2 (08:29→13:56)
[2023-12-13] MEDS: NICOTINE 14MG/24HR PATCH TRANSDERM SCH (08:29)
[2023-12-13] MEDS: FAMOTIDINE 20 MG TAB PO SCH (08:29)
[2023-12-13 11:49] LABS: Basophils # (A) 0.1 k/uL (0-0.2); Basophils % (A) 1 %; Eosinophils # (A) 0.1 k/uL (0-0.7); Eosinophils % (A) 1 %; HCT 42.3 % (34.0-46.0); HGB 13.8 gm/dL (11.4-16.0); Lymphocytes % (A) 25 %; MCHC 32.6 g/dL (31.0-37.0); MCV 85.8 fL (80.0-100.0); Mean Platelet Volume 8.9; Monocytes # (A) 0.5 k/uL (0-1.0); Monocytes % (A) 6 %; Neutrophils # (A) 5.3 k/uL (1.3-7.7); Neutrophils % (A) 66 %; Platelet Count 176 k/uL (150-450); RBC 4.94 m/uL (3.80-5.40); RDW 14.3 % (11.5-15.5)
--- NOTE | 2023-12-13 11:54 | P.HP ---
Psychiatric H&P - . H&P Date: 12/13/23 History & Physical: Allergies Allergy/AdvReac Type Severity Reaction Status Date / Time codeine Allergy Unknown Verified 12/12/23 21:27 adhesive AdvReac Intermediate Rash/Hives Verified 12/12/23 21:27 Vital Signs Temp 98.0 F 12/13/23 06:17 Pulse 111 H 12/13/23 08:29 Resp 16 12/13/23 06:17 BP 146/73 12/13/23 08:29 Pulse Ox 97 12/13/23 06:17 FiO2 Intake & Output 12/12/23 12/13/23 12/13/23 18:59 06:59 18:59 Weight 86.183 kg 83.121 kg Laboratory Last Values Urine Opiates Screen Not Detected (NotDetected) 12/12/23 16:12 Ur Oxycodone Screen Not Detected (NotDetected) 12/12/23 16:12 Urine Methadone Screen Not Detected (NotDetected) 12/12/23 16:12 Ur Barbiturates Screen Not Detected (NotDetected) 12/12/23 16:12 U Tricyclic Antidepress Not Detected (NotDetected) 12/12/23 16:12 Ur Phencyclidine Scrn Not Detected (NotDetected) 12/12/23 16:12 Ur Amphetamines Screen Not Detected (NotDetected) 12/12/23 16:12 U Methamphetamines Scrn Not Detected (NotDetected) 12/12/23 16:12 U Benzodiazepines Scrn Not Detected (NotDetected) 12/12/23 16:12 Urine Cocaine Screen Not Detected (NotDetected) 12/12/23 16:12 U Marijuana (THC) Screen Not Detected (NotDetected) 12/12/23 16:12 SARS-CoV-2 (PCR) Not Detected (Not Detectd) 12/12/23 20:02 12/13/23 09:02 IDENTIFYING DATA: Patient is a 53 year old female, currently lives in a senior living. Patient is currently on a court order until 05/21/24. . Has 4 children. HPI: Patient presented to the hospital on 12/11. as per EPS note, ""HI towards roomate, hasn't taken meds since last hospital d/c, delusions regarding closing the border, president paul, states she has a billie , house is unsafe b/c of evil spirits are fighting, will onlt speak to "crusaders", appears to be responding to internal stimuli". PG Carole contacted RN prior to seeing pt and she states that she has HI towards her roomate and her roomate was so scared that she barricaded herself from the pt. She was threatening roomate, pre guardian this is not normal behavior for pt. She also states that she was hallucinating her and would only talk through billie. She was witnessed asking [facility] to leave because their computers were intervering with her grocery order. She told PG that [facility] was giving her meds with pcp in them. PG is concerned about pt and her well being. She states that she was at [facility] from 10/30 - 12/09. Upon assessment pt was not wanting to speak to anyone from mental health, RN stated discussing medical questions and then she began to speak to RN. Pt was wearing a mask. She states that she is wearing it because the "toxic waste and in waste in the maciel". During assessment pt appeared to be responding to internal stimuli, whispering to self. "I don't want to go upstairs, I don't want to be raped and they just give you drugs to sell on the streets". When talking about her guardian, "I don't have a guardian, I am my own". "Lisa is giving everyone at [facility] blow jobs". RN asked whom Lisa was but she would not answer. She states she hasn't taken the meds since leaving [facility] because "they gave me meds that would kill me, I don't want to go back there". "I am not here for mental health, I am here because the Hinduism Crusaders were talking to me". Pt denies SI. When asked if having HI pt clears throat and does not answer the question. When asking about medications she states, "Let me see the list and go over it with my ". No one was present in the room besides RN and she began to look the opposite direction to the wall and talk about her meds. 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 Pt has loose associations and disorganized." Upon todays interview, she states that she was working with the state, trying to close things down, but she does not care to discuss it. She states that there are vampires, but they are invisible. She only hears them. They tell her that she is . Patient claims to have a fair appetite. Patient denies any suicidal or homicidal ideations intent or plan. At this time patient endorses auditory hallucinations, denies visual hallucinations. Patient is tangential, and has flight of ideas. Making bizarre statements about killing cats and her mom. Patient admits to using nicotine. PAST PSYCHIATRIC HISTORY: Per [facility] pt received Invega Sustenna 234mg on Friday 12/08. Patient was recently at [facility]. Patient follows up at [facility] with the nurse practitioner. And that she's never attempted suicide. Patient has a chronic history of schizoaffective disorder. PMH:As per ER note ALLERGIES: as per EMR CHEMICAL DEPENDENCY HISTORY: as per HPI FAMILY PSYCHIATRIC/SUBSTANCE USE HISTORY: Denies SOCIAL HISTORY: Patient was born and raised in [place]. Currently lives in a senior living. Went to college and received a BA degree. . Has 4 children. Claims that she has been to residential for killing her mother. MENTAL STATUS EXAM: General Appearance: Patient appears to be stated age is alert, directable, and attempts to cooperate. Patient appears to have fair hygiene and grooming. Behavior: Patient is seated without any agitated behavior. bizarre, impulsive Speech: Patient's speech is fluent and nonpressured. Making bizarre statements about killing cats and her mother, and closing down the government Mood/Affect: Patient reports their mood is fine, affect is congruent and constricted. Suicidality/Homicidality: Patient denies having any homicidal ideation intent or plan. Denies any suicidal ideations intent or plan Perceptions: Patient denies any visual hallucinations and denies any auditory hallucinations Though content/process: There is evidence of any delusional thought content Patient making bizarre statements Memory and concentration: unable to properly assess, due to current psychosis Judgment and insight:chronically poor/impulsive STRENGTHS/WEAKNESSES: strength is that patient is resilient. Weakness is that patient has poor judgment and is impulsive INTELLECT: Average IMPRESSIONS: schizoaffective disorder PTSD nicotine dependance PLAN: -Patient is admitted under involuntary status to MHU for stabilization of psychiatric symptoms and safety. Patient has not signed adult voluntary form or medication consent. Patient is currently on a court order until 05/21/24 -Medications : Start Prolixin 5mg po bid for psychosis, as patient is on a court order, if patient refuses, give IM Prolixin. Trazodone 150mg po qhs for sleep/mood -Ativan and Haldol PRN for agitation/aggression -Patient was informed of the risks, benefits and side effects of the medication -Internal Medicine consult to perform medical evaluation and physical. -NRT - nicotine patch -SW on board for discharge planning. Encourage patient to participate in groups to work on coping skills. 12/13/23 11:34 12/13/23 11:52
[2023-12-13 11:59] LABS: ALT 22 U/L (4-34); AST 23 U/L (14-36); African American GFR (CKD) >90 (>60 ml/min/1.73 sqM); Albumin 3.9 g/dL (3.5-5.0); Alkaline Phosphatase 70 U/L (38-126); Anion Gap 7 mmol/L; Blood Urea Nitrogen 11 mg/dL (7-17); Calcium 9.5 mg/dL (8.4-10.2); Carbon Dioxide 26 mmol/L (22-30); Chloride 106 mmol/L (98-107); Glucose 97 mg/dL (74-99); Non-African American GFR(CKD) >90 (>60 ml/min/1.73 sqM); Potassium 4.5 mmol/L (3.5-5.1); Sodium 139 mmol/L (137-145); Total Bilirubin 0.4 mg/dL (0.2-1.3); Total Protein 6.2 g/dL (6.3-8.2)
[2023-12-13] MEDS: CHOLECALCIFEROL 125 MCG (5000 IU) TABLET PO SCH (13:43)
[2023-12-13] MEDS: ACETAMINOPHEN TAB 325 MG TAB PO PRN (15:19)
[2023-12-13] MEDS: metFORMIN 850 MG TAB PO SCH (18:02)
[2023-12-13] MEDS: traZODone HCL 50 MG TAB PO SCH (20:53)
[2023-12-13] MEDS: FLUTICASONE 110 MCG INHALER INHALATION SCH (20:56)
--- NOTE | 2023-12-14 03:45 | P.MDCNMH ---
History of Present Illness H&P Date: 12/14/23 Chief Complaint: Medical evaluation 53-year-old female with hypertension diabetes mellitus hyperlipidemia patient coming in petition by court for psych evaluation due to noncompliance with her medications Patient admits to hearing voices she seems to have delusional thoughts. Patient also reports some dental pain in her left molars, denies any swelling denies any fevers or chills denies any bleeding Patient denies any cough shortness of breath chest pain nausea vomiting or abdominal pain Patient denies illicit drugs or heavy alcohol she admits to occasional smoking review of systems Pertinent positives as noted in HPI. All other systems were reviewed and are ne gative on exam Constitutional: No acute distress Eyes: Anicteric sclerae, moist conjunctiva, Pupils equal round reactive to light ENMT: NC/AT Oropharynx clear, no erythema, or exudates, poor dental hygiene Lungs: Clear to auscultation Clear to percussion Normal respiratory effort, no accessory muscle use Cardiovascular: Heart regular in rate and rhythm, No murmurs, gallops, or rubs No peripheral edema Abdominal: Soft Nontender, no guarding, rebound or rigidity Abdomen moving with respiration Normoactive bowel sounds Extremities: No digital cyanosis No clubbing Pedal pulses intact and symmetrical Radial pulses intact and symmetrical No calf tenderness Psychiatric: Alert and oriented to person, place and time Neuro Muscles Strength 5/5 in all 4 extremities Sensation to light touch grossly present throughout Cranial nerves II-XII grossly intact Past Medical History Past Medical History: GERD/Reflux, Hyperlipidemia, Hypertension, Seizure Disorder Additional Past Medical History / Comment(s): pre diabetes, GERD History of Any Multi-Drug Resistant Organisms: None Reported Past Surgical History: Tubal Ligation Past Anesthesia/Blood Transfusion Reactions: No Reported Reaction, Unable to Obtain Past Psychological History: Anxiety, Bipolar, Depression, Schizophrenia Smoking Status: Current every day smoker Past Alcohol Use History: None Reported Past Drug Use History: Marijuana - Past Family History Mother Family Medical History: Hyperlipidemia Family Family Medical History: Coronary Artery Disease (CAD) Medications and Allergies Home Medications Medication Instructions Recorded Confirmed Type Atorvastatin [Lipitor] 20 mg PO HS 03/13/22 12/12/23 History Cholecalciferol [Vitamin D3 (125 125 mcg PO DAILY 03/13/22 12/12/23 History Mcg = 5000 Iu)] Famotidine 20 mg PO BID 03/13/22 12/12/23 History lisinopriL [Zestril] 10 mg PO DAILY 03/13/22 12/12/23 History metFORMIN HCL [Glucophage] 850 mg PO W/SUPPER 03/13/22 12/12/23 History Aspirin EC [Ecotrin Low Dose] 81 mg PO DAILY 05/13/23 12/12/23 History Fluticasone Nasal [place] [Flonase 1 - 2 spr EA NOSTRIL DAILY 05/13/23 12/12/23 History Nasal [place]] traZODone HCL [Desyrel] 100 mg PO HS 05/13/23 12/12/23 History Ibuprofen [Motrin Ib] 200 mg PO DIRECTED PRN 12/12/23 12/12/23 History Paliperidone IM [Invega Sustenna] 234 mg IM Q28D 12/12/23 12/12/23 History risperiDONE [RisperDAL] 1 mg PO DAILY 12/12/23 12/12/23 History risperiDONE [RisperDAL] 2 mg PO HS 12/12/23 12/12/23 History Allergies Allergy/AdvReac Type Severity Reaction Status Date / Time codeine Allergy Unknown Verified 12/12/23 21:27 adhesive AdvReac Intermediate Rash/Hives Verified 12/12/23 21:27 Physical Exam Vitals: Vital Signs Temp Pulse Resp BP Pulse Ox 12/13/23 09:46 124/64 12/13/23 08:29 111 H 146/73 12/13/23 06:17 98.0 F 86 16 140/72 97 Intake and Output 12/13/23 12/13/23 12/14/23 14:59 22:59 06:59 Other: Weight 83.121 kg Cranial Nerve Examination - Cranial Nerves Cranial Nerve II- Optic: Intact Cranial Nerve III- Oculomotor: Intact Cranial Nerve IV- Trochlear: Intact Cranial Nerve V- Trigeminal: Intact Cranial Nerve - Abducens: Intact Cranial Nerve VII- Facial: Intact Cranial Nerve VIII- Auditory: Intact Cranial Nerve IX- Glossopharyngeal: Intact Cranial Nerve X- Vagus: Intact Cranial Nerve XI- Accessory: Intact Cranial Nerve XII- Hypoglossal: Intact Results CBC & Chem 7: 12/13/23 10:59 12/13/23 10:59 Labs: Abnormal Lab Results - Last 24 Hours (Table) 12/13/23 12/13/23 Range/Units 10:59 10:59 Hemoglobin A1c 6.1 H (<=6.0) % Total Protein 6.2 L (6.3-8.2) g/dL Assessment and Plan Assessment: Hypertension resume lisinopril Blood pressure slightly elevated Diabetes mellitus Continue with metformin Poor oral hygiene with dental pain Consider outpatient follow-up with dentistry Motrin 400 mg as needed every 6 hours for pain Tobacco smoking Nicotine replacement therapy offered Hyperlipidemia Continue with atorvastatin Blood work overall unremarkable white count 8 hemoglobin 13.8 Sodium 139 potassium 4.5 BUN 11 creatinine 1.5 Urine drug screen negative Patient stable from medical standpoint Thank you for this consultation
[2023-12-14] MEDS: FLUTICASONE 50MCG/SPRAY NASAL 16GM EA NOSTRIL SCH (08:47)
--- NOTE | 2023-12-14 11:36 | P.PN ---
Progress Note - Text Progress Note Date: 12/14/23 Interval History: Patient was seen wandering the hallways and was directable and agreeable to sp clarita with resume writer in the office. Patient states that Mario, the patient rights advisor, is "using his mind to try to get her to have sex" She is endorsing AH, they are saying her future is going to run for [employer], and he is going to [facility] [facility] [employer]. Patient states that she slept well last night. She asked for "the urine pill, because I"m dripping" Parking Lot Laborer ordered ditropan to help with this. Patient offered no other complaints. At this time patient denies any suicidal or homicidal ideations, intent or plan. Patient endorses auditory hallucinations, denies visual hallucinations and denies any paranoia or delusions. Patient denies any side effects from the medications and has been compliant with meds. MENTAL STATUS EXAM: General Appearance: Patient appears to be stated age is alert, directable, and attempts to cooperate. Patient appears to have fair hygiene and grooming. Behavior: Patient is seated without any agitated behavior. bizarre, impulsive Speech: Patient's speech is fluent and nonpressured. Making bizarre statements about mind control. Mood/Affect: Patient reports their mood is good, affect is congruent and constricted. Suicidality/Homicidality: Patient denies having any homicidal ideation intent or plan. Denies any suicidal ideations intent or plan Perceptions: Patient denies any visual hallucinations and denies any auditory hallucinations Though content/process: There is evidence of any delusional thought content Patient making bizarre statements Memory and concentration: unable to properly assess, due to current psychosis Judgment and insight:chronically poor/impulsive IMPRESSIONS: schizoaffective disorder PTSD nicotine dependance PLAN: -Patient is admitted under involuntary status to [facility] for stabilization of psychiatric symptoms and safety. Patient has not signed adult voluntary form or medication consent. Patient is currently on a court order until 05/21/24 -Medications : increase Prolixin 5mg po tid for psychosis, as patient is on a court order, if patient refuses, give IM Prolixin. Trazodone 150mg po qhs for sleep/mood. Will likely need to be transitioned onto a long-acting injection to ensure compliance once patient is discharged. -Ativan and Haldol PRN for agitation/aggression -NRT - nicotine patch -SW on board for discharge planning. Encourage patient to participate in groups to work on coping skills.
[2023-12-14] MEDS: OXYBUTYNIN XL 5 MG TAB.ER.24 PO SCH (12:51)
[2023-12-14] MEDS: IBUPROFEN 400 MG TAB PO PRN (17:34)
[2023-12-14] MEDS: traZODone HCL 100 MG TAB PO SCH (20:32)
--- NOTE | 2023-12-15 12:11 | P.PN ---
Progress Note - Text Progress Note Date: 12/15/23 Interval history: Patient was seen wandering the hallways and was directable and agreeable to s peak with senior copywriter. Patient appeared to have mild improvement in her thought process, continues to be demanding. She was requesting to be off of the Prolixin and when asked if she would take other medications she states that "I do not need anything". Continues to have chronically poor insight and judgment. She is denying any problems with her mood, anxiety. She continues to be fairly bizarre and illogical. States that she slept fairly last night at this time patient denies any suicidal or homicidal ideations intent or plan. Denies any Auditory or visual hallucinations. Patient denies any side effects from the medications and has been compliant with meds. Mental status exam: General Appearance: Patient appears to be stated age is alert, directable, and cooperative. Behavior: No agitated behavior. Patient is calm and directable, bizarre at times Speech: Patient's speech is fluent and nonpressured. Mood/Affect: Mood is improving mildly, affect is congruent and constricted. Suicidality/Homicidality: Patient denies having any suicidal or homicidal ideation intent or plan. Perceptions: Patient denies any auditory or visual hallucinations. Though content/process: There is no evidence of any delusional thought content and thought process Rambles, illogical Memory and concentration: AOX3, grossly intact for the purposes of this session Judgment and insight: improving mildly Assessment/Plan: Continue with current diagnosis. Patient continues to meet criteria for inpatient psychiatric admission for symptom stabilization and safety. Patient will be maintained on current psychotropic medication regimen. Monitor for medication compliance and for any psychotropic medication side effects. Will continue to monitor ongoing response to treatment. Encouraged participation in milieu. Is currently on a court order.
--- NOTE | 2023-12-16 11:09 | P.PN ---
Progress Note - Text Progress Note Date: 12/16/23 Interval history: Patient was seen wandering the hallways and was directable and agreeable to s peak with caption writer. Patient approached caption writer today and stated that she believes that people from "[facility]" will come to visit her today. She asked caption writer several times when she is going to be taking off her medications. She believes that the Prolixin will cause her to have dementia. She states that she "read it somewhere" and was trying to find a paper on it. She has fairly poor attention span, continues to be impulsive. Denying any EPS symptoms at this time. Continues to state that she has an overactive bladder and leaking. He is fairly bizarre and illogical. States that she slept fairly last night at this time patient denies any suicidal or homicidal ideations intent or plan. Denies any Auditory or visual hallucinations. Patient denies any side effects from the medications and has been compliant with meds. Mental status exam: General Appearance: Patient appears to be stated age is alert, directable, and fairly demanding Behavior: No agitated behavior. Patient is calm and directable, bizarre at times Speech: Patient's speech is fluent and nonpressured. Mood/Affect: Mood is improving mildly, affect is congruent and constricted. Suicidality/Homicidality: Patient denies having any suicidal or homicidal ideation intent or plan. Perceptions: Patient denies any auditory or visual hallucinations. Though content/process: There is no evidence of any delusional thought content and thought process Rambles, illogical, improving mildly Memory and concentration: AOX3, grossly intact for the purposes of this session Judgment and insight: improving mildly Assessment/Plan: Continue with current diagnosis. Patient continues to meet criteria for inpatient psychiatric admission for symptom stabilization and safety. Patient will be maintained on current psychotropic medication regimen, with the exception of increasing Prolixin to 10 mg twice daily for psychosis. Added Cogentin 0.5 mg nightly for EPS prophylaxis. Increasing oxybutynin to 5 mg twice daily for urinary incontinence monitor for medication compliance and for any psychotropic medication side effects. Will continue to monitor ongoing response to treatment. Encouraged participation in milieu. Is currently on a court order. Patient will need to be transitioned onto a long-acting injection to ensure compliance.
[2023-12-16] MEDS: oxyBUTYnin chloride 5 MG TAB PO SCH (11:36)
[2023-12-16] MEDS: BENZTROPINE MESYLATE 0.5 MG TAB PO SCH (20:23)
[2023-12-17] MEDS ORDERED: BENZTROPINE MESYLATE 1 MG TAB PO PRN (11:28)
--- NOTE | 2023-12-17 11:34 | P.PN ---
Progress Note - Text Progress Note Date: 12/17/23 Interval History: Patient was seen in her room, and was agreeable to speak with short story writer at her be dside. Patient continues to make bizarre statements, stating that Secret Service is here, 1 is currently here, [address] They are here because Andrey wants her to be Molding Machine Setter. He wants her to go to a country that is at way, and take control. She also states that people that are here are hurting her with their minds, so she is hurting them back. Patient complains of having a stomach ache, with diarrhea, patient offered no other complaints. At this time patient denies any suicidal or homicidal ideations, intent or plan. Patient endorses auditory hallucinations, denies visual hallucinations and denies any paranoia or delusions. Patient denies any side effects from the medications and has been compliant with meds. MENTAL STATUS EXAM: General Appearance: Patient appears to be stated age is alert, directable, and attempts to cooperate. Patient appears to have fair hygiene and grooming. Behavior: Patient is seated without any agitated behavior. bizarre, impulsive improving mildly Speech: Patient's speech is fluent and nonpressured. Making bizarre statements about mind control. Mood/Affect: Patient reports their mood is good, affect is congruent and constricted. Suicidality/Homicidality: Patient denies having any homicidal ideation intent or plan. Denies any suicidal ideations intent or plan Perceptions: Patient denies any visual hallucinations and denies any auditory hallucinations Though content/process: There is evidence of any delusional thought content Patient making bizarre statements Memory and concentration: unable to properly assess, due to current psychosis Judgment and insight:chronically poor/impulsive IMPRESSIONS: schizoaffective disorder PTSD nicotine dependance PLAN: -Patient is admitted under involuntary status to [facility] for stabilization of psychiatric symptoms and safety. Patient has not signed adult voluntary form or medication consent. Patient is currently on a court order until 05/21/24 -Medications : Prolixin 10mg PO BID for psychosis, as patient is on a court order, if patient refuses, give IM Prolixin. change Cogentin 1mg po bid PRN for EPS symptoms, d/c Trazodone add Zypreza 7.5mg qhs for sleep/mood. Will likely need to be transitioned onto a long-acting injection to ensure compliance once patient is discharged. -Ativan and Haldol PRN for agitation/aggression -NRT - nicotine patch/gum -SW on board for discharge planning. Encourage patient to participate in groups to work on coping skills.
[2023-12-17] MEDS: OLANZapine 7.5 MG TAB PO SCH (20:34)
[2023-12-18] MEDS: flUPHENAZine 2.5 MG/ML (MDV) 10 ML VIAL IM PRN (09:15)
[2023-12-18] MEDS ORDERED: flUPHENAZine 2.5 MG/ML (MDV) 10 ML VIAL IM PRN (10:17)
--- NOTE | 2023-12-18 11:12 | P.PN ---
Progress Note - Text Progress Note Date: 12/18/23 Interval History: Patient was seen in the hallway, and agreeable to speak with the telegraphic typewriter repairer in the lounge. Patient is increasingly irritable today, not wanting to speak with telegraphic typewriter repairer at first, but then agreeing. Patient states she is "pissed off" because she does not want to take the medications, because she thinks they cause dementia. Senior Tax Accountant assured patient that this is not one of the side effects of the medication. Patient then yelled "you're the [facility] doctor" and refused to speak any more. Patient offered no other complaints. At this time patient denies any suicidal ideations, intent or plan, however stated today that she feels like killing. Would not elaborate. Patient endorses auditory hallucinations, denies visual hallucinations and denies any paranoia or delusions. Patient denies any side effects from the medications and has been compliant with meds. MENTAL STATUS EXAM: General Appearance: Patient appears to be stated age is alert, directable, and attempts to cooperate. Patient appears to have fair hygiene and grooming. Behavior: Patient is seated with agitated behavior. angry, yelling at telegraphic typewriter repairer Speech: Patient's speech is fluent and nonpressured. angry and irritable Mood/Affect: Patient reports their mood is "pissed off", affect is congruent and constricted. Suicidality/Homicidality: Patient endorses homicidal ideation. Denies any suicidal ideations intent or plan Perceptions: Patient denies any visual hallucinations and endorses auditory hallucinations Though content/process: There is evidence of any delusional thought content Patient making bizarre statements Memory and concentration: unable to properly assess, due to current psychosis Judgment and insight:chronically poor/impulsive IMPRESSIONS: schizoaffective disorder PTSD nicotine dependance PLAN: -Patient is admitted under involuntary status to [facility] for stabilization of psychiatric symptoms and safety. Patient has not signed adult voluntary form or medication consent. Patient is currently on a court order until 05/21/24 -Medications : Prolixin 10mg PO BID for psychosis, as patient is on a court order, if patient refuses, give IM Prolixin. Cogentin 1mg po bid PRN for EPS symptoms, increase Zypreza 10mg qhs for sleep/mood. Add Depakote 500mg bid for mood stabilization/aggression. Will likely need to be transitioned onto a long- acting injection to ensure compliance once patient is discharged. -Ativan and Haldol PRN for agitation/aggression -NRT - nicotine patch/gum -SW on board for discharge planning. Encourage patient to participate in groups to work on coping skills.
[2023-12-18] MEDS ORDERED: KETOROLAC 15 MG/ML 1 ML VIAL IM PRN (17:01)
[2023-12-18] MEDS: DIVALPROEX ER 500 MG TAB.ER.24H PO SCH (21:43)
[2023-12-18] MEDS: OLANZapine 10 MG TAB PO SCH (21:43)
--- NOTE | 2023-12-19 09:00 | P.PN ---
Progress Note - Text Progress Note Date: 12/19/23 Interval History: Patient was seen in the hallway, and agreeable to speak with the insurance underwriter. Patient is a little less irritable today. she was attempting to speak with a nurse about something at the desk. Patient stated she is ok today, and questioned insurance underwriter why she was put on Depakote however did not state why she does not want to be on this medication. Card Assembler explained to the patient the benefits of the medication. Patient stated she is eating well, and trying to go to some groups. She stated she is sleeping well at night, and she remains a little tired this morning. Patient offered no other complaints. she continues to beelive that she "read somewhere that the medications cause dementia". At this time patient denies any suicidal/homicidal ideations, intent or plan, Patient endorses auditory hallucinations, states she only hears the voices of those she loves. denies visual hallucinations and denies any paranoia or delusions. Patient denies any side effects from the medications and has been compliant with meds. MENTAL STATUS EXAM: General Appearance: Patient appears to be stated age is alert, directable, and attempts to cooperate. Patient appears to have fair hygiene and grooming. Behavior: Patient is standing with mildly agitated behavior. mildly improving Speech: Patient's speech is fluent and nonpressured. irritable, improving mildly Mood/Affect: Patient reports their mood is "pissed off", affect is congruent and constricted. Suicidality/Homicidality: Patient endorses homicidal ideation. Denies any suicidal ideations intent or plan Perceptions: Patient denies any visual hallucinations and endorses auditory hallucinations Though content/process: There is evidence of any delusional thought content, no paranoia today. continues to believe her medications are causing her "dementia". Memory and concentration: unable to properly assess, due to current psychosis Judgment and insight:chronically poor/impulsive IMPRESSIONS: schizoaffective disorder PTSD nicotine dependance PLAN: -Patient is admitted under involuntary status to [facility] for stabilization of psy chiatric symptoms and safety. Patient has not signed adult voluntary form or medication consent. Patient is currently on a court order until 05/21/24 -Medications : decrease Prolixin PO starting tomorrow, today will continue 10mg PO BID for psychosis, as patient is on a court order, if patient refuses, give IM Prolixin. start Prolixin D 50mg every 10 days to ensure compliance. Cogentin 1mg po bid PRN for EPS symptoms, Zypreza 10mg qhs for sleep/mood. Depakote 500mg bid for mood stabilization/aggression. -Ativan and Haldol PRN for agitation/aggression -NRT - nicotine patch/gum -SW on board for discharge planning. Encourage patient to participate in groups to work on coping skills.
[2023-12-19] MEDS: fluPHENAZine DECANOATE 25 MG/ML 5ML MDV IM SCH (14:02)
--- NOTE | 2023-12-20 21:03 | P.PN ---
Subjective Progress Note Date: 12/20/23 Patient Name: Jennifer Koch Date of : 1970 Patient Status: Inpatient Attending Provider: Mack Dumont Date: 12/20/23 07:01 Initialization Date: 12/19/23 07:01 Progress Note - Text Progress Note Date: 12/20/23 The patient was seen chart was reviewed in case discussed with the nursing staff patient reports that she was here because she had some issues with the roommate she says that she was accused of for doing something to another roommate and that she is not sure as to why she was here she admits that she had had some problems alcohol previously in general patient seems to have much difficulty expressing herself she said that she this is a fourth psychiatric hospitalization she reports that she is doing better now she denies any suicidal homes ideations MENTAL STATUS EXAM: General Appearance: Patient appears to be stated age is alert, directable, and attempts to cooperate. Patient appears to have fair hygiene and grooming. Behavior: Patient is standing with mildly agitated behavior. mildly improving Speech: Patient's speech is fluent and nonpressured. irritable, improving mildly Mood/Affect: Patient reports their mood is "pissed off", affect is congruent and constricted. Suicidality/Homicidality: Patient endorses homicidal ideation. Denies any suicidal ideations intent or plan Perceptions: Patient denies any visual hallucinations and endorses auditory hallucinations Though content/process: There is evidence of any delusional thought content, no paranoia today. continues to believe her medications are causing her "dementia". Memory and concentration: unable to properly assess, due to current psychosis Judgment and insight:chronically poor/impulsive IMPRESSIONS: schizoaffective disorder PTSD nicotine dependance PLAN: Agree with the treatment plan with Dr. Sue BenavidezPatient is admitted under involuntary status to [facility] for stabilization of psychiatric symptoms and safety. Patient has not signed adult voluntary form or medication consent. Patient is currently on a court order until 05/21/24 -Medications : decrease Prolixin PO starting tomorrow, today will continue 10mg PO BID for psychosis, as patient is on a court order, if patient refuses, give IM Prolixin. start Prolixin D 50mg every 10 days to ensure compliance. Cogentin 1mg po bid PRN for EPS symptoms, Zypreza 10mg qhs for sleep/mood. Depakote 500mg bid for mood stabilization/aggression. -Ativan and Haldol PRN for agitation/aggression -NRT - nicotine patch/gum -SW on board for discharge planning. Encourage patient to participate in groups to work on coping skills. Car Gamez MD Objective - Vital Signs Vital signs: Vital Signs Temp 97.9 F 12/20/23 06:08 Pulse 75 12/20/23 15:32 Resp 16 12/20/23 06:08 BP 111/56 12/20/23 15:32 Pulse Ox 97 12/20/23 06:08 FiO2 - Labs CBC & Chem 7: 12/13/23 10:59 12/13/23 10:59
--- NOTE | 2023-12-21 11:58 | P.PN ---
Progress Note - Text Progress Note Date: 12/21/23 Interval History: Patient was seen in group, and agreeable to speak with the song writer. Patient is not irritable today. She does state that she is feeling a little better, however, she has had a headache on and off since admission. Patient stated she does not want to be on a mood stabilizer, since "you shouldn't mess with my mood". She states she had some pain at the injection site of the prolixin. Patient stated she is eating well, and trying to go to some groups. She stated she is sleeping well at night. Patient offered no other complaints. Patient stated that she does not want to deal with [facility] anymore. At this time patient denies any suicidal/homicidal ideations, intent or plan, Patient endorses auditory hallucinations, states she only hears a few and theyre improving mildly since yesterday. denies visual hallucinations and denies any paranoia or delusions. Patient denies any side effects from the medications and has been compliant with meds. MENTAL STATUS EXAM: General Appearance: Patient appears to be stated age is alert, directable, and attempts to cooperate. Patient appears to have fair hygiene and grooming. Behavior: Patient is standing with appropriate behavior. mildly improving Speech: Patient's speech is fluent and nonpressured. improving mildly Mood/Affect: Patient reports their mood is "a little better", affect is congruent and constricted. Suicidality/Homicidality: Patient endorses homicidal ideation. Denies any suicidal ideations intent or plan Perceptions: Patient denies any visual hallucinations and endorses auditory hallucinations Though content/process: There is evidence of any delusional thought content, no paranoia today. continues to believe her medications are causing her "dementia". Memory and concentration: unable to properly assess, due to current psychosis Judgment and insight: chronically poor/impulsive, mildly improving IMPRESSIONS: schizoaffective disorder PTSD nicotine dependance PLAN: -Patient is admitted under involuntary status to [facility] for stabilization of psychiatric symptoms and safety. Patient has not signed adult voluntary form or medication consent. Patient is currently on a court order until 05/21/24 -Medications : decrease Prolixin PO 2mg bid discontinue tomorrow after am dose, given Prolixin D 50mg every 10 days to ensure compliance, last dose given on 12/18 and next dose will be due on 12/28. Cogentin 1mg po bid PRN for EPS symptoms, Zypreza 10mg qhs for sleep/mood. Depakote 500mg bid for mood stabilizati on/aggression. -Ativan and Haldol PRN for agitation/aggression -NRT - nicotine patch/gum -SW on board for discharge planning. Encourage patient to participate in groups to work on coping skills. Likely discharge sunday, back to her alf.
[2023-12-22] MEDS: MAGNESIUM HYDROXIDE 2,400 MG/30 ML CUP PO PRN (10:39)
--- NOTE | 2023-12-22 12:04 | P.PN ---
Progress Note - Text Progress Note Date: 12/22/23 Interval History: Patient was seen bedside and agreeable to speak with the literary writer. she states that she would like to be off of all her psychotropic medications because she does not believe that she needs any of them. She also describes that she is feeling sedated in the morning and was agreeable with Depakote being changed to bedtime. she reports that her mood is "sad" because she is not able to be home for [facility]. She says she did not like the Prolixin injection and does not plan to be compliant with that. She was informed about being on a court order but still does not have understanding for the need for compliance. Patient stated she is eating well and she is sleeping well at night. At this time patient denies any suicidal ideation, DENIES homicidal ideation, intent or plan, Patient denies auditory hallucinations. Denies visual hallucinations and denies any paranoia or delusions. Patient denies any side effects from the medications and has been compliant with meds. MENTAL STATUS EXAM: General Appearance: Patient appears to be stated age is alert, directable, and attempts to cooperate. Patient appears to have fair hygiene and grooming. Behavior: Patient is standing with appropriate behavior. mildly improving Speech: Patient's speech is fluent and nonpressured. improving mildly Mood/Affect: Patient reports their mood is "sad", affect is congruent and constricted. Suicidality/Homicidality: Patient DENIES homicidal ideation. Denies any suicidal ideations intent or plan Perceptions: Patient denies any visual hallucinations and denies auditory hallucinations Though content/process: More oriented to reality Memory and concentration: Fair concentration to interview Judgment and insight: chronically poor/impulsive, mildly improving IMPRESSIONS: schizoaffective disorder PTSD nicotine dependance PLAN: -Patient is admitted under involuntary status to [facility] for stabilization of psychiatric symptoms and safety. Patient has not signed adult voluntary form or medication consent. Patient is currently on a court order until 05/21/24 -Medications : Discontinue Prolixin PO 2mg bid, Prolixin D 50mg every 10 days to ensure compliance, last dose given on 12/18 and next dose will be due on 12/28. Zyprexa 10mg qhs for sleep/mood. Dual antipsychotic therapy needed due to severity of psychotic symptoms Cogentin 1mg po bid PRN for EPS symptoms Change Depakote to 1000mg qHS for mood stabilization/aggression. VPA level ordered for tomorrow AM -No duty to warn necessary at this time given that, since patient has been more oriented to reality, she is currently denying homicidal ideation. Will need to be reassessed prior to discharge -Ativan and Haldol PRN for agitation/aggression -NRT - nicotine patch/gum -SW on board for discharge planning. Encourage patient to participate in groups to work on coping skills. Likely discharge sunday, back to her [facility].
[2023-12-22] MEDS: DIVALPROEX ER 500 MG TAB.ER.24H PO SCH (20:44)
--- NOTE | 2023-12-23 12:02 | P.PN ---
Progress Note - Text Progress Note Date: 12/23/23 Interval History: Patient was seen bedside and agreeable to speak with the chief writer. Patient says that her mood today is "lonely ". She says she has not spoken with any family members and was encouraged to call them and speak over the phone if she would like. She reports sleeping well and having good appetite. She endorses tolerating the medication better and has no concerns about it today. Although patient states that auditory hallucinations have "quieted ", she reports that there are "crusaders with me" and they give her information about [place]. Patient denies paranoia. She continues to have some disorganized sedation in her thoughts but vehemently denies suicidal and homicidal ideation. She says she does not want to harm anybody else at all currently and says she felt unsafe leading to thoughts of harming others prior to admission. Patient has not needed any medications for agitation overnight. At this time patient denies any suicidal ideation, DENIES homicidal ideation, intent or plan. Denies visual hallucinations and denies any paranoia or delusions. Patient denies any side effects from the medications and has been compliant with meds. Vital Signs Temp 97.9 F 12/23/23 06:25 Pulse 78 12/23/23 06:25 Resp 18 12/23/23 06:25 BP 120/58 12/23/23 06:25 Pulse Ox 99 12/23/23 06:25 FiO2 MENTAL STATUS EXAM: General Appearance: Patient appears to be stated age is alert, directable, and attempts to cooperate. Patient appears to have fair hygiene and grooming. Behavior: Patient is standing with appropriate behavior. mildly improving Speech: Patient's speech is fluent and nonpressured. improving mildly Mood/Affect: Patient reports their mood is "lonely", affect is congruent and constricted. Suicidality/Homicidality: Patient DENIES homicidal ideation. Denies any suicidal ideations intent or plan Perceptions: Patient denies any visual hallucinations and denies auditory hallucinations Though content/process: More oriented to reality Memory and concentration: Fair concentration to interview Judgment and insight: chronically poor/impulsive, mildly improving IMPRESSIONS: schizoaffective disorder PTSD nicotine dependance PLAN: -Patient is admitted under involuntary status to M[facility] for stabilization of psychiatric symptoms and safety. Patient has not signed adult voluntary form or medication consent. Patient is currently on a court order until 05/21/24 -Medications : Prolixin D 50mg every 10 days to ensure compliance, last dose given on 12/18 and next dose will be due on 12/28. Increase Zyprexa to 15mg qhs for psychosis augmentation, sleep/mood. Dual antipsychotic therapy needed due to severity of psychotic symptoms Cogentin 1mg po bid PRN for EPS symptoms Depakote 1000mg qHS for mood stabilization/aggression. VPA level obtained and results pending -No duty to warn necessary at this time given that, since patient has been more oriented to reality, she is currently denying homicidal ideation. Will need to be reassessed prior to discharge -Ativan and Haldol PRN for agitation/aggression -NRT - nicotine patch/gum -SW on board for discharge planning. Encourage patient to participate in groups to work on coping skills. Likely discharge sunday, back to her intermediate.
[2023-12-23] MEDS: NICOTINE GUM (POLACRILEX) 2 MG GUM BUCCAL PRN (16:57)
[2023-12-23] MEDS: OLANZapine 7.5 MG TAB PO SCH (20:29)
[2023-12-24] MEDS: BENZTROPINE MESYLATE 0.5 MG TAB PO SCH (10:03)
--- NOTE | 2023-12-24 10:13 | P.PN ---
Progress Note - Text Progress Note Date: 12/24/23 Interval History: Patient was seen in her room, and agreeable to speak with the technical proposal writer at the [facility]. Patient states today, she is feeling a little weak in the knees. She claims that it is difficult to stand and walk and is feeling tightness. She claims, other than that, she is doing pretty well. Patient stated she is eating well, and trying to go to some groups. She stated she is sleeping well at night. impuslivity improving. Patient offered no other complaints. At this time patient denies any suicidal/homicidal ideations, intent or plan, Patient endorses auditory hallucinations, states she only hears a few and they're improving, and it is her loved ones, telling her they love her. Denies visual hallucinations and denies any paranoia or delusions. Patient denies any side effects from the medications and has been compliant with meds. MENTAL STATUS EXAM: General Appearance: Patient appears to be stated age is alert, directable, and attempts to cooperate. Patient appears to have fair hygiene and grooming. Behavior: Patient is sitting on the bed with appropriate behavior. Unable to stand and walk properly. Speech: Patient's speech is fluent and nonpressured. improving Mood/Affect: Patient reports their mood is "a little better", affect is congruent and constricted. Suicidality/Homicidality: Patient denies homicidal ideation. Denies any suicidal ideations intent or plan Perceptions: Patient denies any visual hallucinations and endorses auditory hallucinations Though content/process: There is evidence of any delusional thought content, no paranoia today. Memory and concentration: improving, alert and oriented x 3, following directions. Judgment and insight: chronically poor/impulsive, mildly improving IMPRESSIONS: schizoaffective disorder Extra Parametial Symptoms PTSD nicotine dependance PLAN: -Patient is admitted under involuntary status to MHU for stabilization of psychiatric symptoms and safety. Patient has not signed adult voluntary form or medication consent. Patient is currently on a court order until 05/21/24 -Medications : Prolixin D 50mg changed to every 14 days to ensure compliance, last dose given on 12/18 and next dose will be due on 01/01. change Cogentin 0.5mg po bid scheduled for EPS symptoms, Zypreza 15mg qhs for sleep/mood. Depakote 1000mg qhs for mood stabilization/aggression. -Ativan and Haldol PRN for agitation/aggression -NRT - nicotine patch/gum -SW on board for discharge planning. Encourage patient to participate in groups to work on coping skills. Likely discharge 2-3 days back to her home.
[2023-12-24 15:43] VITALS: BMI 31.2
--- NOTE | 2023-12-25 10:33 | P.DS ---
Providers Date of admission: 12/12/23 22:11 Expected date of discharge: 12/25/23 Attending physician: Mack Dumont MD Consults: 12/12/23 22:13 Consult Physician Routine Consulting Provider: Scott Physician Consult Reason/Comments: H&P Do you want consulting provider notified?: Yes Primary care physician: Stated None - Discharge Diagnosis(es) (1) Schizoaffective disorder, bipolar type Current Visit: No Status: Acute Priority: High (2) Post traumatic stress disorder (PTSD) Current Visit: Yes Status: Acute (3) Extrapyramidal symptom Current Visit: Yes Status: Acute (4) Nicotine dependence Current Visit: Yes Status: Acute Hospital Course: Admission HPI: Admission note was completed by writer producer "angie presented to the hospital on 12/11. as per EPS note, ""HI towards roomate, hasn't taken meds since last hospital d/c, delusions regarding closing the border, president paul, states she has a billie , house is unsafe b/c of evil spirits are fighting, will onlt speak to "crusaders", appears to be responding to internal stimuli". PG Carole contacted RN prior to seeing pt and she states that she has HI towards her roomate and her roomate was so scared that she barricaded herself from the pt. She was threatening roomate, pre guardian this is not normal behavior for pt. She also states that she was hallucinating her and would only talk through billie. She was witnessed asking [employer] to leave because their computers were intervering with her grocery order. She told PG that [facility] was giving her meds with pcp in them. PG is concerned about pt and her well being. She states that she was at [facility] from 10/30 - 12/09. Upon assessment pt was not wanting to speak to anyone from mental health, RN stated discussing medical questions and then she began to speak to RN. Pt was wearing a mask. She states that she is wearing it because the "toxic waste and in waste in the [place]". During assessment pt appeared to be responding to internal stimuli, whispering to self. "I don't want to go upstairs, I don't want to be raped and they just give you drugs to sell on the streets". When talking about her guardian, "I don't have a guardian, I am my own". "Lisa is giving everyone at [facility] blow jobs". RN asked whom Lisa was but she would not answer. She states she hasn't taken the meds since leaving [facility] because "they gave me meds that would kill me, I don't want to go back there". "I am not here for mental health, I am here because the [employer] Crusaders were talking to me". Pt denies SI. When asked if having HI pt clears throat and does not answer the question. When asking about medications she states, "Let me see the list and go over it with my ". No one was present in the room besides RN and she began to look the opposite direction to the wall and talk about her meds. 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 Pt has loose associations and disorganized." Upon todays interview, she states that she was working with the state, trying to close things down, but she does not care to discuss it. She states that there are vampires, but they are invisible. She only hears them. They tell her that she is . Patient claims to have a fair appetite. Patient denies any suicidal or homicidal ideations intent or plan. At this time patient endorses auditory hallucinations, denies visual hallucinations. Patient is tangential, and has flight of ideas. Making bizarre statements about killing cats and her mom. Patient admits to using nicotine." Hospital course: Upon admission to the unit patient was brought in involuntarily and admitted under a active court order for mental health treatment which expires on 05/21/2024. Patient was initially bizarre, responding to internal stimuli, aggressive and loud however with time and treatment she eventually got along well with other patients on the unit and followed unit protocol. Patient was compliant with the medications and denied any side effects throughout hospital course. Patient was started on Prolixin p.o and increased to dose of 20 mg total per day, she was transitioned onto Prolixin D 50 mg IM q. 14 days, last dose was given on 12/18 next dose will be due on 01/01. Cogentin 0.5 mg twice daily scheduled for EPS symptoms, Zyprexa increased to dose of 15 mg nightly for sleep/mood/psychosis, Depakote 1000 mg nightly for mood stabilization/aggression. Patient spoke of her stressors and engaged in therapy both group and individual. Patient was also seen by medical team for history and physical exam. Throughout the course of the hospitalization patient gradually improved with regards to mood, anxiety, psychosis, aggression, sleep and returned back to their baseline level of functioning. On the day of discharge patient denied any suicidal or homicidal ideations intent or plan denied any auditory or visual hallucinations. Patient endorsed wanting to live for her future and health. The patient denied any access to guns or weapons. Patient denied any paranoia and did not endorse any delusions. Patient does not have a significant history of substance abuse and was counseled on abstaining from all substances including alcohol and marijuana. Patient was also counseled on the medications and need for regular compliance and was encouraged to follow-up with their outpatient appointment for mental health and also for primary care. Patient will be followed and monitored closely by [facility], she will be referred to either the neck step program or the ACT team. Mental status exam: General Appearance: Patient appears to be stated age is alert, pleasant, and cooperative. Patient is in no acute distress and has improved hygiene and grooming Behavior: Patient is calmly seated without any agitated behavior. Attempts to cooperate Speech: Patient's speech is fluent and nonpressured. Mood/Affect: Patient reports their mood is "alright", affect is congruent Suicidality/Homicidality: Patient denies having any suicidal or homicidal ideation intent or plan. Perceptions: Patient denies any auditory or visual hallucinations. Though content/process: There is no evidence of any delusional thought content and thought process is linear and goal-directed. Memory and concentration: AOX3, grossly intact for the purposes of this session. Can spell "WORLD" backwards correctly. Judgment and insight: Chronically poor, however has improved with guarded prognosis Impression: schizoaffective disorder Extrapyramidal Symptoms PTSD nicotine dependance Plan: -Continue with discharge today as patient has improved and stabilized psychiatrically and is not currently an imminent threat to herself and/or others. Patient will remain at chronically elevated risk for harm to self and/or others due to her chronic mental illness. -Continue medications: Prolixin D 50 mg IM q. 14 days given on 12/18, next dose due on 01/01, Cogentin 0.5 mg twice daily scheduled for EPS symptoms, Zyprexa 15 mg nightly for sleep/mood stabilization/psychosis, Depakote 1000 mg nightly for mood stabilization/aggression. -Patient was counseled on the need for medication compliance and appropriate follow-up at mental health and also primary care for medical issues. Patient verbalized understanding and agreed. -Social work to help coordinate patient's discharge today back home. Social work also to arrange for patients follow up appointments with [facility] for psychiatric care along with follow up with primary care provider. -Patient counseled on abstaining from recreational drugs and marijuana and alcohol. Was informed/educated on the adverse effects on their physical and mental health. Patient verbally agreed and understood. -Patient was instructed to return to the hospital or seek immediate medical care if their psychiatric or medical symptoms do worsen or reoccur. ] Allergies Allergy/AdvReac Type Severity Reaction Status Date / Time codeine Allergy Unknown Verified 12/12/23 21: adhesive AdvReac Intermediate Rash/Hives Verified 12/12/23 21: Laboratory Results WBC 8.0 k/uL (3.8-10.6) 12/13/23 10:59 RBC 4.94 m/uL (3.80-5.40) 12/13/23 10:59 Hgb 13.8 gm/dL (11.4-16.0) 12/13/23 10:59 Hct 42.3 % (34.0-46.0) 12/13/23 10:59 MCV 85.8 fL (80.0-100.0) 12/13/23 10:59 MCH 28.0 pg (25.0-35.0) 12/13/23 10:59 MCHC 32.6 g/dL (31.0-37.0) 12/13/23 10:59 RDW 14.3 % (11.5-15.5) 12/13/23 10:59 Plt Count 176 k/uL (150-450) 12/13/23 10:59 MPV 8.9 12/13/23 10:59 Neutrophils % 66 % 12/13/23 10:59 Lymphocytes % 25 % 12/13/23 10:59 Monocytes % 6 % 12/13/23 10:59 Eosinophils % 1 % 12/13/23 10:59 Basophils % 1 % 12/13/23 10:59 Neutrophils # 5.3 k/uL (1.3-7.7) 12/13/23 10:59 Lymphocytes # 2.0 k/uL (1.0-4.8) 12/13/23 10:59 Monocytes # 0.5 k/uL (0-1.0) 12/13/23 10:59 Eosinophils # 0.1 k/uL (0-0.7) 12/13/23 10:59 Basophils # 0.1 k/uL (0-0.2) 12/13/23 10:59 Sodium 139 mmol/L (137-145) 12/13/23 10:59 Potassium 4.5 mmol/L (3.5-5.1) 12/13/23 10:59 Chloride 106 mmol/L (98-107) 12/13/23 10:59 Carbon Dioxide 26 mmol/L (22-30) 12/13/23 10:59 Anion Gap 7 mmol/L 12/13/23 10:59 BUN 11 mg/dL (7-17) 12/13/23 10:59 Creatinine 0.55 mg/dL (0.52-1.04) 12/13/23 10:59 Est GFR (CKD-EPI)AfAm >90 (>60 ml/min/1.73 sqM) 12/13/23 10:59 Est GFR (CKD-EPI)NonAf >90 (>60 ml/min/1.73 sqM) 12/13/23 10:59 Glucose 97 mg/dL (74-99) 12/13/23 10:[address] Glu mg/dL 128 mg/dL 12/13/23 10:59 Hemoglobin A1c 6.1 % (<=6.0) H 12/13/23 10:59 Calcium 9.5 mg/dL (8.4-10.2) 12/13/23 10:59 Total Bilirubin 0.4 mg/dL (0.2-1.3) 12/13/23 10:59 AST 23 U/L (14-36) 12/13/23 10:59 ALT 22 U/L (4-34) 12/13/23 10:59 Alkaline Phosphatase 70 U/L (38-126) 12/13/23 10:59 Total Protein 6.2 g/dL (6.3-8.2) L 12/13/23 10:59 Albumin 3.9 g/dL (3.5-5.0) 12/13/23 10:59 TSH 1.490 mIU/L (0.465-4.680) 12/13/23 10:59 Urine Opiates Screen Not Detected (NotDetected) 12/12/23 16:12 Ur Oxycodone Screen Not Detected (NotDetected) 12/12/23 16:12 Urine Methadone Screen Not Detected (NotDetected) 12/12/23 16:12 Ur Barbiturates Screen Not Detected (NotDetected) 12/12/23 16:12 Valproic Acid 81.3 ug/mL 12/23/23 07:06 U Tricyclic Antidepress Not Detected (NotDetected) 12/12/23 16:12 Ur Phencyclidine Scrn Not Detected (NotDetected) 12/12/23 16:12 Ur Amphetamines Screen Not Detected (NotDetected) 12/12/23 16:12 U Methamphetamines Scrn Not Detected (NotDetected) 12/12/23 16:12 U Benzodiazepines Scrn Not Detected (NotDetected) 12/12/23 16:12 Urine Cocaine Screen Not Detected (NotDetected) 12/12/23 16:12 U Marijuana (THC) Screen Not Detected (NotDetected) 12/12/23 16:12 SARS-CoV-2 (PCR) Not Detected (Not Detectd) 12/12/23 20:02 Vital Signs Temp 98 F 12/25/23 06:45 Pulse 111 H 12/25/23 08:27 Resp 16 12/25/23 06:45 BP 149/59 12/25/23 08:27 Pulse Ox 98 12/25/23 06:45 FiO2 Intake & Output 12/24/23 12/25/23 12/25/23 18:59 06:59 18:59 Weight 85.275 kg Patient Condition at Discharge: Stable Plan - Discharge Summary Discharge Rx Participant: Yes New Discharge Prescriptions: New Benztropine Mesylate [Cogentin] 0.5 mg PO BID 30 Days #60 tab Divalproex ER [Depakote ER] 1,000 mg PO HS 30 Days #60 tab oxyBUTYnin chloride [Ditropan] 5 mg PO BID 30 Days #60 tab Nicotine Gum (Polacrilex) [Nicorette] 2 mg BUCCAL Q4HR PRN 30 Days #180 pieceofgum PRN Reason: Nicotine Cravings OLANZapine [ZyPREXA] 15 mg PO HS 30 Days #30 tablet fluPHENAZine decanoate [Prolixin Decanoate] 50 mg IM Q14D #1 ml Continue Ibuprofen [Motrin Ib] 200 mg PO DIRECTED PRN PRN Reason: Pain Aspirin EC [Ecotrin Low Dose] 81 mg PO DAILY 30 Days #30 tab Famotidine 20 mg PO BID 30 Days #60 tab Fluticasone Nasal Morton [Flonase Nasal Morton] 1 - 2 spr EA NOSTRIL DAILY #1 ml metFORMIN HCL [Glucophage] 850 mg PO W/SUPPER 30 Days #30 tab lisinopriL [Zestril] 10 mg PO DAILY 30 Days #30 tab Atorvastatin [Lipitor] 20 mg PO HS 30 Days #30 tab Cholecalciferol [Vitamin D3 (125 Mcg = 5000 Iu)] 125 mcg PO DAILY 30 Days #30 tab Discontinued risperiDONE [RisperDAL] 2 mg PO HS risperiDONE [RisperDAL] 1 mg PO DAILY Paliperidone IM [Invega Sustenna] 234 mg IM Q28D traZODone HCL [Desyrel] 100 mg PO HS Discharge Medication List Ibuprofen [Motrin Ib] 200 mg PO DIRECTED PRN 12/12/23 [History] Aspirin EC [Ecotrin Low Dose] 81 mg PO DAILY 30 Days #30 tab 12/25/23 [Rx] Atorvastatin [Lipitor] 20 mg PO HS 30 Days #30 tab 12/25/23 [Rx] Benztropine Mesylate [Cogentin] 0.5 mg PO BID 30 Days #60 tab 12/25/23 [Rx] Cholecalciferol [Vitamin D3 (125 Mcg = 5000 Iu)] 125 mcg PO DAILY 30 Days #30 tab 12/25/23 [Rx] Divalproex ER [Depakote ER] 1,000 mg PO HS 30 Days #60 tab 12/25/23 [Rx] Famotidine 20 mg PO BID 30 Days #60 tab 12/25/23 [Rx] Fluticasone Nasal Morton [Flonase Nasal Morton] 1 - 2 spr EA NOSTRIL DAILY #1 ml 12/25/23 [Rx] Nicotine Gum (Polacrilex) [Nicorette] 2 mg BUCCAL Q4HR PRN 30 Days #180 pieceofgum 12/25/23 [Rx] OLANZapine [ZyPREXA] 15 mg PO HS 30 Days #30 tablet 12/25/23 [Rx] fluPHENAZine decanoate [Prolixin Decanoate] 50 mg IM Q14D #1 ml 12/25/23 [Rx] lisinopriL [Zestril] 10 mg PO DAILY 30 Days #30 tab 12/25/23 [Rx] metFORMIN HCL [Glucophage] 850 mg PO W/SUPPER 30 Days #30 tab 12/25/23 [Rx] oxyBUTYnin chloride [Ditropan] 5 mg PO BID 30 Days #60 tab 12/25/23 [Rx] Follow up Appointment(s)/Referral(s): [facility] [Outside] - 12/28/23 3:30 pm (12/28/2023 3:30PM - 4:30PM ANSON HUANG 01/02/2024 9:30AM - 10:00AM ARIS MARQUEZ ) [facility] [NON-STAFF] - 1 Week Patient Instructions/Handouts: How to Stop Smoking (DC), Depression (DC), Schi zoaffective Disorder (DC), Post Traumatic Stress Disorder (DC) Activity/Diet/Wound Care/Special Instructions: Avoid the use of street drugs and alcohol. Take all medications as prescribed. When you are in need of refills on your medications, please contact your medical provider and/or outpatient psychiatrist/provider to have this done. Please go to your scheduled outpatient appointment for aftercare treatment. If symptoms return or become worse, call the crisis line at and/or go to the nearest emergency room for evaluation. National Suicide Hotline 988. Discharge Disposition: HOME SELF-CARE
[2023-12-25] MEDS: BENZTROPINE 2 MG/2 ML AMP IM ONE (15:55)
--- NOTE | 2023-12-26 11:36 | P.PN ---
Progress Note - Text Progress Note Date: 12/26/23 Interval History: Patient was seen in her room, and agreeable to speak with the blog writer at the [facility]. Patient states today she is feeling quite a bit better. Patient was supposed to be discharged yesterday, however, before she left, she was complaining of his tongue feeling "thick" and her throat closing, and severe stiffness in her legs. Ordered 2mg Cogentin IM for acute EPS symptoms, likely laryngospasm. She states today, she is no longer feeling these symptoms today. Patient is quite pleasant. Patient stated she is eating well, and is going groups. She did claim that she was having a dry mouth since last night. She stated last night, it was hard to initiate sleep, and stay asleep, as she was anxious from not being able to go home. Floor Manager explained to the patient that the side effects she was having could be serious, and to err on the side of caution, she needed to be treated. Patient verbalized understanding. Patient offered no other complaints. At this time patient denies any suicidal/homicidal ideations, intent or plan, Patient denies auditory hallucinations. Denies visual hallucinations and denies any paranoia or delusions. Patient denies any side effects from the medications and has been compliant with meds. MENTAL STATUS EXAM: General Appearance: Patient appears to be stated age is alert, directable, and attempts to cooperate. Patient appears to have fair hygiene and grooming. Behavior: Patient is sitting on the bed with appropriate behavior. Speech: Patient's speech is fluent and nonpressured. improving Mood/Affect: Patient reports their mood is "better", affect is congruent and constricted. Suicidality/Homicidality: Patient denies homicidal ideation. Denies any suicidal ideations intent or plan Perceptions: Patient denies any visual hallucinations and auditory hallucinations Though content/process: There is evidence of any delusional thought content, no paranoia today. Focused on discharge Memory and concentration: improving, alert and oriented x 3, following directions. Judgment and insight: chronically poor/impulsive, mildly improving IMPRESSIONS: schizoaffective disorder Extra Pyramidall Symptoms PTSD nicotine dependance PLAN: -Patient is admitted under involuntary status to [facility]HU for stabilization of psychiatric symptoms and safety. Patient has not signed adult voluntary form or medication consent. Patient is currently on a court order until 8/28/24 -Medications : Prolixin D 50mg changed to every 14 days to ensure compliance, last dose given on 12/18 and next dose will be due on 01/01. Increased Cogentin 1mg po bid scheduled for EPS symptoms, Zypreza 15mg qhs for sleep/mood. decrease Depakote 500mg qhs for mood stabilization/aggression due to patients acute dystonic reactions will decrease dose and observe overnight. -Ativan and Haldol PRN for agitation/aggression -NRT - nicotine patch/gum -SW on board for discharge planning. Encourage patient to participate in groups to work on coping skills. Likely discharge tomorrow back to her home, if EPS symptoms subside
[2023-12-26] MEDS: BENZTROPINE MESYLATE 0.5 MG TAB PO ONE (12:28)
[2023-12-26] MEDS: BENZTROPINE MESYLATE 1 MG TAB PO SCH (20:45)
[2023-12-26] MEDS: DIVALPROEX ER 500 MG TAB.ER.24H PO SCH (20:45)
[2023-12-27] MEDS: diphenhydrAMINE 25 MG CAP PO SCH (10:24)
--- NOTE | 2023-12-27 11:18 | P.PN ---
Progress Note - Text Progress Note Date: 12/27/23 Interval History: Patient was seen in group, and agreeable to speak with the screenplay writer in the [place]. Patient presents with a large rash on her abdomen on the R side near her hip and abdomen, states it appeared yesterday. states that it is non-pruritic. Sr. Strategic Sourcing Manager examined the rash on the right side of her abdomen, quite red, not raised. About the size of football. Possible allergic reaction to the medication. Patient also presents with mildly slurred speech today. Will discontinue cogentin and depak ote, and add benedryl. Patient is focused on discharge, screenplay writer told patient that we can not safely discharge her today due to the rash and slurred speech and possible medication reaction. Patient remains quite pleasant. Patient stated she is eating well, and is going groups. She did claim that she continues having a dry mouth since Sunday. Sr. Strategic Sourcing Manager explained to the patient that the side effects she was having could be serious, and to err on the side of caution, she needed to be treated. Patient verbalized understanding. Patient offered no other complaints. At this time patient denies any suicidal/homicidal ideations, intent or plan, Patient denies auditory hallucinations. Denies visual hallucinations and denies any paranoia or delusions. Patient denies any side effects from the medications and has been compliant with meds. MENTAL STATUS EXAM: General Appearance: Patient appears to be stated age is alert, directable, and attempts to cooperate. Patient appears to have fair hygiene and grooming. Behavior: Patient is sitting on the bed with appropriate behavior. Speech: Patient's speech is fluent and nonpressured. improving, slightly slurred. Mood/Affect: Patient reports their mood is "better", affect is congruent and constricted. Suicidality/Homicidality: Patient denies homicidal ideation. Denies any suicidal ideations intent or plan Perceptions: Patient denies any visual hallucinations and auditory hallucinations Though content/process: There is evidence of any delusional thought content, no paranoia today. Focused on discharge Memory and concentration: improving, alert and oriented x 3, following directions. Judgment and insight: chronically poor/impulsive, mildly improving IMPRESSIONS: schizoaffective disorder Extra-Pyramidal Symptoms PTSD nicotine dependance PLAN: -Patient is admitted under involuntary status to [facility] for stabilization of psychiatric symptoms and safety. Patient has not signed adult voluntary form or medication consent. Patient is currently on a court order until 05/21/24 -Medications : Prolixin D 50mg changed to every 14 days to ensure compliance, will decrease dose to 37.5 mg q14d last dose given on 12/18 and next dose will be due on 01/01. discontinue Cogentin add benedryl 25mg bid for rash with an extra dose of 50 mg now. Zypreza 15mg qhs for sleep/mood. discontinue Depakote as this is possibly the culprit of the rash, will continue to monitor -Ativan and Haldol PRN for agitation/aggression -NRT - nicotine patch/gum -SW on board for discharge planning. Encourage patient to participate in groups to work on coping skills. Likely discharge back home once patient's symptoms improved and patient recovers from the possible allergic reaction.
[2023-12-27] MEDS: diphenhydrAMINE 25 MG CAP PO STA (12:39)
--- NOTE | 2023-12-28 10:17 | P.PN ---
Progress Note - Text Progress Note Date: 12/28/23 Interval History: Patient was seen in group, and agreeable to speak with the teletypewriter installer in the [place]. Patient appears quite pleasant today. She states she is feeling a little anxious, due to wanting to go home. Patient claims that she only slept about 2 hours last night. Patient is having side effects probable to allergic reaction to Depakote. Discontinued depakote yesterday, added benedryl, patients rash on abdomen is less red than yesterday, but still quite large and irritated. Patients speech is no longer slurred. Patient offered no other complaints. Balloon Design Printer spoke with patient about gene site testing after she is discharged, due to the way she metabolizes medications. At this time patient denies any suicidal/homicidal ideations, intent or plan, Patient denies auditory hallucinations. Denies visual hallucinations and denies any paranoia or delusions. Patient denies any side effects from the medications and has been compliant with meds. MENTAL STATUS EXAM: General Appearance: Patient appears to be stated age is alert, directable, and attempts to cooperate. Patient appears to have fair hygiene and grooming. Behavior: Patient is standing, with appropriate behavior. Pleasant Speech: Patient's speech is fluent and nonpressured. improving, mildly Mood/Affect: Patient reports their mood is "better", affect is congruent and constricted. Suicidality/Homicidality: Patient denies homicidal ideation. Denies any suicidal ideations intent or plan Perceptions: Patient denies any visual hallucinations and auditory hallucinations Though content/process: There is evidence of any delusional thought content, no paranoia today. Focused on discharge Memory and concentration: improving, alert and oriented x 3, following directions. Judgment and insight: chronically poor/impulsive, mildly improving IMPRESSIONS: schizoaffective disorder Extra-Pyramidal Symptoms PTSD nicotine dependance PLAN: -Patient is admitted under involuntary status to [facility] for stabilization of psychiatric symptoms and safety. Patient has not signed adult voluntary form or medication consent. Patient is currently on a court order until 05/21/24 -Medications : Prolixin D 37.5 mg q14d next dose will be due on 01/01. benedryl 25mg bid for rash. increase Zypreza 20mg qhs for sleep/mood. add trazodone 50 mg qhs for sleep. likely that depakote was the culprit for the rash, will list as an allergy. -Ativan and Haldol PRN for agitation/aggression -NRT - nicotine patch/gum -SW on board for discharge planning. Encourage patient to participate in groups to work on coping skills. Likely discharge back home once patient's symptoms improved and patient recovers from the possible allergic reaction. possible discharge sunday.
[2023-12-28] MEDS: haloperidoL 5 MG TAB PO PRN (17:12)
[2023-12-28] MEDS: OLANZapine 10 MG TAB PO SCH (20:44)
[2023-12-28] MEDS: traZODone HCL 50 MG TAB PO SCH (20:44)
--- NOTE | 2023-12-29 11:20 | P.PN ---
Progress Note - Text Progress Note Date: 12/29/23 Interval history: Patient was seen wandering the hallways and was directable and agreeable to s peak with fiction writer. Patient has been socializing more, participating in groups. States that she is doing a lot better today, claims that her anxiety movement are improving. She was more logical in her thought process, goal oriented. Alternative Financing Specialist saw patient's rash on her abdomen with a female round kiln drawer today. The rash does appear to be improving mildly since yesterday, she has not endorsing it to be pruritic. She was fairly focused on discharge possibly Sunday, states that she slept better last night, denying any paranoia.. At this time patient denies any suicidal or homicidal ideations intent or plan. Denies any Auditory or visual hallucinations. Patient denies any side effects from the medications and has been compliant with meds. Mental status exam: General Appearance: Patient appears to be mildly overweight, stated age is alert, directable, and cooperative. Behavior: No agitated behavior. Patient is calm and directable, more cooperative Speech: Patient's speech is fluent and nonpressured. Mood/Affect: Mood is improving mildly, affect is congruent and constricted. Suicidality/Homicidality: Patient denies having any suicidal or homicidal ideation intent or plan. Perceptions: Patient denies any auditory or visual hallucinations. Though content/process: There is no evidence of any delusional thought content and thought process is linear and goal-directed. Memory and concentration: AOX3, grossly intact for the purposes of this session Judgment and insight: Chronically poor, improving mildly Assessment/Plan: Continue with current diagnosis. Patient continues to meet criteria for inpatient psychiatric admission for symptom stabilization and safety. Patient will be maintained on current psychotropic medication regimen. Monitor for medication compliance and for any psychotropic medication side effects. Will continue to monitor ongoing response to treatment. Encouraged participation in milieu. likely discharge sunday if patient is improving
[2023-12-30 07:49] VITALS: TEMP 98.8
--- NOTE | 2023-12-30 10:49 | P.PN ---
Progress Note - Text Progress Note Date: 12/30/23 Interval history: Patient was seen wandering the hallways and was directable and agreeable to s peak with television script writer. Patient just took a shower, states that she is doing better today. Has been interacting with others on the unit. Spike Driver saw patient's rash on her abdomen with a female bulk sausage casing tier off today. The rash does appear to be improving mildly since yesterday, she has not endorsing it to be pruritic. She was fairly focused on discharge possibly Sunday, states that she slept better last night, denying any paranoia. At this time patient denies any suicidal or homicidal ideations intent or plan. Denies any Auditory or visual hallucinations. Patient denies any side effects from the medications and has been compliant with meds. Mental status exam: General Appearance: Patient appears to be mildly overweight, stated age is alert, directable, and cooperative. Improving Behavior: No agitated behavior. Patient is calm and directable, more cooperative, improving Speech: Patient's speech is fluent and nonpressured. Mood/Affect: Mood is improving mildly, affect is congruent and constricted. Suicidality/Homicidality: Patient denies having any suicidal or homicidal ideation intent or plan. Perceptions: Patient denies any auditory or visual hallucinations. Though content/process: There is no evidence of any delusional thought content and thought process is linear and goal-directed. More future oriented today. Memory and concentration: AOX3, grossly intact for the purposes of this session Judgment and insight: Chronically poor, improving mildly Assessment/Plan: Continue with current diagnosis. Patient continues to meet criteria for inpatient psychiatric admission for symptom stabilization and safety. Patient will be maintained on current psychotropic medication regimen. Monitor for medication compliance and for any psychotropic medication side effects. Will continue to monitor ongoing response to treatment. Encouraged participation in milieu. likely discharge sunday if patient is improving.
[2023-12-31 08:02] VITALS: BP 120/58; PULSE 50; RESP 16
--- NOTE | 2023-12-31 11:25 | P.DS ---
Providers Date of admission: 12/12/23 22:11 Expected date of discharge: 12/31/23 Attending physician: Mack Dumont MD Consults: 12/12/23 22:13 Consult Physician Routine Consulting Provider: Scott Physician Consult Reason/Comments: H&P Do you want consulting provider notified?: Yes Primary care physician: Stated None - Discharge Diagnosis(es) (1) Schizoaffective disorder, bipolar type Current Visit: No Status: Acute Priority: High (2) Post traumatic stress disorder (PTSD) Current Visit: Yes Status: Acute (3) Extrapyramidal symptom Current Visit: Yes Status: Acute (4) Nicotine dependence Current Visit: Yes Status: Acute (5) Medication adverse effect Current Visit: Yes Status: Acute Priority: Medium Hospital Course: Admission HPI: Admission note was completed by quality analyst/technical writer "angie presented to the hospital on 12/11. as per EPS note, ""HI towards roomate, hasn't taken meds since last hospital d/c, delusions regarding closing the border, president paul, states she has a [place] , house is unsafe b/c of evil spirits are fighting, will onlt speak to "crusaders", appears to be responding to internal stimuli". PG Carole contacted RN prior to seeing pt and she states that she has HI towards her roomate and her roomate was so scared that she barricaded herself from the pt. She was threatening roomate, pre guardian this is not normal behavi or for pt. She also states that she was hallucinating her and would only talk through [place]. She was witnessed asking U to leave because their computers were intervering with her grocery order. She told PG that [facility] was giving her meds with pcp in them. PG is concerned about pt and her well being. She states that she was at [facility] from 10/30 - 12/09. Upon assessment pt was not wanting to speak to anyone from mental health, RN stated discussing medical questions and then she began to speak to RN. Pt was wearing a mask. She states that she is wearing it because the "toxic waste and in waste in the [place]". During assessment pt appeared to be responding to internal stimuli, whispering to self. "I don't want to go upstairs, I don't want to be raped and they just give you drugs to sell on the streets". When talking about her guardian, "I don't have a guardian, I am my own". "Lisa is giving everyone at [facility] blow jobs". RN asked whom Lisa was but she would not answer. She states she hasn't taken the meds since leaving [facility] because "they gave me meds that would kill me, I don't want to go back there". "I am not here for mental health, I am here because the [employer] Crusaders were talking to me". Pt denies SI. When asked if having HI pt clears throat and does not answer the question. When asking about medications she states, "Let me see the list and go over it with my ". No one was present in the room besides RN and she began to look the opposite direction to the wall and talk about her meds. 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 Pt has loose associations and disorganized." Upon todays interview, she states that she was working with the [employer], trying to close things down, but she does not care to di scuss it. She states that there are vampires, but they are invisible. She only hears them. They tell her that she is . Patient claims to have a fair appetite. Patient denies any suicidal or homicidal ideations intent or plan. At this time patient endorses auditory hallucinations, denies visual hallucinations. Patient is tangential, and has flight of ideas. Making bizarre statements about killing cats and her mom. Patient admits to using nicotine." Hospital course: Upon admission to the unit patient was brought in involuntarily and admitted under a active court order for mental health treatment which expires on 05/21/2024. Patient was initially bizarre, responding to internal stimuli, aggressive and loud however with time and treatment she eventually got along well with other patients on the unit and followed unit protocol. Patient was compliant with the medications. Patient was started on Prolixin p.o and increased to dose of 20 mg total per day, she was transitioned onto Prolixin D 50 mg IM q. 14 days, last dose was given on 12/18. Due to patient's sudden onset of EPS symptoms, made the decision to decrease Prolixin D dose to 37.5 mg IM q. 14 days, next dose will be given at [facility] on 01/01. Benadryl 25 mg twice daily scheduled for EPS symptoms/allergy, Zyprexa increased to dose of 20 mg nightly for sleep/mood/psychosis, Depakote was started however patient did develop a significant rash on her abdomen, it was examined and Depakote was believed to be the culprit. it was discontinued and treated with Benadryl and patient improved.Trazodone 50 mg nightly for sleep/mood was added. Patient spoke of her stressors and engaged in therapy both group and individual. Patient was also seen by medical team for history and physical exam. Throughout the course of the hospitalization patient gradually improved with regards to mood, anxiety, psychosis, aggression, sleep and returned back to their baseline level of functioning. On the day of discharge patient denied any suicidal or homicidal ideations intent or plan denied any auditory or visual hallucinations. Patient endorsed wanting to live for her future and health. The patient denied any access to guns or weapons. Patient denied any paranoia and did not endorse any delusions. Patient does not have a significant history of substance abuse and was counseled on abstaining from all substances including alcohol and marijuana. Patient was also counseled on the medications and need for regular compliance and was encouraged to follow-up with their outpatient appointment for mental health and also for primary care. Patient will be followed and monitored closely by [facility], she will be referred to either the next step program Mental status exam: General Appearance: Patient appears to be stated age is alert, pleasant, and cooperative. Patient is in no acute distress and has improved hygiene and grooming Behavior: Patient is calmly seated without any agitated behavior. Attempts to cooperate Speech: Patient's speech is fluent and nonpressured. Mood/Affect: Patient reports their mood is "good", affect is congruent Suicidality/Homicidality: Patient denies having any suicidal or homicidal ideation intent or plan. Perceptions: Patient denies any auditory or visual hallucinations. Though content/process: There is no evidence of any delusional thought content and thought process is linear and goal-directed. Memory and concentration: AOX3, grossly intact for the purposes of this session. Can spell "WORLD" backwards correctly. Judgment and insight: Chronically poor, however has improved with guarded prognosis Impression: schizoaffective disorder Extrapyramidal Symptoms medication adverse effect PTSD nicotine dependance Plan: -Continue with discharge today as patient has improved and stabilized psychiatrically and is not currently an imminent threat to herself and/or others. Patient will remain at chronically elevated risk for harm to self and/or others due to her chronic mental illness. -Continue medications: Prolixin D 50 mg IM was given on 12/18, the dose was decreased down to 37.5 mg q. 14 days, next dose will be given at [facility] on 01/01. Benadryl 25 mg mg twice daily scheduled for EPS symptoms/allergy symptoms, Zyprexa 20 mg nightly for sleep/mood stabilization/psychosis, trazodone 50 mg nightly for insomnia/mood. -Patient was counseled on the need for medication compliance and appropriate follow-up at mental health and also primary care for medical issues. Patient verbalized understanding and agreed. -Social work to help coordinate patient's discharge today back home. Social work also to arrange for patients follow up appointments with [facility] for psychiatric care along with follow up with primary care provider. Patient will be continued to be monitored closely by next step program through [facility]. -Patient counseled on abstaining from recreational drugs and marijuana and alcohol. Was informed/educated on the adverse effects on their physical and mental health. Patient verbally agreed and understood. -Patient was instructed to return to the hospital or seek immediate medical care if their psychiatric or medical symptoms do worsen or reoccur. Allergies Allergy/AdvReac Type Severity Reaction Status Date / Time codeine Allergy Unknown Verified 12/12/23 21:27 divalproex sodium Allergy Rash/Hives Verified 12/28/23 10:17 From Depakote adhesive AdvReac Intermediate Rash/Hives Verified 12/12/23 21:27 Laboratory Results WBC 8.0 k/uL (3.8-10.6) 12/13/23 10:59 RBC 4.94 m/uL (3.80-5.40) 12/13/23 10:59 Hgb 13.8 gm/dL (11.4-16.0) 12/13/23 10:59 Hct 42.3 % (34.0-46.0) 12/13/23 10:59 MCV 85.8 fL (80.0-100.0) 12/13/23 10:59 MCH 28.0 pg (25.0-35.0) 12/13/23 10:59 MCHC 32.6 g/dL (31.0-37.0) 12/13/23 10:59 RDW 14.3 % (11.5-15.5) 12/13/23 10:59 Plt Count 176 k/uL (150-450) 12/13/23 10:59 MPV 8.9 12/13/23 10:59 Neutrophils % 66 % 12/13/23 10:59 Lymphocytes % 25 % 12/13/23 10:59 Monocytes % 6 % 12/13/23 10:59 Eosinophils % 1 % 12/13/23 10:59 Basophils % 1 % 12/13/23 10:59 Neutrophils # 5.3 k/uL (1.3-7.7) 12/13/23 10:59 Lymphocytes # 2.0 k/uL (1.0-4.8) 12/13/23 10:59 Monocytes # 0.5 k/uL (0-1.0) 12/13/23 10:59 Eosinophils # 0.1 k/uL (0-0.7) 12/13/23 10:59 Basophils # 0.1 k/uL (0-0.2) 12/13/23 10:59 Sodium 139 mmol/L (137-145) 12/13/23 10:59 Potassium 4.5 mmol/L (3.5-5.1) 12/13/23 10:59 Chloride 106 mmol/L (98-107) 12/13/23 10:59 Carbon Dioxide 26 mmol/L (22-30) 12/13/23 10:59 Anion Gap 7 mmol/L 12/13/23 10:59 BUN 11 mg/dL (7-17) 12/13/23 10:59 Creatinine 0.55 mg/dL (0.52-1.04) 12/13/23 10:59 Est GFR (CKD-EPI)AfAm >90 (>60 ml/min/1.73 sqM) 12/13/23 10:59 Est GFR (CKD-EPI)NonAf >90 (>60 ml/min/1.73 sqM) 12/13/23 10:59 Glucose 97 mg/dL (74-99) 12/13/23 10:[address] Glu mg/dL 128 mg/dL 12/13/23 10:59 Hemoglobin A1c 6.1 % (<=6.0) H 12/13/23 10:59 Calcium 9.5 mg/dL (8.4-10.2) 12/13/23 10:59 Total Bilirubin 0.4 mg/dL (0.2-1.3) 12/13/23 10:59 AST 23 U/L (14-36) 12/13/23 10:59 ALT 22 U/L (4-34) 12/13/23 10:59 Alkaline Phosphatase 70 U/L (38-126) 12/13/23 10:59 Total Protein 6.2 g/dL (6.3-8.2) L 12/13/23 10:59 Albumin 3.9 g/dL (3.5-5.0) 12/13/23 10:59 TSH 1.490 mIU/L (0.465-4.680) 12/13/23 10:59 Urine Opiates Screen Not Detected (NotDetected) 12/12/23 16:12 Ur Oxycodone Screen Not Detected (NotDetected) 12/12/23 16:12 Urine Methadone Screen Not Detected (NotDetected) 12/12/23 16:12 Ur Barbiturates Screen Not Detected (NotDetected) 12/12/23 16:12 Valproic Acid 81.3 ug/mL 12/23/23 07:06 U Tricyclic Antidepress Not Detected (NotDetected) 12/12/23 16:12 Ur Phencyclidine Scrn Not Detected (NotDetected) 12/12/23 16:12 Ur Amphetamines Screen Not Detected (NotDetected) 12/12/23 16:12 U Methamphetamines Scrn Not Detected (NotDetected) 12/12/23 16:12 U Benzodiazepines Scrn Not Detected (NotDetected) 12/12/23 16:12 Urine Cocaine Screen Not Detected (NotDetected) 12/12/23 16:12 U Marijuana (THC) Screen Not Detected (NotDetected) 12/12/23 16:12 SARS-CoV-2 (PCR) Not Detected (Not Detectd) 12/12/23 20:02 Vital Signs Temp 98.8 F 12/31/23 07:23 Pulse 50 L 12/31/23 07:23 Resp 16 12/31/23 07:23 BP 120/58 12/31/23 07:23 Pulse Ox 98 12/31/23 07:23 FiO2 Intake & Output 12/30/23 12/31/23 12/31/23 18:59 06:59 18:59 Weight 86.1 kg Patient Condition at Discharge: Stable Plan - Discharge Summary Discharge Rx Participant: Yes New Discharge Prescriptions: New oxyBUTYnin chloride [Ditropan] 5 mg PO BID 30 Days #60 tab Nicotine Gum (Polacrilex) [Nicorette] 2 mg BUCCAL Q4HR PRN 30 Days #180 pieceofgum PRN Reason: Nicotine Cravings traZODone HCL [Desyrel] 50 mg PO HS 30 Days #30 tab fluPHENAZine decanoate [Prolixin Decanoate] 37.5 mg IM Q14D #1 ml diphenhydrAMINE [Benadryl] 25 mg PO BID 30 Days #60 cap OLANZapine [ZyPREXA] 20 mg PO HS 30 Days #60 tab Continue Ibuprofen [Motrin Ib] 200 mg PO DIRECTED PRN PRN Reason: Pain Aspirin EC [Ecotrin Low Dose] 81 mg PO DAILY 30 Days #30 tab Famotidine 20 mg PO BID 30 Days #60 tab Fluticasone Nasal [place] [Flonase Nasal [place]] 1 - 2 spr EA NOSTRIL DAILY #1 ml metFORMIN HCL [Glucophage] 850 mg PO W/SUPPER 30 Days #30 tab lisinopriL [Zestril] 10 mg PO DAILY 30 Days #30 tab Atorvastatin [Lipitor] 20 mg PO HS 30 Days #30 tab Cholecalciferol [Vitamin D3 (125 Mcg = 5000 Iu)] 125 mcg PO DAILY 30 Days #30 tab Discontinued risperiDONE [RisperDAL] 2 mg PO HS risperiDONE [RisperDAL] 1 mg PO DAILY Paliperidone IM [Invega Sustenna] 234 mg IM Q28D traZODone HCL [Desyrel] 100 mg PO HS Discharge Medication List Ibuprofen [Motrin Ib] 200 mg PO DIRECTED PRN 12/12/23 [History] Aspirin EC [Ecotrin Low Dose] 81 mg PO DAILY 30 Days #30 tab 12/25/23 [Rx] Atorvastatin [Lipitor] 20 mg PO HS 30 Days #30 tab 12/25/23 [Rx] Cholecalciferol [Vitamin D3 (125 Mcg = 5000 Iu)] 125 mcg PO DAILY 30 Days #30 tab 12/25/23 [Rx] Famotidine 20 mg PO BID 30 Days #60 tab 12/25/23 [Rx] Fluticasone Nasal [place] [Flonase Nasal [place]] 1 - 2 spr EA NOSTRIL DAILY #1 ml 12/25/23 [Rx] Nicotine Gum (Polacrilex) [Nicorette] 2 mg BUCCAL Q4HR PRN 30 Days #180 pieceof gum 12/25/23 [Rx] lisinopriL [Zestril] 10 mg PO DAILY 30 Days #30 tab 12/25/23 [Rx] metFORMIN HCL [Glucophage] 850 mg PO W/SUPPER 30 Days #30 tab 12/25/23 [Rx] oxyBUTYnin chloride [Ditropan] 5 mg PO BID 30 Days #60 tab 12/25/23 [Rx] OLANZapine [ZyPREXA] 20 mg PO HS 30 Days #60 tab 12/31/23 [Rx] diphenhydrAMINE [Benadryl] 25 mg PO BID 30 Days #60 cap 12/31/23 [Rx] fluPHENAZine decanoate [Prolixin Decanoate] 37.5 mg IM Q14D #1 ml 12/31/23 [Rx] traZODone HCL [Desyrel] 50 mg PO HS 30 Days #30 tab 12/31/23 [Rx] Follow up Appointment(s)/Referral(s): [facility] [Outside] - 01/01/24 11:30 am (01/01/2024 11:30AM - 12:00PM ANSON HUANG 01/02/2024 9:30AM - 10:00AM ARIS MARQUEZ ) [facility] - 1 Week Patient Instructions/Handouts: How to Stop Smoking (DC), Depression (DC), Schizoaffective Disorder (DC), Post Traumatic Stress Disorder (DC) Activity/Diet/Wound Care/Special Instructions: Avoid the use of street drugs and alcohol. Take all medications as prescribed. When you are in need of refills on your medications, please contact your medical provider and/or outpatient psychiatrist/provider to have this done. Please go to your scheduled outpatient appointment for aftercare treatment. If symptoms return or become worse, call the crisis line at and/or go to the nearest emergency room for evaluation. National Suicide Hotline 988. Discharge Disposition: HOME SELF-CARE
[2024-01-02] MEDS ORDERED: fluPHENAZine DECANOATE 25 MG/ML 5ML MDV IM SCH ×2 (09:00→10:00)
== END 2023-12-31 13:28 | disposition home or self-care (01) | DRG 885 ==
LOC: EC 15:15 → 3MHU 22:11
PROVIDERS: ADMIT Psychiatry & Neurology Psychiatry; ATTEND Psychiatry & Neurology Psychiatry
DX: F25.0 Schizoaffective disorder, bipolar type (principal); G25.9 Extrapyramidal and movement disorder, unspecified; Z65.3 Problems related to other legal circumstances; R73.03 Prediabetes; T42.6X5A Adverse effect of other antiepileptic and sedative-hypnotic drugs, initial encounter; K21.9 Gastro-esophageal reflux disease without esophagitis; R68.2 Dry mouth, unspecified; E78.5 Hyperlipidemia, unspecified; L27.1 Localized skin eruption due to drugs and medicaments taken internally; R51.9 Headache, unspecified; R47.81 Slurred speech; F17.200 Nicotine dependence, unspecified, uncomplicated; F43.10 Post-traumatic stress disorder, unspecified; G40.909 Epilepsy, unspecified, not intractable, without status epilepticus; N32.81 Overactive bladder; R32 Unspecified urinary incontinence; Z79.82 Long term (current) use of aspirin; Z79.84 Long term (current) use of oral hypoglycemic drugs; Z79.899 Other long term (current) drug therapy; Z82.49 Family history of ischemic heart disease and other diseases of the circulatory system; Z91.148 Patient's other noncompliance with medication regimen for other reason; Z88.5 Allergy status to narcotic agent; Z11.52 Encounter for screening for COVID-19; Z71.3 Dietary counseling and surveillance
CPT/HCPCS: 80053; 80164; 80306; 82075; 83036; 84443; 85025; 87635; 99285

== ENCOUNTER 2024-01-21 14:20 | Inpatient (IN) | payer MEDICARE, MEDICAID ==
--- NOTE | 2024-01-21 14:48 | ED ---
Psych HPI - General Source: patient, RN notes reviewed, old records reviewed Mode of arrival: ambulatory <Tra Sood - Last Filed: 01/21/24 14:48> - General Source: patient, RN notes reviewed, old records reviewed <Micky Parker - Last Filed: 01/21/24 19:57> - General Chief Complaint: Psychiatric Symptoms Stated Complaint: Mental Health Time Seen by Provider: 01/21/24 15:10 - History of Present Illness Initial Comments: 53 female to the ED on court order picker/assembler order for psychiatric evaluation, not on meds. (Tra Sood) Patient is a 53-year-old female with known psych history presents as a court ordered pickup for not taking her psychiatric medications. Patient states she no longer needs them. She was cooperative talking with me but otherwise states she does not want to be admitted to inpatient psych. Does not think she needs her medications. Denies any chest pain or shortness of breath. Has no other acute complaints at this time. Denies any suicidal or homicidal ideations, times complaints. Denies any hallucinations. Patient has a court ordered petition. Here for psychiatric evaluation. (Micky Parker) - Related Data Previous Rx's Medication Instructions Recorded fluPHENAZine decanoate [Prolixin 37.5 mg IM Q14D #1 ml 12/31/23 Decanoate] Allergies Allergy/AdvReac Type Severity Reaction Status Date / Time codeine Allergy Unknown Verified 01/21/24 15:07 divalproex sodium Allergy Rash/Hives Verified 01/21/24 15:07 [From Depakote] adhesive AdvReac Intermediate Rash/Hives Verified 01/21/24 15:07 Review of Systems ROS Other: All systems not noted in ROS Statement are negative. <Tra Sood - Last Filed: 01/21/24 14:48> ROS Other: All systems not noted in ROS Statement are negative. <Micky Parker - Last Filed: 01/21/24 19:57> ROS Statement: Those systems with pertinent positive or pertinent negative responses have been documented in the HPI. Review of Systems: CONST: Denies fever EYES: Denies blurry vision ENT: Denies nasal congestion C/V: Denies Chest pain RESP: Denies shortness of breath GI: Denies abdominal pain : Denies dysuria SKIN: Denies rash. MSK: Denies joint pain. NEURO: Denies headache (Micky Parker) Past Medical History Past Medical History: GERD/Reflux, Hyperlipidemia, Hypertension, Seizure Disorder Additional Past Medical History / Comment(s): pre diabetes, GERD History of Any Multi-Drug Resistant Organisms: None Reported Past Surgical History: Tubal Ligation Past Anesthesia/Blood Transfusion Reactions: No Reported Reaction, Unable to Obtain Past Psychological History: Anxiety, Bipolar, Depression, Schizophrenia Smoking Status: Current every day smoker Past Alcohol Use History: None Reported Past Drug Use History: Marijuana - Past Family History Mother Family Medical History: Hyperlipidemia Family Family Medical History: Coronary Artery Disease (CAD) <Tra Sood - Last Filed: 01/21/24 14:48> General Exam Limitations: no limitations General appearance: alert, in no apparent distress Head exam: Present: atraumatic, normocephalic, normal inspection Eye exam: Present: normal appearance, PERRL, EOMI. Absent: scleral icterus, conjunctival injection, periorbital swelling ENT exam: Present: normal exam, mucous membranes moist Neck exam: Present: normal inspection. Absent: tenderness, meningismus, lymphadenopathy Respiratory exam: Present: normal lung sounds bilaterally. Absent: respiratory distress, wheezes, rales, rhonchi, stridor Cardiovascular Exam: Present: regular rate, normal rhythm, normal heart sounds. Absent: systolic murmur, diastolic murmur, rubs, gallop, clicks GI/Abdominal exam: Present: soft, normal bowel sounds. Absent: distended, tenderness, guarding, rebound, rigid Extremities exam: Present: normal inspection, full ROM, normal capillary refill. Absent: tenderness, pedal edema, joint swelling, calf tenderness Back exam: Present: normal inspection Neurological exam: Present: alert, oriented X3, CN II-XII intact Psychiatric exam: Present: normal affect, normal mood Skin exam: Present: warm, dry, intact, normal color. Absent: rash <Tra Sood - Last Filed: 01/21/24 14:48> <Micky Parker - Last Filed: 01/21/24 19:57> - General Exam Comments Initial Comments: General: Appears in no acute distress. HEAD: Normal with no signs of head trauma. EYES: PERRLA, EOMI ENT: Hearing grossly intact, normal oropharynx. RESPIRATORY: Clear breath sounds bilaterally. No wheezes, rales, or rhonchi. C/V: Regular rate and rhythm. S1 and S2 auscultated ABD: Abd is soft, nontender, nondistended EXT: no obvious deformity SKIN: No rashes or lesions observed on exposed skin. NEURO: Alert and oriented x 4. (Micky Parker) Course <Tra Sood - Last Filed: 01/21/24 14:48> Vital Signs 01/21/24 14:43 Temperature 97.8 F Pulse Rate 95 Respiratory 18 Rate Blood Pressure 139/81 O2 Sat by Pulse 97 Oximetry - Reevaluation(s) Reevaluation #1: 01/21/24 14:48 QN completed by myself Dr Sood (Tra Sood) Medical Decision Making <Micky Parker - Last Filed: 01/21/24 19:57> - Medical Decision Making Was pt. sent in by a medical professional or institution (, PA, NUCLEAR CONTROL OPERATOR, urgent care, hospital, or retirement...) When possible be specific @ -Sent by court for psychiatric evaluation Did you speak to anyone other than the patient for history (EMS, parent, family, police, friend...)? What history was obtained from this source @ -No Did you review nursing and triage notes (agree or disagree)? Why? @ -I reviewed and agree with nursing and triage notes Were old charts reviewed (outside hosp., previous admission, EMS record, old EKG, old radiological studies, urgent care reports/EKG's, retirement records)? Report findings @ -Old charts reviewed Differential Diagnosis (chest pain, altered mental status, abdominal pain women, abdominal pain men, vaginal bleeding, weakness, fever, dyspnea, syncope, headache, dizziness, GI bleed, back pain, seizure, CVA, palpatations, mental health, musculoskeletal)? @ -Differential Mental Health Depression, anxiety, bipolar, psychosis, schizophrenia, borderline personality, situational depression, adjustment disorder, behavioral disorder, brain tumor, malingering, substance abuse, encephalopathy, medication reaction, dementia, hypothyroidism, degenerative neurologic disorder, lupus.... This is not meant to be all-inclusive list EKG interpreted by me (3pts min.). @ -None done X-rays interpreted by me (1pt min.). @ -None done CT interpreted by me (1pt min.). @ -None done U/S interpreted by me (1pt. min.). @ -None done What testing was considered but not performed or refused? (CT, X-rays, U/S, labs)? Why? @ -None What meds were considered but not given or refused? Why? @ -None Did you discuss the management of the patient with other professionals (professionals i.e. , PA, NUCLEAR CONTROL OPERATOR, lab, RT, psych nurse, drug abuse social worker, coordinate measuring equipment operator, teacher, strike operations officer, pillowcase folder)? Give summary @ -EPS notified of the consult. Was smoking cessation discussed for >3mins.? @ -No Was critical care preformed (if so, how long)? @ -No Were there social determinants of health that impacted care today? How? (Homelessness, low income, unemployed, alcoholism, drug addiction, transportation, low edu. Level, literacy, decrease access to med. care, skilled nursing, rehab)? @ -No Was there de-escalation of care discussed even if they declined (Discuss DNR or withdrawal of care, Hospice)? DNR status @ -No What co-morbidities impacted this encounter? (DM, HTN, Smoking, COPD, CAD, Cancer, CVA, ARF, Chemo, Hep., AIDS, mental health diagnosis, sleep apnea, morbid obesity)? @ -None Was patient admitted / discharged? Hospital course, mention meds given and route, prescriptions, significant lab abnormalities, going to OR and other pertinent info. @ -Based on patient's presentation and physical exam, presents for psychiatric evaluation. Court ordered petition. Sitter ordered. BAT is 0. UDS is pending. Vital signs are within acceptable limits. At this time, patient is medically cleared for evaluation by psychiatry. Disposition pending psychiatric evaluation. EPS notified of the consult. EPS evaluated the patient. Determined that she does meet inpatient criteria. Patient will be admitted to inpatient psychiatry. Clinical certificate completed by myself. Undiagnosed new problem with uncertain prognosis? @ -No Drug Therapy requiring intensive monitoring for toxicity (Heparin, Nitro, Insulin, Cardizem)? @ -No Were any procedures done? @ -No Diagnosis/symptom? @ -Acute psychosis Acute, or Chronic, or Acute on Chronic? @ -Acute Uncomplicated (without systemic symptoms) or Complicated (systemic symptoms)? @ -Complicated Side effects of treatment? @ -None Exacerbation, Progression, or Severe Exacerbation] @ -No Poses a threat to life or bodily function? @ -Yes (Micky Parker) - Lab Data Lab Results 01/21/24 Range/Units 15:21 Urine Opiates Screen Not Detected (NotDetected) Ur Oxycodone Screen Not Detected (NotDetected) Urine Methadone Screen Not Detected (NotDetected) Ur Barbiturates Screen Not Detected (NotDetected) U Tricyclic Antidepress Not Detected (NotDetected) Ur Phencyclidine Scrn Not Detected (NotDetected) Ur Amphetamines Screen Not Detected (NotDetected) U Methamphetamines Scrn Not Detected (NotDetected) U Benzodiazepines Scrn Not Detected (NotDetected) Urine Cocaine Screen Not Detected (NotDetected) U Marijuana (THC) Screen Not Detected (NotDetected) Disposition <Tra Sood - Last Filed: 01/21/24 14:48> Time of Disposition: 15:40 <Micky Parker - Last Filed: 01/21/24 19:57> Clinical Impression: Acute psychosis Disposition: TRANSFER TO PSYCH HOSP/UNIT Condition: Stable Referrals: None,Stated [Primary Care Provider] - 1-2 days
[2024-01-21 16:47] LABS: Amphetamine Screen,Urine Not Detected (NotDetected); Barbiturate Screen,Urine Not Detected (NotDetected); Benzodiazepines Screen,Urine Not Detected (NotDetected); Cocaine Screen,Urine Not Detected (NotDetected); Methadone Screen, Urine Not Detected (NotDetected); Opiate Screen,Urine Not Detected (NotDetected); Oxycodone Screen, Urine Not Detected (NotDetected); Phencyclidine Screen,Urine Not Detected (NotDetected); Tricyclic Antidepressant,Urine Not Detected (NotDetected); Urn Cannabinoid Scrn Not Detected (NotDetected)
[2024-01-21] MEDS ORDERED: ACETAMINOPHEN TAB 325 MG TAB PO PRN (23:41)
[2024-01-21] MEDS ORDERED: LORazepam 2 MG/ML INJ IM PRN (23:41)
[2024-01-21] MEDS ORDERED: IBUPROFEN 600 MG TAB PO PRN (23:41)
[2024-01-21] MEDS ORDERED: LORazepam 1 MG TAB PO PRN (23:41)
[2024-01-21] MEDS ORDERED: MAG HYDROX/AL HYDROX/SIMETH 355 ML BOTTLE PO PRN (23:41)
[2024-01-21] MEDS ORDERED: MAGNESIUM HYDROXIDE 2,400 MG/30 ML CUP PO PRN (23:41)
[2024-01-22 02:13] LABS: Appearance,Urine Clear (Clear); Bilirubin,Urine Negative (Negative); Blood,Urine Trace (Negative); Color,Urine Colorless; Glucose,Urine (UA) Negative (Negative); Ketones,Urine Negative (Negative); Leukocyte Esterase,Urine Negative (Negative); Nitrite,Urine Negative (Negative); PH, Urine 5.5 (5.0-8.0); Protein,Urine Negative (Negative); RBC,Urine 1 /hpf (0-5); Specific Gravity,Urine 1.002 (1.001-1.035); Urobilinogen,Urine <2.0 mg/dL (<2.0); WBC,Urine <1 /hpf (0-5)
[2024-01-22] MEDS: ASPIRIN 81 MG PO SCH (10:26)
[2024-01-22] MEDS: oxyBUTYnin chloride 5 MG TAB PO SCH (10:27)
[2024-01-22] MEDS: metFORMIN 850 MG TAB PO SCH (10:27)
[2024-01-22] MEDS: lisinopriL 10 MG TAB PO SCH (10:27)
[2024-01-22] MEDS: FAMOTIDINE 20 MG TAB PO SCH (10:27)
[2024-01-22] MEDS: CHOLECALCIFEROL 125 MCG (5000 IU) TABLET PO SCH (10:28)
[2024-01-22] MEDS: NICOTINE 21MG/24HR PATCH TRANSDERM SCH (11:09)
[2024-01-22] MEDS ORDERED: flUPHENAZine 2.5 MG/ML (MDV) 10 ML VIAL IM PRN (11:50)
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
[2024-01-22] MEDS: fluPHENAZine DECANOATE 25 MG/ML 5ML MDV IM SCH ×2 (12:08→12:25)
[2024-01-22] MEDS: traZODone HCL 100 MG TAB PO SCH (21:29)
[2024-01-22] MEDS: ATORVASTATIN 20 MG TAB PO SCH (21:29)
--- NOTE | 2024-01-23 03:26 | P.CONS ---
History of Present Illness - Reason for Consult Consult date: 01/22/24 - History of Present Illness The patient is a 53-year-old female who had presented to the emergency room after a court ordered pickup for psychiatric evaluation. The patient had reportedly not been taking her medications. She was admitted to the mental health unit where she was seen and evaluated accompanied by mental health unit RN. Patient reports that her friend had petitioned her as she was acting strangely. At time of interview, she complained of feeling as though she was swollen everywhere. She reports smoking 1 pack of cigarettes daily. Denied alcohol or illicit substance use. Denied experiencing chest discomfort, shortness of breath, fever, chills, cough, nausea, vomiting, abdominal pain, diarrhea. Review of systems: Pertinent positives and negatives as discussed in HPI, a complete review of syst ems was performed and all other systems are negative. Physical examination: General: non toxic, no distress, appears at stated age, normal weight Derm: no unusual rashes/lesions, no unusual ecchymoses, warm, dry Head: atraumatic, normocephalic, symmetric Eyes: EOMI, no lid lag, anicteric sclera ENT: Nose and ears atraumatic, no thrush, no pharyngeal erythema Neck: trachea midline, supple Mouth: no lip lesion, mucus membranes moist Cardiovascular: S1S2 reg, no murmur, no edema Lungs: CTA bilateral, no rhonchi, no rales , no accessory muscle use Abdominal: soft, nontender to palpation, no guarding Ext: no gross muscle atrophy, no contractures, Neuro: No gross focal neuro deficits noted Psych: Alert, oriented, appropriate affect Assessment: Psychosis Tobacco abuse Imaging: None performed Data Review: Laboratory evaluation with UA and urine toxicology unremarkable Plan: Defer management of psychosis to primary psychiatry service Advised on the importance of cessation from tobacco abuse Thank you for allowing us to participate in the care of this patient. We will follow peripherally. Do not hesitate to contact us with questions. Someone can be reached from the [facility] [place] hospitalist group at all hours of the day at [phone]. Past Medical History Past Medical History: GERD/Reflux, Hyperlipidemia, Hypertension, Seizure Disorder Additional Past Medical History / Comment(s): pre diabetes, GERD History of Any Multi-Drug Resistant Organisms: None Reported Past Surgical History: Tubal Ligation Past Anesthesia/Blood Transfusion Reactions: No Reported Reaction Past Psychological History: Anxiety, Bipolar, Depression, Schizophrenia Smoking Status: Current every day smoker Past Alcohol Use History: None Reported Past Drug Use History: Marijuana - Past Family History Mother Family Medical History: Hyperlipidemia Family Family Medical History: Coronary Artery Disease (CAD) Medications and Allergies Home Medications Medication Instructions Recorded Confirmed Type fluPHENAZine decanoate [Prolixin 37.5 mg IM Q14D #1 ml 12/31/23 01/21/24 Rx Decanoate] Aspirin [Adult Low Dose Aspirin EC] 81 mg PO DAILY 01/21/24 01/21/24 History Atorvastatin [Lipitor] 20 mg PO HS 01/21/24 01/21/24 History Cholecalciferol (Vitamin D3) 125 mcg PO DAILY 01/21/24 01/21/24 History [Vitamin D3 (125 MCG = 5,000 IU)] Famotidine 20 mg PO BID 01/21/24 01/21/24 History Nicotine Polacrilex [Nicotine Gum] 2 mg PO Q4HR PRN 01/21/24 01/21/24 History lisinopriL [Zestril] 10 mg PO DAILY 01/21/24 01/21/24 History metFORMIN HCL [Glucophage] 850 mg PO DAILY 01/21/24 01/21/24 History oxyBUTYnin chloride 5 mg PO BID 01/21/24 01/21/24 History traZODone HCL 100 mg PO HS 01/21/24 01/21/24 History Allergies Allergy/AdvReac Type Severity Reaction Status Date / Time codeine Allergy Unknown Verified 01/21/24 15:07 divalproex sodium Allergy Rash/Hives Verified 01/21/24 15:07 [From Depakote] adhesive AdvReac Intermediate Rash/Hives Verified 01/21/24 15:07 Physical Exam Vitals: Vital Signs Temp Pulse Pulse Resp BP BP Pulse Ox 01/22/24 00:46 98.2 F 79 18 95/51 95 01/22/24 00:07 98.8 F 71 18 113/70 96 Results Labs: Abnormal Lab Results - Last 24 Hours (Table) 01/21/24 Range/Units 15:21 Urine Blood Trace H (Negative)
--- NOTE | 2024-01-23 11:12 | P.PN ---
Progress Note - Text Progress Note Date: 01/23/24 Interval History: Patient was seen in her room and was directable and agreeable to speak with wr iter at the bedside. Patient states she feels "like shit" and that her kidneys and bladder are on fire. continues to endosrse delusions loosely formed and also continues to beleive that she does not have a mental illness or need medications. she was turned over on the side the whole interview and did not look at writer technical publications. [facility] Provider reviewed UA sample given in the ED, no infection noted. States her sleep was up and down, and that she sleeps good at home. She claims to have no appetite. At this time patient denies any suicidal or homicidal ideations, intent or plan. Patient denies any auditory, visual hallucinations. Patient denies any side effects from the medications and has been compliant with meds. MENTAL STATUS EXAM: General Appearance: Patient appears to be stated age is alert, cooperative. She has a shaved head. Patient appears to have poor hygiene and grooming. Behavior: Patient is seated without any agitated behavior. bizarre, impulsive, evasive, mildly improving Speech: Patient's speech is fluent and nonpressured. concrete Mood/Affect: Patient reports their mood is fine, affect is congruent and constricted. Suicidality/Homicidality: Patient denies having any homicidal ideation intent or plan. Denies any suicidal ideations intent or plan Perceptions: Patient denies any visual hallucinations and admits to auditory hallucinations. Though content/process: There is evidence of any delusional thought content Patient making bizarre statement, does not want to take medications. Memory and concentration: Alert and oriented x 4, Judgment and insight:chronically poor/impulsive, improving mildly IMPRESSIONS: schizoaffective disorder Nonadherence to medications History of PTSD nicotine dependance PLAN: -Patient is admitted under involuntary status to [facility] for stabilization of psychiatric symptoms and safety. Patient has not signed adult voluntary form or medication consent. Patient is currently on a court order until 05/21/24 -Medications : given Prolixin-D 37.5 mg IM 01/21, next dose will be due on 02/04, patient is court ordered therefore required to take the injection. Trazodone 100mg po qhs for sleep/mood -Order CBC with Diff, as well as CMP in am -Ativan and Prolixin PRN for agitation/aggression -NRT - nicotine patch -SW on board for discharge planning. Encourage patient to participate in groups to work on coping skills. Patient is currently on a court order which expires on 05/21/2024. hopeful for discharge sunday if patient is improving psychiatrically.
[2024-01-23] MEDS: NICOTINE GUM (POLACRILEX) 2 MG GUM BUCCAL PRN (15:08)
[2024-01-24 08:25] LABS: Basophils % (A) 1 %; Eosinophils # (A) 0.3 k/uL (0-0.7); Eosinophils % (A) 5 %; HCT 42.3 % (34.0-46.0); HGB 13.4 gm/dL (11.4-16.0); Lymphocytes # (A) 2.1 k/uL (1.0-4.8); Lymphocytes % (A) 35 %; MCH 27.7 pg (25.0-35.0); MCHC 31.8 g/dL (31.0-37.0); MCV 87.2 fL (80.0-100.0); Mean Platelet Volume 8.3; Monocytes # (A) 0.3 k/uL (0-1.0); Monocytes % (A) 5 %; Neutrophils # (A) 3.3 k/uL (1.3-7.7); Neutrophils % (A) 53 %; Platelet Count 185 k/uL (150-450); RBC 4.85 m/uL (3.80-5.40); RDW 15.6 % (11.5-15.5); WBC 6.2 k/uL (3.8-10.6)
[2024-01-24 09:08] LABS: ALT 23 U/L (4-34); AST 20 U/L (14-36); African American GFR (CKD) >90 (>60 ml/min/1.73 sqM); Albumin 3.5 g/dL (3.5-5.0); Alkaline Phosphatase 67 U/L (38-126); Anion Gap 5 mmol/L; Blood Urea Nitrogen 12 mg/dL (7-17); Calcium 9.3 mg/dL (8.4-10.2); Carbon Dioxide 24 mmol/L (22-30); Chloride 110 mmol/L (98-107); Glucose 89 mg/dL (74-99); Non-African American GFR(CKD) >90 (>60 ml/min/1.73 sqM); Potassium 4.4 mmol/L (3.5-5.1); Sodium 139 mmol/L (137-145); Total Bilirubin 0.7 mg/dL (0.2-1.3); Total Protein 5.8 g/dL (6.3-8.2)
--- NOTE | 2024-01-24 10:12 | P.PN ---
Progress Note - Text Progress Note Date: 01/24/24 Interval History: Patient was seen in group and was directable and agreeable to speak with parts data writer in the office. Patient states that she is feeling much better today, and seems to be much more mentally clear. seems more organized today in her thought process. Patient states she slept well last night, and her appetite is improving. Patient is still endorsing positive auditory hallucinations claiming that she can hear people talking to her that arent there however this is improving compared to yesterday. At this time patient denies any suicidal or homicidal ideations, intent or plan. Patient denies any visual hallucinations. Patient denies any side effects from the medications and has been compliant with meds. MENTAL STATUS EXAM: General Appearance: Patient appears to be stated age is alert, cooperative. She has a shaved head. Patient appears to have adequate hygiene and grooming. Behavior: Patient is seated without any agitated behavior. more cooperative today Speech: Patient's speech is fluent and nonpressured. Mood/Affect: Patient reports their mood is much better, affect is congruent and constricted. improving mildly Suicidality/Homicidality: Patient denies having any homicidal ideation intent or plan. Denies any suicidal ideations intent or plan Perceptions: Patient denies any visual hallucinations and admits to auditory hallucinations. Though content/process: There is no evidence of any delusional thought content. Memory and concentration: Alert and oriented x 4, Judgment and insight:chronically poor/impulsive, improving mildly IMPRESSIONS: schizoaffective disorder Nonadherence to medications History of PTSD nicotine dependance PLAN: -Patient is admitted under involuntary status to [facility] for stabilization of psychiatric symptoms and safety. Patient has not signed adult voluntary form or medication consent. Patient is currently on a court order until 05/21/24 -Medications : given Prolixin-D 37.5 mg IM 01/21, next dose will be due on 02/04, patient is court ordered therefore required to take the injection. Trazodone 100mg po qhs for sleep/mood add Prolixin 3mg daily po for psychosis for another 4 days to allow for bridging back to [facility]. -Ativan and Prolixin PRN for agitation/aggression -NRT - nicotine patch -SW on board for discharge planning. Encourage patient to participate in groups to work on coping skills. Patient is currently on a court order which expires on 05/21/2024. hopeful for discharge sunday if patient is improving psychiatrically.
--- NOTE | 2024-01-25 11:35 | P.PN ---
Progress Note - Text Progress Note Date: 01/25/24 Interval History: Patient was seen in her room and was directable and agreeable to speak with wr iter at the bedside. Patient states that she is feeling good today, and she is more organized today in her thought process. Patient states she slept well last night, and her appetite is good. Patient is no longer endorsing auditory hallucinations. she was very pleasant today in her interactions. Patient inquired about discharge, card writer hand told patient her guardian and [facility] got her a room at a senior care on Sunday. Patient agreeable. At this time patient denies any suicidal or homicidal ideations, intent or plan. Patient denies any visual hallucinations. Patient denies any side effects from the medications and has been compliant with meds. MENTAL STATUS EXAM: General Appearance: Patient appears to be stated age is alert, cooperative. She has a shaved head. Patient appears to have adequate hygiene and grooming. Behavior: Patient is seated without any agitated behavior. more cooperative today Speech: Patient's speech is fluent and nonpressured. Mood/Affect: Patient reports their mood is much better, affect is congruent and constricted. improving mildly Suicidality/Homicidality: Patient denies having any homicidal ideation intent or plan. Denies any suicidal ideations intent or plan Perceptions: Patient denies any visual hallucinations and denies auditory hallucinations. Though content/process: There is no evidence of any delusional thought content. Memory and concentration: Alert and oriented x 4 Judgment and insight:chronically poor/impulsive, improving mildly IMPRESSIONS: schizoaffective disorder Nonadherence to medications History of PTSD nicotine dependance PLAN: -Patient is admitted under involuntary status to [facility] for stabilization of psychiatric symptoms and safety. Patient has not signed adult voluntary form or medication consent. Patient is currently on a court order until 05/21/24 -Medications : given Prolixin-D 37.5 mg IM 01/21, next dose will be due on 02/04, patient is court ordered therefore required to take the injection. Trazodone 100mg po qhs for sleep/mood, Prolixin 3mg daily po for psychosis d/c on Sunday to allow for bridging back to [facility]. -Ativan and Prolixin PRN for agitation/aggression -NRT - nicotine patch - on board for discharge planning. Encourage patient to participate in groups to work on coping skills. Patient is currently on a court order which expires on 05/21/2024. Discharge Sunday to senior care that was approved by her guardian.
--- NOTE | 2024-01-26 10:47 | P.PN ---
Progress Note - Text Progress Note Date: 01/26/24 Interval History: Patient was seen in her room and was directable and agreeable to speak with wr iter at the bedside. Patient claims that she is doing better today, states that she is worried about another patient on the unit who is agitated at this time. States that her anxiety and mood are fair, she appears to be more appropriate today, not irritable. Claims that her medications are working fairly for her. She is excited for discharge on Sunday if she can go to the intermediate. Claims that she is sleeping fairly trying to go to some groups. Hygiene and grooming are improving. Denying any auditory or visual hallucinations. Denying any suicidal homicidal ideations intent or plan. MENTAL STATUS EXAM: General Appearance: Patient appears to be stated age is alert, cooperative. She has a shaved head. Patient appears to have adequate hygiene and grooming. Behavior: Patient is seated without any agitated behavior. more cooperative today Speech: Patient's speech is fluent and nonpressured. Mood/Affect: Patient reports their mood is much better, affect is congruent and constricted. improving mildly Suicidality/Homicidality: Patient denies having any homicidal ideation intent or plan. Denies any suicidal ideations intent or plan Perceptions: Patient denies any visual hallucinations and denies auditory hallucinations. Though content/process: There is no evidence of any delusional thought content. Memory and concentration: Alert and oriented x 4 Judgment and insight:chronically improving mildly IMPRESSIONS: schizoaffective disorder Nonadherence to medications History of PTSD nicotine dependance PLAN: -Patient is admitted under involuntary status to [facility] for stabilization of psychiatric symptoms and safety. Patient has not signed adult voluntary form or medication consent. Patient is currently on a court order until 05/21/24 -Medications : given Prolixin-D 37.5 mg IM 01/21, next dose will be due on 02/04, patient is court ordered therefore required to take the injection. Trazodone 100mg po qhs for sleep/mood, Prolixin 3mg daily po for psychosis d/c on Sunday t o allow for bridging back to [facility] -Ativan and Prolixin PRN for agitation/aggression -NRT - nicotine patch -SW on board for discharge planning. Encourage patient to participate in groups to work on coping skills. Patient is currently on a court order which expires on 05/21/2024. Discharge Sunday to intermediate that was approved by her guardian.
[2024-01-27 07:42] VITALS: RESP 14
--- NOTE | 2024-01-27 12:23 | P.PN ---
Progress Note - Text Progress Note Date: 01/27/24 Interval History: Patient was seen in her room and was directable and agreeable to speak with wr iter at the bedside. Patient was also seen earlier attending groups and being active on the unit. States that she is doing fairly well today, she was concerned about not getting aspirin and wanted medical underwriter to check on this, she is currently receiving it. States that she feels fairly optimistic about going to the [facility] upon discharge. She had several questions about it. Denies any other issues with her medications at this time, more logical and directable. She is excited for discharge on Sunday if she can go to the [facility]. Claims that she is sleeping fairly trying to go to some groups. Hygiene and grooming are improving. Denying any auditory or visual hallucinations. Denying any suicidal homicidal ideations intent or plan. MENTAL STATUS EXAM: General Appearance: Patient appears to be stated age is alert, cooperative. She has a shaved head. Patient appears to have adequate hygiene and grooming. Behavior: Patient is seated without any agitated behavior. more cooperative today Speech: Patient's speech is fluent and nonpressured. Mood/Affect: Patient reports their mood is much better, affect is congruent and constricted. improving mildly Suicidality/Homicidality: Patient denies having any homicidal ideation intent or plan. Denies any suicidal ideations intent or plan Perceptions: Patient denies any visual hallucinations and denies auditory hallucinations. Though content/process: There is no evidence of any delusional thought content. Improving mildly Memory and concentration: Alert and oriented x 4 Judgment and insight:chronically improving mildly IMPRESSIONS: schizoaffective disorder Nonadherence to medications History of PTSD nicotine dependance PLAN: -Patient is admitted under involuntary status to [facility] for stabilization of psychiatric symptoms and safety. Patient has not signed adult voluntary form or medication consent. Patient is currently on a court order until 05/21/24 -Medications : given Prolixin-D 37.5 mg IM 01/21, next dose will be due on 02/04, patient is court ordered therefore required to take the injection. Trazodone 100mg po qhs for sleep/mood, Prolixin 3mg daily po for psychosis d/c on Sunday to allow for bridging back to [facility] -Ativan and Prolixin PRN for agitation/aggression -NRT - nicotine patch -SW on board for discharge planning. Encourage patient to participate in groups to work on coping skills. Patient is currently on a court order which expires on 05/21/2024. Discharge Sunday to [facility] that was approved by her guardian.
[2024-01-28 07:32] VITALS: TEMP 97.4
[2024-01-28 09:01] VITALS: BP 113/66; PULSE 62
--- NOTE | 2024-01-28 09:44 | P.DS ---
Providers Date of admission: 01/21/24 23:39 Expected date of discharge: 01/28/24 Attending physician: Mack Dumont MD Consults: 01/21/24 23:41 Consult Physician Routine Consulting Provider: Latisha Luis Consult Reason/Comments: medical H&P Do you want consulting provider notified?: Yes Primary care physician: Stated None - Discharge Diagnosis(es) (1) Schizoaffective disorder Current Visit: Yes Status: Acute Priority: High (2) Nonadherence to medication Current Visit: Yes Status: Acute Priority: Medium (3) PTSD (post-traumatic stress disorder) Current Visit: No Status: Chronic Priority: Medium (4) Nicotine dependence Current Visit: No Status: Acute Priority: Low Hospital Course: Admission HPI: Admission note was completed by procedure writer. "Patient presented to the hospital on 01/20 and as per EPS note, ""Clinician met with Jackeline in ER 7 to eval. 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 Note from [facility]SM of [facility] states Cl refusing to take any medicactions, and refusing IM on 01/18/24. Cl told CSM " I'm not taking them, they can shove it up their ass." When Clinician interviewed Cl they made various nonsensical statements " I am waiting in my Xray for my kidneys, I am here for amnesia and dementia, Ronaldo Priyanka sent me here for my Xrays. The guardians were here already and they left, they told me to tell you I can go home." Cl reports stopping medications because "they hurt my liver" Cl also states " I am not schizophrenic, I am just bi-polar and need my sunshine." CL's presentation is similar to previous admission. Cl presents resistant, agitated, disorganized, tangential, irritable, whispering at times, responding to internal stimuli, paranoid, delusional. Cl observed randomly saying random words/phrases, psycho motor agitation, talking outloud to self. Cl has intense gaze and unaware of circumstances. Loss of abstraction and conceptulization evident." Upon todays interview, patient was seen laying in her bed today, was agreeable to speak to procedure writer briefly. Patient had her head shaved, she appeared to be disheveled. She was fairly vague and evasive about why she is in the hospital. She adamantly believes that she should not be taking medications. She believes that "I was having liver pain" when procedure writer attempted to ask more questions about the liver pain she states that "I do not know" and proceeded to tell procedure writer that her "liver burst" and she does not have it any longer. She states that she does not need to take medications any longer and does not believe that she has a mental illness. We spoke about the court order and patient states that "the lasting room machine operator canceled at last night" and believes that she is no longer on it. She states that she is hearing voices of her boyfriend and also her kids having conversations about her. She did admit to some paranoia. Denies any suicidal homicidal ideations intent or plan today. Denies visual hallucinations. Patient is tangential, and has flight of ideas. Making bizarre statements at times. Patient admits to using nicotine. Claims that her sleep and appetite are fair. Patient was fairly concrete and dismissive of procedure writer and when procedure writer spoke about the long-acting injection patient states that "I am not taking it anymore"." Hospital course: Upon admission to the unit patient was [admitted involuntarily on an active cour t order for mental health treatment which expires on 05/21/2024. Patient was initially bizarre, agitated however with time and treatment she eventually got along well with other patients on the unit and followed unit protocol. Patient was compliant with the medications and denied any side effects throughout hospital course. Patient was started on Prolixin p.o. small dose to bridge to the Prolixin D injection 37.5 mg IM given on 01/21, next dose will be doing q. 14 days on 02/04. Trazodone 100 mg nightly for sleep/mood. Patient spoke of her stressors and engaged in therapy both group and individual. Patient was also seen by medical team for history and physical exam. Throughout the course of the hospitalization patient gradually improved with regards to mood, anxiety, psychosis, agitation, sleep and returned back to their baseline level of functioning. On the day of discharge patient denied any suicidal or homicidal ideations intent or plan denied any auditory or visual hallucinations. Patient endorsed wanting to live for her family and her future. The patient denied any access to guns or weapons. Patient denied any paranoia and did not endorse any delusions. Patient does not have a significant history of substance abuse and was counseled on abstaining from all substances including alcohol and marijuana. Patient was also counseled on the medications and need for regular compliance and was encouraged to follow-up with their outpatient appointment for mental health and also for primary care. Arrangements were made with [facility] to transition patient to penitentiary for closer monitoring and [facility] follow-up. Mental status exam: General Appearance: Patient appears to be mildly overweight, short hair, stated age is alert, pleasant, and cooperative. Patient is in no acute distress and has improved hygiene and grooming Behavior: Patient is calmly seated without any agitated behavior. Speech: Patient's speech is fluent and nonpressured. Mood/Affect: Patient reports their mood is "better", affect is congruent and euthymic. Suicidality/Homicidality: Patient denies having any suicidal or homicidal ideation intent or plan. Perceptions: Patient denies any auditory or visual hallucinations. Though content/process: There is no evidence of any delusional thought content and thought process is linear and goal-directed. Memory and concentration: AOX3, grossly intact for the purposes of this session. Can spell "WORLD" backwards correctly. Judgment and insight: Chronically poor, however has improved with guarded prognosis Impression: schizoaffective disorder Nonadherence to medications History of PTSD nicotine dependance Plan: -Continue with discharge today as patient has improved and stabilized psychiatrically and is not currently an imminent threat to herself and/or others. Patient will remain at chronically elevated risk for harm to self and/or others due to her impulsivity and chronically poor insight and judgment. -Continue medications: Prolixin p.o. was discontinued, patient was given Prolixin D 37.5 mg IM on 01/21, next dose will be due in every 2 weeks on 02/04. Trazodone 100 mg nightly for sleep/mood. -Patient was counseled on the need for medication compliance and appropriate follow-up at mental health and also primary care for medical issues. Patient verbalized understanding and agreed. -Social work to help coordinate patient's discharge today to penitentiary and close [facility] follow-up social work also to arrange for patients follow up appointments with [facility] for psychiatric care along with follow up with primary care provider. -Patient counseled on abstaining from recreational drugs and marijuana and alcohol. Was informed/educated on the adverse effects on their physical and mental health. Patient verbally agreed and understood. -Patient was instructed to return to the hospital or seek immediate medical care if their psychiatric or medical symptoms do worsen or reoccur. Allergies Allergy/AdvReac Type Severity Reaction Status Date / Time codeine Allergy Unknown Verified 01/21/24 15:07 divalproex sodium Allergy Rash/Hives Verified 01/21/24 15:07 From Depakote adhesive AdvReac Intermediate Rash/Hives Verified 01/21/24 15:07 Laboratory Results WBC 6.2 k/uL (3.8-10.6) 01/24/24 07:32 RBC 4.85 m/uL (3.80-5.40) 01/24/24 07:32 Hgb 13.4 gm/dL (11.4-16.0) 01/24/24 07:32 Hct 42.3 % (34.0-46.0) 01/24/24 07:32 MCV 87.2 fL (80.0-100.0) 01/24/24 07:32 MCH 27.7 pg (25.0-35.0) 01/24/24 07:32 MCHC 31.8 g/dL (31.0-37.0) 01/24/24 07:32 RDW 15.6 % (11.5-15.5) H 01/24/24 07:32 Plt Count 185 k/uL (150-450) 01/24/24 07:32 MPV 8.3 01/24/24 07:32 Neutrophils % 53 % 01/24/24 07:32 Lymphocytes % 35 % 01/24/24 07:32 Monocytes % 5 % 01/24/24 07:32 Eosinophils % 5 % 01/24/24 07:32 Basophils % 1 % 01/24/24 07:32 Neutrophils # 3.3 k/uL (1.3-7.7) 01/24/24 07:32 Lymphocytes # 2.1 k/uL (1.0-4.8) 01/24/24 07:32 Monocytes # 0.3 k/uL (0-1.0) 01/24/24 07:32 Eosinophils # 0.3 k/uL (0-0.7) 01/24/24 07:32 Basophils # 0.0 k/uL (0-0.2) 01/24/24 07:32 Sodium 139 mmol/L (137-145) 01/24/24 07:32 Potassium 4.4 mmol/L (3.5-5.1) 01/24/24 07:32 Chloride 110 mmol/L (98-107) H 01/24/24 07:32 Carbon Dioxide 24 mmol/L (22-30) 01/24/24 07:32 Anion Gap 5 mmol/L 01/24/24 07:32 BUN 12 mg/dL (7-17) 01/24/24 07:32 Creatinine 0.66 mg/dL (0.52-1.04) 01/24/24 07:32 Est GFR (CKD-EPI)AfAm >90 (>60 ml/min/1.73 sqM) 01/24/24 07:32 Est GFR (CKD-EPI)NonAf >90 (>60 ml/min/1.73 sqM) 01/24/24 07:32 Glucose 89 mg/dL (74-99) 01/24/24 07:32 Calcium 9.3 mg/dL (8.4-10.2) 01/24/24 07:32 Total Bilirubin 0.7 mg/dL (0.2-1.3) 01/24/24 07:32 AST 20 U/L (14-36) 01/24/24 07:32 ALT 23 U/L (4-34) 01/24/24 07:32 Alkaline Phosphatase 67 U/L (38-126) 01/24/24 07:32 Total Protein 5.8 g/dL (6.3-8.2) L 01/24/24 07:32 Albumin 3.5 g/dL (3.5-5.0) 01/24/24 07:32 Urine Color Colorless 01/21/24 15:21 Urine Appearance Clear (Clear) 01/21/24 15:21 Urine pH 5.5 (5.0-8.0) 01/21/24 15:21 Ur Specific [place] 1.002 (1.001-1.035) 01/21/24 15:21 Urine Protein Negative (Negative) 01/21/24 15:21 Urine Glucose (UA) Negative (Negative) 01/21/24 15:21 Urine Ketones Negative (Negative) 01/21/24 15:21 Urine Blood Trace (Negative) H 01/21/24 15:21 Urine Nitrite Negative (Negative) 01/21/24 15:21 Urine Bilirubin Negative (Negative) 01/21/24 15:21 Urine Urobilinogen <2.0 mg/dL (<2.0) 01/21/24 15:21 Ur Leukocyte Esterase Negative (Negative) 01/21/24 15:21 Urine RBC 1 /hpf (0-5) 01/21/24 15:21 Urine WBC <1 /hpf (0-5) 01/21/24 15:21 Urine Opiates Screen Not Detected (NotDetected) 01/21/24 15:21 Ur Oxycodone Screen Not Detected (NotDetected) 01/21/24 15:21 Urine Methadone Screen Not Detected (NotDetected) 01/21/24 15:21 Ur Barbiturates Screen Not Detected (NotDetected) 01/21/24 15:21 U Tricyclic Antidepress Not Detected (NotDetected) 01/21/24 15:21 Ur Phencyclidine Scrn Not Detected (NotDetected) 01/21/24 15:21 Ur Amphetamines Screen Not Detected (NotDetected) 01/21/24 15:21 U Methamphetamines Scrn Not Detected (NotDetected) 01/21/24 15:21 U Benzodiazepines Scrn Not Detected (NotDetected) 01/21/24 15:21 Urine Cocaine Screen Not Detected (NotDetected) 01/21/24 15:21 U Marijuana (THC) Screen Not Detected (NotDetected) 01/21/24 15:21 SARS-CoV-2 (PCR) Not Detected (Not Detectd) 01/21/24 22:48 Vital Signs Temp 97.4 F L 01/28/24 06:29 Pulse 62 01/28/24 08:27 Resp 14 01/28/24 06:29 BP 113/66 01/28/24 08:27 Pulse Ox 97 01/26/24 05:02 FiO2 Intake & Output 01/27/24 01/28/24 01/28/24 18:59 06:59 18:59 Weight 84.5 kg Patient Condition at Discharge: Stable Plan - Discharge Summary Discharge Rx Participant: Yes New Discharge Prescriptions: New Nicotine Gum (Polacrilex) [Nicorette] 2 mg BUCCAL Q4HR PRN 30 Days #180 pieceofgum PRN Reason: Mild Anxiety Continue Famotidine 20 mg PO BID 30 Days #60 tab metFORMIN HCL [Glucophage] 850 mg PO DAILY 30 Days #30 tab oxyBUTYnin chloride 5 mg PO BID 30 Days #60 tab lisinopriL [Zestril] 10 mg PO DAILY 30 Days #30 tab Aspirin [Adult Low Dose Aspirin EC] 81 mg PO DAILY 30 Days #30 tab Atorvastatin [Lipitor] 20 mg PO HS 30 Days #30 tab fluPHENAZine decanoate [Prolixin Decanoate] 37.5 mg IM Q14D #1 ml traZODone HCL 100 mg PO HS 30 Days #30 tab Cholecalciferol (Vitamin D3) [Vitamin D3 (125 MCG = 5,000 IU)] 125 mcg PO DAILY 30 Days #30 cap Discontinued Nicotine Polacrilex [Nicotine Gum] 2 mg PO Q4HR PRN PRN Reason: Mild Anxiety Discharge Medication List Aspirin [Adult Low Dose Aspirin EC] 81 mg PO DAILY 30 Days #30 tab 01/28/24 [Rx] Atorvastatin [Lipitor] 20 mg PO HS 30 Days #30 tab 01/28/24 [Rx] Cholecalciferol (Vitamin D3) [Vitamin D3 (125 MCG = 5,000 IU)] 125 mcg PO DAILY 30 Days #30 cap 01/28/24 [Rx] Famotidine 20 mg PO BID 30 Days #60 tab 01/28/24 [Rx] Nicotine Gum (Polacrilex) [Nicorette] 2 mg BUCCAL Q4HR PRN 30 Days #180 pieceofgum 01/28/24 [Rx] fluPHENAZine decanoate [Prolixin Decanoate] 37.5 mg IM Q14D #1 ml 01/28/24 [Rx] lisinopriL [Zestril] 10 mg PO DAILY 30 Days #30 tab 01/28/24 [Rx] metFORMIN HCL [Glucophage] 850 mg PO DAILY 30 Days #30 tab 01/28/24 [Rx] oxyBUTYnin chloride 5 mg PO BID 30 Days #60 tab 01/28/24 [Rx] traZODone HCL 100 mg PO HS 30 Days #30 tab 01/28/24 [Rx] Follow up Appointment(s)/Referral(s): [facility] - 1 Week Patient Instructions/Handouts: How to Stop Smoking (DC), Bipolar Disorder (DC), Psychotic Disorder (DC) Activity/Diet/Wound Care/Special Instructions: Avoid the use of street drugs and alcohol. Take all medications as prescribed. When you are in need of refills on your medications, please contact your medical provider and/or outpatient psychiatrist/provider to have this done. Please go to your scheduled outpatient appointment for aftercare treatment. If symptoms return or become worse, call the crisis line at and/or go to the nearest emergency room for evaluation. National Suicide Hotline 988 Discharge Disposition: OTHER INSTITUTION NOT DEFINED
== END 2024-01-28 14:40 | disposition home or self-care (01) | DRG 885 ==
LOC: EC 14:20 → 3MHU 23:39
PROVIDERS: ADMIT Psychiatry & Neurology Psychiatry; ATTEND Psychiatry & Neurology Psychiatry
DX: F25.9 Schizoaffective disorder, unspecified (principal); G40.909 Epilepsy, unspecified, not intractable, without status epilepticus; E78.5 Hyperlipidemia, unspecified; I10 Essential (primary) hypertension; F31.9 Bipolar disorder, unspecified; Z11.52 Encounter for screening for COVID-19; F43.10 Post-traumatic stress disorder, unspecified; K21.9 Gastro-esophageal reflux disease without esophagitis; R73.03 Prediabetes; F17.210 Nicotine dependence, cigarettes, uncomplicated; Z91.148 Patient's other noncompliance with medication regimen for other reason; Z71.6 Tobacco abuse counseling; Z79.82 Long term (current) use of aspirin; Z79.84 Long term (current) use of oral hypoglycemic drugs; Z79.899 Other long term (current) drug therapy; Z88.5 Allergy status to narcotic agent; Z88.8 Allergy status to other drugs, medicaments and biological substances
CPT/HCPCS: 80053; 80306; 81001; 82075; 85025; 87635; 99285

== ENCOUNTER 2024-02-09 09:54 | Emergency (ER) | payer MEDICARE, OTHER ==
[2024-02-09 10:24] VITALS: RESP 18; TEMP 98
--- NOTE | 2024-02-09 11:02 | ED ---
General Adult HPI - General Chief complaint: Psychiatric Symptoms Stated complaint: mental health Time Seen by Provider: 02/09/24 10:01 Source: patient, RN notes reviewed Mode of arrival: ambulatory Limitations: no limitations - History of Present Illness Initial comments: Patient is a 53-year-old female presenting to the emergency department for pickup order. Patient states she refused to take her injection from [facility] because she was upset with them. Patient states otherwise she is doing well. Patient denies suicidal or homicidal thoughts. Patient denies hallucinations. Patient denies any new physical complaints. Patient denies alcohol and street drug use. - Related Data Previous Rx's Medication Instructions Recorded Aspirin [Adult Low Dose Aspirin EC] 81 mg PO DAILY 30 Days #30 tab 01/28/24 Atorvastatin [Lipitor] 20 mg PO HS 30 Days #30 tab 01/28/24 Cholecalciferol (Vitamin D3) 125 mcg PO DAILY 30 Days #30 cap 01/28/24 [Vitamin D3 (125 MCG = 5,000 IU)] Famotidine 20 mg PO BID 30 Days #60 tab 01/28/24 Nicotine Gum (Polacrilex) 2 mg BUCCAL Q4HR PRN 30 Days #180 01/28/24 [Nicorette] pieceofgum fluPHENAZine decanoate [Prolixin 37.5 mg IM Q14D #1 ml 01/28/24 Decanoate] lisinopriL [Zestril] 10 mg PO DAILY 30 Days #30 tab 01/28/24 metFORMIN HCL [Glucophage] 850 mg PO DAILY 30 Days #30 tab 01/28/24 oxyBUTYnin chloride 5 mg PO BID 30 Days #60 tab 01/28/24 traZODone HCL 100 mg PO HS 30 Days #30 tab 01/28/24 Allergies Allergy/AdvReac Type Severity Reaction Status Date / Time codeine Allergy Unknown Verified 02/09/24 10:00 divalproex sodium Allergy Rash/Hives Verified 02/09/24 10:00 [From Depakote] adhesive AdvReac Intermediate Rash/Hives Verified 02/09/24 10:00 Review of Systems ROS Statement: Those systems with pertinent positive or pertinent negative responses have been documented in the HPI. ROS Other: All systems not noted in ROS Statement are negative. Constitutional: Denies: fever Eyes: Denies: eye pain ENT: Denies: ear pain Respiratory: Denies: cough Cardiovascular: Denies: chest pain Past Medical History Past Medical History: GERD/Reflux, Hyperlipidemia, Hypertension, Seizure Disorder Additional Past Medical History / Comment(s): pre diabetes, GERD History of Any Multi-Drug Resistant Organisms: None Reported Past Surgical History: Tubal Ligation Past Anesthesia/Blood Transfusion Reactions: No Reported Reaction Past Psychological History: Anxiety, Bipolar, Depression, Schizophrenia Smoking Status: Current every day smoker Past Alcohol Use History: None Reported Past Drug Use History: Marijuana - Past Family History Mother Family Medical History: Hyperlipidemia Family Family Medical History: Coronary Artery Disease (CAD) General Exam Limitations: no limitations General appearance: alert, in no apparent distress Head exam: Present: normocephalic Eye exam: Present: normal appearance Neck exam: Present: normal inspection Respiratory exam: Present: normal lung sounds bilaterally Cardiovascular Exam: Present: regular rate, normal rhythm GI/Abdominal exam: Present: soft. Absent: tenderness Extremities exam: Present: normal inspection Neurological exam: Present: alert Psychiatric exam: Present: flat affect Skin exam: Present: normal color Course Vital Signs 02/09/24 09:57 Temperature 98 F Pulse Rate 93 Respiratory 18 Rate Blood Pressure 151/81 O2 Sat by Pulse 98 Oximetry Medical Decision Making - Medical Decision Making Was pt. sent in by a medical professional or institution (, PA, SEED SPECIALIST, urgent care, hospital, or long term...) When possible be specific @ -Patient brought in a court order. Did you speak to anyone other than the patient for history (EMS, parent, family, police, friend...)? What history was obtained from this source @ -No Did you review nursing and triage notes (agree or disagree)? Why? @ -I reviewed and agree with nursing and triage notes Were old charts reviewed (outside hosp., previous admission, EMS record, old EKG, old radiological studies, urgent care reports/EKG's, long term records)? Report findings @ -Court ordered reviewed Differential Diagnosis (chest pain, altered mental status, abdominal pain women, abdominal pain men, vaginal bleeding, weakness, fever, dyspnea, syncope, headache, dizziness, GI bleed, back pain, seizure, CVA, palpatations, mental health, musculoskeletal)? @ -Differential Mental Health Depression, anxiety, bipolar, psychosis, schizophrenia, borderline personality, situational depression, adjustment disorder, behavioral disorder, brain tumor, malingering, substance abuse, encephalopathy, medication reaction, dementia, hypothyroidism, degenerative neurologic disorder, lupus.... This is not meant to be all-inclusive list EKG interpreted by me (3pts min.). @ -As above X-rays interpreted by me (1pt min.). @ -None done CT interpreted by me (1pt min.). @ -None done U/S interpreted by me (1pt. min.). @ -None done What testing was considered but not performed or refused? (CT, X-rays, U/S, labs)? Why? @ -None What meds were considered but not given or refused? Why? @ -None Did you discuss the management of the patient with other professionals (professionals i.e. , PA, SEED SPECIALIST, lab, RT, psych nurse, licensed social worker, neuropsychiatric aide, teacher, public health service officer, trimming caser)? Give summary @ -Case was discussed with psychiatric nurse who did evaluate patient. Patient will be discharged following medication administration Was smoking cessation discussed for >3mins.? @ -No Was critical care preformed (if so, how long)? @ -No Were there social determinants of health that impacted care today? How? (Homelessness, low income, unemployed, alcoholism, drug addiction, transportation, low edu. Level, literacy, decrease access to med. care, group home, rehab)? @ -No Was there de-escalation of care discussed even if they declined (Discuss DNR or withdrawal of care, Hospice)? DNR status @ -No What co-morbidities impacted this encounter? (DM, HTN, Smoking, COPD, CAD, Cancer, CVA, ARF, Chemo, Hep., AIDS, mental health diagnosis, sleep apnea, morbid obesity)? @ -None Was patient admitted / discharged? Hospital course, mention meds given and route , prescriptions, significant lab abnormalities, going to OR and other pertinent info. @ -Patient presents after not taking her medication. Injection will be provided and patient will be discharged. Patient is not suicidal. Undiagnosed new problem with uncertain prognosis? @ -No Drug Therapy requiring intensive monitoring for toxicity (Heparin, Nitro, Insulin, Cardizem)? @ -No Were any procedures done? @ -No Diagnosis/symptom? @ -Psychosis Acute, or Chronic, or Acute on Chronic? @ -Acute on chronic Uncomplicated (without systemic symptoms) or Complicated (systemic symptoms)? @ -Default Side effects of treatment? @ -No Exacerbation, Progression, or Severe Exacerbation? @ -No Poses a threat to life or bodily function? How? (Chest pain, [place], NC, pneumonia, PE, COPD, DKA, ARF, appy, cholecystitis, CVA, Diverticulitis, Homicidal, Suicidal, threat to staff... and all critical care pts) @ -No - Lab Data Lab Results 02/09/24 Range/Units 11:11 Urine Opiates Screen Not Detected (NotDetected) Ur Oxycodone Screen Not Detected (NotDetected) Urine Methadone Screen Not Detected (NotDetected) Ur Barbiturates Screen Not Detected (NotDetected) U Tricyclic Antidepress Not Detected (NotDetected) Ur Phencyclidine Scrn Not Detected (NotDetected) Ur Amphetamines Screen Not Detected (NotDetected) U Methamphetamines Scrn Not Detected (NotDetected) U Benzodiazepines Scrn Not Detected (NotDetected) Urine Cocaine Screen Not Detected (NotDetected) U Marijuana (THC) Screen Not Detected (NotDetected) Disposition Clinical Impression: Schizoaffective disorder, Psychosis Disposition: HOME SELF-CARE Condition: Stable Instructions (If sedation given, give patient instructions): Schizoaffective Disorder (ED) Additional Instructions: Please follow-up with primary care provider in the next 1 or 2 days for recheck. Please follow-up with mental health services as directed. Please take your medications as directed. Return for thoughts of self-harm, worsening symptoms or other concerns. Is patient prescribed a controlled substance at d/c from ED?: No Referrals: Christian Nickerson DO [Primary Care Provider] - 1-2 days Time of Disposition: 14:09
[2024-02-09 12:15] LABS: Amphetamine Screen,Urine Not Detected (NotDetected); Barbiturate Screen,Urine Not Detected (NotDetected); Benzodiazepines Screen,Urine Not Detected (NotDetected); Cocaine Screen,Urine Not Detected (NotDetected); Methadone Screen, Urine Not Detected (NotDetected); Opiate Screen,Urine Not Detected (NotDetected); Oxycodone Screen, Urine Not Detected (NotDetected); Phencyclidine Screen,Urine Not Detected (NotDetected); Tricyclic Antidepressant,Urine Not Detected (NotDetected); Urn Cannabinoid Scrn Not Detected (NotDetected)
[2024-02-09] MEDS: fluPHENAZine DECANOATE 25 MG/ML 5ML MDV IM ONE (14:01)
[2024-02-09 14:27] VITALS: BP 140/77; PULSE 79
== END 2024-02-09 14:21 | disposition home or self-care (01) ==
LOC: EC 09:54
DX: F25.9 Schizoaffective disorder, unspecified (principal); F29 Unspecified psychosis not due to a substance or known physiological condition; F17.200 Nicotine dependence, unspecified, uncomplicated; Z88.1 Allergy status to other antibiotic agents; Z88.5 Allergy status to narcotic agent; Z91.09 Other allergy status, other than to drugs and biological substances
CPT/HCPCS: 82075; 80306; 99285; 96372; J2680

== ENCOUNTER 2024-02-27 19:43 | Inpatient (IN) | payer MEDICARE, MEDICAID ==
[2024-02-27 22:03] LABS: Appearance,Urine Clear (Clear); Bacteria,Urine Rare /hpf; Bilirubin,Urine Negative (Negative); Blood,Urine Trace (Negative); Color,Urine Colorless; Glucose,Urine (UA) Negative (Negative); Ketones,Urine Negative (Negative); Leukocyte Esterase,Urine Negative (Negative); Nitrite,Urine Negative (Negative); Protein,Urine Negative (Negative); RBC,Urine <1 /hpf (0-5); Specific Gravity,Urine 1.001 (1.001-1.035); Urobilinogen,Urine <2.0 mg/dL (<2.0)
[2024-02-27 22:08] LABS: Amphetamine Screen,Urine Not Detected (NotDetected); Barbiturate Screen,Urine Not Detected (NotDetected); Benzodiazepines Screen,Urine Not Detected (NotDetected); Cocaine Screen,Urine Not Detected (NotDetected); Methadone Screen, Urine Not Detected (NotDetected); Opiate Screen,Urine Not Detected (NotDetected); Oxycodone Screen, Urine Not Detected (NotDetected); Phencyclidine Screen,Urine Not Detected (NotDetected); Tricyclic Antidepressant,Urine Not Detected (NotDetected); Urn Cannabinoid Scrn Not Detected (NotDetected)
--- NOTE | 2024-02-27 22:19 | ED ---
General Adult HPI - General Source: patient, police, RN notes reviewed Mode of arrival: ambulatory Limitations: no limitations <Jesse Agrawal - Last Filed: 02/27/24 22:20> <Marium Em - Last Filed: 02/27/24 22:48> - General Chief complaint: Psychiatric Symptoms Stated complaint: Mental Health Time Seen by Provider: 02/27/24 19:53 - History of Present Illness Initial comments: 53-year-old female presented to the ED with complaints of mental health problem. Patient states that she has been talking to God and the BERD. States that God told her to stop taking all her medications. At this time denies any medical complaints. Was speaking to her kitchen designer and reportedly kitchen designer was told that patient would kill her if she would not stop talking. Per petition, patient stated that she is "all my God". Currently denies medical complaints at this time. (Jesse Agrawal) - Related Data Previous Rx's Medication Instructions Recorded Aspirin [Adult Low Dose Aspirin EC] 81 mg PO DAILY 30 Days #30 tab 01/28/24 Atorvastatin [Lipitor] 20 mg PO HS 30 Days #30 tab 01/28/24 Cholecalciferol (Vitamin D3) 125 mcg PO DAILY 30 Days #30 cap 01/28/24 [Vitamin D3 (125 MCG = 5,000 IU)] Famotidine 20 mg PO BID 30 Days #60 tab 01/28/24 Nicotine Gum (Polacrilex) 2 mg BUCCAL Q4HR PRN 30 Days #180 01/28/24 [Nicorette] pieceofgum fluPHENAZine decanoate [Prolixin 37.5 mg IM Q14D #1 ml 01/28/24 Decanoate] lisinopriL [Zestril] 10 mg PO DAILY 30 Days #30 tab 01/28/24 metFORMIN HCL [Glucophage] 850 mg PO DAILY 30 Days #30 tab 01/28/24 oxyBUTYnin chloride 5 mg PO BID 30 Days #60 tab 01/28/24 traZODone HCL 100 mg PO HS 30 Days #30 tab 01/28/24 Allergies Allergy/AdvReac Type Severity Reaction Status Date / Time codeine Allergy Unknown Verified 02/09/24 10:00 divalproex sodium Allergy Rash/Hives Verified 02/09/24 10:00 [From Depakote] adhesive AdvReac Intermediate Rash/Hives Verified 02/09/24 10:00 Review of Systems ROS Other: All systems not noted in ROS Statement are negative. <Jesse Agrawal - Last Filed: 02/27/24 22:20> ROS Other: All systems not noted in ROS Statement are negative. <Marium Em - Last Filed: 02/27/24 22:48> ROS Statement: Those systems with pertinent positive or pertinent negative responses have been documented in the HPI. Past Medical History Past Medical History: GERD/Reflux, Hyperlipidemia, Hypertension, Seizure Disorder Additional Past Medical History / Comment(s): pre diabetes, GERD History of Any Multi-Drug Resistant Organisms: None Reported Past Surgical History: Tubal Ligation Past Anesthesia/Blood Transfusion Reactions: No Reported Reaction Past Psychological History: Anxiety, Bipolar, Depression, Schizophrenia Smoking Status: Current every day smoker Past Alcohol Use History: None Reported Past Drug Use History: Marijuana - Past Family History Mother Family Medical History: Hyperlipidemia Family Family Medical History: Coronary Artery Disease (CAD) <Jesse Agrawal - Last Filed: 02/27/24 22:20> General Exam Limitations: no limitations General appearance: alert Eye exam: Present: normal appearance Neck exam: Present: normal inspection Respiratory exam: Present: normal lung sounds bilaterally Cardiovascular Exam: Present: regular rate GI/Abdominal exam: Present: soft, normal bowel sounds. Absent: distended, tenderness, guarding, rebound, rigid Extremities exam: Present: normal inspection Back exam: Present: normal inspection Neurological exam: Present: alert <Jesse Agrawal - Last Filed: 02/27/24 22:20> Course Vital Signs 02/27/24 19:44 Temperature 98.1 F Pulse Rate 87 Respiratory 16 Rate Blood Pressure 151/75 O2 Sat by Pulse 98 Oximetry Medical Decision Making <Jesse Agrawal - Last Filed: 02/27/24 22:20> <Marium Em - Last Filed: 02/27/24 22:48> - Medical Decision Making Was pt. sent in by a medical professional or institution (, PA, EX[employer] REPAIRER, urgent care, hospital, or jail...) When possible be specific @ -No Did you speak to anyone other than the patient for history (EMS, parent, family, police, friend...)? What history was obtained from this source @ -No Did you review nursing and triage notes (agree or disagree)? Why? @ -I reviewed and agree with nursing and triage notes Were old charts reviewed (outside hosp., previous admission, EMS record, old EKG, old radiological studies, urgent care reports/EKG's, jail records)? Report findings @ -No old charts were reviewed Differential Diagnosis (chest pain, altered mental status, abdominal pain women, abdominal pain men, vaginal bleeding, weakness, fever, dyspnea, syncope, headache, dizziness, GI bleed, back pain, seizure, CVA, palpatations, mental health, musculoskeletal)? @ -Differential Mental Health Depression, anxiety, bipolar, psychosis, schizophrenia, borderline personality, situational depression, adjustment disorder, behavioral disorder, brain tumor, malingering, substance abuse, encephalopathy, medication reaction, dementia, hypothyroidism, degenerative neurologic disorder, lupus.... This is not meant to be all-inclusive list EKG interpreted by me (3pts min.). @ -None X-rays interpreted by me (1pt min.). @ -None done CT interpreted by me (1pt min.). @ -None done U/S interpreted by me (1pt. min.). @ -None done What testing was considered but not performed or refused? (CT, X-rays, U/S, labs)? Why? @ -None What meds were considered but not given or refused? Why? @ -None Did you discuss the management of the patient with other professionals (professionals i.e. , PA, [employer] REPAIRER, lab, RT, psych nurse, social work administrator, services coordinator, teacher, fundraising officer, housing case manager)? Give summary @ -Spoke to EPS nurse who recommended patient for inpatient treatment. Was smoking cessation discussed for >3mins.? @ -No Was critical care preformed (if so, how long)? @ -No Were there social determinants of health that impacted care today? How? (Homel essness, low income, unemployed, alcoholism, drug addiction, transportation, low edu. Level, literacy, decrease access to med. care, assisted, rehab)? @ -No Was there de-escalation of care discussed even if they declined (Discuss DNR or withdrawal of care, Hospice)? DNR status @ -No What co-morbidities impacted this encounter? (DM, HTN, Smoking, COPD, CAD, Cancer, CVA, ARF, Chemo, Hep., AIDS, mental health diagnosis, sleep apnea, morbid obesity)? @ -None Was patient admitted / discharged? Hospital course, mention meds given and route, prescriptions, significant lab abnormalities, going to OR and other pertinent info. @ -Transfer 53-year-old female presenting to the ED with mental health issues. At this time patient is medically cleared. After evaluation by EPS felt patient in need of inpatient treatment. Patient will be transferred for further evaluation. Undiagnosed new problem with uncertain prognosis? @ -No Drug Therapy requiring intensive monitoring for toxicity (Heparin, Nitro, Insulin, Cardizem)? @ -No Were any procedures done? @ -No Diagnosis/symptom? @ -Psychiatric issue Acute, or Chronic, or Acute on Chronic? @ -Acute Uncomplicated (without systemic symptoms) or Complicated (systemic symptoms)? @ -Complicated Side effects of treatment? @ -No Exacerbation, Progression, or Severe Exacerbation? @ -No Poses a threat to life or bodily function? How? (Chest pain, USA, ME, pneumonia, PE, COPD, DKA, ARF, appy, cholecystitis, CVA, Diverticulitis, Homicidal, Suicid al, threat to staff... and all critical care pts) @ -Yes (Jesse Agrawal) I personally saw and evaluated the patient, initially she refused to talk to me but eventually she noticed her psychiatric provider sent her to the ER because she was agitated. Patient states she was agitated because the mafia kidnapped her family. Patient is very paranoid and resistant to interaction. Patient has been petitioned and I completed a psychiatric certification for involuntary psychiatric hospitalization. (Marium Em) - Lab Data Lab Results 02/27/24 Range/Units 21:41 Urine Color Colorless Urine Appearance Clear (Clear) Urine pH 6.0 (5.0-8.0) Ur Specific [place] 1.001 (1.001-1.035) Urine Protein Negative (Negative) Urine Glucose (UA) Negative (Negative) Urine Ketones Negative (Negative) Urine Blood Trace H (Negative) Urine Nitrite Negative (Negative) Urine Bilirubin Negative (Negative) Urine Urobilinogen <2.0 (<2.0) mg/dL Ur Leukocyte Esterase Negative (Negative) Urine RBC <1 (0-5) /hpf Urine Bacteria Rare H (None) /hpf Urine Opiates Screen Not Detected (NotDetected) Ur Oxycodone Screen Not Detected (NotDetected) Urine Methadone Screen Not Detected (NotDetected) Ur Barbiturates Screen Not Detected (NotDetected) U Tricyclic Antidepress Not Detected (NotDetected) Ur Phencyclidine Scrn Not Detected (NotDetected) Ur Amphetamines Screen Not Detected (NotDetected) U Methamphetamines Scrn Not Detected (NotDetected) U Benzodiazepines Scrn Not Detected (NotDetected) Urine Cocaine Screen Not Detected (NotDetected) U Marijuana (THC) Screen Not Detected (NotDetected) Disposition <Jesse Agrawal - Last Filed: 02/27/24 22:20> <Marium Em - Last Filed: 02/27/24 22:48> Clinical Impression: Psychiatric complaint Disposition: TRANSFER TO PSYCH HOSP/UNIT Condition: Fair Referrals: None,Stated [Primary Care Provider] - 1-2 days
[2024-02-27 23:11] LABS: Basophils # (A) 0.1 k/uL (0-0.2); Basophils % (A) 1 %; Eosinophils # (A) 0.2 k/uL (0-0.7); Eosinophils % (A) 2 %; HCT 41.6 % (34.0-46.0); HGB 13.8 gm/dL (11.4-16.0); Lymphocytes # (A) 2.3 k/uL (1.0-4.8); Lymphocytes % (A) 26 %; MCH 28.8 pg (25.0-35.0); MCHC 33.3 g/dL (31.0-37.0); MCV 86.6 fL (80.0-100.0); Mean Platelet Volume 8.5; Monocytes # (A) 0.6 k/uL (0-1.0); Monocytes % (A) 6 %; Neutrophils # (A) 5.7 k/uL (1.3-7.7); Neutrophils % (A) 64 %; Platelet Count 176 k/uL (150-450); RDW 14.4 % (11.5-15.5); WBC 8.9 k/uL (3.8-10.6)
[2024-02-27 23:34] LABS: ALT 20 U/L (4-34); AST 22 U/L (14-36); African American GFR (CKD) >90 (>60 ml/min/1.73 sqM); Albumin 3.9 g/dL (3.5-5.0); Alkaline Phosphatase 75 U/L (38-126); Anion Gap 5 mmol/L; Blood Urea Nitrogen 7 mg/dL (7-17); Calcium 9.5 mg/dL (8.4-10.2); Carbon Dioxide 25 mmol/L (22-30); Chloride 101 mmol/L (98-107); Glucose 104 mg/dL (74-99); Non-African American GFR(CKD) >90 (>60 ml/min/1.73 sqM); Potassium 4.1 mmol/L (3.5-5.1); Sodium 131 mmol/L (137-145); Total Bilirubin 0.6 mg/dL (0.2-1.3); Total Protein 6.1 g/dL (6.3-8.2)
[2024-02-28] MEDS: diphenhydrAMINE 50 MG/ML 1 ML VIAL IM STA (01:25)
[2024-02-28] MEDS: LORazepam 2 MG/ML INJ IM STA (01:26)
[2024-02-28] MEDS: ZIPRASIDONE 20 MG VIAL IM PRN (11:56)
[2024-02-28] MEDS ORDERED: SENNOSIDES 8.6 MG TAB PO PRN (13:27)
[2024-02-28] MEDS ORDERED: LORazepam 1 MG TAB PO PRN (13:28)
[2024-02-28] MEDS ORDERED: ACETAMINOPHEN TAB 325 MG TAB PO PRN (13:28)
[2024-02-28] MEDS ORDERED: MAG HYDROX/AL HYDROX/SIMETH 355 ML BOTTLE PO PRN (13:28)
[2024-02-28] MEDS ORDERED: haloperidoL 5 MG TAB PO PRN (13:28)
[2024-02-28] MEDS ORDERED: LORazepam 2 MG/ML INJ IM PRN (13:28)
[2024-02-28] MEDS ORDERED: IBUPROFEN 600 MG TAB PO PRN (13:28)
[2024-02-28] MEDS ORDERED: HALOPERIDOL LACTATE 5 MG/ML 1 ML VIAL IM PRN (13:28)
[2024-02-28] MEDS: NICOTINE 14MG/24HR PATCH TRANSDERM SCH (18:02)
[2024-02-28] MEDS: ATORVASTATIN 20 MG TAB PO SCH (21:12)
[2024-02-28] MEDS: ASPIRIN 81 MG PO SCH (21:12)
[2024-02-28] MEDS: traZODone HCL 100 MG TAB PO PRN (21:12)
[2024-02-28] MEDS: FAMOTIDINE 20 MG TAB PO SCH (21:13)
[2024-02-28] MEDS: oxyBUTYnin chloride 5 MG TAB PO SCH (21:13)
[2024-02-29] MEDS: CHOLECALCIFEROL 25 MCG (1000 IU) TABLET PO SCH (08:34)
[2024-02-29] MEDS: lisinopriL 10 MG TAB PO SCH (08:34)
[2024-02-29] MEDS: metFORMIN 850 MG TAB PO SCH (08:34)
--- NOTE | 2024-02-29 11:52 | P.HP ---
Psychiatric H&P - . H&P Date: 02/29/24 History & Physical: Allergies Allergy/AdvReac Type Severity Reaction Status Date / Time codeine Allergy Unknown Verified 02/09/24 10:00 divalproex sodium Allergy Rash/Hives Verified 02/09/24 10:00 [[address] [facility]] adhesive AdvReac Intermediate Rash/Hives Verified 02/09/24 10:00 Vital Signs Temp 97.6 F 02/29/24 06:44 Pulse 95 02/29/24 08:33 Resp 16 02/29/24 06:44 BP 137/82 02/29/24 08:33 Pulse Ox 98 02/28/24 14:07 FiO2 Intake & Output 02/28/24 02/29/24 02/29/24 18:59 06:59 18:59 Weight 86.591 kg 86.591 kg Laboratory Last Values WBC 8.9 k/uL (3.8-10.6) 02/27/24 22:35 RBC 4.80 m/uL (3.80-5.40) 02/27/24 22:35 Hgb 13.8 gm/dL (11.4-16.0) 02/27/24 22:35 Hct 41.6 % (34.0-46.0) 02/27/24 22:35 MCV 86.6 fL (80.0-100.0) 02/27/24 22:35 MCH 28.8 pg (25.0-35.0) 02/27/24 22:35 MCHC 33.3 g/dL (31.0-37.0) 02/27/24 22:35 RDW 14.4 % (11.5-15.5) 02/27/24 22:35 Plt Count 176 k/uL (150-450) 02/27/24 22:35 MPV 8.5 02/27/24 22:35 Neutrophils % 64 % 02/27/24 22:35 Lymphocytes % 26 % 02/27/24 22:35 Monocytes % 6 % 02/27/24 22:35 Eosinophils % 2 % 02/27/24 22:35 Basophils % 1 % 02/27/24 22:35 Neutrophils # 5.7 k/uL (1.3-7.7) 02/27/24 22:35 Lymphocytes # 2.3 k/uL (1.0-4.8) 02/27/24 22:35 Monocytes # 0.6 k/uL (0-1.0) 02/27/24 22:35 Eosinophils # 0.2 k/uL (0-0.7) 02/27/24 22:35 Basophils # 0.1 k/uL (0-0.2) 02/27/24 22:35 Sodium 131 mmol/L (137-145) L 02/27/24 22:35 Potassium 4.1 mmol/L (3.5-5.1) 02/27/24 22:35 Chloride 101 mmol/L (98-107) 02/27/24 22:35 Carbon Dioxide 25 mmol/L (22-30) 02/27/24 22:35 Anion Gap 5 mmol/L 02/27/24 22:35 BUN 7 mg/dL (7-17) 02/27/24 22:35 Creatinine 0.57 mg/dL (0.52-1.04) 02/27/24 22:35 Est GFR (CKD-EPI)AfAm >90 (>60 ml/min/1.73 sqM) 02/27/24 22:35 Est GFR (CKD-EPI)NonAf >90 (>60 ml/min/1.73 sqM) 02/27/24 22:35 Glucose 104 mg/dL (74-99) H 02/27/24 22:35 Calcium 9.5 mg/dL (8.4-10.2) 02/27/24 22:35 Total Bilirubin 0.6 mg/dL (0.2-1.3) 02/27/24 22:35 AST 22 U/L (14-36) 02/27/24 22:35 ALT 20 U/L (4-34) 02/27/24 22:35 Alkaline Phosphatase 75 U/L (38-126) 02/27/24 22:35 Total Protein 6.1 g/dL (6.3-8.2) L 02/27/24 22:35 Albumin 3.9 g/dL (3.5-5.0) 02/27/24 22:35 Urine Color Colorless 02/27/24 21:41 Urine Appearance Clear (Clear) 02/27/24 21:41 Urine pH 6.0 (5.0-8.0) 02/27/24 21:41 Ur Specific [place] 1.001 (1.001-1.035) 02/27/24 21:41 Urine Protein Negative (Negative) 02/27/24 21:41 Urine Glucose (UA) Negative (Negative) 02/27/24 21:41 Urine Ketones Negative (Negative) 02/27/24 21:41 Urine Blood Trace (Negative) H 02/27/24 21:41 Urine Nitrite Negative (Negative) 02/27/24 21:41 Urine Bilirubin Negative (Negative) 02/27/24 21:41 Urine Urobilinogen <2.0 mg/dL (<2.0) 02/27/24 21:41 Ur Leukocyte Esterase Negative (Negative) 02/27/24 21:41 Urine RBC <1 /hpf (0-5) 02/27/24 21:41 Urine Bacteria Rare /hpf (None) H 02/27/24 21:41 Urine Opiates Screen Not Detected (NotDetected) 02/27/24 21:41 Ur Oxycodone Screen Not Detected (NotDetected) 02/27/24 21:41 Urine Methadone Screen Not Detected (NotDetected) 02/27/24 21:41 Ur Barbiturates Screen Not Detected (NotDetected) 02/27/24 21:41 U Tricyclic Antidepress Not Detected (NotDetected) 02/27/24 21:41 Ur Phencyclidine Scrn Not Detected (NotDetected) 02/27/24 21:41 Ur Amphetamines Screen Not Detected (NotDetected) 02/27/24 21:41 U Methamphetamines Scrn Not Detected (NotDetected) 02/27/24 21:41 U Benzodiazepines Scrn Not Detected (NotDetected) 02/27/24 21:41 Urine Cocaine Screen Not Detected (NotDetected) 02/27/24 21:41 U Marijuana (THC) Screen Not Detected (NotDetected) 02/27/24 21:41 SARS-CoV-2 (PCR) Not Detected (Not Detectd) 02/27/24 22:35 02/29/24 09:07 IDENTIFYING DATA: Patient is a 53 year old female, currently lives at [facility]. Patient is currently on a court order until 05/21/24. . Has 4 children. HPI: Patient presented to the hospital on 02/27 and as per EPS note, "pt was brought in on a petition from [facility] which says, "states God is telling what to do & what not to do [facility] she would kill her if she doesn't stop talking. said she is the "Almighty God"." During assessment pt is labile but redirectable. She was cooperative with questions but would get frustrated. She states that her son and were kidnapped yesterday by the [facility], "they are testing us". She states that she talked to the [facility] and she hasn't been sleeping d/t the training in the [facility]. She then states that she hasn't seen her son in years. "I haven't met by , I am through God". Pt was responding to internal stimuli and saying, "it's ok hunny", and then states, ,"hold on my is coming out" "We are not dating but we are in love". RN left during assessment to get patient water because she was stating she was thristy and when RN walked out of the room she yelled, "That nurse said I was a pain in the ass". She then came into the hallway and stated that CARLOS Jensen also said it to her earlier "in your head". Pt was easily redirected back to her room where RN continued assessment. Pt denies SI, HI. Pt has moments of clarity and then she does not answer appropriately and will state, "you are all just trying to confuse me". Eveline from [facility] contacted RN and stated that she was at [facility] to see pt and pt was threatening Eveline's life and was paranoid and exhibiting delusional thoughts. Per Eveline pt is on a court order and has not been consistent with treatment and medications. She refused her med review today and has been refusing medications on and off. She told Eveline that she would start taking her medications tomorrow because Reji told her too. Police were contacted and [facility] petitioned pt. When discussing her medications she states that she is going to quit them. She denies being on a court order. Pt is on an active order from 11/23/23 to 05/21/24." Today, the patient stated that a worker at the care home said she was going to mess with her, so the patient threatened to kill her. The patient presents as guarded and paranoid. Stating that at times, she wants to call the mafia to hurt people. She talks about wanting to be out of that care home, and wanting to go home to her , God, and her children. Patient was demonstrating very poor insight and judgment claiming that she does not need any more medications and will be refusing meds. She is not acknowledging that she is currently on a court order. She is endorsing auditory hallucinations, stating they only tell her good things. Denies visual hallucinations. She is not endorsing suicidal ideations, however, endorses homicidal ideations, with a plan to call the mafia to hurt the worker at the care home. PAST PSYCHIATRIC HISTORY: She was last psychiatrically admitted to the mental health unit in December. Patient was discharged on trazodone p.o. and also Prolixin D 37.5 mg every 2 weeks. patient follows up at [facility] . Patient states that she's never attempted suicide. Patient has a chronic history of schizoaffective disorder. PMH:As per ER note ALLERGIES: as per EMR CHEMICAL DEPENDENCY HISTORY: as per HPI FAMILY PSYCHIATRIC/SUBSTANCE USE HISTORY: Denies SOCIAL HISTORY: Patient was born and raised in [place]. Currently lives in [facility]. Went to college and received a BA degree. . Has 4 children. MENTAL STATUS EXAM: General Appearance: Patient appears to be stated age is alert, difficult to redirect and guarded. She has short hair. Patient appears to have fair hygiene and grooming. Behavior: Patient is seated without any agitated behavior. Paranoid, guarded Speech: Patient's speech is fluent and nonpressured. Mood/Affect: Patient reports their mood is fine, affect is congruent and constricted. Suicidality/Homicidality: Patient endorses homicidal ideation no intent or plan. Denies any suicidal ideations intent or plan Perceptions: Patient denies any visual hallucinations and admits to auditory hallucinations. Though content/process: There is evidence of delusional thought content thought process disorganized Memory and concentration: Alert and oriented x 4, Judgment and insight:chronically poor/impulsive STRENGTHS/WEAKNESSES: strength is that patient is resilient. Weakness is that patient has poor judgment and is impulsive, poor insight and judgment INTELLECT: Average IMPRESSIONS: schizoaffective disorder Nonadherence to medications History of PTSD PLAN: -Patient is admitted under involuntary status to MHU for stabilization of psychiatric symptoms and safety. Patient has not signed adult voluntary form or medication consent. Patient is currently on a court order until 05/21/24 -Medications : IM Prolixin-D 37.5 mg IM last given 02/22/24, increasing Prolixin D 50mg IM every 10 days, give 02/28, next dose 03/10. patient is court ordered therefore required to take the injection. Trazodone 50mg po qhs for sleep/mood add Cogentin 1mg qhs for EPS eymptoms -Ativan and Prolixin PRN for agitation/aggression -Patient was informed of the risks, benefits and side effects of the medication -Internal Medicine consult to perform medical evaluation and physical. -NRT - nonsmoker -SW on board for discharge planning. Encourage patient to participate in groups to work on coping skills. Patient is currently on a court order which expires on 05/21/2024.
[2024-02-29] MEDS: fluPHENAZine DECANOATE 25 MG/ML 5ML MDV IM SCH (13:35)
[2024-02-29 17:45] LABS: Chol/HDL Ratio 2.99 Ratio; LDL Cholesterol,Calculated 47.9 mg/dL (0.0-131.0)
[2024-02-29] MEDS: BENZTROPINE MESYLATE 1 MG TAB PO SCH (20:38)
[2024-02-29] MEDS: traZODone HCL 50 MG TAB PO SCH (20:38)
--- NOTE | 2024-03-01 05:34 | P.CONS ---
History of Present Illness - Reason for Consult Consult date: 03/01/24 - History of Present Illness The patient is a 53-year-old female with a PMH of hypertension, hyperlipidemia, type II DM, who had presented to the emergency room brought in for this hallucinations and strange behavior. The patient was admitted to mental health unit where she was seen and evaluated accompanied by mental health unit RN. Patient denied any physical complaints at the time of interview. She did not know why she was brought to the hospital. Denies experiencing chest discomfort, shortness of breath, fever, chills, cough, nausea, vomiting, abdominal pain, diarrhea. Review of systems: Pertinent positives and negatives as discussed in HPI, a complete review of systems was performed and all other systems are negative. Physical examination: General: non toxic, no distress, appears at stated age, obese Derm: no unusual rashes/lesions, no unusual ecchymoses, warm, dry Head: atraumatic, normocephalic, symmetric Eyes: EOMI, no lid lag, anicteric sclera ENT: Nose and ears atraumatic, no thrush, no pharyngeal erythema Neck: trachea midline, supple Mouth: no lip lesion, mucus membranes moist Cardiovascular: S1S2 reg, no murmur, no edema Lungs: CTA bilateral, no rhonchi, no rales , no accessory muscle use Abdominal: soft, nontender to palpation, no guarding Ext: no gross muscle atrophy, no contractures, Neuro: No gross focal neuro deficits noted Psych: Alert, oriented, appropriate affect Assessment: Chronic conditions: Type II DM, hypertension, hyperlipidemia Psychosis Imaging: None performed Data Review: WBC count 8.9, hemoglobin 13.8, sodium 131, BUN 7, creatinine 0.57, glucose 104, UA unremarkable, urine toxicology unremarkable Plan: Resume home medications Defer management of psychosis to primary psychiatry service Thank you for allowing us to participate in the care of this patient. We will follow peripherally. Do not hesitate to contact us with questions. Someone can be reached from the [facility] hospitalist group at all hours of the day at [phone]. Past Medical History Past Medical History: GERD/Reflux, Hyperlipidemia, Hypertension, Seizure Disorder Additional Past Medical History / Comment(s): pre diabetes, GERD History of Any Multi-Drug Resistant Organisms: None Reported Past Surgical History: Tubal Ligation Past Anesthesia/Blood Transfusion Reactions: No Reported Reaction Smoking Status: Current every day smoker - Past Family History Mother Family Medical History: Hyperlipidemia Family Family Medical History: Coronary Artery Disease (CAD) Medications and Allergies Home Medications Medication Instructions Recorded Confirmed Type fluPHENAZine decanoate [Prolixin 37.5 mg IM Q14D #1 ml 01/28/24 02/28/24 Rx Decanoate] Aspirin [Adult Low Dose Aspirin EC] 81 mg PO HS@209902/28/24 02/28/24 History Atorvastatin [Lipitor] 20 mg PO HS@209902/28/24 02/28/24 History Cholecalciferol (Vitamin D3) 50 mcg PO DAILY@0800 02/28/24 02/28/24 History [Vitamin D3 (50 Mcg = 2000 Iu)] Famotidine 20 mg PO BID@0800,209902/28/24 02/28/24 History Lactulose [Constulose] 10 gm PO DAILY PRN 02/28/24 02/28/24 History Sennosides [Senokot] 17.2 mg PO HS PRN 02/28/24 02/28/24 History lisinopriL [Zestril] 10 mg PO DAILY@0800 02/28/24 02/28/24 History metFORMIN HCL [Glucophage] 850 mg PO DAILY@0800 02/28/24 02/28/24 History oxyBUTYnin chloride 5 mg PO BID@0800,209902/28/24 02/28/24 History traZODone HCL 100 mg PO HS@2100 PRN 02/28/24 02/28/24 History Allergies Allergy/AdvReac Type Severity Reaction Status Date / Time codeine Allergy Unknown Verified 02/09/24 10:00 divalproex sodium Allergy Rash/Hives Verified 02/09/24 10:00 [From Depakote] adhesive AdvReac Intermediate Rash/Hives Verified 02/09/24 10:00 Physical Exam Vitals: Vital Signs Temp Pulse Resp BP 02/29/24 08:33 95 137/82 02/29/24 06:44 97.6 F 68 16 117/59 Results CBC & Chem 7: 02/27/24 22:35 02/27/24 22:35 Labs: Abnormal Lab Results - Last 24 Hours (Table) 02/27/24 Range/Units 22:35 Triglycerides 160.00 H (0.00-149.00) mg/dL
--- NOTE | 2024-03-01 08:58 | P.PN ---
Subjective Progress Note Date: 03/01/24 Principal diagnosis: IMPRESSIONS: schizoaffective disorder History of PTSD Subjective data: The patient was seen in her room where she was laying comfortably in bed Patient states that she is doing well she states that she is not having any problems or issues Patient remains very guarded and superficial and appears to be preoccupied Patient at times was seen to be responding to internal stimuli Patient seems to have difficulty with trust issues but during this newspaper writer MENTAL STATUS EXAM: General Appearance: Patient appears to be stated age is alert, difficult to redirect and guarded. She has short hair. Patient appears to have fair hygiene and grooming. Behavior: Patient is seated without any agitated behavior. Paranoid, guarded Speech: Patient's speech is fluent and nonpressured. But sparse Mood/Affect: Patient reports their mood is fine, affect is congruent and constricted. Suicidality/Homicidality: Patient denies homicidal ideation no intent or plan. Denies any suicidal ideations intent or plan Perceptions: Patient denies any visual hallucinations and admits to auditory hallucinations. Though content/process: There is evidence of delusional thought content thought process disorganized Memory and concentration: Alert and oriented x 4, Judgment and insight:chronically poor/impulsive IMPRESSIONS: schizoaffective disorder Nonadherence to medications History of PTSD PLAN: Agree with Dr. Rogers's current treatment plan -Patient is admitted under involuntary status to [facility] for stabilization of psychiatric symptoms and safety. . Patient is currently on a court order until 05/21/24 -Medications : IM Prolixin-D 37.5 mg IM last given 02/22/24, increasing Prolixin D 50mg IM every 10 days, give 02/28, next dose 03/10. patient is court ordered therefore required to take the injection. Trazodone 50mg po qhs for sleep/mood add Cogentin 1mg qhs for EPS eymptoms -Ativan and Prolixin PRN for agitation/aggression -Internal Medicine consult to perform medical evaluation and physical. -NRT - nonsmoker -SW on board for discharge planning. Encourage patient to participate in groups to work on coping skills. Car Gamez MD Objective - Vital Signs Vital signs: Vital Signs Temp 97.6 F 02/29/24 06:44 Pulse 91 03/01/24 08:41 Resp 16 02/29/24 06:44 BP 119/56 03/01/24 08:41 Pulse Ox 98 02/28/24 14:07 FiO2 - Labs CBC & Chem 7: 02/27/24 22:35 02/27/24 22:35 Labs: Abnormal Lab Results - Last 24 Hours (Table) 02/27/24 Range/Units 22:35 Triglycerides 160.00 H (0.00-149.00) mg/dL
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
[2024-03-02] MEDS: NICOTINE GUM (POLACRILEX) 2 MG GUM BUCCAL PRN (12:08)
--- NOTE | 2024-03-03 11:56 | P.PN ---
Progress Note - Text Progress Note Date: 03/03/24 Interval History: Patient was seen in her room and was directable and agreeable to speak with wr iter in the office. She states that she is doing ok. Then she stated that she don't like going "down there" (referring to group), she states that it makes her feel like she is being violated in her vagina area, by staff and other patients. She admits to auditory hallucinations, stating her and children are telling her to be strong. She then states that she wants discharged, because she is going on a vacation to the [facility], with her , children and the mafia. She claims to sleep well, and stated she eats when she is hungry. At this time patient denies any suicidal or homical ideations, intent or plan. Patient admits auditory hallucinations, denies visual hallucinations and denies any paranoia or delusions. Patient denies any side effects from the medications and has been compliant with meds. MENTAL STATUS EXAM: General Appearance: Patient appears to be stated age is alert, difficult to redirect and guarded. She has short hair. Patient appears to have fair hygiene and grooming. Behavior: Patient is seated without any agitated behavior. Paranoid, guarded Speech: Patient's speech is fluent and nonpressured. Mood/Affect: Patient reports their mood is fine, affect is congruent and constricted. Suicidality/Homicidality: Patient denies homicidal ideation no intent or plan. Denies any suicidal ideations intent or plan Perceptions: Patient denies any visual hallucinations and admits to auditory hallucinations. Though content/process: There is evidence of delusional thought content thought process disorganized Memory and concentration: Alert and oriented x 4, Judgment and insight:chronically poor/impulsive IMPRESSIONS: schizoaffective disorder Nonadherence to medications History of PTSD PLAN: -Patient is admitted under involuntary status to [facility] for stabilization of psychiatric symptoms and safety. Patient has not signed adult voluntary form or medication consent. Patient is currently on a court order until 05/21/24 -Medications : IM Prolixin-D 37.5 mg IM last given 02/22/24, Prolixin D 50mg IM every 10 days, last dose was given 02/28, next dose 03/10. patient is court ordered therefore required to take the injection. Trazodone 50mg po qhs for sleep/mood Cogentin 1mg qhs for EPS eymptoms -Ativan and Prolixin PRN for agitation/aggression -NRT - nonsmoker -SW on board for discharge planning. Encourage patient to participate in groups to work on coping skills. Patient is currently on a court order which expires on 05/21/2024.
--- NOTE | 2024-03-04 10:19 | P.PN ---
Progress Note - Text Progress Note Date: 03/04/24 Interval History: Patient was seen in her room and was directable and agreeable to speak with wr iter at the bedside. She states that she feel wonderful today. Then she stated that she don't like going to groups because she gets twitching in her vagina, and it makes her feel like she is being raped. Paper Core Machine Operator asked patient if it is painful when she urinates, patient stated that it is not. She admits to auditory hallucinations, stating her and the supreme court are telling her that she is a good girl, and to keep fighting to change the rules. She states that she wants to get out of here, because she wants to fight for her rights. When asked if she has thoughts of hurting anyone, she stated, "My is taking care of it". She claims to sleep well, and stated she eats when she is hungry. At this time patient denies any suicidal or homicidal ideations, intent or plan. Patient admits auditory hallucinations, denies visual hallucinations and denies any paranoia or delusions. Patient denies any side effects from the medications and has been compliant with meds. MENTAL STATUS EXAM: General Appearance: Patient appears to be stated age is alert, difficult to redirect and guarded. She has short hair. Patient appears to have fair hygiene and grooming. Behavior: Patient is seated without any agitated behavior. Paranoid, [place] Speech: Patient's speech is fluent and nonpressured. Mood/Affect: Patient reports their mood is fine, affect is congruent and constricted. Suicidality/Homicidality: Patient denies homicidal ideation no intent or plan. Denies any suicidal ideations intent or plan Perceptions: Patient denies any visual hallucinations and admits to auditory streeter llucinations. Though content/process: There is evidence of delusional thought content thought process disorganized Memory and concentration: Alert and oriented x 4 Judgment and insight:chronically poor/impulsive IMPRESSIONS: schizoaffective disorder Nonadherence to medications History of PTSD PLAN: -Patient is admitted under involuntary status to [facility] for stabilization of psychiatric symptoms and safety. Patient has not signed adult voluntary form or medication consent. Patient is currently on a court order until 05/21/24 -Medications : IM Prolixin-D 37.5 mg IM last given 5/31/24, Prolixin D 50mg IM every 10 days, last dose was given 02/28, next dose 03/10. patient is court ordered therefore required to take the injection. Trazodone 50mg po qhs for sleep/mood, Cogentin 1mg qhs for EPS eymptoms -Ativan and Prolixin PRN for agitation/aggression -NRT - nonsmoker -SW on board for discharge planning. Encourage patient to participate in groups to work on coping skills. Patient is currently on a court order which expires on 05/21/2024.
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
[2024-03-05] MEDS: OLANZapine 5 MG TAB PO SCH (20:41)
[2024-03-05] MEDS ORDERED: OLANZapine 2.5 MG TAB PO SCH (21:00)
--- NOTE | 2024-03-06 10:56 | P.PN ---
Progress Note - Text Progress Note Date: 03/06/24 Interval History: Patient was seen in her room, and was directable and agreeable to speak with mervin weber at the bedside. She states that she is wonderful today. Patient does attend some groups, but when she is in group, she feels a "twinge in my vagina", and it makes her uncomfortable, so she goes back to her room. She continues to admit to auditory hallucinations, stating her is speaking to her, saying positive things. She claims to sleep well, and stated her appetite is fine. Patient is focused on discharge. Continues to have fairly poor insight and judgment. At this time patient denies any suicidal or homicidal ideations, intent or plan. Patient admits auditory hallucinations, denies visual hallucinations and denies any paranoia or delusions. Patient denies any side effects from the medications and has been compliant with meds. MENTAL STATUS EXAM: General Appearance: Patient appears to be stated age is alert, difficult to redirect and guarded. She has short hair. Patient appears to have fair hygiene and grooming. Behavior: Patient is seated without any agitated behavior. [place], mildly improving Speech: Patient's speech is fluent and nonpressured. Mood/Affect: Patient reports their mood is fine, affect is congruent and constricted. mildly improving Suicidality/Homicidality: Patient denies homicidal ideation no intent or plan. Denies any suicidal ideations intent or plan Perceptions: Patient denies any visual hallucinations and admits to auditory hallucinations. Though content/process: There is evidence of delusional thought content thought process disorganized, mildly improving Memory and concentration: Alert and oriented x 4 Judgment and insight:chronically poor/impulsive, mildly improving IMPRESSIONS: schizoaffective disorder Nonadherence to medications History of PTSD PLAN: -Patient is admitted under involuntary status to [facility] for stabilization of psychiatric symptoms and safety. Patient has not signed adult voluntary form or medication consent. Patient is currently on a court order until 05/21/24 -Medications : IM Prolixin-D 37.5 mg IM last given 02/22/24, Prolixin D 50mg IM every 10 days, last dose was given 02/28, next dose 03/10. patient is court ordered therefore required to take the injection. Zyprexa 5 mg nightly for psychosis adjunct/insomnia. Cogentin 1mg qhs for EPS eymptoms -Ativan and Prolixin PRN for agitation/aggression -NRT - nonsmoker -SW on board for discharge planning. Encourage patient to participate in groups to work on coping skills. Patient is currently on a court order which expires on 05/21/2024.
--- NOTE | 2024-03-07 11:46 | P.PN ---
Progress Note - Text Progress Note Date: 03/07/24 Interval History: Patient was seen in her room, and was directable and agreeable to speak with mervin weber at the bedside. She states that she doing really good. She claims this is due to less stress. She claims on the outside, the cars driving by causes her stress. Patient does attend some groups, and is tolerating them better today. She continues to admit to auditory hallucinations, stating her is speaking to her, saying positive things. She claims to sleep well, and stated her appetite is fine. Patient is focused on discharge. Has improving insight and judgment. At this time patient denies any suicidal or homicidal ideations, intent or plan. Patient admits auditory hallucinations, denies visual hallucinations and denies any paranoia or delusions. Patient denies any side effects from the medications and has been compliant with meds. MENTAL STATUS EXAM: General Appearance: Patient appears to be stated age is alert, difficult to redirect and guarded. She has short hair. Patient appears to have fair hygiene and grooming. Behavior: Patient is seated without any agitated behavior. [place], mildly improving Speech: Patient's speech is fluent and nonpressured. Mood/Affect: Patient reports their mood is good, affect is congruent and constricted. mildly improving Suicidality/Homicidality: Patient denies homicidal ideation no intent or plan. Denies any suicidal ideations intent or plan Perceptions: Patient denies any visual hallucinations and admits to auditory hallucinations, improving mildly Though content/process: There is no evidence of delusional thought content thought process mildly improving Memory and concentration: Alert and oriented x 4 Judgment and insight : chronically poor/impulsive, mildly improving IMPRESSIONS: schizoaffective disorder Nonadherence to medications History of PTSD PLAN: -Patient is admitted under involuntary status to [facility] for stabilization of psychiatric symptoms and safety. Patient has not signed adult voluntary form or medication consent. Patient is currently on a court order until 05/21/24 -Medications : IM Prolixin-D 37.5 mg IM last given 02/22/24, Prolixin D 50mg IM every 10 days, last dose was given 02/28, next dose 03/10 prior to d/c. patient is court ordered therefore required to take the injection. Zyprexa 5 mg nightly for psychosis adjunct/insomnia. Cogentin 1mg qhs for EPS eymptoms -Ativan and Prolixin PRN for agitation/aggression -NRT - nonsmoker -SW on board for discharge planning. Encourage patient to participate in groups to work on coping skills. Patient is currently on a court order which expires on 05/21/2024. Likely discharge Sunday after Prolixin injection given and will be going back to [place].
--- NOTE | 2024-03-08 10:23 | P.PN ---
Subjective Progress Note Date: 03/08/24 Principal diagnosis: Schizoaffective disorder Subjective: She says that she can talk to her and children and they can talk to her mind and that people were driving by mouth talking to her from the cars. When I pointed out that these things were highly unlikely in order to test her insight is that, "I begged to differ ". She did come readily down seen in my office.. She claims to sleep well, and stated her appetite is fine. Patient is focused on discharge. Has improving insight and judgment. At this time patient denies any suicidal or homicidal ideations, intent or plan. Patient admits auditory hallucinations, denies visual hallucinations and denies any paranoia or delusions. Patient denies any side effects from the medications and has been compliant with meds. Objective: Patient has a pleasant affect is very bland and does not really fit sit General Appearance: Patient appears to be stated age is alert, difficult to redirect and guarded. She has short hair. Patient appears to have fair hygiene and grooming. Behavior: Patient is seated without any agitated behavior. [place], mildly improving Speech: Patient's speech is fluent and nonpressured. Mood he denies depression that she feels fine Suicidality/Homicidality: Patient denies homicidal ideation no intent or plan. Denies any suicidal ideations intent or plan Perceptions: Patient denies any visual hallucinations and admits to auditory hallucinations, or if she turns around and says they have not hallucinations they are real. Though content/process: There is no evidence of delusional thought content Memory and concentration: Alert and oriented x 4 Judgment and insight : chronically poor/impulsive, mildly improving Assessment: Very poor insight as well and taking the medications. She acknowledges that she would prior not be responsible with medications and is okay with schizoaffective disorder Nonadherence to medications History of PTSD PLAN: No change in medication -Patient is admitted under involuntary status to [facility] for stabilization of psychiatric symptoms and safety. Patient has not signed adult voluntary form or medication consent. Patient is currently on a court order until 05/21/24 -Medications : IM Prolixin-D 37.5 mg IM last given 02/22/24, Prolixin D 50mg IM every 10 days, last dose was given 02/28, next dose 03/10 prior to d/c. patient is court ordered therefore required to take the injection. Zyprexa 5 mg nightly for psychosis adjunct/insomnia. Cogentin 1mg qhs for EPS eymptoms -Ativan and Prolixin PRN for agitation/aggression -NRT - nonsmoker -SW on board for discharge planning. Encourage patient to participate in groups to work on coping skills. Patient is currently on a court order which expires on 05/21/2024. Likely discharge Sunday after Prolixin injection given and will be going back to [facility]. Objective - Vital Signs Vital signs: Vital Signs Temp 97.2 F L 03/08/24 06:00 Pulse 69 03/08/24 09:57 Resp 18 03/08/24 09:57 BP 113/56 03/08/24 09:57 Pulse Ox 100 03/08/24 09:57 FiO2 - Labs CBC & Chem 7: 02/27/24 22:35 02/27/24 22:35
[2024-03-08] MEDS: DOCUSATE 100 MG CAP PO SCH (11:07)
[2024-03-09] MEDS: MAGNESIUM HYDROXIDE 2,400 MG/30 ML CUP PO PRN (12:34)
--- NOTE | 2024-03-09 12:36 | P.PN ---
Subjective Progress Note Date: 03/09/24 Principal diagnosis: Schizoaffective disorder Subjective: Her affect does not match what she is talking about. She seemed very calm and pleasant was talking about how can she have a life if everybody driving by says rude things about her or send him pulses that make her vagina twitch. She says the medications of never made the voices go away which makes her think that they are real. She is not having pretty bad side effects with her current medication Objective: Patient has a pleasant affect General Appearance: Patient appears to be stated age is alert, difficult to r edirect and guarded. She has short hair. Patient appears to have fair hygiene and grooming. Behavior: Patient is seated without any agitated behavior. [place], mildly improving Speech: Patient's speech is fluent and nonpressured. Mood he denies depression that she feels fine Suicidality/Homicidality: Patient denies homicidal ideation no intent or plan. Denies any suicidal ideations intent or plan Perceptions: Patient denies any visual hallucinations and admits to auditory hallucinations, or if she turns around and says they have not hallucinations they are real. Though content/process: There is no evidence of delusional thought content Memory and concentration: Alert and oriented x 4 Judgment and insight : chronically poor/impulsive, mildly improving Assessment: Very poor insight as well and taking the medications. She acknowledges that she would prior not be responsible with medications and is okay with schizoaffective disorder Nonadherence to medications History of PTSD PLAN: No change in medication -Patient is admitted under involuntary status to [facility] for stabilization of psychiatric symptoms and safety. Patient has not signed adult voluntary form or medication consent. Patient is currently on a court order until 05/21/24 -Medications : IM Prolixin-D 37.5 mg IM last given 02/22/24, Prolixin D 50mg IM every 10 days, last dose was given 02/28, next dose 03/10 prior to d/c. patient is court ordered therefore required to take the injection. Zyprexa 5 mg nightly for psychosis adjunct/insomnia. Cogentin 1mg qhs for EPS eymptoms -Ativan and Prolixin PRN for agitation/aggression -NRT - nonsmoker -SW on board for discharge planning. Encourage patient to participate in groups to work on coping skills. Patient is currently on a court order which expires on 05/21/2024. Likely discharge Sunday after Prolixin injection given and will be going back to [facility]. Objective - Vital Signs Vital signs: Vital Signs Temp 96.7 F L 03/09/24 06:09 Pulse 69 03/09/24 06:09 Resp 18 03/09/24 06:09 BP 129/53 03/09/24 06:09 Pulse Ox 100 03/08/24 09:57 FiO2 - Labs CBC & Chem 7: 02/27/24 22:35 02/27/24 22:35
[2024-03-10 07:10] VITALS: PULSE 50; RESP 16; TEMP 97.3
[2024-03-10 08:29] VITALS: BP 128/68
[2024-03-10] MEDS: LACTULOSE 20 GM/30 ML CUP PO PRN (10:33)
--- NOTE | 2024-03-10 13:11 | P.DS ---
Providers Date of admission: 02/28/24 13:10 Expected date of discharge: 03/10/24 Attending physician: Mack Dumont MD Consults: 02/28/24 13:28 Consult Physician Routine Consulting Provider: Latisha Luis Consult Reason/Comments: H and P Do you want consulting provider notified?: Yes Primary care physician: Stated None - Discharge Diagnosis(es) (1) Schizoaffective disorder Current Visit: No Status: Acute Priority: High (2) Noncompliance with medication regimen Current Visit: No Status: Acute Priority: High (3) Post traumatic stress disorder (PTSD) Current Visit: No Status: Acute Priority: Medium Hospital Course: Admission HPI: Admission note was completed by chief writer "Patient presented to the hospital on 02/27 and as per EPS note, "pt was brought in on a petition from [facility] which says, "states God is telling what to do & what not to do says [facility] automation technician she would kill her if she doesn't stop talking. said she is the "Almighty God"." During assessment pt is labile but redirectable. She was cooperative with questions but would get frustrated. She states that her son and were [facility], "they are testing us". She states that she talked to the [facility] and she hasn't been sleeping d/t the training in the [facility]. She then states that she hasn't seen her son in years. "I haven't met by , I am through God". Pt was responding to internal stimuli and saying, "it's ok hunny", and then states, ,"hold on my is coming out" "We are not dating but we are in love". RN left during assessment to get patient water because she was stating she was thristy and when RN walked out of the room she yelled, "That nurse said I was a pain in the ass". She then came into the hallway and stated that CARLOS Jensen also said it to her earlier "in your head". Pt was easily redirected back to her room where RN continued assessment. Pt denies SI, HI. Pt has moments of clarity and then she does not answer appropriately and will state, "you are all just trying to confuse me". Eveline from [facility] contacted RN and stated that she was at [facility] to see pt and pt was threatening Eveline's life and was paranoid and exhibiting delusional thoughts. Per Eveline pt is on a court order and has not been consistent with treatment and medications. She refused her med review today and has been refusing medications on and off. She told Eveline that she would start taking her medications tomorrow because Reji told her too. Police were contacted and [facility] petitioned pt. When discussing her medications she states that she is going to quit them. She denies being on a court order. Pt is on an active order from 11/23/23 to 05/21/24." Today, the patient stated that a worker at the snf said she was going to mess with her, so the patient threatened to kill her. The patient presents as guarded and paranoid. Stating that at times, she wants to call the mafia to hurt people. She talks about wanting to be out of that snf, and wanting to go home to her , God, and her children. Patient was demonstrating very poor insight and judgment claiming that she does not need any more medications and will be refusing meds. She is not acknowledging that she is currently on a court order. She is endorsing auditory hallucinations, stating they only tell her good things. Denies visual hallucinations. She is not endorsing suicidal ideations, however, endorses homicidal ideations, with a plan to call the mafia to hurt the worker at the snf." Hospital course: Upon admission to the unit patient was admitted involuntarily on an active court order until 05/21/24. Patient was initially bizarre, delusional and psychotic, with treatment she eventually got along well with other patients on the unit and followed unit protocol. Patient was compliant with the medications and denied any side effects throughout hospital course. Patient was started on Prolixin D, given a higher dose of the medication of 50 mg IM on 02/21, she will be given her second dose on day of discharge 03/10 with the next dose due on 03/20. Also added Zyprexa p.o. 5 mg nightly for psychosis adjunct/insomnia, Cogentin 1 mg nightly for EPS symptoms.. Patient spoke of her stressors and engaged in therapy both group and individual. Patient was also seen by medical team for history and physical exam. Throughout the course of the hospitalization patient gradually improved with regards to mood, anxiety, psychosis, delusions, hallucinations, sleep and returned back to their baseline level of functioning. On the day of discharge patient denied any suicidal or homicidal ideations intent or plan denied any auditory or visual hallucinations. Patient endorsed wanting to live for her future and her health. The patient denied any access to guns or weapons. Patient denied any paranoia and did not endorse any delusions. Josh orozco does not have a significant history of substance abuse and was counseled on abstaining from all substances including alcohol and marijuana. Patient was also counseled on the medications and need for regular compliance and was encouraged to follow-up with their outpatient appointment for mental health and also for primary care. Patient will be discharged back to Health system to the crisis bed, will be continued to be followed closely by [facility] and will be in discussion further with her guardian for placement. Mental status exam: General Appearance: Patient appears to be mildly overweight, short hair, stated age is alert, pleasant, and cooperative. Patient is in no acute distress and has improved hygiene and grooming Behavior: Patient is calmly seated without any agitated behavior. Speech: Patient's speech is fluent and nonpressured. Mood/Affect: Patient reports their mood is "better", affect is congruent and improving mildly Suicidality/Homicidality: Patient denies having any suicidal or homicidal ideation intent or plan. Perceptions: Patient denies any auditory or visual hallucinations. Though content/process: There is no evidence of any delusional thought content a nd thought process is linear and goal-directed. More future oriented Memory and concentration: AOX3, grossly intact for the purposes of this session. Can spell "WORLD" backwards correctly. Judgment and insight: Chronically poor, however has improved with guarded prognosis Impression: schizoaffective disorder Nonadherence to medications History of PTSD Plan: -Continue with discharge today as patient has improved and stabilized psychiatrically and is not currently an imminent threat to herself and/or others. Patient will remain at chronically elevated risk for harm to self and/or others due to her impulsivity and chronic mental illness. -Continue medications: Prolixin D 50 mg IM was given on on 02/21, she will be given her second dose on day of discharge 03/10 with the next dose due on 03/20. it will be scheduled [id number] to help ensure compliance. Cogentin 1 mg nightly for EPS symptoms, Zyprexa 5 mg nightly for psychosis adjunct/insomnia. -Patient was counseled on the need for medication compliance and appropriate follow-up at mental health and also primary care for medical issues. Patient verbalized understanding and agreed. -Social work to coordinate with patient's guardian today and also [facility], [facility] is agreeable to have patient discharged back to Health system to the emergency/crisis bed for now and will coordinate with patient's guardian about further placement in the next few weeks. Social work also to arrange for patients follow up appointments with [facility] for psychiatric care along with follow up with primary care provider. -Patient counseled on abstaining from recreational drugs and marijuana and alcohol. Was informed/educated on the adverse effects on their physical and mental health. Patient verbally agreed and understood. -Patient was instructed to return to the hospital or seek immediate medical care if their psychiatric or medical symptoms do worsen or reoccur. Allergies Allergy/AdvReac Type Severity Reaction Status Date / Time codeine Allergy Unknown Verified 02/09/24 10:00 divalproex sodium Allergy Rash/Hives Verified 02/09/24 10:00 From Depakote adhesive AdvReac Intermediate Rash/Hives Verified 02/09/24 10:00 Laboratory Results WBC 8.9 k/uL (3.8-10.6) 02/27/24 22:35 RBC 4.80 m/uL (3.80-5.40) 02/27/24 22:35 Hgb 13.8 gm/dL (11.4-16.0) 02/27/24 22:35 Hct 41.6 % (34.0-46.0) 02/27/24 22:35 MCV 86.6 fL (80.0-100.0) 02/27/24 22:35 MCH 28.8 pg (25.0-35.0) 02/27/24 22:35 MCHC 33.3 g/dL (31.0-37.0) 02/27/24 22:35 RDW 14.4 % (11.5-15.5) 02/27/24 22:35 Plt Count 176 k/uL (150-450) 02/27/24 22:35 MPV 8.5 02/27/24 22:35 Neutrophils % 64 % 02/27/24 22:35 Lymphocytes % 26 % 02/27/24 22:35 Monocytes % 6 % 02/27/24 22:35 Eosinophils % 2 % 02/27/24 22:35 Basophils % 1 % 02/27/24 22:35 Neutrophils # 5.7 k/uL (1.3-7.7) 02/27/24 22:35 Lymphocytes # 2.3 k/uL (1.0-4.8) 02/27/24 22:35 Monocytes # 0.6 k/uL (0-1.0) 02/27/24 22:35 Eosinophils # 0.2 k/uL (0-0.7) 02/27/24 22:35 Basophils # 0.1 k/uL (0-0.2) 02/27/24 22:35 Sodium 131 mmol/L (137-145) L 02/27/24 22:35 Potassium 4.1 mmol/L (3.5-5.1) 02/27/24 22:35 Chloride 101 mmol/L (98-107) 02/27/24 22:35 Carbon Dioxide 25 mmol/L (22-30) 02/27/24 22:35 Anion Gap 5 mmol/L 02/27/24 22:35 BUN 7 mg/dL (7-17) 02/27/24 22:35 Creatinine 0.57 mg/dL (0.52-1.04) 02/27/24 22:35 Est GFR (CKD-EPI)AfAm >90 (>60 ml/min/1.73 sqM) 02/27/24 22:35 Est GFR (CKD-EPI)NonAf >90 (>60 ml/min/1.73 sqM) 02/27/24 22:35 Glucose 104 mg/dL (74-99) H 02/27/24 22:[address] Glu mg/dL 114 mg/dL 02/27/24 22:35 Hemoglobin A1c 5.6 % (<=6.0) 02/27/24 22:35 Calcium 9.5 mg/dL (8.4-10.2) 02/27/24 22:35 Total Bilirubin 0.6 mg/dL (0.2-1.3) 02/27/24 22:35 AST 22 U/L (14-36) 02/27/24 22:35 ALT 20 U/L (4-34) 02/27/24 22:35 Alkaline Phosphatase 75 U/L (38-126) 02/27/24 22:35 Total Protein 6.1 g/dL (6.3-8.2) L 02/27/24 22:35 Albumin 3.9 g/dL (3.5-5.0) 02/27/24 22:35 Triglycerides 160.00 mg/dL (0.00-149.00) H 02/27/24 22:35 Cholesterol 120.00 mg/dL (0.00-200.00) 02/27/24 22:35 LDL Cholesterol, Calc 47.9 mg/dL (0.0-131.0) 02/27/24 22:35 VLDL Cholesterol, Calc 32.00 mg/dL (5.00-40.00) 02/27/24 22:35 HDL Cholesterol 40.10 mg/dL (40.00-60.00) 02/27/24 22:35 Cholesterol/HDL Ratio 2.99 Ratio 02/27/24 22:35 TSH 1.670 mIU/L (0.465-4.680) 02/27/24 22:35 Urine Color Colorless 02/27/24 21:41 Urine Appearance Clear (Clear) 02/27/24 21:41 Urine pH 6.0 (5.0-8.0) 02/27/24 21:41 Ur Specific Arpin 1.001 (1.001-1.035) 02/27/24 21:41 Urine Protein Negative (Negative) 02/27/24 21:41 Urine Glucose (UA) Negative (Negative) 02/27/24 21:41 Urine Ketones Negative (Negative) 02/27/24 21:41 Urine Blood Trace (Negative) H 02/27/24 21:41 Urine Nitrite Negative (Negative) 02/27/24 21:41 Urine Bilirubin Negative (Negative) 02/27/24 21:41 Urine Urobilinogen <2.0 mg/dL (<2.0) 02/27/24 21:41 Ur Leukocyte Esterase Negative (Negative) 02/27/24 21:41 Urine RBC <1 /hpf (0-5) 02/27/24 21:41 Urine Bacteria Rare /hpf (None) H 02/27/24 21:41 Urine Opiates Screen Not Detected (NotDetected) 02/27/24 21:41 Ur Oxycodone Screen Not Detected (NotDetected) 02/27/24 21:41 Urine Methadone Screen Not Detected (NotDetected) 02/27/24 21:41 Ur Barbiturates Screen Not Detected (NotDetected) 02/27/24 21:41 U Tricyclic Antidepress Not Detected (NotDetected) 02/27/24 21:41 Ur Phencyclidine Scrn Not Detected (NotDetected) 02/27/24 21:41 Ur Amphetamines Screen Not Detected (NotDetected) 02/27/24 21:41 U Methamphetamines Scrn Not Detected (NotDetected) 02/27/24 21:41 U Benzodiazepines Scrn Not Detected (NotDetected) 02/27/24 21:41 Urine Cocaine Screen Not Detected (NotDetected) 02/27/24 21:41 U Marijuana (THC) Screen Not Detected (NotDetected) 02/27/24 21:41 SARS-CoV-2 (PCR) Not Detected (Not Detectd) 02/27/24 22:35 Vital Signs Temp 97.3 F L 03/10/24 06:36 Pulse 50 L 03/10/24 06:36 Resp 16 03/10/24 06:36 BP 128/68 03/10/24 08:29 Pulse Ox 100 03/08/24 09:57 FiO2 Intake & Output 03/09/24 03/10/24 03/10/24 18:59 06:59 18:59 Weight 83.7 kg Patient Condition at Discharge: Stable Plan - Discharge Summary Discharge Rx Participant: Yes New Discharge Prescriptions: New Benztropine Mesylate [Cogentin] 1 mg PO HS 30 Days #30 tab fluPHENAZine decanoate [Prolixin Decanoate] 50 mg IM Q10D #1 ml Docusate [Colace] 100 mg PO BID 30 Days #60 cap oxyBUTYnin chloride [Ditropan] 5 mg PO BID@0800,2100 30 Days #60 tab Ibuprofen [Motrin] 600 mg PO Q6HR PRN tab PRN Reason: Moderate Pain (Scale 4 To 6) Nicotine Gum (Polacrilex) [Nicorette] 2 mg BUCCAL Q4HR PRN 30 Days #180 pieceofgum PRN Reason: Nicotine Cravings Acetaminophen Tab [Tylenol] 650 mg PO Q4HR PRN tab PRN Reason: Mild Pain (Scale 1 To 3) OLANZapine [ZyPREXA] 5 mg PO HS 30 Days #30 tab Continue Sennosides [Senokot] 17.2 mg PO HS PRN 30 Days #30 tab PRN Reason: Constipation Cholecalciferol (Vitamin D3) [Vitamin D3 (50 Mcg = 2000 Iu)] 50 mcg PO DAILY@0800 30 Days #30 tab Changed Aspirin [Adult Low Dose Aspirin EC] 81 mg PO HS@2099 30 Days #30 tab Famotidine 20 mg PO BID@799,2099 30 Days #60 tab metFORMIN HCL [Glucophage] 850 mg PO DAILY@00 30 Days #30 tab Atorvastatin [Lipitor] 20 mg PO HS@2099 30 Days #30 tab lisinopriL [Zestril] 10 mg PO DAILY@00 30 Days #30 tab Discontinued traZODone HCL 100 mg PO HS@2099 PRN PRN Reason: SLEEP fluPHENAZine decanoate [Prolixin Decanoate] 37.5 mg IM Q14D #1 ml Lactulose [Constulose] 10 gm PO DAILY PRN PRN Reason: Constipation oxyBUTYnin chloride 5 mg PO BID@0800,2099 Discharge Medication List Acetaminophen Tab [Tylenol] 650 mg PO Q4HR PRN tab 03/10/24 [Rx] Aspirin [Adult Low Dose Aspirin EC] 81 mg PO HS@2099 30 Days #30 tab 03/10/24 [Rx] Atorvastatin [Lipitor] 20 mg PO HS@2099 30 Days #30 tab 03/10/24 [Rx] Benztropine Mesylate [Cogentin] 1 mg PO HS 30 Days #30 tab 03/10/24 [Rx] Cholecalciferol (Vitamin D3) [Vitamin D3 (50 Mcg = 2000 Iu)] 50 mcg PO DAILY@0800 30 Days #30 tab 03/10/24 [Rx] Docusate [Colace] 100 mg PO BID 30 Days #60 cap 03/10/24 [Rx] Famotidine 20 mg PO BID@0800,2099 30 Days #60 tab 03/10/24 [Rx] Ibuprofen [Motrin] 600 mg PO Q6HR PRN tab 03/10/24 [Rx] Nicotine Gum (Polacrilex) [Nicorette] 2 mg BUCCAL Q4HR PRN 30 Days #180 pieceofgum 03/10/24 [Rx] OLANZapine [ZyPREXA] 5 mg PO HS 30 Days #30 tab 03/10/24 [Rx] Sennosides [Senokot] 17.2 mg PO HS PRN 30 Days #30 tab 03/10/24 [Rx] fluPHENAZine decanoate [Prolixin Decanoate] 50 mg IM Q10D #1 ml 03/10/24 [Rx] lisinopriL [Zestril] 10 mg PO DAILY@0800 30 Days #30 tab 03/10/24 [Rx] metFORMIN HCL [Glucophage] 850 mg PO DAILY@0800 30 Days #30 tab 03/10/24 [Rx] oxyBUTYnin chloride [Ditropan] 5 mg PO BID@0800,2100 30 Days #60 tab 03/10/24 [Rx] Follow up Appointment(s)/Referral(s): [facility] [Outside] - 03/17/24 11:00 am (03/17/2024 11:00AM - 12:00PM BRITTANY MARTINEZ 03/20/2024 10:30AM - 11:30AM VIKY HUBER ) None,Stated [Primary Care Provider] - 1-2 days Activity/Diet/Wound Care/Special Instructions: Avoid the use of street drugs and alcohol. Take all medications as prescribed. When you are in need of refills on your medications, please contact your medical provider and/or outpatient psychiatrist/provider to have this done. Please go to your scheduled outpatient appointment for aftercare treatment. If symptoms return or become worse, call the crisis line at and/or go to the nearest emergency room for evaluation. National Suicide Hotline 988 Discharge Disposition: OTHER INSTITUTION NOT DEFINED
== END 2024-03-10 15:50 | disposition home or self-care (01) | DRG 885 ==
LOC: EC 19:43 → 3MHU 02-28 13:10
PROVIDERS: ADMIT Psychiatry & Neurology Psychiatry; ATTEND Psychiatry & Neurology Psychiatry
DX: F25.9 Schizoaffective disorder, unspecified (principal); E11.9 Type 2 diabetes mellitus without complications; I10 Essential (primary) hypertension; Z91.148 Patient's other noncompliance with medication regimen for other reason; F43.10 Post-traumatic stress disorder, unspecified; Z11.52 Encounter for screening for COVID-19; Z28.310 Unvaccinated for COVID-19; F41.9 Anxiety disorder, unspecified; E78.5 Hyperlipidemia, unspecified; F17.210 Nicotine dependence, cigarettes, uncomplicated; Z71.6 Tobacco abuse counseling; K21.9 Gastro-esophageal reflux disease without esophagitis; G47.00 Insomnia, unspecified; E66.3 Overweight; Z68.31 Body mass index [BMI] 31.0-31.9, adult; Z79.82 Long term (current) use of aspirin; Z79.84 Long term (current) use of oral hypoglycemic drugs; Z79.899 Other long term (current) drug therapy; Z88.5 Allergy status to narcotic agent; Z88.8 Allergy status to other drugs, medicaments and biological substances
CPT/HCPCS: 36415; 80053; 80061; 80306; 81001; 82075; 83036; 84443; 85025; 87635; 96372; 99285

== ENCOUNTER 2024-05-24 20:59 | Emergency (ER) | payer MEDICARE, MEDICAID ==
[2024-05-24 21:07] VITALS: BP 154/68; PULSE 82; RESP 18; TEMP 98
--- NOTE | 2024-05-24 21:30 | ED ---
Recheck HPI - General Chief Complaint: Recheck/Abnormal Lab/Rx Stated Complaint: Med re-check Time Seen by Provider: 05/24/24 21:25 Source: patient Mode of arrival: ambulatory Limitations: no limitations - History of Present Illness Initial Comments: Patient is a 53-year-old woman who arrives here to have evaluation for medication error. The patient lives in an [facility] home and had been given the wrong patient's medication. She received dose of clonidine 0.1 mg, quetiapine, . Patient states that she has a dry mouth and she is feeling a little tired but otherwise denying symptoms. No chest pain or dyspnea. She has been able to stand without passing out. Complaint: other Onset/Timin -: hour(s) Initial Visit For: other Returns Today for: other Associated Symptoms: other (Fatigue) - Related Data Previous Rx's Medication Instructions Recorded Acetaminophen Tab [Tylenol] 650 mg PO Q4HR PRN tab 03/10/24 Aspirin [Adult Low Dose Aspirin EC] 81 mg PO HS@2100 30 Days #30 tab 03/10/24 Atorvastatin [Lipitor] 20 mg PO HS@2100 30 Days #30 tab 03/10/24 Benztropine Mesylate [Cogentin] 1 mg PO HS 30 Days #30 tab 03/10/24 Cholecalciferol (Vitamin D3) 50 mcg PO DAILY@0800 30 Days #30 03/10/24 [Vitamin D3 (50 Mcg = 2000 Iu)] tab Docusate [Colace] 100 mg PO BID 30 Days #60 cap 03/10/24 Famotidine 20 mg PO BID@0800,2100 30 Days #60 03/10/24 tab Ibuprofen [Motrin] 600 mg PO Q6HR PRN tab 03/10/24 Nicotine Gum (Polacrilex) 2 mg BUCCAL Q4HR PRN 30 Days #180 03/10/24 [Nicorette] pieceofgum OLANZapine [ZyPREXA] 5 mg PO HS 30 Days #30 tab 03/10/24 Sennosides [Senokot] 17.2 mg PO HS PRN 30 Days #30 tab 03/10/24 fluPHENAZine decanoate [Prolixin 50 mg IM Q10D #1 ml 03/10/24 Decanoate] lisinopriL [Zestril] 10 mg PO DAILY@0800 30 Days #30 tab 03/10/24 metFORMIN HCL [Glucophage] 850 mg PO DAILY@0800 30 Days #30 03/10/24 tab oxyBUTYnin chloride [Ditropan] 5 mg PO BID@0800,2100 30 Days #60 03/10/24 tab Allergies Allergy/AdvReac Type Severity Reaction Status Date / Time codeine Allergy Unknown Verified 02/09/24 10:00 divalproex sodium Allergy Rash/Hives Verified 02/09/24 10:00 [From Depakote] adhesive AdvReac Intermediate Rash/Hives Verified 02/09/24 10:00 Review of Systems ROS Statement: Those systems with pertinent positive or pertinent negative responses have been documented in the HPI. ROS Other: All systems not noted in ROS Statement are negative. Constitutional: Denies: weakness Eyes: Denies: vision change Respiratory: Denies: cough, dyspnea Cardiovascular: Denies: chest pain, palpitations, edema, syncope Gastrointestinal: Denies: abdominal pain, vomiting, diarrhea Genitourinary: Denies: dysuria, hematuria Musculoskeletal: Denies: back pain Skin: Denies: rash Neurological: Denies: headache, weakness, numbness Past Medical History Past Medical History: GERD/Reflux, Hyperlipidemia, Hypertension, Seizure Disorder Additional Past Medical History / Comment(s): pre diabetes, GERD History of Any Multi-Drug Resistant Organisms: None Reported Past Surgical History: Tubal Ligation Past Anesthesia/Blood Transfusion Reactions: No Reported Reaction Past Psychological History: Anxiety, Bipolar, Depression, Schizophrenia Smoking Status: Current every day smoker Past Alcohol Use History: None Reported Past Drug Use History: None Reported - Past Family History Mother Family Medical History: Hyperlipidemia Family Family Medical History: Coronary Artery Disease (CAD) General Exam Limitations: no limitations General appearance: alert, in no apparent distress Head exam: Present: atraumatic, normocephalic Eye exam: Present: normal appearance. Absent: scleral icterus, conjunctival injection ENT exam: Present: normal oropharynx Neck exam: Present: normal inspection Respiratory exam: Present: normal lung sounds bilaterally. Absent: respiratory distress, wheezes, rales, rhonchi, stridor Cardiovascular Exam: Present: regular rate, normal rhythm, normal heart sounds. Absent: systolic murmur, diastolic murmur, rubs, gallop GI/Abdominal exam: Present: soft. Absent: distended, tenderness, guarding, rebound, rigid, mass Extremities exam: Present: normal inspection, normal capillary refill. Absent: pedal edema, calf tenderness Back exam: Present: normal inspection. Absent: CVA tenderness (R), CVA tenderness (L) Neurological exam: Present: alert, normal gait Skin exam: Present: warm, dry, intact, normal color. Absent: rash Course Vital Signs 05/24/24 21:03 Temperature 98.0 F Pulse Rate 82 Respiratory 18 Rate Blood Pressure 154/68 O2 Sat by Pulse 97 Oximetry Medical Decision Making - Medical Decision Making Was pt. sent in by a medical professional or institution (, [facility], [facility], urgent care, hospital, or senior living...) When possible be specific @ -[No] Did you speak to anyone other than the patient for history (EMS, parent, family, police, friend...)? What history was obtained from this source @ -[No] Did you review nursing and triage notes (agree or disagree)? Why? @ -[I reviewed and agree with nursing and triage notes] Were old charts reviewed (outside hosp., previous admission, EMS record, old EKG, old radiological studies, urgent care reports/EKG's, senior living records)? Report findings @ -[No old charts were reviewed] Differential Diagnosis (chest pain, altered mental status, abdominal pain women, abdominal pain men, vaginal bleeding, weakness, fever, dyspnea, syncope, headache, dizziness, GI bleed, back pain, seizure, CVA, palpatations, mental health, musculoskeletal)? @ -[not applicable] EKG interpreted by me (3pts min.). @ -[As above] X-rays interpreted by me (1pt min.). @ -[None done] CT interpreted by me (1pt min.). @ -[None done] U/S interpreted by me (1pt. min.). @ -[None done] What testing was considered but not performed or refused? (CT, X-rays, U/S, labs)? Why? @ -[None] What meds were considered but not given or refused? Why? @ -[None] Did you discuss the management of the patient with other professionals (professionals i.e. [facility], [facility], lab, RT, psych nurse, manager social responsibility, blending kettle tender, teacher, transportation security officer, case managers)? Give summary @ -[No] Was smoking cessation discussed for >3mins.? @ -[No] Was critical care preformed (if so, how long)? @ -[No] Were there social determinants of health that impacted care today? How? (Homelessness, low income, unemployed, alcoholism, drug addiction, transportation, low edu. Level, literacy, decrease access to med. care, half-way, rehab)? @ -[No] Was there de-escalation of care discussed even if they declined (Discuss DNR or withdrawal of care, Hospice)? DNR status @ -[No] What co-morbidities impacted this encounter? (DM, HTN, Smoking, COPD, CAD, Cancer, CVA, ARF, Chemo, Hep., AIDS, mental health diagnosis, sleep apnea, morbid obesity)? @ -[None] Was patient admitted / discharged? Hospital course, mention meds given and route, prescriptions, significant lab abnormalities, going to OR and other pertinent info. @ -[This patient is 53-year-old woman who is seen after medication administration error. The patient not manifesting any serious effects and stable for discharge. Discussed appropriate further care and return parameters Undiagnosed new problem with uncertain prognosis? @ -[No] Drug Therapy requiring intensive monitoring for toxicity (Heparin, Nitro, Insulin, Cardizem)? @ -[No] Were any procedures done? @ -[No] Diagnosis/symptom? @ -[default] acute medication air Acute, or Chronic, or Acute on Chronic? @ -Acute Uncomplicated (without systemic symptoms) or Complicated (systemic symptoms)? @ -Uncomplicated Side effects of treatment? @ -[No] Exacerbation, Progression, or Severe Exacerbation? @ -[No] Poses a threat to life or bodily function? How? (Chest pain, [place], [place], pneumonia, PE, COPD, DKA, ARF, appy, cholecystitis, CVA, Diverticulitis, Homicidal, Suicidal, threat to staff... and all critical care pts) @ -[No] Disposition Clinical Impression: Medication administered in error Disposition: HOME SELF-CARE Condition: Good Instructions (If sedation given, give patient instructions): Medication Safety for Older Adults (ED) Is patient prescribed a controlled substance at d/c from ED?: No Referrals: None,Stated [REFERRING] - 1-2 days
== END 2024-05-24 21:49 | disposition home or self-care (01) ==
LOC: EC 20:59
DX: R79.9 Abnormal finding of blood chemistry, unspecified
CPT/HCPCS: 99282

== ENCOUNTER 2024-06-18 08:24 | Day surgery (SDC) | payer MEDICARE, OTHER ==
[2024-06-16 15:48] VITALS: BMI 31.9
[~2024-06-18 08:24] MED LIST: LACTATED RINGERS 1,000 ML IV SCH
[2024-06-18] MEDS: IV FLUID CONTINUATION 1,000 ML IV ONE (08:41)
[2024-06-18 08:52] VITALS: TEMP 98.1
[2024-06-18 09:00] LABS: Glucose,Whole Blood 101 mg/dL (70-110)
[2024-06-18] MEDS ORDERED: PROPOFOL 10 MG/ML 20 ML VIAL IV ONE (09:32)
--- NOTE | 2024-06-18 09:49 | P.PCN ---
Date of Procedure: 06/18/24 Procedure(s) Performed: BRIEF HISTORY: Patient is a 53-year-old pleasant white female scheduled for an elective colonoscopy as a part of screening for colon cancer. PROCEDURE PERFORMED: Colonoscopy with biopsy. PREOPERATIVE DIAGNOSIS: Screening for colon cancer. IV sedation per Anesthesia. PROCEDURE: After informed consent was obtained, the patient, was brought into the endoscopy unit. IV sedation was administered by Anesthesia under continuous monitoring. Digital rectal examination was normal. Initially the Olympus CF-160 flexible video colonoscope was then inserted in the rectum, gradually advanced into the cecum without any difficulty. Careful examination was performed as the scope was gradually being withdrawn. Ileocecal valve and the appendiceal orifice were visualized and appeared normal. Prep was excellent. Mucosa of the cecum appeared normal. In the ascending colon there was a 4 mm sessile polyp that was removed by cold biopsy. Rest of the, ascending colon, transverse colon, descending colon, sigmoid colon, and rectum appeared normal. In the rectum there was a 3 mm polyp that was removed by cold biopsy. Retroflexion was performed in the rectum and no lesions were seen. The patient tolerated the procedure well. IMPRESSION: 4 mm ascending colon polyp status post removal by cold biopsy 3 mm rectal polyp status post removed by cold biopsy RECOMMENDATIONS: Findings of this examination were discussed with the patient as well as her family. She was advised to follow-up with the biopsy results. If the biopsy reveals adenoma she can have repeat colonoscopy in 5 years. .
[2024-06-18 10:09] VITALS: BP 121/76; PULSE 67; RESP 16
== END 2024-06-18 10:38 | disposition home or self-care (01) ==
LOC: ORWHC2ENDO 08:24
PROVIDERS: ATTEND Internal Medicine Gastroenterology
DX: Z12.11 Encounter for screening for malignant neoplasm of colon
CPT/HCPCS: 45380; 88305

== ENCOUNTER 2024-07-21 08:59 | Inpatient (IN) | payer MEDICARE, MEDICAID ==
--- NOTE | 2024-07-21 09:20 | ED ---
Psych HPI - General Source: patient, police, RN notes reviewed Mode of arrival: ambulatory Limitations: no limitations <Jamie Brewer - Last Filed: 07/21/24 10:44> <Ivan Sales - Last Filed: 07/21/24 11:07> - General Chief Complaint: Psychiatric Symptoms Stated Complaint: mental health Time Seen by Provider: 07/21/24 09:05 - History of Present Illness Initial Comments: 53-year-old female presents emergency department with police for psychiatric evaluation. Patient was picked up on a pickup order patient does have a history of schizoaffective disorder has not been compliant with treatment. Patient does have some very paranoid and delusional thought process. Patient denies being suicidal homicidal denies any alcohol or drug use. (Jamie Brewer) - Related Data Home Medications Medication Instructions Recorded Confirmed Benztropine Mesylate [Cogentin] 0.5 mg PO DAILY@0800 06/16/24 06/18/24 Docusate [Colace] 100 mg PO DAILY@0800 06/16/24 06/18/24 OLANZapine 10 mg PO HS 06/16/24 06/18/24 lamoTRIgine [LaMICtal] 50 mg PO HS 06/16/24 06/18/24 Previous Rx's Medication Instructions Recorded Aspirin [Adult Low Dose Aspirin EC] 81 mg PO HS@2100 30 Days #30 tab 03/10/24 Atorvastatin [Lipitor] 20 mg PO HS@2100 30 Days #30 tab 03/10/24 Cholecalciferol (Vitamin D3) 50 mcg PO DAILY@0800 30 Days #30 03/10/24 [Vitamin D3 (50 Mcg = 2000 Iu)] tab Famotidine 20 mg PO BID@0800,2099 30 Days #60 03/10/24 tab lisinopriL [Zestril] 10 mg PO DAILY@0800 30 Days #30 tab 03/10/24 metFORMIN HCL [Glucophage] 850 mg PO DAILY@0800 30 Days #30 03/10/24 tab oxyBUTYnin chloride [Ditropan] 5 mg PO BID@0800,2099 30 Days #60 03/10/24 tab Allergies Allergy/AdvReac Type Severity Reaction Status Date / Time codeine Allergy Unknown Verified 07/21/24 09:01 divalproex sodium Allergy Rash/Hives Verified 07/21/24 09:01 [From Depakote] [email or web address] [From Chantix] Allergy Unknown Verified 07/21/24 09:01 adhesive AdvReac Intermediate Rash/Hives Verified 07/21/24 09:01 Review of Systems ROS Other: All systems not noted in ROS Statement are negative. <Jamie Brewer - Last Filed: 07/21/24 10:44> ROS Other: All systems not noted in ROS Statement are negative. <Ivan Sales - Last Filed: 07/21/24 11:07> ROS Statement: Those systems with pertinent positive or pertinent negative responses have been documented in the HPI. Past Medical History Past Medical History: Asthma, GERD/Reflux, Hyperlipidemia, Hypertension, Seizure Disorder Additional Past Medical History / Comment(s): Pre-diabetes, GERD, last seizure approximately 2 yrs ago. History of Any Multi-Drug Resistant Organisms: None Reported Past Surgical History: Tubal Ligation Additional Past Surgical History / Comment(s): Colonoscopy. Past Anesthesia/Blood Transfusion Reactions: No Reported Reaction Past Psychological History: Bipolar, Depression, Schizophrenia Smoking Status: Current every day smoker - Past Family History Mother Family Medical History: Hyperlipidemia Father Family Medical History: Cancer Family Family Medical History: Coronary Artery Disease (CAD) <Jamie Brewer - Last Filed: 07/21/24 10:44> General Exam Limitations: altered mental status General appearance: alert, in no apparent distress Head exam: Present: atraumatic, normocephalic, normal inspection Eye exam: Present: normal appearance, PERRL, EOMI. Absent: scleral icterus, conjunctival injection, periorbital swelling ENT exam: Present: normal exam, normal oropharynx, mucous membranes moist Neck exam: Present: normal inspection, full ROM. Absent: tenderness, mening ismus, lymphadenopathy Respiratory exam: Present: normal lung sounds bilaterally. Absent: respiratory distress, wheezes, rales, rhonchi, stridor Cardiovascular Exam: Present: normal rhythm, tachycardia, normal heart sounds. Absent: systolic murmur, diastolic murmur, rubs, gallop, clicks Neurological exam: Present: alert, oriented X3, CN II-XII intact Skin exam: Present: warm, dry, intact, normal color. Absent: rash <Jamie Brewer - Last Filed: 07/21/24 10:44> Course Vital Signs 07/21/24 09:01 Temperature 98 F Pulse Rate 116 H Respiratory 18 Rate Blood Pressure 156/105 O2 Sat by Pulse 100 Oximetry Medical Decision Making <Jamie Brewer - Last Filed: 07/21/24 10:44> <Ivan Sales - Last Filed: 07/21/24 11:07> - Medical Decision Making Was pt. sent in by a medical professional or institution (, PA, DIRECTOR OF GRADUATE ADMISSIONS, urgent care, hospital, or senior care...) When possible be specific @ -No Did you speak to anyone other than the patient for history (EMS, parent, family, police, friend...)? What history was obtained from this source @ -Police who picked up patient on court order Did you review nursing and triage notes (agree or disagree)? Why? @ -I reviewed and agree with nursing and triage notes Were old charts reviewed (outside hosp., previous admission, EMS record, old EKG, old radiological studies, urgent care reports/EKG's, senior care records)? Report findings @ -No old charts were reviewed Differential Diagnosis (chest pain, altered mental status, abdominal pain women, abdominal pain men, vaginal bleeding, weakness, fever, dyspnea, syncope, headache, dizziness, GI bleed, back pain, seizure, CVA, palpatations, mental health, musculoskeletal)? @ -Differential Mental Health Depression, anxiety, bipolar, psychosis, schizophrenia, borderline personality, situational depression, adjustment disorder, behavioral disorder, brain tumor, malingering, substance abuse, encephalopathy, medication reaction, dementia, hypothyroidism, degenerative neurologic disorder, lupus.... This is not meant to be all-inclusive list EKG interpreted by me (3pts min.). @ -None X-rays interpreted by me (1pt min.). @ -None done CT interpreted by me (1pt min.). @ -None done U/S interpreted by me (1pt. min.). @ -None done What testing was considered but not performed or refused? (CT, X-rays, U/S, labs)? Why? @ -None What meds were considered but not given or refused? Why? @ -None Did you discuss the management of the patient with other professionals (professionals i.e. , PA, DIRECTOR OF GRADUATE ADMISSIONS, lab, RT, psych nurse, social sciences instructor, drum printer, teacher, credit products officer, cyanide case hardener)? Give summary @ -EPS evaluated the patient Was smoking cessation discussed for >3mins.? @ -No Was critical care preformed (if so, how long)? @ -No Were there social determinants of health that impacted care today? How? (Homelessness, low income, unemployed, alcoholism, drug addiction, transportation, low edu. Level, literacy, decrease access to med. care, [facility], rehab)? @ -No Was there de-escalation of care discussed even if they declined (Discuss DNR or withdrawal of care, Hospice)? DNR status @ -No What co-morbidities impacted this encounter? (DM, HTN, Smoking, COPD, CAD, Cancer, CVA, ARF, Chemo, Hep., AIDS, mental health diagnosis, sleep apnea, morbid obesity)? @ -None Was patient admitted / discharged? Hospital course, mention meds given and route, prescriptions, significant lab abnormalities, going to OR and other pertinent info. @ -Admitted to [facility] for psychiatric treatment Undiagnosed new problem with uncertain prognosis? @ -No Drug Therapy requiring intensive monitoring for toxicity (Heparin, Nitro, Insulin, Cardizem)? @ -No Were any procedures done? @ -No Diagnosis/symptom? @ -Schizoaffective Acute, or Chronic, or Acute on Chronic? @ -Acute Uncomplicated (without systemic symptoms) or Complicated (systemic symptoms)? @ -complicated Side effects of treatment? @ -No Exacerbation, Progression, or Severe Exacerbation? @ -No Poses a threat to life or bodily function? How? (Chest pain, [place], [place], pneumonia, PE, COPD, DKA, ARF, appy, cholecystitis, CVA, Diverticulitis, Homicidal, Suicidal, threat to staff... and all critical care pts) @ -No (Jamie Brewer) Case was discussed with mental health social sciences instructor with plans for admission. Patient reevaluated. Patient is delusional and refusing medications. Patient has hallucinations. Positive clinical certificate completed. Patient will be admitted for psychiatric care. (Ivan Sales) - Lab Data Lab Results 07/21/24 07/21/24 Range/Units 10:16 10:16 Urine Color Colorless Urine Appearance Clear (Clear) Urine pH 5.5 (5.0-8.0) Ur Specific [place] 1.008 (1.001-1.035) Urine Protein 1+ H (Negative) Urine Glucose (UA) Negative (Negative) Urine Ketones Negative (Negative) Urine Blood Moderate H (Negative) Urine Nitrite Negative (Negative) Urine Bilirubin Negative (Negative) Urine Urobilinogen <2.0 (<2.0) mg/dL Ur Leukocyte Esterase Negative (Negative) Urine RBC 2 (0-5) /hpf Urine WBC <1 (0-5) /hpf Ur Squamous Epith Cells <1 (0-4) /hpf Urine Mucus Rare H (None) /hpf Urine Opiates Screen Not Detected (NotDetected) Ur Oxycodone Screen Not Detected (NotDetected) Urine Methadone Screen Not Detected (NotDetected) Ur Barbiturates Screen Not Detected (NotDetected) U Tricyclic Antidepress Not Detected (NotDetected) Ur Phencyclidine Scrn Not Detected (NotDetected) Ur Amphetamines Screen Not Detected (NotDetected) U Methamphetamines Scrn Not Detected (NotDetected) U Benzodiazepines Scrn Not Detected (NotDetected) Urine Cocaine Screen Not Detected (NotDetected) U Marijuana (THC) Screen Not Detected (NotDetected) Disposition Time of Disposition: 10:46 <Jamie Brewer - Last Filed: 07/21/24 10:44> <Ivan Sales - Last Filed: 07/21/24 11:07> Clinical Impression: Schizoaffective disorder, bipolar type Disposition: TRANSFER TO PSYCH HOSP/UNIT Referrals: Gwen Hogan MD [Primary Care Provider] - 1-2 days
[2024-07-21 10:23] LABS: Appearance,Urine Clear (Clear); Bilirubin,Urine Negative (Negative); Blood,Urine Moderate (Negative); Color,Urine Colorless; Glucose,Urine (UA) Negative (Negative); Ketones,Urine Negative (Negative); Leukocyte Esterase,Urine Negative (Negative); Mucus,Urine Rare /hpf; Nitrite,Urine Negative (Negative); PH, Urine 5.5 (5.0-8.0); Protein,Urine 1+ (Negative); RBC,Urine 2 /hpf (0-5); Specific Gravity,Urine 1.008 (1.001-1.035); Squamous Epithelial Cell,Urine <1 /hpf (0-4); Urobilinogen,Urine <2.0 mg/dL (<2.0); WBC,Urine <1 /hpf (0-5)
[2024-07-21 10:32] LABS: Amphetamine Screen,Urine Not Detected (NotDetected); Barbiturate Screen,Urine Not Detected (NotDetected); Benzodiazepines Screen,Urine Not Detected (NotDetected); Cocaine Screen,Urine Not Detected (NotDetected); Methadone Screen, Urine Not Detected (NotDetected); Opiate Screen,Urine Not Detected (NotDetected); Oxycodone Screen, Urine Not Detected (NotDetected); Phencyclidine Screen,Urine Not Detected (NotDetected); Tricyclic Antidepressant,Urine Not Detected (NotDetected)
[2024-07-21 10:33] LABS: Urn Cannabinoid Scrn Not Detected (NotDetected)
[2024-07-21] MEDS: NICOTINE 21MG/24HR PATCH TRANSDERM STA (13:06)
[2024-07-21] MEDS ORDERED: ACETAMINOPHEN TAB 325 MG TAB PO PRN (13:40)
[2024-07-21] MEDS: ATORVASTATIN 20 MG TAB PO SCH (20:43)
[2024-07-21] MEDS: FAMOTIDINE 20 MG TAB PO SCH (20:44)
[2024-07-21] MEDS: OLANZapine 10 MG TAB PO SCH (20:44)
[2024-07-21] MEDS: BENZTROPINE MESYLATE 1 MG TAB PO SCH (20:44)
[2024-07-21] MEDS: oxyBUTYnin chloride 5 MG TAB PO SCH (20:44)
[2024-07-21] MEDS: ASPIRIN 81 MG PO SCH (20:44)
[2024-07-21] MEDS: MAGNESIUM HYDROXIDE 2,400 MG/30 ML CUP PO PRN (20:46)
[2024-07-22] MEDS ORDERED: BENZTROPINE MESYLATE 0.5 MG TAB PO SCH (08:00)
[2024-07-22 08:12] LABS: Basophils # (A) 0.1 k/uL (0-0.2); Basophils % (A) 1 %; Eosinophils # (A) 0.2 k/uL (0-0.7); Eosinophils % (A) 3 %; HCT 47.4 % (34.0-46.0); HGB 15.2 gm/dL (11.4-16.0); Lymphocytes # (A) 1.9 k/uL (1.0-4.8); Lymphocytes % (A) 29 %; MCH 27.7 pg (25.0-35.0); MCHC 32.1 g/dL (31.0-37.0); MCV 86.2 fL (80.0-100.0); Mean Platelet Volume 8.3; Monocytes # (A) 0.3 k/uL (0-1.0); Monocytes % (A) 5 %; Neutrophils % (A) 61 %; Platelet Count 231 k/uL (150-450); RDW 14.1 % (11.5-15.5); WBC 6.5 k/uL (3.8-10.6)
[2024-07-22 08:23] LABS: ALT 47 U/L (4-34); AST 42 U/L (14-36); African American GFR (CKD) >90 (>60 ml/min/1.73 sqM); Albumin 4.1 g/dL (3.5-5.0); Alkaline Phosphatase 72 U/L (38-126); Anion Gap 7 mmol/L; Blood Urea Nitrogen 16 mg/dL (7-17); Calcium 9.7 mg/dL (8.4-10.2); Carbon Dioxide 24 mmol/L (22-30); Chloride 110 mmol/L (98-107); Glucose 112 mg/dL (74-99); Non-African American GFR(CKD) >90 (>60 ml/min/1.73 sqM); Potassium 4.3 mmol/L (3.5-5.1); Sodium 141 mmol/L (137-145); Total Bilirubin 0.7 mg/dL (0.2-1.3); Total Protein 6.6 g/dL (6.3-8.2)
[2024-07-22] MEDS: CHOLECALCIFEROL 25 MCG (1000 IU) TABLET PO SCH (09:10)
[2024-07-22] MEDS: lisinopriL 10 MG TAB PO SCH (09:11)
[2024-07-22] MEDS: NICOTINE 14MG/24HR PATCH TRANSDERM SCH (09:11)
[2024-07-22] MEDS: metFORMIN 850 MG TAB PO SCH (09:11)
[2024-07-22] MEDS: DOCUSATE 100 MG CAP PO SCH (09:11)
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
--- NOTE | 2024-07-22 14:03 | P.CONS ---
History of Present Illness - Reason for Consult Consult date: 07/22/24 medical management - History of Present Illness This is a 53-year-old female with medical history significant for asthma, and acid reflux, hypertension, high cholesterol, seizure disorder, schizophrenia anxiety/depression and bipolar. Patient is also a chronic daily smoker. Patient was brought in by the police for psychiatric evaluation apparently has been noncompliant with her medication on an outpatient basis. Patient is currently having visual and auditory hallucinations. On my assessment evaluation patient states that she lost her baby this morning and states that if she ever had another baby that she would kill it. She keeps talking about the galaxy and being healed. Has been refusing her oral medications. She does report that she is cut down to 2 cigarettes/day 1 in the morning 1 in the afternoon. She has been resumed on all of her same home medications and has no other current active complaints not having any shortness of breath no chest pain no nausea vomiting or diarrhea. Blood work is essentially unremarkable. AST and ALT are mildly elevated at 42 and 47 respectively. Review of Systems Constitutional: Denied any fatigue denied any fever. Cardio vascular: denied any chest pain, palpitations Gastrointestinal: denied any nausea, vomiting, diarrhea Pulmonary: Denied any shortness of breath cough Neurologic denied any new focal deficits All inpatient medications were reviewed and appropriate changes in these medications as dictated in the interval history and assessment and plan. PHYSICAL EXAMINATION: GENERAL: The patient is alert and oriented x3, not in any acute distress. Well developed, well nourished. HEENT: Pupils are round and equally reacting to light. EOMI. No scleral icterus. No conjunctival pallor. Normocephalic, atraumatic. No pharyngeal erythema. No thyromegaly. CARDIOVASCULAR: S1 and S2 present. No murmurs, rubs, or gallops. PULMONARY: Chest is clear to auscultation, no wheezing or crackles. ABDOMEN: Soft, nontender, nondistended, normoactive bowel sounds. No palpable organomegaly. MUSCULOSKELETAL: No joint swelling or deformity. EXTREMITIES: No cyanosis, clubbing, or pedal edema. NEUROLOGICAL: Gross neurological examination did not reveal any focal deficits. SKIN: No rashes. Assessment and plan Schizophrenia with auditory visual hallucinations BiPolar/Depression Asthma with no acute exacerbation Gastroesophageal reflux disease Hypertension Hyperlipidemia Seizure disorder Chronic nicotine use GI prophylaxis Full Code Plan Continue metformin Continue lisinopril, atorvastatin Check lamictal level medication has been resumed Per nurse they are working on verifying medications with the [facility] and [facility]. All other medication changes per psychiatry. The impression and plan of care has been dictated by Mary Jules, Nurse Practitioner as directed. Dr. Gema MD I have performed a history and physical examination and medical decision making of this patient, discussed the same with the dictator, and agree with the dictators assessment and plan as written, documented as a scribe. Based on total visit time, I have performed more than 50% of this visit. Past Medical History Past Medical History: Asthma, GERD/Reflux, Hyperlipidemia, Hypertension, Seizure Disorder Additional Past Medical History / Comment(s): Pre-diabetes, GERD, last seizure approximately 2 yrs ago. History of Any Multi-Drug Resistant Organisms: None Reported Past Surgical History: Tubal Ligation Additional Past Surgical History / Comment(s): Colonoscopy. Past Anesthesia/Blood Transfusion Reactions: No Reported Reaction Smoking Status: Current every day smoker - Past Family History Mother Family Medical History: Hyperlipidemia Father Family Medical History: Cancer Family Family Medical History: Coronary Artery Disease (CAD) Medications and Allergies Home Medications Medication Instructions Recorded Confirmed Type Atorvastatin [Lipitor] 20 mg PO HS@2099 30 Days #30 tab 03/10/24 07/21/24 Rx Cholecalciferol (Vitamin D3) 50 mcg PO DAILY@0800 30 Days #30 03/10/24 07/21/24 Rx [Vitamin D3 (50 Mcg = 2000 Iu)] tab Famotidine 20 mg PO BID@799,2099 30 Days #60 03/10/24 07/21/24 Rx tab lisinopriL [Zestril] 10 mg PO DAILY@0800 30 Days #30 tab 03/10/24 07/21/24 Rx metFORMIN HCL [Glucophage] 850 mg PO DAILY@0800 30 Days #30 03/10/24 07/21/24 Rx tab oxyBUTYnin chloride [Ditropan] 5 mg PO BID@0800,2099 30 Days #60 03/10/24 07/21/24 Rx tab OLANZapine 10 mg PO HS 06/16/24 07/21/24 History Aspirin 81 mg PO HS 07/21/24 07/21/24 History Benztropine Mesylate [Cogentin] 1 mg PO BID 07/21/24 07/21/24 History Sennosides [Senokot] 17.2 mg PO HS PRN 07/21/24 07/21/24 History fluPHENAZine decanoate [Prolixin 50 mg IM DIRECTED 07/21/24 07/21/24 History Decanoate] lamoTRIgine [LaMICtal Xr] 100 mg PO HS 07/21/24 07/21/24 History Allergies Allergy/AdvReac Type Severity Reaction Status Date / Time codeine Allergy Unknown Verified 07/21/24 13:47 divalproex sodium Allergy Rash/Hives Verified 07/21/24 13:47 [From Depakote] varenicline [From Chantix] Allergy Unknown Verified 07/21/24 13:47 adhesive AdvReac Intermediate Rash/Hives Verified 07/21/24 13:47 Physical Exam Vitals: Vital Signs Temp Pulse Pulse Resp BP BP Pulse Ox 07/21/24 16:08 98.4 F 85 18 136/60 96 07/21/24 14:08 112 H 18 150/76 98 Intake and Output 07/21/24 07/22/24 07/22/24 22:59 06:59 14:59 Other: Weight 85.871 kg Results CBC & Chem 7: 07/22/24 07:50 07/22/24 07:50 Labs: Abnormal Lab Results - Last 24 Hours (Table) 07/21/24 07/22/24 07/22/24 Range/Units 10:16 07:50 07:50 RBC 5.50 H (3.80-5.40) m/uL Hct 47.4 H (34.0-46.0) % Chloride 110 H (98-107) mmol/L Glucose 112 H (74-99) mg/dL AST 42 H (14-36) U/L ALT 47 H (4-34) U/L Urine Protein 1+ H (Negative) Urine Blood Moderate H (Negative) Urine Mucus Rare H (None) /hpf Assessment and Plan Time with Patient: Less than 30
[2024-07-22] MEDS: fluPHENAZine DECANOATE 25 MG/ML 5ML MDV IM ONE (14:37)
[2024-07-22] MEDS: lamoTRIgine 25 MG TAB PO SCH (15:17)
[2024-07-22 15:34] LABS: Chol/HDL Ratio 5.92 Ratio; LDL Cholesterol,Calculated 143.3 mg/dL (0.0-131.0)
[2024-07-23] MEDS ORDERED: lamoTRIgine 25 MG TAB PO SCH (09:00)
--- NOTE | 2024-07-23 11:27 | P.PN ---
Progress Note - Text Progress Note Date: 07/23/24 Interval History: Patient was seen in her room and was directable and agreeable to speak with wr iter in the office. Patient was audibly less agitated and more directable and cooperative today than yesterday however she was religiously preoccupied. She reports sleeping well despite staff report 3 hours overnight however staff did mention this was related to noise from peers. Patient tolerated her injection well yesterday with no adverse effects today. AIMs grossly negative today. Patient displays chronic poor insight as she states not wanting to take psychotropic medications due to God speaking to her and telling her not to. Patient was observed writing on a note pad to which she states she was writing to God and she also reports hearing his voice and seeing him. Patient reports poor appetite however states she is interested in eating healthier. She reports wishing to get her own apartment however became upset and left interview when machine sign writer told her that she will [facility]. At this time patient denies any suicidal or homicidal ideations, intent or plan. Patient denies any side effects from the medications and has been compliant with some of her meds however she did not receive Lamictal today. Mental Status Exam: General Appearance: Patient appears to be stated age is alert, more directable and cooperative. Behavior: Patient is calmly seated however was more agitated towards the end of the encounter however was able to exit the interview Speech: Patient's speech is fluent and fast rate but interruptible Mood/Affect: Mood is improving mildly, affect is congruent and constricted. Suicidality/Homicidality: Patient denies having any suicidal or homicidal ideation intent or plan. Perceptions: Patient reports seeing and hearing God's voice Though content/process: There is disorganized thought process and patient was religiously preoccupied today Memory and concentration: AOX3, grossly intact for the purposes of this session Judgment and insight: poor Assessment Schizoaffective disorder, bipolar type Cannabis use disorder, in sustained remission History of PTSD Plan: -Patient continues to meet criteria for inpatient psychiatric admission for symptom stabilization and safety. Patient has not signed adult voluntary form and medication consent and was placed in patient's chart. -Medications: Prolixin decanoate 50 mg IM q2w, last received 07/22/2024, next due 08/05/2024. Start melatonin 10 mg at bedtime for sleep and continue Zyprexa 10 mg at bedtime for sleep, Cogentin 1 mg twice daily for EPS symptoms, Lamictal 25 mg daily for mood stabilization -When necessary Ativan and Haldol for agitation/aggression. -Labs: Reviewed, lamotrigine level was subtherapeutic as patient has been nonadherent -NRT -nicotine patch -SW on board for discharge planning. Encouraged the patient to participate in milieu. Patient currently on a court order that expires on 08/12/2024, continuation of court order was completed yesterday. Anticipate [facility] to [facility] tomorrow
[2024-07-23] MEDS: NICOTINE GUM (POLACRILEX) 2 MG GUM BUCCAL PRN (18:18)
[2024-07-23] MEDS: LORazepam 1 MG TAB PO PRN (21:57)
[2024-07-23] MEDS: MELATONIN 5 MG TABLET PO SCH (21:58)
[2024-07-24] MEDS ORDERED: fluPHENAZine DECANOATE 25 MG/ML 5ML MDV IM SCH (09:00)
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
[2024-07-24] MEDS: OLANZapine 5 MG TAB PO SCH (21:57)
--- NOTE | 2024-07-25 12:13 | P.PN ---
Progress Note - Text Progress Note Date: 07/25/24 Interval History: Patient was seen in her room and was directable and agreeable to speak with wr iter in her room. She expresses that God is the intergalactic galaxy and that he got suggested she take no meds because she is . She remains religiously preoccupied and states that God is telling her that medications will hurt her baby. Patient is not open to alternative suggestions for medications as she would be a great Clozaril candidate and she continues to state she no longer wishes to follow-up with [facility] or return to her senior care. Patient states she wishes to go to an apartment however patient was not open to hearing any disagreements with this. There were no abnormal movements noted and patient herself denied any EPS. She continues to be nonadherent with some of her medications however is adherent with Zyprexa at bedtime. Mental Status Exam: General Appearance: Patient appears to be stated age is alert, more directable and cooperative. Behavior: Patient is calmly laying without any agitated behavior. Speech: Patient's speech is fluent and nonpressured. Mood/Affect: Mood is improving mildly, affect is congruent and constricted. Suicidality/Homicidality: Patient denies having any suicidal or homicidal ideation intent or plan. Perceptions: Patient was internally preoccupied at times and she reports hearing and seeing god Though content/process: There is disorganization in thought process and patient is religiously preoccupied Memory and concentration: AOX3, grossly intact for the purposes of this session Judgment and insight: poor Assessment Schizoaffective disorder, bipolar type Cannabis use disorder, in sustained remission History of PTSD Plan: -Patient continues to meet criteria for inpatient psychiatric admission for symptom stabilization and safety. Patient has not signed adult voluntary form and medication consent and was placed in patient's chart. -Medications: Alexian 50 mg IM every 2 weeks, last given on 07/22/2024 with next due on 08/05/2024. Continue Zyprexa 15 mg at bedtime for psychosis/sleep, continue Cogentin 1 mg twice daily for EPS, Lamictal 25 mg daily for mood stabilization, melatonin 10 mg at bedtime for sleep. Note that patient has been nonadherent with some of these medications -When necessary Ativan and Haldol for agitation/aggression. -Labs: Reviewed -NRT -nicotine patch - on board for discharge planning. Encouraged the patient to participate in milieu. Demand for continuation of court order was filed as this expires on 08/12/24
--- NOTE | 2024-07-26 20:30 | P.PN ---
Progress Note - Text Progress Note Date: 07/26/24 Interval history: Patient was called via the overhead intercom to come to the psychiatrist's office for assessment but did not respond. Nurse and I went to find patient who was found in the dining area enjoying her popcorn snack. Patient states she does not want to to talk to the psychiatrist today and "I want to be left alone." She denies any concerns today so she was left alone as she requested in order to avoid agitating the patient. Per nursing report, patient slept for 7+ hours last night. She has been noncompliant with treatment, refusing almost all meds and refused vitals this morning. She did take the Zyprexa 15 mg QHS on 07/24 and 07/25. Mental status exam: General Appearance: Patient appears to be obese, disheveled. Behavior: Generally uncooperative, refuses assessment, most meds and vitals. Speech: Patient's speech is fluent and terse Mood/Affect: Mood is irritable, affect is congruent and constricted. Suicidality/Homicidality: Unable to assess due to patient's lack of cooperation. Perceptions: Unable to assess due to patient's lack of cooperation. Though content/process: Linear, uncooperative. Memory and concentration: Alert and oriented to person, place, unable to assess time due to lack of cooperation. Judgment and insight: poor Assessment/Plan: Continue with current diagnosis. Patient continues to meet criteria for inpatient psychiatric admission for symptom stabilization and safety. Increase Zyprexa to 20 mg QHS for mood stabilization/psychosis. Monitor for medication compliance and for any psychotropic medication side effects. Will continue to monitor ongoing response to treatment. Encouraged participation in milieu.
[2024-07-26] MEDS: OLANZapine 10 MG TAB PO SCH (21:59)
--- NOTE | 2024-07-27 21:39 | P.PN ---
Progress Note - Text Progress Note Date: 07/27/24 Interval history: Patient was more willing to speak to me today, however on assessment she appears psychotic. She states she initially refused her Zyprexa but took it. She states "I'm done with psych meds!" and doesn't want any more med adjustments. She admits to auditory hallucinations of God's voice, and sometimes has VH of spirits. She make bizarre claims that "Luke Skywalker and Jedis are with me now." She denies SI/HI. Mental status exam: General Appearance: Patient appears to be obese, disheveled, +hirsutism. Behavior: Generally uncooperative but not agitated. Speech: Patient's speech is fluent and terse Mood/Affect: Mood is irritable, affect is congruent/odd. Suicidality/Homicidality: Denies SI/HI Perceptions: She admits to auditory hallucinations of God's voice, and sometimes has VH of spirits. Delusional thought content of "Luke Skywalker and Jedis are with me now." Though content/process: Loose associations Memory and concentration: Alert and oriented to person, place, unable to assess time due to lack of cooperation. Judgment and insight: Poor Assessment/Plan: Continue with current diagnosis. Patient continues to meet criteria for inpatient psychiatric admission for symptom stabilization and safety. Continue Zyprexa 20 mg QHS for mood stabilization/psychosis, with plan to gradually titrate as tolerated. Monitor for medication compliance and for any psychotropic medication side effects. Will continue to monitor ongoing response to treatment. Encouraged participation in milieu.
--- NOTE | 2024-07-28 11:34 | P.PN ---
Progress Note - Text Progress Note Date: 07/28/24 Interval History: Patient was seen laying in bed and was directable and agreeable to speak with va underwriter in her room. She continues to display islam preoccupation as she mentions speaking to God often throughout the encounter. She reports having loose stools today with an upset stomach however she reports good appetite. She reports good sleep. She refuses most medications however has been adherent with her Zyprexa. Discussed with the patient again regarding alternative medications given her history of nonadherence however patient continues to display poor insight and still does not feel like she needs to be on medications, stating God told her this. She states she wishes to be discharged back to an apartment however is more open minded to returning to [facility] as it is going to take time to get an apartment. Patient states they are being good and bad at [facility] however appeared to be more open minded to following up with [facility] upon discharge. Patient did become upset when told that she would likely need to stay at [facility] for more than a day, abruptly ending the interview. AIMs mostly negative today. Spoke with the patient's outpatient provider Shelley KOENIG who states is been working with the patient for a couple of months and for 3 of those months, patient had been stable on prolixin DEC and Zyprexa and was at the point where they were looking at an apartment for her. However patient was reporting EPS and did not like being on and injection and given that she was doing so well, she switched her DAVIS to orals and increased her Zyprexa and that was when the decompensation occurred. Mental Status Exam: General Appearance: Patient appears to be stated age is alert, directable, and cooperative overall however becomes uncooperative towards the end of interview. Behavior: Patient is calmly seated without any agitated behavior. Speech: Patient's speech is fluent and nonpressured. Mood/Affect: Mood is improving mildly, affect is congruent and constricted. Suicidality/Homicidality: Patient denies having any suicidal or homicidal ideation intent or plan. Perceptions: Patient reports auditory and visual hallucinations described as seeing and hearing God Though content/process: There is slight disorganization of thought process and islam preoccupation however less intense than previous encounters Memory and concentration: AOX3, grossly intact for the purposes of this session Judgment and insight: poor Assessment Schizoaffective disorder, bipolar type Cannabis use disorder, in sustained remission History of PTSD Plan: -Patient continues to meet criteria for inpatient psychiatric admission for symptom stabilization and safety. Patient has not signed adult voluntary form and medication consent and was placed in patient's chart. * -Medications: Continue Zyprexa 20 mg at bedtime for psychosis, Prolixin decanoate 50 mg IM q. 1-2 weeks, last given on 07/22/2024 and will decide on frequency in the upcoming days depending on patient's response to Zyprexa. Given patient's treatment resistance and multiple medication trials, patient to be continued on dual antipsychotic treatment. -When necessary Ativan and Haldol for agitation/aggression. -Labs: Reviewed -NRT -nicotine patch -SW on board for discharge planning. Encouraged the patient to participate in milieu. Demand for hearing for continuation of court order filed, hearing on 08/06/[address] order expires on 08/12/2024
[2024-07-29] MEDS ORDERED: BENZTROPINE 2 MG/2 ML AMP IM PRN (11:57)
--- NOTE | 2024-07-29 12:18 | P.PN ---
Progress Note - Text Progress Note Date: 07/29/24 Interval History: Patient was seen laying in bed and was directable and agreeable to speak with pattern chart writer in her room. She reports back pain, rated 5/10 in severity however declined as needed medications for this stating "God told me not to take them". Patient states she is ready to "get the f out" however is still not willing to return to [facility], stating she wants to be with her children. Patient reports improvements in her loose stools this morning however is reporting poor appetite. Patient is sleeping overnight with no issues on the unit other than patient refusing most of her medications other than Zyprexa. At this time patient denies any suicidal or homicidal ideations, intent or plan. Patient denies any auditory, visual hallucinations and denies any paranoia or delusions. Patient denies any side effects from the medications. Went through patient's medication trial history with patient historically doing well on dual antipsychotic therapy of Prolixin DEC and Zyprexa p.o. Patient has trialed several psychotropic medications including Risperdal, Invega Sustenna, Haldol DEC, Rexulti, lithium, Effexor. Mental Status Exam: General Appearance: Patient appears to be stated age is alert, directable, and cooperative overall. Behavior: Patient is calmly laying without any agitated behavior. Speech: Patient's speech is fluent and nonpressured. Mood/Affect: Mood is improving mildly, affect is congruent and constricted. Suicidality/Homicidality: Patient denies having any suicidal or homicidal ideation intent or plan. Perceptions: Patient reports auditory and visual hallucinations described as seeing and hearing from God Though content/process: Patient is religiously preoccupied with illogical thought content Memory and concentration: AOX3, grossly intact for the purposes of this session Judgment and insight: poor Assessment Schizoaffective disorder, bipolar type Cannabis use disorder, in sustained remission History of PTSD Plan: -Patient continues to meet criteria for inpatient psychiatric admission for symptom stabilization and safety. Patient has not signed adult voluntary form and medication consent and was placed in patient's chart. -Medications: Continue Zyprexa 20 mg at bedtime for psychosis, will order a quantitative lab today and adjust accordingly. If levels are therapeutic, then will look into cross titrating Risperdal with Zyprexa. Continue Prolixin decanoate 50 mg IM q. 10 days, last given on 07/22/2024 and next will be due on 08/01/2024. -When necessary Ativan and Haldol for agitation/aggression. -Labs: Zyprexa level ordered today to monitor metabolism of this medication -NRT -nicotine patch -SW on board for discharge planning. Encouraged the patient to participate in milieu. Patient is currently on a court order that expires on 08/12/2024. Continuation of court order was submitted to the courts with an upcoming court hearing on 08/06/2024
[2024-07-30] MEDS ORDERED: chlorproMAZINE 25 MG/ML 2 ML AMP IM PRN (09:09)
--- NOTE | 2024-07-30 12:42 | P.PN ---
Progress Note - Text Progress Note Date: 07/30/24 Interval History: Patient was seen laying in bed and was directable and agreeable to speak with board writer in her room. Patient refused p.o. Zyprexa overnight due to orthodoxy preoccupation of God telling her an earthquake will happen if she takes this medication. Several staff member including board writer has attempted to psychoeducate patient on court order however given her ongoing delusions, she is not amenable to this. Patient states that God is the enterica lactic galaxy and that he is communicating with her to not take her medications. She also mentions being . She reports "kidney issues" however was fixated on God telling her to not take any medications for her pain. Patient continues to refuse her psychotropic medications however there was no evidence of EPS today. Mental Status Exam: General Appearance: Patient appears to be stated age is alert, directable, and cooperative. Behavior: Patient is calmly laying without any agitated behavior. Speech: Patient's speech is fluent and nonpressured. Mood/Affect: Mood is improving mildly, affect is congruent and constricted. Suicidality/Homicidality: Patient denies having any suicidal or homicidal ideation intent or plan. Perceptions: There is evidence of both auditory and visual hallucinations and patient was internally preoccupied Though content/process: There is evidence of orthodoxy preoccupation with illogical thought content Memory and concentration: AOX3, grossly intact for the purposes of this session Judgment and insight: poor Assessment Schizoaffective disorder, bipolar type Cannabis use disorder, in sustained remission History of PTSD Plan: -Patient continues to meet criteria for inpatient psychiatric admission for symptom stabilization and safety. Patient has not signed adult voluntary form and medication consent and was placed in patient's chart. -Medications: Given the ongoing severity of patient's psychosis as she is refusing both medical and psychotropic medications, decision was made to cross titrate Zyprexa with Thorazine, with as needed IM Thorazine backup per court order only if patient refuses Thorazine p.o. Will decrease Zyprexa to 10 mg at bedtime and start Thorazine 50 mg at bedtime for psychosis. Patient is also on Prolixin decanoate 50 mg IM q. 10 days, last given on 07/22/2024 with the next one being due on 08/01/2024. Continue Cogentin 1 mg IM as needed for EPS with a low threshold to use this medication given patient's history -When necessary Ativan and Haldol for agitation/aggression. -Labs: Reviewed -NRT -nicotine patch -SW on board for discharge planning. Encouraged the patient to participate in milieu. Patient currently on a court order that expires on 08/12/2024. Continuation hearing of this court ordered scheduled for 08/06/2024
[2024-07-30] MEDS: chlorproMAZINE 25 MG TAB PO SCH (20:31)
[2024-07-30] MEDS: OLANZapine 10 MG TAB PO SCH (21:31)
--- NOTE | 2024-07-31 11:49 | P.PN ---
Progress Note - Text Progress Note Date: 07/31/24 Interval History: Patient was seen laying in bed and was directable and agreeable to speak with narrative writer in her room. Patient notably appeared more sedated than previous encounters however staff reported patient was irritable this morning at a different staff member. Patient was adherent with her Thorazine last night however refused Zyprexa, requiring no as needed backups. She continues to refuse all other psychotropic medications. Patient states God is telling her she will see her family soon. She states she will only take metformin and does not wish to take any medications. She continues to state she wants to be discharged however does not want to return to [facility]. She wishes to return home with her children however continues to display poor insight and judgment. Mental Status Exam: General Appearance: Patient appears to be stated age is more somnolent today, cooperative. Behavior: Patient is calmly laying without any agitated behavior. Speech: Patient's speech is fluent and low volume Mood/Affect: Mood is improving mildly, affect is congruent and constricted. Suicidality/Homicidality: Patient denies having any suicidal or homicidal ideation intent or plan. Perceptions: As evidence of both auditory and visual hallucinations Though content/process: There is evidence of delusional thought content and patient is religiously preoccupied. Memory and concentration: AOX3, grossly intact for the purposes of this session Judgment and insight: poor Assessment Schizoaffective disorder, bipolar type Cannabis use disorder, in sustained remission History of PTSD Plan: -Patient continues to meet criteria for inpatient psychiatric admission for symptom stabilization and safety. Patient has not signed adult voluntary form and medication consent and was placed in patient's chart. -Medications: Officially discontinue Zyprexa 10 mg at bedtime as patient has refused this medication for 2 nights in a row. Continue Thorazine 50 mg at bedtime for psychosis with as needed IM backup per court order if patient refuses. Prolixin decanoate 50 mg IM q. 10 days, last given on 07/22 with the next dose being due on 08/01. Given the severity of patient's ongoing psychosis and treatment resistance, patient will be continued on dual antipsychotic therapy. Continue Cogentin 1 mg IM as needed twice daily for EPS, Lamictal 25 mg daily for mood stabilization -When necessary Ativan and Haldol for agitation/aggression. -Labs: Reviewed -NRT -nicotine patch -SW on board for discharge planning. Encouraged the patient to participate in milieu. Patient currently on a court order that expires on 08/12/2024. Continuation of this court order was submitted to the courts and hearing gradual for 08/06/2024
[2024-08-01] MEDS ORDERED: chlorproMAZINE 25 MG/ML 2 ML AMP IM PRN ×2 (09:27→14:50)
--- NOTE | 2024-08-01 13:24 | P.PN ---
Progress Note - Text Progress Note Date: 08/01/24 Interval History: Patient was seen laying in bed and was directable and agreeable to speak with life insurance underwriter in her room. Patient continues to be religiously preoccupied stating "God's got me" in regards to most questions asked. Patient states she no longer has any pain today however mentions that "God got my kidney". Patient reports paranoia described as feeling like the hospital is poisoning her breakfast this morning however staff reported patient does not eat breakfast. She continues to states she does not want to follow-up with [facility] or get her Prolixin decanoate injection despite psychoeducation regarding the court order. She states she still wishes to ultimately get an apartment and is not agreeable to staying at her [facility] for longer than 1 day. There was no evidence of any EPS grossly. Patient continues to refuse most of her medications other than metformin and Thorazine at bedtime. Given patient's treatment resistance and ongoing psychosis, decision was made to continue patient on dual antipsychotic treatment. Mental Status Exam: General Appearance: Patient appears to be stated age is alert. Behavior: Patient is calmly laying without any agitated behavior. Speech: Patient's speech is fluent and nonpressured. Mood/Affect: Mood is improving mildly, affect is congruent and constricted. Suicidality/Homicidality: Patient denies having any suicidal or homicidal ideation intent or plan. Perceptions: Patient is internally preoccupied, reporting seeing and hearing from God Though content/process: Thought process is illogical and patient is religiously preoccupied Memory and concentration: AOX3, grossly intact for the purposes of this session Judgment and insight: poor Assessment Schizoaffective disorder, bipolar type Cannabis use disorder, in sustained remission History of PTSD Plan: -Patient continues to meet criteria for inpatient psychiatric admission for symptom stabilization and safety. Patient has not signed adult voluntary form and medication consent and was placed in patient's chart. -Medications: Zyprexa 20 mg at bedtime discontinued, increase Thorazine to 100 mg at bedtime for psychosis with as needed IM backup per court order if patient refuses. Prolixin decanoate 50 mg IM every 10 days, last given on 07/22 with next dose to be given today. Continue Cogentin 1 mg IM as needed twice daily for EPS, Lamictal 25 mg daily for mood stabilization. Please note patient has been refusing medications -When necessary Ativan and Haldol for agitation/aggression. -Labs: Reviewed, EKG ordered to be completed today -NRT -nicotine patch -SW on board for discharge planning. Encouraged the patient to participate in milieu. Court order expires on 08/12/[address] order submitted to the courts, hearing scheduled for 08/06/2024
[2024-08-01] MEDS: fluPHENAZine DECANOATE 25 MG/ML 5ML MDV IM ONE (14:46)
[2024-08-01] MEDS ORDERED: chlorproMAZINE 100 MG TAB PO SCH (21:00)
[2024-08-01] MEDS: chlorproMAZINE 100 MG TAB PO SCH (21:30)
--- NOTE | 2024-08-02 11:07 | P.PN ---
Progress Note - Text Progress Note Date: 08/02/24 Interval History: Patient was seen laying in bed and was directable and agreeable to speak with creative services writer in her room. Patient reports paranoia described as feeling like the hospital is poisoning her breakfast this morning however staff reported patient does not eat breakfast. Attempted CBT for delusions with patient who says she believes the [employer] tasted different and that this was a sign for her of poisoning. She says she feels comfortable drinking water. Patient continues to refuse most of her medications other than metformin (but refused this today as well) and Thorazine at bedtime. She reports sleeping well and says she would like to continue with Thorazine. Patient expresses AH, stating "yes, I talk to my son, daughter, and god. I don't know if you can hear them. My voice is being recorded." Given patient's treatment resistance and ongoing psychosis, decision was made to continue patient on dual antipsychotic treatment. Mental Status Exam: General Appearance: Patient appears to be stated age is alert. Behavior: Patient is calmly laying without any agitated behavior. Speech: Patient's speech is fluent and nonpressured. Mood/Affect: Mood is improving mildly, affect is congruent and constricted. Suicidality/Homicidality: Patient denies having any suicidal or homicidal ideation intent or plan. Perceptions: Patient is internally preoccupied, reporting seeing and endorses AH, denies VH Though content/process: Thought process is illogical and patient is religiously preoccupied Memory and concentration: AOX3, grossly intact for the purposes of this session Judgment and insight: poor Assessment Schizoaffective disorder, bipolar type Cannabis use disorder, in sustained remission History of PTSD Plan: -Patient continues to meet criteria for inpatient psychiatric admission for symptom stabilization and safety. Patient has not signed adult voluntary form and medication consent and was placed in patient's chart. -Medications: Zyprexa 20 mg at bedtime discontinued, increase Thorazine to 100 mg at bedtime for psychosis with as needed IM backup per court order if patient refuses. Prolixin decanoate 50 mg IM every 10 days, last given on 08/01. Continue Cogentin 1 mg IM as needed twice daily for EPS, Lamictal 25 mg daily for mood stabilization. Please note patient has been refusing most medications -When necessary Ativan and Haldol for agitation/aggression. -Labs: Reviewed, EKG ordered but pt refused -NRT -nicotine patch -SW on board for discharge planning. Encouraged the patient to participate in milieu. Court order expires on 08/12/[address] order submitted to the courts, hearing scheduled for 08/06/2024
[2024-08-02] MEDS: chlorproMAZINE 100 MG TAB PO SCH (20:25)
--- NOTE | 2024-08-03 12:11 | P.PN ---
Progress Note - Text Progress Note Date: 08/03/24 Interval History: Patient was seen laying in bed and was directable and agreeable to speak with remote mortgage underwriter in her room. Patient expresses no paranoia regarding food today but expresses paranoia regarding this provider. She states that she does not know if this provider sides with God or Satan because "you are ". She is gaining some insight into her statements and says she will not explain further when asked more questions regarding patient's expressed paranoia. She reports eating well and says that she likes chicken. She states she is doing well with the increased dose of Thorazine. She reports sleeping well last night. Denies all concerns or side effects. Patient expresses AH, stating "yes, I talk to my son, daughter, and God." She says that they tell her pleasant things and are not negative in nature. She does not find her hallucinations bothersome. Given patient's treatment resistance and ongoing psychosis, decision was made to continue patient on dual antipsychotic treatment. Vital Signs Temp 98.1 F 08/02/24 09:49 Pulse 69 08/02/24 09:49 Resp 20 08/02/24 09:49 BP 127/65 08/02/24 09:49 Pulse Ox 95 07/29/24 06:35 FiO2 Mental Status Exam: General Appearance: Patient appears to be stated age is alert. Behavior: Patient is calmly laying without any agitated behavior. Speech: Patient's speech is fluent and nonpressured. Mood/Affect: Mood is improving mildly, affect is congruent and constricted. Suicidality/Homicidality: Patient denies having any suicidal or homicidal ideation intent or plan. Perceptions: Patient is internally preoccupied, reporting seeing and endorses AH, denies VH Though content/process: Thought process is illogical and patient is religiously preoccupied. Paranoia Memory and concentration: AOX3, grossly intact for the purposes of this session Judgment and insight: poor Assessment Schizoaffective disorder, bipolar type Cannabis use disorder, in sustained remission History of PTSD Plan: -Patient continues to meet criteria for inpatient psychiatric admission for symptom stabilization and safety. Patient has not signed adult voluntary form and medication consent and was placed in patient's chart. -Medications: continue Thorazine 100 mg at bedtime for psychosis with as needed IM backup per court order if patient refuses. Prolixin decanoate 50 mg IM every 10 days, last given on 08/01. Continue Cogentin 1 mg IM as needed twice daily for EPS, Lamictal 25 mg daily for mood stabilization. Please note patient has been refusing most medications -When necessary Ativan and Haldol for agitation/aggression. -Labs: Reviewed, EKG ordered but pt refused -NRT -nicotine patch -SW on board for discharge planning. Encouraged the patient to participate in milieu. Court order expires on 08/12/[address] order submitted to the courts, hearing scheduled for 08/06/2024
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
[2024-08-04] MEDS: chlorproMAZINE 100 MG TAB PO SCH (20:20)
--- NOTE | 2024-08-05 13:10 | P.PN ---
Progress Note - Text Progress Note Date: 08/05/24 Interval History: Patient was seen doing a crossword puzzle in her room and was directable and a greeable to speak with insurance underwriter in the room. Patient notably appears more calm and engaged than previous encounter, seen walking the unit and tending to her ADLs. Of note patient also took Lamictal and Cogentin today. Patient reports good sleep and appetite however did report an episode of emesis after she ate. Patient appears to be less religiously preoccupied than previous encounter. She questioned discharge planning and was more amenable to returning to [facility], stating "I guess I have no choice". There is evidence of paranoia described as staff "playing games". There was no evidence of EPS. Mental Status Exam: General Appearance: Patient appears to be stated age is alert, directable, and significantly more cooperative. Behavior: Patient is calmly seated without any agitated behavior. Speech: Patient's speech is fluent and nonpressured. Mood/Affect: Mood is improving mildly, affect is congruent and constricted. Suicidality/Homicidality: Patient denies having any suicidal or homicidal ideation intent or plan. Perceptions: Patient denies any visual hallucinations and reports auditory hallucinations described as God talking to her Though content/process: Thought process notably less disorganized and religiously preoccupied than previous encounter however still illogical at times that appears closer to baseline. Paranoia evident Memory and concentration: AOX3, grossly intact for the purposes of this session Judgment and insight: Improving mildly Assessment Schizoaffective disorder, bipolar type Cannabis use disorder, in sustained remission History of PTSD Plan: -Patient continues to meet criteria for inpatient psychiatric admission for symptom stabilization and safety. Patient has not signed adult voluntary form and medication consent and was placed in patient's chart. -Medications: Continue Thorazine 150 mg at bedtime for psychosis with as needed IM backup per court order if patient refuses. Prolixin decanoate 50 mg IM every 10 days, last given on 08/01 and next due on 08/11. Continue Cogentin 1 mg twice daily and as needed for EPS, Lamictal 25 mg daily for mood stabilization -When necessary Ativan and Haldol for agitation/aggression. -Labs: Patient refused EKG -NRT -nicotine patch -SW on board for discharge planning. Encouraged the patient to participate in milieu. Court order expires on 08/12/[address] order s ubmitted to the courts, hearing scheduled for tomorrow. Anticipate discharge later this week to [facility]
[2024-08-05 13:49] VITALS: BMI 31.5
--- NOTE | 2024-08-06 10:42 | P.PN ---
Progress Note - Text Progress Note Date: 08/06/24 Interval History: Patient was seen sitting in her room and was directable and agreeable to speak with functional tester typewriters in the office. Patient continues to display significant improvement in terms of affect, more bright and less irritable. Patient notably is less religiously preoccupied but still displays some disorganization and thoughts. She states feeling well today. Patient took Lamictal again today and she denies any adverse effects, also denying any EPS. Patient was reminded of court today for continuation of her court order and she states she wished to have her own trial attorney present. Discussed with patient the plan to return to [facility] and follow-up with [facility] and patient is more agreeable to this today, inquiring if [facility] will tease her as she was off her Prolixin however is back on it. Patient denies any side effects from the medications and has been compliant with more of her psychotropic meds, requiring no as needed backup. Patient attended court today where she emphasized how she does not want medications however she will comply. Patient did state "Aziza faria does not want to take medications". Mental Status Exam: General Appearance: Patient appears to be stated age is alert, directable, and cooperative. Behavior: Patient is calmly seated without any agitated behavior. Speech: Patient's speech is fluent and nonpressured. Mood/Affect: Mood is improving mildly, affect is congruent and reactive, bright. Suicidality/Homicidality: Patient denies having any suicidal or homicidal ideation intent or plan. Perceptions: Patient denies any visual hallucinations and reports auditory hallucinations that appears baseline Though content/process: Patient is less religiously preoccupied however still disorganization in thought process noted Memory and concentration: AOX3, grossly intact for the purposes of this session Judgment and insight: Improving mildly Assessment Schizoaffective disorder, bipolar type Cannabis use disorder, in sustained remission History of PTSD Plan: -Patient continues to meet criteria for inpatient psychiatric admission for symptom stabilization and safety. Patient has not signed adult voluntary form and medication consent and was placed in patient's chart. -Medications: Prolixin decanoate 50 mg IM every 10 days, last given on 08/01 and next due on 08/11 -When necessary Ativan and Haldol for agitation/aggression. -Labs: Reviewed, patient has refused EKG -NRT -nicotine patch -SW on board for discharge planning. Encouraged the patient to participate in milieu. Continuation of court order approved today. Anticipate discharge tomorrow to [facility].
[2024-08-06] MEDS: chlorproMAZINE 25 MG/ML 2 ML AMP IM PRN (20:15)
[2024-08-06] MEDS: LORazepam 2 MG/ML INJ IM PRN (20:16)
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
[2024-08-07] MEDS: chlorproMAZINE 100 MG TAB PO SCH (21:33)
[2024-08-08 01:59] LABS: Glucose,Whole Blood 132 mg/dL (70-110)
[2024-08-08] MEDS: lamoTRIgine 25 MG TAB PO SCH (09:04)
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
[2024-08-10] MEDS: IBUPROFEN 600 MG TAB PO PRN (19:51)
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
[2024-08-11] MEDS: fluPHENAZine DECANOATE 25 MG/ML 5ML MDV IM ONE (15:13)
--- NOTE | 2024-08-12 12:07 | P.PN ---
Progress Note - Text Progress Note Date: 08/12/24 Interval History: Patient was seen wandering the hallways and was directable and agreeable to uma otto with newspaper writer in the office. She reports feeling much better today. She received her Prolixin Decanoate shot yesterday and is tolerating this medication well, denying any EPS. She does report stiffness in her legs upon wakening that improves when she walks around and AIMS today was performed and did not reveal any abnormal movements. Patient states she has been attending to her ADLs, showering this morning. She is reporting good sleep however reports she has been dreaming about smoking cigarettes as she has been having cravings for this. She is agreeable with working with [facility] as she wishes to be discharged back home. She agrees to limit her outburst and patient notably has not had any further agitation or outbursts since last week. MOCA performed today revealed a score of 22/30 with significant deficits in delayed recall. At this time patient denies any suicidal or homicidal ideations, intent or plan. Patient has been compliant with most of her psychotropic meds. Mental Status Exam: General Appearance: Patient appears to be stated age is alert, directable, and cooperative. Behavior: Patient is calmly seated without any agitated behavior. Speech: Patient's speech is fluent and nonpressured. Mood/Affect: Mood is improving mildly, affect is congruent and more reactive, bright. Suicidality/Homicidality: Patient denies having any suicidal or homicidal ideation intent or plan. Perceptions: Patient denies any visual hallucinations, reports auditory hallucinations described as God speaking to her Though content/process: There is mormon preoccupation with illogical bizarre thoughts at times however patient is not as fixated on them than previous encounters Memory and concentration: AOX3, grossly intact for the purposes of this session Judgment and insight: Improving mildly Assessment Schizoaffective disorder, bipolar type Mild neurocognitive impairment Cannabis use disorder, in sustained remission History of PTSD Nicotine dependence Plan: -Patient continues to meet criteria for inpatient psychiatric admission for symptom stabilization and safety. Patient has not signed adult voluntary form and medication consent and was placed in patient's chart. -Medications: Prolixin Decanoate 50 mg IM every 10 days, last given on 08/11 and next due on 08/21. Continue Lamictal 50 mg daily for mood stabilization, Thorazine 200 mg at bedtime for psychosis with IM as needed backup per court order patient refuses, Cogentin 1 mg twice daily for EPS -When necessary Ativan and Haldol for agitation/aggression. -Labs: Reviewed, patient refused EKG -NRT -nicotine patch -SW on board for discharge planning. Encouraged the patient to participate in milieu. Continuation of court order approved by the courts on 08/06/2024 with an expiration date for 01/2025. Anticipate discharge to [facility] later this week, meeting scheduled for tomorrow with patient's H team in [facility]. Goal for discharge include maintaining agitation and behavior outbursts with H team
--- NOTE | 2024-08-13 10:27 | P.PN ---
Progress Note - Text Progress Note Date: 08/13/24 Interval History: Patient was seen wandering the hallways and was directable and agreeable to sp clarita with insurance underwriter in the office. She has been tending to her ADLs as she reports showering this morning and has her clothes in the washer. She reports being ready for the meeting with [facility] today and that she is [facility] as she has been taking her medications and going to groups. She states she is now watching her credit so she has not upset with [facility] clinician [facility] the [facility]. She has also been taking all of her psychotropic medications, requiring no as needed medications and has had no outbursts on the unit since last week. She still reports some leg stiffness in the morning time that improves when she walks around. At this time patient denies any suicidal or homicidal ideations, intent or plan. Mental Status Exam: General Appearance: Patient appears to be stated age is alert, directable, and cooperative. Behavior: Patient is calmly seated without any agitated behavior. Speech: Patient's speech is fluent and nonpressured. Mood/Affect: Mood is improving mildly, affect is congruent and reactive. Suicidality/Homicidality: Patient denies having any suicidal or homicidal ideation intent or plan. Perceptions: Patient denies any visual hallucinations but has auditory hallucinations that appear at baseline Though content/process: Patient is not as religiously preoccupied as previously, still demonstrates some illogical thought content at times Memory and concentration: AOX3, grossly intact for the purposes of this session Judgment and insight: Improving mildly Assessment Schizoaffective disorder, bipolar type Mild neurocognitive impairment Cannabis use disorder, in sustained remission History of PTSD Nicotine dependence Plan: -Patient continues to meet criteria for inpatient psychiatric admission for symptom stabilization and safety. Patient has not signed adult voluntary form and medication consent and was placed in patient's chart. -Medications: Prolixin Decanoate 50 mg IM every 10 days, last given on 08/11 and next due on 08/21. Continue Lamictal 50 mg daily for mood stabilization, Thorazine 200 mg at bedtime for psychosis with IM as needed backup per court order if patient refuses, Cogentin 1 mg twice daily for EPS -When necessary Ativan and Haldol for agitation/aggression. -Labs: Reviewed, patient refused EKG -NRT -nicotine patch -SW on board for discharge planning. Encouraged the patient to participate in milieu. Continuation of court order approved by the courts on 08/06/2024 with an expiration date for 01/2025. Anticipate discharge to [facility] tomorrow with meeting scheduled today with patient [facility] team. Goal for discharge include maintaining agitation and behavioral outbursts with [facility] team during meeting
[2024-08-13] MEDS: chlorproMAZINE 100 MG TAB PO SCH (19:58)
[2024-08-13 21:03] LABS: Appearance,Urine Clear (Clear); Bacteria,Urine Rare /hpf; Bilirubin,Urine Negative (Negative); Blood,Urine Small (Negative); Color,Urine Colorless; Glucose,Urine (UA) Negative (Negative); Ketones,Urine Negative (Negative); Leukocyte Esterase,Urine Negative (Negative); Nitrite,Urine Negative (Negative); PH, Urine 7.5 (5.0-8.0); Protein,Urine Negative (Negative); RBC,Urine 2 /hpf (0-5); Specific Gravity,Urine 1.007 (1.001-1.035); Squamous Epithelial Cell,Urine 1 /hpf (0-4); Urobilinogen,Urine <2.0 mg/dL (<2.0)
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
[2024-08-14] MEDS: MAG HYDROX/AL HYDROX/SIMETH 355 ML BOTTLE PO PRN (13:33)
[2024-08-15 06:49] VITALS: RESP 14
[2024-08-15 09:44] LABS: Glucose,Whole Blood 131 mg/dL (70-110)
--- NOTE | 2024-08-15 11:45 | P.PN ---
Progress Note - Text Progress Note Date: 08/15/24 Interval History: Patient was seen laying in bed and was directable and agreeable to speak with radio news writer in her room. She reports not feeling well today, reporting dizziness and shortness of breath. His blood pressure and pulse notably were low today and of note patient had been refusing lisinopril however took this medication for the first time yesterday. Blood sugar was 131 and EKG ordered to be completed. Patient otherwise continues to take her psychotropic medications and attend goalsetting group. She states she has been tending to her ADLs and walking on the unit to get some sort of exercise. She continues to be less religiously preoccupied than previous encounters however still reports auditory hallucinations described as God talking to her. At this time patient denies any suicidal or homicidal ideations, intent or plan. Mental Status Exam: General Appearance: Patient appears to be stated age is alert, directable, and cooperative. Behavior: Patient is calmly laying without any agitated behavior. Speech: Patient's speech is fluent and nonpressured, slightly slurred. Mood/Affect: Mood is improving mildly, affect is congruent and constricted. Suicidality/Homicidality: Patient denies having any suicidal or homicidal ideation intent or plan. Perceptions: Patient denies any visual hallucinations and reports auditory hallucinations, chronic Though content/process: Less intense islam preoccupation however bizarre delusional thought content continues to be displayed, appears more fixed in nature Memory and concentration: AOX3, grossly intact for the purposes of this session Judgment and insight: Improving mildly Assessment Schizoaffective disorder, bipolar type Mild neurocognitive impairment Cannabis use disorder, in sustained remission History of PTSD Nicotine dependence Plan: -Patient continues to meet criteria for inpatient psychiatric admission for symptom stabilization and safety. Patient has not signed adult voluntary form and medication consent and was placed in patient's chart. -Medications: Decrease Thorazine to 200 mg at bedtime for psychosis with IM as needed backup per court order if patient refuses given adverse effects and increase Lamictal to 100 mg daily for mood stabilization tomorrow. Continue Cogentin 1 mg twice daily for EPS. Prolixin decanoate 50 mg IM q. 10 days, last given on 08/11 and next due on 08/21, will look into possibly adjusting the dosing and titration of this medication but we will see how patient does over the weekend -When necessary Ativan and Haldol for agitation/aggression. -Labs: EKG ordered and patient appears more agreeable to complete today -NRT -nicotine patch -SW on board for discharge planning. Encouraged the patient to participate in milieu. Court order extended until 07/2025. Meeting scheduled with patient's [facility] team next Sunday and will discuss further discharge planning. Anticipate discharge to either [facility] or [facility] with U
[2024-08-15] MEDS: SENNOSIDES 8.6 MG TAB PO PRN (13:58)
[2024-08-15] MEDS: chlorproMAZINE 100 MG TAB PO SCH (20:38)
[2024-08-16] MEDS: lamoTRIgine 100 MG TAB PO SCH (09:04)
[2024-08-16 09:12] VITALS: TEMP 97.5
--- NOTE | 2024-08-16 12:54 | P.PN ---
Progress Note - Text Progress Note Date: 08/16/24 Interval history: Patient was seen resting in bed and was directable and agreeable to speak with abstract writer. She reports her biggest concern is stomach discomfort related to constipation. She has been taking medication to help promote a bowel movement but no results at the time of our visit. She describes her mood as "tired," though not feeling sad or down today. No elevated or irritable mood. She has been experiencing some dizziness; encouraged her to take careful steps when navigating the unit. At this time patient denies any suicidal or homicidal ideations intent or plan. Denies any auditory or visual hallucinations. Patient denies any side effects from the medications and has been compliant with meds. Mental status exam: General Appearance: Patient appears to be stated age is alert, directable, and cooperative. Behavior: No agitated behavior. Patient is calm and directable Speech: Patient's speech is fluent and nonpressured. Mood/Affect: Mood is "tired", affect is congruent and constricted. Suicidality/Homicidality: Patient denies having any suicidal or homicidal ideation intent or plan. Perceptions: Patient denies any auditory or visual hallucinations. Though content/process: There is no evidence of any delusional thought content and thought process is linear and goal-directed. Memory and concentration: AOX3, grossly intact for the purposes of this session Judgment and insight: improving mildly Assessment/Plan: Continue with current diagnoses: schizoaffective disorder-bipolar type, mild neurocognitive impairment, nicotine dependence, cannabis use disorder-in sustained remission, history of PTSD Patient continues to meet criteria for inpatient psychiatric admission for symptom stabilization and safety. Patient will be maintained on current psychotropic medication regimen: Continue Thorazine 200 mg at bedtime for psychosis, Lamictal 100 mg daily for mood stabilization (this dose begins today), Cogentin 1 mg BID for EPS. Also on Prolixin Decanoate 50 mg IM every 10 days (last on 08/11/24). Monitor for medication compliance and for any psychotropic medication side effects, including concern for dizziness. Will continue to monitor ongoing response to treatment. Encouraged participation in milieu.
--- NOTE | 2024-08-17 12:03 | P.PN ---
Progress Note - Text Interval history: Patient was seen resting in bed and was directable and agreeable to speak with magnetic tape typewriter operator. She again describes her mood as "tired." She does feel hopeful about seeing her daughter and son for Thanksgiving; she describes having a good relationship with them. She does feel she's getting "angrier faster" which she attributes to her medication. She continues to experience auditory hallucinations, though she denied these experiences when asked yesterday. Today she shared that he hears voices of her daughter, son, boyfriend, Luke Skywalker, and God telling her to "take my medicine." These oices feel random and are generally not teling her things that are mean or harmful. She denies any visual hallucinations. At this time patient denies any suicidal or homicidal ideations intent or plan. Patient denies any side effects from the medications and has been compliant with meds. Mental status exam: General Appearance: Patient appears to be stated age is alert, directable, and cooperative. Behavior: No agitated behavior. Patient is calm and directable Speech: Patient's speech is fluent and nonpressured. Mood/Affect: Mood is "tired", affect is congruent and constricted though smiled a few times during today's visit. Suicidality/Homicidality: Patient denies having any suicidal or homicidal ideation intent or plan. Perceptions: Patient denies visual hallucinations. Endorses auditory hallucinations, no harmful commands. Though content/process: There is no overt evidence of delusional thought content and thought process is linear and goal-directed. Some paucity of thought. Memory and concentration: AOX3, grossly intact for the purposes of this session Judgment and insight: improving mildly Assessment/Plan: Continue with current diagnoses: schizoaffective disorder-bipolar type, mild neurocognitive impairment, nicotine dependence, cannabis use disorder-in sustained remission, history of PTSD Patient continues to meet criteria for inpatient psychiatric admission for symptom stabilization and safety. Patient will be maintained on current psychotropic medication regimen: Continue Thorazine 200 mg at bedtime for psychosis, Lamictal 100 mg daily for mood stabilization (this dose begins today), Cogentin 1 mg BID for EPS. Also on Prolixin Decanoate 50 mg IM every 10 days (last on 08/11/24). Monitor for medication compliance and for any psychotropic medication side effects, including previous concern for dizziness (not mentioned today). Will continue to monitor ongoing response to treatment. Encouraged participation in milieu.
--- NOTE | 2024-08-18 10:41 | P.PN ---
Progress Note - Text Progress Note Date: 08/18/24 Interval History: Patient was seen wandering the hallways and was directable and agreeable to sp clarita with policy writer typist in the office. She reports some belly pain related to constipation. She states MiraLAX has not been helpful but was encouraged to take Senokot. She reports her dizziness has improved with decreasing the Thorazine however she reports some dizziness upon awakening that resolved once she got up. She continues to report auditory hallucinations described as hearing God and her children however states that these voices are mostly positive in nature. She is agreeable with working with [facility] outpatient and taking her meds as prescribed. She has been adherent with all of her psychot ropic medications, requiring no as needed medications. She has been intermittently attending groups and tending to her ADLs. At this time patient denies any suicidal or homicidal ideations, intent or plan. Mental Status Exam: General Appearance: Patient appears to be stated age is alert, directable, and cooperative. Behavior: Patient is calmly seated without any agitated behavior. Speech: Patient's speech is fluent and nonpressured. Mood/Affect: Mood is improving mildly, affect is congruent and constricted. Suicidality/Homicidality: Patient denies having any suicidal or homicidal ideation intent or plan. Perceptions: Patient denies any visual hallucinations he reports auditory hallucinations that are at baseline Though content/process: There is no evidence of jehovah's witness preoccupation today however there is some delusional thought content described as having boyfriend Alexi Memory and concentration: AOX3, grossly intact for the purposes of this session Judgment and insight: Improving mildly Assessment Schizoaffective disorder, bipolar type Mild neurocognitive impairment Cannabis use disorder, in sustained remission History of PTSD Nicotine dependence Plan: -Patient continues to meet criteria for inpatient psychiatric admission for symptom stabilization and safety. Patient has not signed adult voluntary form and medication consent and was placed in patient's chart. -Medications: Continue Lamictal 100 mg daily for mood stabilization, Thorazine 200 mg at bedtime for psychosis with IM as needed backup per court order if patient refuses, Cogentin 1 mg twice daily for EPS, Prolixin decanoate 50 mg IM every 10 days, last given on 08/11 and next due on 08/21. -When necessary Ativan and Haldol for agitation/aggression. -Labs: EKG within normal limits -NRT -nicotine patch -SW on board for discharge planning. Encouraged the patient to participate in milieu. Court order extended until 07/2025. Meeting scheduled with the patient H team tomorrow to discuss further discharge planning.
[2024-08-19 06:51] VITALS: BP 95/65; PULSE 82
[2024-08-19] MEDS: MAGNESIUM HYDROXIDE 2,400 MG/30 ML CUP PO ONE (10:15)
--- NOTE | 2024-08-19 12:55 | P.DS ---
Providers Date of admission: 07/21/24 13:01 Expected date of discharge: 08/19/24 Attending physician: Ayesha Sales MD Consults: 07/21/24 13:40 Consult Physician Routine Consulting Provider: [facility] Cynthia Consult Reason/Comments: H&P and medical Do you want consulting provider notified?: Yes Primary care physician: Gwen Hogan - Discharge Diagnosis(es) (1) Schizoaffective disorder, bipolar type Current Visit: Yes Status: Acute Priority: High (2) Mild neurocognitive disorder Current Visit: Yes Status: Acute Priority: Low (3) Nicotine dependence Current Visit: Yes Status: Chronic Priority: Low (4) Cannabis use disorder in remission Current Visit: Yes Status: Chronic Priority: Low Hospital Course: Admission HPI: Admission note was completed by advertising copywriter" Patient presented to the hospital on 07/21 with the police for psychiatric evaluation. Per ED note, "patient was picked up on a pickup order. Patient does have a history of schizoaffective disorder and has not been compliant with treatment. Patient does have some very paranoid and delusional thought process. Patient denies being suicidal or homicidal." In the ED patient was noted to be responding to internal stimuli and making comments such as "I am communicating with the gods of the [place], you are not going upstairs Jackeline." Patient is currently on a court order that expires on 08/12/2024. Petition completed by social worker health services at [facility] for continuation of this order states "Jackeline has been speaking to people that are not present. Her thoughts are delusional. Jackeline presents with paranoia people out to get her. Jackeline is verbally aggressive, agitated and angry. Jackeline is not compliant with treatment." Attempted to evaluate the patient in her room however patient notably is agitated, shouting "fyou too" when advertising copywriter approached patient. Patient observed to be responding to internal stimuli and was disorganized in her thought process stating "your son better not try to rape me" and "I am not Taoist, I am Buddhism." Patient expressed no desire to take any medications and pointed to the door for advertising copywriter to leave." Hospital course: Upon admission to the unit patient was admitted on a court order that was expiring on 08/12/2024. Court order was extended for another year with an expiration date for 07/2025. Patient was initially very disorganized and verbally aggressive, often seen isolated in her room. Once treatment got started, patient was more cooperative, tending to her ADLs and intermittently attending groups with disorganization in her thoughts significantly improved with delusions appearing more fixed in nature. Patient got along well with other patients on the unit and followed unit protocol. Patient was initially noncompliant however once court order was extended she became more compliant with the medications and denied any side effects throughout hospital course. Patient was started on Prolixin decanoate 50 mg IM every 10 days, last given on 08/11 however patient received the shot a bit earlier on the day of discharge given the holidays, thus next dose will be due on 08/29/2024. Patient was also started on Lamictal and this was increased to 100 mg daily for mood stabilization, Thorazine increased to 200 mg at bedtime for psychosis, Cogentin 1 mg twice daily for EPS. Patient spoke of her stressors and engaged in therapy both group and individual. Patient was also seen by medical team for history and physical exam. Patient was hypotensive after receiving lisinopril thus this was discontinued and she was continued on metformin, aspirin, and several stool softeners given her constipation. Throughout the course of the hospitalization patient gradually improved with regards to mood, anxiety, sleep and returned back to their baseline level of functioning. On the day of discharge patient denied any suicidal or homicidal ideations intent or plan denied any visual hallucinations. Patient endorses auditory hallucinations that are fixed in nature and more positive, in addition to endorsing delusions that also appear more fixed in nature as patient was not fixated on this. Patient's baptism preoccupation subsided with treatment. The patient denied any access to guns or weapons. Patient does not have a significant history of substance abuse and was counseled on abstaining from all substances including alcohol and marijuana. Patient was also counseled on the medications and need for regular compliance and was encouraged to follow-up with their outpatient appointment for mental health and also for primary care. Attended meeting attended by patient's team at the senior care with patient present they were agreeable with patient's discharge back to the senior care. Patient appeared more lucid and was agreeable with working with [facility] and staying at [facility]. Patient notably was goal oriented and talked about the upcoming holidays and spending time with her family. Mental status exam: General Appearance: Patient appears to be stated age is alert, pleasant, and cooperative. Patient is in no acute distress and has improved hygiene and grooming Behavior: Patient is calmly seated without any agitated behavior. Speech: Patient's speech is fluent and nonpressured. Mood/Affect: Patient reports their mood is "good", affect is congruent and euthymic. Suicidality/Homicidality: Patient denies having any suicidal or homicidal ideation intent or plan. Perceptions: Patient reports auditory hallucinations described as several people including her children and God that appear more fixed in nature Though content/process: There is less disorganization and less religiously preoccupied however continues to display fixed delusions Memory and concentration: AOX3, grossly intact for the purposes of this session. Can spell "WORLD" backwards correctly. Judgment and insight: Chronically poor, however has improved with guarded prognosis Impression: Schizoaffective disorder, bipolar type Mild neurocognitive disorder Cannabis use disorder, in sustained remission Nicotine dependence Plan: -Continue with discharge today as patient has improved and stabilized psychiatrically and is not currently an imminent threat to themself and/or others. -Continue medications: Continue Lamictal 100 mg daily, Prolixin decanoate 50 mg IM q. 10 days, last given on 08/19 and next due on 08/29. Continue Thorazine 200 mg at bedtime, Cogentin 1 mg twice daily -Patient was counseled on the need for medication compliance and appropriate follow-up at mental health and also primary care for medical issues. Patient verbalized understanding and agreed. -Social work to help coordinate patients discharge today. also to ensure safe home environment that guns/weapons are either removed from the home or locked away. Social work also to arrange for patients follow up appointments with [facility] for psychiatric care along with follow up with primary care provider. -Patient counseled on abstaining from recreational drugs and marijuana and alcohol. Was informed/educated on the adverse effects on their physical and mental health. Patient verbally agreed and understood. -Patient was instructed to return to the hospital or seek immediate medical care if their psychiatric or medical symptoms do worsen or reoccur. Abnormal Labs 07/21/24 07/22/24 07/22/24 10:16 07:50 07:50 RBC 5.50 H Hct 47.4 H Chloride 110 H Glucose 112 H POC Glucose (mg/dL) AST 42 H ALT 47 H Triglycerides 210.00 H Cholesterol 223.00 H LDL Cholesterol, Calc 143.3 H VLDL Cholesterol, Calc 42.00 H HDL Cholesterol 37.70 L Urine Protein 1+ H Urine Blood Moderate H Urine Bacteria Urine Mucus Rare H 08/08/24 08/13/24 08/15/24 01:55 20:45 09:43 RBC Hct Chloride Glucose POC Glucose (mg/dL) 132 H 131 H AST ALT Triglycerides Cholesterol LDL Cholesterol, Calc VLDL Cholesterol, Calc HDL Cholesterol Urine Protein Urine Blood Small H Urine Bacteria Rare H Urine Mucus Vital Signs Temp 97.5 F L 08/16/24 09:11 Pulse 82 08/19/24 06:51 Resp 14 08/15/24 06:00 BP 95/65 08/19/24 06:51 Pulse Ox 97 08/15/24 06:00 FiO2 Allergies Allergy/AdvReac Type Severity Reaction Status Date / Time codeine Allergy Unknown Verified 07/21/24 13:47 divalproex sodium Allergy Rash/Hives Verified 07/21/24 13:47 [From Depakote] [email or web address] [From Chantix] Allergy Unknown Verified 07/21/24 13:47 adhesive AdvReac Intermediate Rash/Hives Verified 07/21/24 13:47 Patient Condition at Discharge: Stable Plan - Discharge Summary Discharge Rx Participant: No New Discharge Prescriptions: New Aspirin 81 mg PO HS@2099 30 Days #30 tab Nicotine Gum (Polacrilex) [Nicorette] 2 mg BUCCAL Q4HR PRN pieceofgum PRN Reason: Nicotine Cravings Docusate [Colace] 100 mg PO DAILY@799 30 Days #30 cap lamoTRIgine [LaMICtal] 100 mg PO DAILY 30 Days #30 tab Magnesium Hydroxide [Milk of Magnesia] 2,400 mg PO DAILY PRN #0 ml PRN Reason: Constipation chlorproMAZINE [Thorazine] 200 mg PO HS 30 Days #60 tab Continue Aspirin 81 mg PO HS oxyBUTYnin chloride [Ditropan] 5 mg PO BID@799,2099 30 Days #60 tab metFORMIN HCL [Glucophage] 850 mg PO DAILY@0800 30 Days #30 tab Atorvastatin [Lipitor] 20 mg PO HS@2099 30 Days #30 tab Benztropine Mesylate [Cogentin] 1 mg PO BID 30 Days #60 tab Famotidine 20 mg PO BID@0800,2099 30 Days #60 tab Sennosides [Senokot] 17.2 mg PO HS PRN 30 Days #60 tab PRN Reason: Constipation Cholecalciferol (Vitamin D3) [Vitamin D3 (50 Mcg = 2000 Iu)] 50 mcg PO DAILY@0800 30 Days #30 tab Changed fluPHENAZine decanoate [Prolixin Decanoate] 50 mg IM [id number] 30 Days #1 ml Discontinued OLANZapine 10 mg PO HS lamoTRIgine [LaMICtal Xr] 100 mg PO HS lisinopriL [Zestril] 10 mg PO DAILY@0800 30 Days #30 tab Discharge Medication List Aspirin 81 mg PO HS 07/21/24 [History] Aspirin 81 mg PO HS@2099 30 Days #30 tab 08/19/24 [Rx] Atorvastatin [Lipitor] 20 mg PO HS@2099 30 Days #30 tab 08/19/24 [Rx] Benztropine Mesylate [Cogentin] 1 mg PO BID 30 Days #60 tab 08/19/24 [Rx] Cholecalciferol (Vitamin D3) [Vitamin D3 (50 Mcg = 2000 Iu)] 50 mcg PO DAILY@0800 30 Days #30 tab 08/19/24 [Rx] Docusate [Colace] 100 mg PO DAILY@00 30 Days #30 cap 08/19/24 [Rx] Famotidine 20 mg PO BID@0800,2099 30 Days #60 tab 08/19/24 [Rx] Magnesium Hydroxide [Milk of Magnesia] 2,400 mg PO DAILY PRN #0 ml 08/19/24 [Rx] Nicotine Gum (Polacrilex) [Nicorette] 2 mg BUCCAL Q4HR PRN pieceofgum 08/19/24 [Rx] Sennosides [Senokot] 17.2 mg PO HS PRN 30 Days #60 tab 08/19/24 [Rx] chlorproMAZINE [Thorazine] 200 mg PO HS 30 Days #60 tab 08/19/24 [Rx] fluPHENAZine decanoate [Prolixin Decanoate] 50 mg IM [id number] 30 Days #1 ml 08/19/24 [Rx] lamoTRIgine [LaMICtal] 100 mg PO DAILY 30 Days #30 tab 08/19/24 [Rx] metFORMIN HCL [Glucophage] 850 mg PO DAILY@0800 30 Days #30 tab 08/19/24 [Rx] oxyBUTYnin chloride [Ditropan] 5 mg PO BID@0800,2100 30 Days #60 tab 08/19/24 [Rx] Follow up Appointment(s)/Referral(s): [facility] [Outside] - 09/03/24 11:00 am (09/03/2024 11:00AM - 11:30AM VIKY HUBER ) Gwen Hogan MD [Primary Care Provider] - 1-2 days Patient Instructions/Handouts: How to Stop Smoking (DC), Schizoaffective Disor dustin (DC) Activity/Diet/Wound Care/Special Instructions: Avoid the use of street drugs and alcohol. Take all medications as prescribed. When you are in need of refills on your medications, please contact your medical provider and/or outpatient psychiatrist/provider to have this done. Please go to your scheduled outpatient appointment for aftercare treatment. If symptoms return or become worse, call the crisis line at and/or go to the nearest emergency room for evaluation. National Suicide Hotline 705 Discharge Disposition: HOME SELF-CARE
[2024-08-19] MEDS: fluPHENAZine DECANOATE 25 MG/ML 5ML MDV IM ONE (14:07)
== END 2024-08-19 16:16 | disposition home or self-care (01) | DRG 885 ==
LOC: EC 08:59 → 3MHU 13:01
PROVIDERS: ADMIT Psychiatry & Neurology Psychiatry; ATTEND Psychiatry & Neurology Psychiatry
DX: F25.0 Schizoaffective disorder, bipolar type (principal); I95.2 Hypotension due to drugs; G40.909 Epilepsy, unspecified, not intractable, without status epilepticus; E78.00 Pure hypercholesterolemia, unspecified; I10 Essential (primary) hypertension; J45.909 Unspecified asthma, uncomplicated; F12.11 Cannabis abuse, in remission; Z91.199 Patient's noncompliance with other medical treatment and regimen due to unspecified reason; Z91.148 Patient's other noncompliance with medication regimen for other reason; F17.210 Nicotine dependence, cigarettes, uncomplicated; G31.84 Mild cognitive impairment of uncertain or unknown etiology; K59.00 Constipation, unspecified; T46.4X5A Adverse effect of angiotensin-converting-enzyme inhibitors, initial encounter; F41.9 Anxiety disorder, unspecified; F43.10 Post-traumatic stress disorder, unspecified; R42 Dizziness and giddiness; K21.9 Gastro-esophageal reflux disease without esophagitis; K30 Functional dyspepsia; R11.10 Vomiting, unspecified; R47.81 Slurred speech; R68.2 Dry mouth, unspecified; R74.01 Elevation of levels of liver transaminase levels; Z79.82 Long term (current) use of aspirin; Z79.84 Long term (current) use of oral hypoglycemic drugs; Z79.899 Other long term (current) drug therapy
CPT/HCPCS: 80053; 80061; 80175; 80299; 80306; 81001; 82075; 83036; 84443; 85025; 87635; 93005; 99285

== ENCOUNTER 2024-08-25 17:20 | Inpatient (IN) | payer MEDICARE, MEDICAID ==
--- NOTE | 2024-08-25 17:46 | ED ---
Psych HPI - General Source: patient, police, RN notes reviewed Mode of arrival: ambulatory - History of Present Illness MD Complaint: altered mental status Onset/Timin -: days(s) Associated Psychiatric Symptoms: auditory hallucinations, delusions History of same: Yes Quality: constant Associated Symptoms: denies other symptoms <Anjel Holman - Last Filed: 08/25/24 18:28> <Micky Parker - Last Filed: 08/27/24 07:31> - General Chief Complaint: Psychiatric Symptoms Stated Complaint: Petitioned Time Seen by Provider: 08/25/24 17:35 - History of Present Illness Initial Comments: This is a 53-year-old female with history of bipolar disorder, schizoaffective disorder and PTSD presenting via PD for compliance with medication. Patient st ates that she is not taking her Colace because it is poisoning the baby that she has been caring for the past 2 months. Patient states that she is still taking her Lamictal but stopped taking Thorazine seen, claiming it is causing swelling of her tongue and throat. Patient states the baby is moving and talking to her, saying that she loves her. Patient states that the father's name is Alexi, who she has known for the past 8 months and they are still together. Patient states that she has 2 other children. Patient endorses subsequent constipation since stopping the Colace. When asked if other medications are poison to her baby, patient states "God will be here soon to answer". Patient endorses anger and instructional technology instructor ordered her to take her medication, stating that she wants to call to have the instructional technology instructor arrested. Patient otherwise denies SI/HI. Denies alcohol/drug use, stating that she only smokes. (Anjel Holman) - Related Data Home Medications Medication Instructions Recorded Confirmed Benztropine Mesylate [Cogentin] 1 mg PO BID@0800,209908/25/24 08/25/24 Ibuprofen [Motrin] 800 mg PO Q8H PRN 08/25/24 08/25/24 chlorproMAZINE [Thorazine] 200 mg PO HS@209908/25/24 08/25/24 fluPHENAZine decanoate [Prolixin 50 mg IM Q10D 08/25/24 08/25/24 Decanoate] lamoTRIgine [LaMICtal] 100 mg PO DAILY@0800 08/25/24 08/25/24 Previous Rx's Medication Instructions Recorded Aspirin 81 mg PO HS@2099 30 Days #30 tab 08/19/24 Atorvastatin [Lipitor] 20 mg PO HS@2099 30 Days #30 tab 08/19/24 Cholecalciferol (Vitamin D3) 50 mcg PO DAILY@0800 30 Days #30 08/19/24 [Vitamin D3 (50 Mcg = 2000 Iu)] tab Docusate [Colace] 100 mg PO DAILY@0800 30 Days #30 08/19/24 cap Famotidine 20 mg PO BID@0800,2099 30 Days #60 08/19/24 tab Nicotine Gum (Polacrilex) 2 mg BUCCAL Q4HR PRN pieceofgum 08/19/24 [Nicorette] Sennosides [Senokot] 17.2 mg PO HS PRN 30 Days #60 tab 08/19/24 metFORMIN HCL [Glucophage] 850 mg PO DAILY@0800 30 Days #30 08/19/24 tab oxyBUTYnin chloride [Ditropan] 5 mg PO BID@0800,2099 30 Days #60 08/19/24 tab Allergies Allergy/AdvReac Type Severity Reaction Status Date / Time codeine Allergy Unknown Verified 08/25/24 19:03 divalproex sodium Allergy Rash/Hives Verified 08/25/24 19:03 [From Depakote] [email or web address] [From Chantix] Allergy Unknown Verified 08/25/24 19:03 adhesive AdvReac Intermediate Rash/Hives Verified 08/25/24 19:03 Review of Systems ROS Other: All systems not noted in ROS Statement are negative. <Anjel Holman - Last Filed: 08/25/24 18:28> ROS Other: All systems not noted in ROS Statement are negative. <Micky Parker - Last Filed: 08/27/24 07:31> ROS Statement: Those systems with pertinent positive or pertinent negative responses have been documented in the HPI. Past Medical History Past Medical History: Asthma, GERD/Reflux, Hyperlipidemia, Hypertension, Seizure Disorder Additional Past Medical History / Comment(s): Pre-diabetes, GERD, last seizure approximately 2 yrs ago. History of Any Multi-Drug Resistant Organisms: None Reported Past Surgical History: Tubal Ligation Additional Past Surgical History / Comment(s): Colonoscopy. Past Anesthesia/Blood Transfusion Reactions: No Reported Reaction Past Psychological History: Bipolar, Depression, Schizophrenia Smoking Status: Current every day smoker Past Alcohol Use History: None Reported Past Drug Use History: None Reported - Past Family History Mother Family Medical History: Hyperlipidemia Father Family Medical History: Cancer Family Family Medical History: Coronary Artery Disease (CAD) <Anjel Holman - Last Filed: 08/25/24 18:28> General Exam Limitations: no limitations General appearance: alert, in no apparent distress Head exam: Present: atraumatic, normocephalic, normal inspection Eye exam: Present: normal appearance, PERRL, EOMI. Absent: scleral icterus, conjunctival injection, periorbital swelling ENT exam: Present: normal exam, mucous membranes moist Neck exam: Present: normal inspection. Absent: tenderness, meningismus, lymphadenopathy Respiratory exam: Present: normal lung sounds bilaterally. Absent: respiratory distress, wheezes, rales, rhonchi, stridor Cardiovascular Exam: Present: regular rate, normal rhythm, normal heart sounds. Absent: systolic murmur, diastolic murmur, rubs, gallop, clicks GI/Abdominal exam: Present: soft, normal bowel sounds. Absent: distended, tenderness, guarding, rebound, rigid Extremities exam: Present: normal inspection, full ROM, normal capillary refill. Absent: tenderness, pedal edema, joint swelling, calf tenderness Back exam: Present: normal inspection Neurological exam: Present: alert, oriented X3, CN II-XII intact Psychiatric exam: Present: normal affect, normal mood Skin exam: Present: warm, dry, intact, normal color. Absent: rash <Anjel Holman - Last Filed: 08/25/24 18:28> Course Vital Signs 08/25/24 08/25/24 17:22 21:14 Temperature 98.4 F 99.1 F Pulse Rate 97 Respiratory 18 Rate Blood Pressure 141/79 O2 Sat by Pulse 95 Oximetry Medical Decision Making <Anjel Holman - Last Filed: 08/25/24 18:28> <Micky Parker - Last Filed: 08/27/24 07:31> - Medical Decision Making Was pt. sent in by a medical professional or institution (, PA, ROUTE CDL DRIVER, urgent care, hospital, or long term...) When possible be specific @ -No Did you speak to anyone other than the patient for history (EMS, parent, family, police, friend...)? What history was obtained from this source @ -No Did you review nursing and triage notes (agree or disagree)? Why? @ -I reviewed and agree with nursing and triage notes Were old charts reviewed (outside hosp., previous admission, EMS record, old EKG, old radiological studies, urgent care reports/EKG's, long term records)? Report findings @ -No old charts were reviewed Differential Diagnosis (chest pain, altered mental status, abdominal pain women, abdominal pain men, vaginal bleeding, weakness, fever, dyspnea, syncope, headache, dizziness, GI bleed, back pain, seizure, CVA, palpatations, mental health, musculoskeletal)? @ -Medication noncompliance, bipolar disorder, schizophrenia, schizoaffective disorder, auditory hallucinations, visual hallucinations, suicidal ideation, homicidal ideation, this is not an exhaustive list EKG interpreted by me (3pts min.). @ -Not done X-rays interpreted by me (1pt min.). @ -None done CT interpreted by me (1pt min.). @ -None done U/S interpreted by me (1pt. min.). @ -None done What testing was considered but not performed or refused? (CT, X-rays, U/S, labs)? Why? @ -Patient attempted but unable to perform alcohol breath test. What meds were considered but not given or refused? Why? @ -None Did you discuss the management of the patient with other professionals (professionals i.e. , PA, ROUTE CDL DRIVER, lab, RT, psych nurse, social worker masters, gas appliance installer, teacher, career services officer, watch caser)? Give summary @ -No Was smoking cessation discussed for >3mins.? @ -No Was critical care preformed (if so, how long)? @ -No Were there social determinants of health that impacted care today? How? (Homelessness, low income, unemployed, alcoholism, drug addiction, transportation, low edu. Level, literacy, decrease access to med. care, penitentiary, rehab)? @ -No Was there de-escalation of care discussed even if they declined (Discuss DNR or withdrawal of care, Hospice)? DNR status @ -No What co-morbidities impacted this encounter? (DM, HTN, Smoking, COPD, CAD, Cancer, CVA, ARF, Chemo, Hep., AIDS, mental health diagnosis, sleep apnea, morbid obesity)? @ -Bipolar, schizoaffective, PTSD Was patient admitted / discharged? Hospital course, mention meds given and route, prescriptions, significant lab abnormalities, going to OR and other pertinent info. @ -Drug and alcohol test performed. Magnesium citrate p.o. provided for constipation complaint. EPS consult placed for patient Undiagnosed new problem with uncertain prognosis? @ -No Drug Therapy requiring intensive monitoring for toxicity (Heparin, Nitro, Insulin, Cardizem)? @ -No Were any procedures done? @ -No Diagnosis/symptom? @ -Medication noncompliance, schizophrenic-like symptoms/auditory hallucinations Acute, or Chronic, or Acute on Chronic? @ -Acute on chronic Uncomplicated (without systemic symptoms) or Complicated (systemic symptoms)? @ -Uncomplicated Side effects of treatment? @ -No Exacerbation, Progression, or Severe Exacerbation? @ -No Poses a threat to life or bodily function? How? (Chest pain, USA, OR, pneumonia, PE, COPD, DKA, ARF, appy, cholecystitis, CVA, Diverticulitis, Homicidal, Suicidal, threat to staff... and all critical care pts) @ -No (Anjel Holman) Patient had a pickup order and was petitioned. Seen and medically cleared by previous provider. EPS evaluated patient and believe that she is likely going to be admitted to inpatient. Notified by nursing staff that patient is acting erratic and is not cooperative. Patient administered Haldol and Ativan IM. Patient was eventually evaluated by EPS and determined that she does not meet inpatient criteria. Patient admitted to inpatient psychiatry in stable condition. Diagnosis is acute psychosis. Diagnosis/symptom? @ -Psychosis Acute, or Chronic, or Acute on Chronic? @ -Acute Uncomplicated (without systemic symptoms) or Complicated (systemic symptoms)? @ -Complicated Side effects of treatment? @ -None Exacerbation, Progression, or Severe Exacerbation] @ -No Poses a threat to life or bodily function? @ -Potentially, yes (Micky Parker) - Lab Data Lab Results 08/25/24 08/25/24 08/25/24 Range/Units 17:55 18:13 18:13 Urine HCG, Qual Not Detected (Not Detectd) Urine Opiates Screen Not Detected (NotDetected) Ur Oxycodone Screen Not Detected (NotDetected) Urine Methadone Screen Not Detected (NotDetected) Ur Barbiturates Screen Not Detected (NotDetected) U Tricyclic Antidepress Not Detected (NotDetected) Ur Phencyclidine Scrn Not Detected (NotDetected) Ur Amphetamines Screen Not Detected (NotDetected) U Methamphetamines Scrn Not Detected (NotDetected) U Benzodiazepines Scrn Not Detected (NotDetected) Urine Cocaine Screen Not Detected (NotDetected) U Marijuana (THC) Screen Not Detected (NotDetected) Serum Alcohol <10 mg/dL SARS-CoV-2 (PCR) (Not Detectd) 08/25/24 Range/Units 22:38 Urine HCG, Qual (Not Detectd) Urine Opiates Screen (NotDetected) Ur Oxycodone Screen (NotDetected) Urine Methadone Screen (NotDetected) Ur Barbiturates Screen (NotDetected) U Tricyclic Antidepress (NotDetected) Ur Phencyclidine Scrn (NotDetected) Ur Amphetamines Screen (NotDetected) U Methamphetamines Scrn (NotDetected) U Benzodiazepines Scrn (NotDetected) Urine Cocaine Screen (NotDetected) U Marijuana (THC) Screen (NotDetected) Serum Alcohol mg/dL SARS-CoV-2 (PCR) Not Detected (Not Detectd) Disposition Is patient prescribed a controlled substance at d/c from ED?: No <Anjel Holman - Last Filed: 08/25/24 18:28> <Micky Parker - Last Filed: 08/27/24 07:31> Clinical Impression: Schizoaffective disorder, bipolar type, Encounter for psychiatric assessment, Noncompliance with medication regimen, Psychosis Disposition: TRANSFER TO PSYCH HOSP/UNIT Condition: Stable
[2024-08-25] MEDS: MAGNESIUM CITRATE 296 ML BOTTLE PO ONE (18:35)
[2024-08-25 19:03] LABS: Amphetamine Screen,Urine Not Detected (NotDetected); Barbiturate Screen,Urine Not Detected (NotDetected); Benzodiazepines Screen,Urine Not Detected (NotDetected); Cocaine Screen,Urine Not Detected (NotDetected); Methadone Screen, Urine Not Detected (NotDetected); Opiate Screen,Urine Not Detected (NotDetected); Oxycodone Screen, Urine Not Detected (NotDetected); Phencyclidine Screen,Urine Not Detected (NotDetected); Tricyclic Antidepressant,Urine Not Detected (NotDetected); Urn Cannabinoid Scrn Not Detected (NotDetected)
[2024-08-25] MEDS: HALOPERIDOL LACTATE 5 MG/ML 1 ML VIAL IM STA (21:44)
[2024-08-25] MEDS: LORazepam 2 MG/ML INJ IM STA (21:44)
[2024-08-26] MEDS ORDERED: ACETAMINOPHEN TAB 325 MG TAB PO PRN (00:02)
[2024-08-26] MEDS ORDERED: LORazepam 2 MG/ML INJ IM PRN (00:02)
[2024-08-26] MEDS ORDERED: flUPHENAZine 2.5 MG/ML (MDV) 10 ML VIAL IM PRN (00:06)
[2024-08-26] MEDS ORDERED: SENNOSIDES 8.6 MG TAB PO PRN (00:07)
[2024-08-26] MEDS ORDERED: IBUPROFEN 800 MG TAB PO PRN (00:07)
[2024-08-26] MEDS: oxyBUTYnin chloride 5 MG TAB PO SCH (08:45)
[2024-08-26] MEDS: BENZTROPINE MESYLATE 1 MG TAB PO SCH (08:45)
[2024-08-26] MEDS: metFORMIN 850 MG TAB PO SCH (08:45)
[2024-08-26] MEDS: DOCUSATE 100 MG CAP PO SCH (08:45)
[2024-08-26] MEDS: FAMOTIDINE 20 MG TAB PO SCH (08:45)
[2024-08-26] MEDS: CHOLECALCIFEROL 25 MCG (1000 IU) TABLET PO SCH (08:45)
[2024-08-26] MEDS: lamoTRIgine 100 MG TAB PO SCH (08:46)
[2024-08-26] MEDS: NICOTINE 14MG/24HR PATCH TRANSDERM SCH (08:59)
--- NOTE | 2024-08-26 12:45 | P.HP ---
Psychiatric H&P - . H&P Date: 08/26/24 History & Physical: Allergies Allergy/AdvReac Type Severity Reaction Status Date / Time codeine Allergy Unknown Verified 08/25/24 19:03 divalproex sodium Allergy Rash/Hives Verified 08/25/24 19:03 From Depakote varenicline from Chantix Allergy Unknown Verified 08/25/24 19:03 adhesive AdvReac Intermediate Rash/Hives Verified 08/25/24 19:03 Vital Signs Temp 98.4 F 08/26/24 02:55 Pulse 82 08/26/24 02:55 Resp 18 08/26/24 02:55 BP 146/69 08/26/24 02:55 Pulse Ox 96 08/26/24 02:55 FiO2 Intake & Output 08/25/24 08/26/24 08/26/24 18:59 06:59 18:59 Weight 88.451 kg 87.742 kg Laboratory Last Values Urine HCG, Qual Not Detected (Not Detectd) 08/25/24 18:13 Urine Opiates Screen Not Detected (NotDetected) 08/25/24 18:13 Ur Oxycodone Screen Not Detected (NotDetected) 08/25/24 18:13 Urine Methadone Screen Not Detected (NotDetected) 08/25/24 18:13 Ur Barbiturates Screen Not Detected (NotDetected) 08/25/24 18:13 U Tricyclic Antidepress Not Detected (NotDetected) 08/25/24 18:13 Ur Phencyclidine Scrn Not Detected (NotDetected) 08/25/24 18:13 Ur Amphetamines Screen Not Detected (NotDetected) 08/25/24 18:13 U Methamphetamines Scrn Not Detected (NotDetected) 08/25/24 18:13 U Benzodiazepines Scrn Not Detected (NotDetected) 08/25/24 18:13 Urine Cocaine Screen Not Detected (NotDetected) 08/25/24 18:13 U Marijuana (THC) Screen Not Detected (NotDetected) 08/25/24 18:13 Serum Alcohol <10 mg/dL 08/25/24 17:55 SARS-CoV-2 (PCR) Not Detected (Not Detectd) 08/25/24 22:38 08/26/24 12:38 IDENTIFYING DATA: Patient is a 53-year-old female, with the public guardian and living at senior living CHIEF COMPLAINT: Nonadherent with medications, delusions HPI: Patient presented to the hospital with mental health concerns. Per ED note, "This is a 53-year-old female with history of bipolar disorder, schizoaff ective disorder and PTSD presenting via PD for compliance with medication. Patient states that she is not taking her Colace because it is poisoning the baby that she has been caring for the past 2 months. Patient states that she is still taking her Lamictal but stopped taking Thorazine seen, claiming it is causing swelling of her tongue and throat. Patient states the baby is moving and talking to her, saying that she loves her. Patient states that the father's name is Alexi, who she has known for the past 8 months and they are still together. Patient states that she has 2 other children. Patient endorses subsequent constipation since stopping the Colace. When asked if other medications are poison to her baby, patient states "God will be here soon to answer". Patient endorses anger and residential support specialist ordered her to take her medication, stating that she wants to call to have the residential support specialist arrested. Patient otherwise denies SI/HI. Denies alcohol/drug use, stating that she only smokes." Patient seen and evaluated on the unit and was agreeable with speaking to underwriter solicitation director in her room. She states she has been nonadherent with Thorazine due to her being 2 months and not wanting any medications to interfere with her . Patient also reports swallowing difficulties due to the Thorazine. She states her ex "Alexi" is the father however she just found out yesterday that he cheated on her with another male. Patient notably less religiously preoccupied than recent admission however does report auditory hallucinations described as hearing her daughter and son speak. She states having an uneventful Thanksgiving of that she did not spend it with her family given her [id number] threatening her in the past. Patient denies any suicidal or homicidal ideations intent or plan. Patient denies any flight of ideas racing thoughts and increased in goal directed behavior. Patient admits to using no substances PAST PSYCHIATRIC HISTORY: Patient has a history of schizoaffective disorder, bipolar type. Patient is currently prescribed Prolixin decanoate 50 mg IM every 10 days, last given on 08/19 and next due on 08/29, Thorazine 200 mg at bedtime, Lamictal 100 mg daily. Patient has trialed several psychotropic medications in the past including Haldol, Risperdal, Invega, Zyprexa. Patient recently was hospitalized at this facility 07/2024. She follows with [facility] outpatient and sees Shelley KOENIG. Patient denies any history of suicide attempts in the past. PMH: as per ER note ALLERGIES: as per EMR SUBSTANCE USE HISTORY: As per HPI FAMILY PSYCHIATRIC/SUBSTANCE USE HISTORY: Denies SOCIAL HISTORY: Patient was born and raised in [place]. She is and has 4 children and completed school up to college. Currently staying at [facility] MENTAL STATUS EXAM: General Appearance: Patient appears to be stated age is alert, directable, and attempts to cooperate. Patient appears to have fair hygiene and grooming. Behavior: Patient is seated without any agitated behavior. Speech: Patient's speech is fluent and nonpressured. Mood/Affect: Patient reports their mood is "okay", affect is congruent and constricted. Suicidality/Homicidality: Patient denies having any homicidal ideation intent or plan. Denies any suicidal ideations intent or plan Perceptions: Patient denies any visual hallucinations however reports auditory hallucinations described as hearing her children speak Though content/process: There is disorganization and thoughts with delusional content Memory and concentration: AOX3, grossly intact for the purposes of this session. Can spell "WORLD" backwards Judgment and insight: Poor STRENGTHS/WEAKNESSES: strength is that patient is resilient. Weakness is that patient has poor judgment, not adherent with medications and is impulsive INTELLECT: Average IMPRESSIONS: Schizoaffective disorder, bipolar type Nonadherent with medications Cannabis use disorder, in sustained remission PLAN: -Patient is admitted under involuntary status to [facility]HU for stabilization of psychiatric symptoms and safety. Patient has not signed adult voluntary form and medication consent and is placed in patient's chart. -Medications : Start Invega 3 mg at bedtime for psychosis with a plan to transition to DAVIS and discontinue Thorazine 200 mg at bedtime. Continue Lamictal 100 mg daily, Prolixin decanoate 50 mg IM every 10 days, last given on 08/19 and next due on 08/29. Continue Cogentin 1 mg twice daily for EPS -Ativan and Prolixin PRN for agitation/aggression -Patient was informed of the risks, benefits and side effects of the medication and patient verbally consented to taking the medications. Patient signed med consent form and was placed in chart. -Internal Medicine consult to perform medical evaluation and physical. -NRT -nicotine patch - on board for discharge planning. Encourage patient to participate in groups to work on coping skills. Court order continued with an expiration date for 08/06/2025
[2024-08-26] MEDS: NICOTINE GUM (POLACRILEX) 2 MG GUM BUCCAL PRN (17:29)
[2024-08-26] MEDS ORDERED: chlorproMAZINE 100 MG TAB PO SCH (21:00)
[2024-08-26] MEDS: ATORVASTATIN 20 MG TAB PO SCH (21:19)
[2024-08-26] MEDS: ASPIRIN 81 MG PO SCH (21:19)
[2024-08-26] MEDS: PALIPERIDONE 3 MG TAB.ER.24 PO SCH (21:19)
--- NOTE | 2024-08-27 06:34 | P.MDCNMH ---
History of Present Illness H&P Date: 08/26/24 This is a pleasant 53-year-old female who was brought to the emergency department by police for noncompliance with medications and mental health wellness check. Patient was recently hospitalized on [facility] and discharged although has been reportedly not taking her medication as she reports she was fe eling side effects including throat swelling and difficulty swallowing. Patient also with constipation and reports she is . Patient does have past medical history of asthma, GERD, hyperlipidemia, hypertension, seizure disorder, bipolar, depression, schizophrenia. Patient does admit to smoking and reports has cut down to 3 cigarettes daily, denies any alcohol or illicit drug use. Patient was involuntarily admitted to [facility] for further psychiatric evaluation. On exam patient is afebrile and denies chest pain or shortness of breath. Patient reports to tolerating diet with no reported nausea or vomiting. Patient reports was feeling constipated although has been having bowel movements. REVIEW OF SYSTEMS: CONSTITUTIONAL: No fever, no malaise, no fatigue. HEENT: No recent visual problems or hearing problems. Denied any sore throat. CARDIOVASCULAR: No chest pain, orthopnea, PND, no palpitations, no syncope. PULMONARY: No shortness of breath, no cough, no hemoptysis. GASTROINTESTINAL: No diarrhea, no nausea, no vomiting, no abdominal pain. Reports of occasional constipation NEUROLOGICAL: No headaches, no weakness, no numbness. HEMATOLOGICAL: Denies any bleeding or petechiae. GENITOURINARY: Denies any burning micturition, frequency, or urgency. MUSCULOSKELETAL/RHEUMATOLOGICAL: Denies any joint pain, swelling, or any muscle pain. ENDOCRINE: Denies any polyuria or polydipsia. The rest of the 14-point review of systems is negative. PHYSICAL EXAMINATION: GENERAL: The patient is alert and oriented x2, not in any acute distress. Well developed, appears older than stated age, obese HEENT: Pupils are round and equally reacting to light. EOMI. No scleral icterus. No conjunctival pallor. Normocephalic, atraumatic. No pharyngeal erythema. No thyromegaly. CARDIOVASCULAR: S1 and S2 present. No murmurs, rubs, or gallops. PULMONARY: Chest is clear to auscultation, no wheezing or crackles. ABDOMEN: Soft, nontender, nondistended, normoactive bowel sounds. No palpable organomegaly. MUSCULOSKELETAL: No joint swelling or deformity. EXTREMITIES: No cyanosis, clubbing, or pedal edema. NEUROLOGICAL: Gross neurological examination did not reveal any focal deficits. SKIN: No rashes. Assessment: Noncompliance with medications recently, patient reports causing throat swelling and difficulty swallowing Frequent constipation Schizoaffective disorder THC use previously History of bipolar/PTSD History of asthma, not in exacerbation GERD Hyperlipidemia Hypertension History of seizure disorder History of depression Obesity with a BMI 32.2 Full code Plan: Patient was brought into the police for mental health wellness check as patient has been noncompliant with medications reporting it was causing throat swelling and difficulty swallowing. Patient admitted to [facility] for further psychiatric evaluation adjustments of medications Patient reports she is 2 months hCG is negative All medications reviewed and resumed as appropriate Encouraged group therapy sessions and compliance with medications Recommend follow-up with primary care provider Dr. Bony Amador in the outpatient setting once discharged Thank you kindly for this consultation The impression and plan of care has been dictated by Marium Mays, Nurse Practitioner as directed. Dr. Yovana MD I have performed a history and examination and MDM of this patient, discussed the same with the dictator, and agree with the dictator's assessment and plan as written ,documented as a scribe. Based on total visit time, I have performed more than 50% of the visit. Past Medical History Past Medical History: Asthma, GERD/Reflux, Hyperlipidemia, Hypertension, Seizure Disorder Additional Past Medical History / Comment(s): Pre-diabetes, GERD, last seizure approximately 2 yrs ago. History of Any Multi-Drug Resistant Organisms: None Reported Past Surgical History: Tubal Ligation Additional Past Surgical History / Comment(s): Colonoscopy. Past Anesthesia/Blood Transfusion Reactions: No Reported Reaction Past Psychological History: Bipolar, Depression, Schizophrenia Smoking Status: Current every day smoker Past Alcohol Use History: None Reported Additional Past Alcohol Use History / Comment(s): Started smoking at age 15, smokes 1 ppd. Past Drug Use History: None Reported - Past Family History Mother Family Medical History: Hyperlipidemia Father Family Medical History: Cancer Family Family Medical History: Coronary Artery Disease (CAD) Medications and Allergies Home Medications Medication Instructions Recorded Confirmed Type Aspirin 81 mg PO HS@2100 30 Days #30 tab 08/19/24 08/25/24 Rx Atorvastatin [Lipitor] 20 mg PO HS@2100 30 Days #30 tab 08/19/24 08/25/24 Rx Cholecalciferol (Vitamin D3) 50 mcg PO DAILY@0800 30 Days #30 08/19/24 08/25/24 Rx [Vitamin D3 (50 Mcg = 2000 Iu)] tab Docusate [Colace] 100 mg PO DAILY@0800 30 Days #30 08/19/24 08/25/24 Rx cap Famotidine 20 mg PO BID@0800,2100 30 Days #60 08/19/24 08/25/24 Rx tab Nicotine Gum (Polacrilex) 2 mg BUCCAL Q4HR PRN pieceofgum 08/19/24 08/25/24 Rx [Nicorette] Sennosides [Senokot] 17.2 mg PO HS PRN 30 Days #60 tab 08/19/24 08/25/24 Rx metFORMIN HCL [Glucophage] 850 mg PO DAILY@0800 30 Days #30 08/19/24 08/25/24 Rx tab oxyBUTYnin chloride [Ditropan] 5 mg PO BID@0800,2100 30 Days #60 08/19/24 08/25/24 Rx tab Benztropine Mesylate [Cogentin] 1 mg PO BID@0800,2100 08/25/24 08/25/24 History Ibuprofen [Motrin] 800 mg PO Q8H PRN 08/25/24 08/25/24 History chlorproMAZINE [Thorazine] 200 mg PO HS@2100 08/25/24 08/25/24 History fluPHENAZine decanoate [Prolixin 50 mg IM Q10D 08/25/24 08/25/24 History Decanoate] lamoTRIgine [LaMICtal] 100 mg PO DAILY@0800 08/25/24 08/25/24 History Allergies Allergy/AdvReac Type Severity Reaction Status Date / Time codeine Allergy Unknown Verified 08/25/24 19:03 divalproex sodium Allergy Rash/Hives Verified 08/25/24 19:03 [From Depakote] varenicline [From Chantix] Allergy Unknown Verified 08/25/24 19:03 adhesive AdvReac Intermediate Rash/Hives Verified 08/25/24 19:03 Physical Exam Vitals: Vital Signs Temp Pulse Pulse Resp BP BP Pulse Ox 08/26/24 02:55 98.4 F 82 18 146/69 96 08/25/24 21:14 99.1 F 08/25/24 17:22 98.4 F 97 18 141/79 95 Intake and Output 08/25/24 08/26/24 08/26/24 22:59 06:59 14:59 Other: Weight 88.451 kg 87.742 kg Cranial Nerve Examination - Cranial Nerves Cranial Nerve I- Olfactory: Intact Cranial Nerve II- Optic: Intact Cranial Nerve III- Oculomotor: Intact Cranial Nerve IV- Trochlear: Intact Cranial Nerve V- Trigeminal: Intact Cranial Nerve - Abducens: Intact Cranial Nerve VII- Facial: Intact Cranial Nerve VIII- Auditory: Intact Cranial Nerve IX- Glossopharyngeal: Intact Cranial Nerve X- Vagus: Intact Cranial Nerve XI- Accessory: Intact Cranial Nerve XII- Hypoglossal: Intact
[2024-08-27] MEDS ORDERED: OLANZapine 10 MG VIAL IM PRN (08:02)
[2024-08-27 08:08] LABS: Basophils # (A) 0.1 k/uL (0-0.2); Basophils % (A) 1 %; Eosinophils # (A) 0.6 k/uL (0-0.7); Eosinophils % (A) 8 %; HCT 42.5 % (34.0-46.0); HGB 13.9 gm/dL (11.4-16.0); Lymphocytes # (A) 1.7 k/uL (1.0-4.8); Lymphocytes % (A) 21 %; MCH 27.9 pg (25.0-35.0); MCHC 32.6 g/dL (31.0-37.0); MCV 85.4 fL (80.0-100.0); Mean Platelet Volume 7.7; Monocytes # (A) 0.4 k/uL (0-1.0); Monocytes % (A) 4 %; Neutrophils # (A) 5.2 k/uL (1.3-7.7); Neutrophils % (A) 64 %; Platelet Count 244 k/uL (150-450); RBC 4.98 m/uL (3.80-5.40); RDW 13.9 % (11.5-15.5); WBC 8.1 k/uL (3.8-10.6)
[2024-08-27 08:50] LABS: ALT 32 U/L (4-34); AST 24 U/L (14-36); African American GFR (CKD) >90 (>60 ml/min/1.73 sqM); Albumin 3.8 g/dL (3.5-5.0); Alkaline Phosphatase 79 U/L (38-126); Anion Gap 8 mmol/L; Blood Urea Nitrogen 15 mg/dL (7-17); Calcium 9.2 mg/dL (8.4-10.2); Carbon Dioxide 21 mmol/L (22-30); Chloride 107 mmol/L (98-107); Glucose 135 mg/dL (74-99); Non-African American GFR(CKD) 79 (>60 ml/min/1.73 sqM); Potassium 4.5 mmol/L (3.5-5.1); Sodium 136 mmol/L (137-145); Total Bilirubin 0.2 mg/dL (0.2-1.3); Total Protein 6.1 g/dL (6.3-8.2)
--- NOTE | 2024-08-27 13:15 | P.PN ---
Progress Note - Text Progress Note Date: 08/27/24 Interval History: Patient was seen wandering the hallways and was directable and agreeable to sp clarita with creative writer in the office. She states she has been tending to her ADLs and ate Cheerios for breakfast which is her favorite cereal. She continues to display delusional thoughts described as being however she does state that this is not upsetting for her. She states waking Invega more than Thorazine as she was reporting difficulty with swallowing previously. Patient was goal oriented and talked about her upcoming birthday and how she wished to be discharged from the hospital before then. Patient has been attending groups and taking her medications. She reports stability in terms of her auditory hallucinations described as hearing her daughter and son speak to her. At this time patient denies any suicidal or homicidal ideations, intent or plan. Patient denies any side effects from the medications and has been compliant with meds. Mental Status Exam: General Appearance: Patient appears to be stated age is alert, directable, and cooperative. Behavior: Patient is calmly seated without any agitated behavior. Speech: Patient's speech is fluent and nonpressured. Mood/Affect: Mood is improving mildly, affect is congruent and constricted. Suicidality/Homicidality: Patient denies having any suicidal or homicidal ideation intent or plan. Perceptions: Patient denies any visual hallucinations but reports chronic auditory hallucinations Though content/process: There is delusional and disorganized thoughts Memory and concentration: AOX3, grossly intact for the purposes of this session Judgment and insight: Historically poor however improving mildly Assessment Schizoaffective disorder, bipolar type Nonadherent with medications Cannabis use disorder, in sustained remission Nicotine dependence Plan: -Patient continues to meet criteria for inpatient psychiatric admission for symptom stabilization and safety. Patient has not signed adult voluntary form and medication consent and was placed in patient's chart. -Medications: Increase Invega to 6 mg at bedtime for psychosis with a plan to transition to DAVIS. Continue Lamictal 100 mg daily, Prolixin decanoate 50 mg IM every 10 days, last given on 08/19 and next due on 08/29, Cogentin 1 mg twice daily for EPS -When necessary Ativan and Prolixin for agitation/aggression. -Labs: Reviewed, A1c at 6.1 -NRT -nicotine patch -SW on board for discharge planning. Encouraged the patient to participate in milieu. Court ordered continued with an expiration date for 08/06/2025
[2024-08-27 15:27] LABS: Chol/HDL Ratio 3.78 Ratio; LDL Cholesterol,Calculated 70.1 mg/dL (0.0-131.0)
[2024-08-27] MEDS: PALIPERIDONE 6 MG TAB.ER.24 PO SCH (20:48)
--- NOTE | 2024-08-28 10:53 | P.PN ---
Progress Note - Text Progress Note Date: 08/28/24 Interval History: Patient was seen wandering the hallways and was directable and agreeable to sp clarita with bond writer in the [place]. She continues to express delusional statements of being , stating she is " and sassy". She has been adherent with her medications and tending to her ADLs. She states having a bowel movement today. She reports auditory hallucinations described as hearing both God and her boyfriend Alexi however this is not distressing for her. She questions when she would be discharged and became upset when told that she must stay for another week. She states her son is getting a liver transplant and she needs to be discharged to see him. She states she is willing to work with [facility] and is okay with returning back to [facility]. At this time patient denies any suicidal or homicidal ideations, intent or plan. Patient denies any side effects from the medications and has been compliant with meds. Mental Status Exam: General Appearance: Patient appears to be stated age is alert, directable, and cooperative. Behavior: Patient is calmly standing without any agitated behavior. Speech: Patient's speech is fluent and nonpressured. Mood/Affect: Mood is improving mildly, affect is congruent and labile. Suicidality/Homicidality: Patient denies having any suicidal or homicidal ideation intent or plan. Perceptions: Patient denies any visual hallucinations and reports auditory hallucinations, chronic Though content/process: There is evidence of delusional thoughts described as being Memory and concentration: AOX3, grossly intact for the purposes of this session Judgment and insight: Chronically poor however improving mildly Assessment Schizoaffective disorder, bipolar type Nonadherent with medications Cannabis use disorder, in sustained remission Nicotine dependence Plan: -Patient continues to meet criteria for inpatient psychiatric admission for symptom stabilization and safety. Patient has not signed adult voluntary form and medication consent and was placed in patient's chart. -Medications: Increase Invega to 9 mg at bedtime for psychosis with a plan to transition to Invega Sustenna. Continue Lamictal 100 mg daily, Prolixin decanoate 50 mg IM every 10 days, last given on 08/19 and next due on 08/29, Cogentin 1 mg twice daily for EPS -When necessary Ativan and Prolixin for agitation/aggression. -Labs: Reviewed, A1c at 6.1 -NRT -nicotine patch - on board for discharge planning. Encouraged the patient to participate in milieu. Continuation of court order with expiration date for 08/06/2025
[2024-08-28] MEDS: PALIPERIDONE 3 MG TAB.ER.24 PO SCH (21:23)
[2024-08-29] MEDS: fluPHENAZine DECANOATE 25 MG/ML 5ML MDV IM SCH (10:23)
--- NOTE | 2024-08-29 12:22 | P.PN ---
Progress Note - Text Progress Note Date: 08/29/24 Interval History: Patient was seen laying in bed talking to her roommate and was directable and agreeable to speak with marketing writer in the room. Patient continues to take all of her medications as prescribed and is attending groups. She states feeling well today and that she did have a bowel movement earlier and denies any belly pain. She states she has to be discharged by the 10th since she has an appointment with her PCP then. Patient was bright in affect and did not display any delusional thoughts superficially. She was agreeable with receiving Prolixin decanoate shot today and was educated on the plan to transition to DAVIS from p.o. Invega and she was agreeable with starting the first loading dose tomorrow. She states otherwise sleeping and eating okay. At this time patient denies any suicidal or homicidal ideations, intent or plan. Patient denies any side effects from the medications and has been compliant with meds. Mental Status Exam: General Appearance: Patient appears to be stated age is alert, directable, and cooperative. Behavior: Patient is calmly laying without any agitated behavior. Speech: Patient's speech is fluent and nonpressured. Mood/Affect: Mood is improving mildly, affect is congruent and constricted. Suicidality/Homicidality: Patient denies having any suicidal or homicidal ideation intent or plan. Perceptions: Patient denies any visual hallucinations however reports auditory hallucinations, chronic Though content/process: There is slight disorganization in thoughts however patient is goal oriented Memory and concentration: AOX3, grossly intact for the purposes of this session Judgment and insight: Improving mildly Assessment Schizoaffective disorder, bipolar type Nonadherent with medications Cannabis use disorder, in sustained remission Nicotine dependence Plan: -Patient continues to meet criteria for inpatient psychiatric admission for symptom stabilization and safety. Patient has not signed adult voluntary form and medication consent and was placed in patient's chart. -Medications: Prolixin decanoate 50 mg IM every 10 days given today, next dose due on 09/08/2024. Increase Invega to 12 mg at bedtime for psychosis with a plan to transition to Invega Sustenna starting tomorrow. Continue Cogentin 1 mg twice daily for EPS, Lamictal 100 mg daily for mood stabilization -When necessary Ativan and Prolixin for agitation/aggression. -Labs: A1c at 6.1 -NRT -nicotine patch -SW on board for discharge planning. Encouraged the patient to participate in milieu. Court order continued until 08/06/2025
[2024-08-29] MEDS: PALIPERIDONE 6 MG TAB.ER.24 PO SCH (20:49)
[2024-08-30] MEDS: PALIPERIDONE IM 234 MG/1.5 ML SYG IM ONE (14:29)
--- NOTE | 2024-08-30 16:10 | P.PN ---
Progress Note - Text Interval History: Patient was seen resting in bed and was directable and agreeable to speak with movie writer. She reports having had a difficult night falling asleep due to the sleep patterns of her roommate who tends to be awake at night and making a little noise. She did receive her Invega Sustenna shot today and feels her mood is "good". She shared that her son recently had a liver transplant and she is planning to reach out to him and see how he is doing. She notes that she often hears the voice of her son and daughter telling her that they love her. At this time patient denies any suicidal or homicidal ideations, intent or plan. Patient reports hearing her "boyfriend's voice" saying "he loves me". She denies experiencing any command hallucinations or voices that are derogatory or otherwise negative towards her. She denies visual hallucinations. Patient denies any side effects from the medications and has been compliant with meds. Mental Status Exam: General Appearance: Patient appears to be stated age is alert, directable, and cooperative. Behavior: Patient is calmly resting in bed without any agitated behavior. Speech: Patient's speech is fluent and nonpressured. Mood/Affect: Mood is "good", affect is congruent and constricted. Suicidality/Homicidality: Patient denies having any suicidal or homicidal id eation intent or plan. Perceptions: Patient denies any visual hallucinations. Endorses hearing her boyfriend's voice saying "he loves me." Though content/process: There is some evidence of delusional thought content. Thought process is linear and goal-directed overall. Able to answer questions. Memory and concentration: AOX3, grossly intact for the purposes of this session Judgment and insight: Chronically poor, but improving ASSESSMENT: - Schizoaffective disorder, bipolar type - Cannabis use disorder, in sustained remission - Nicotine dependence - Nonadherent with medications PLAN: -Patient continues to meet criteria for inpatient psychiatric admission for symptom stabilization and safety. Patient has not signed adult voluntary form. Currently on court order. -Medications: - Continue Prolixin decanoate 50 mg IM every 10 days (given 08/29/24) - Continue Invega 12 mg at bedtime for psychosis; Receive Invega Sustenna 234 mg IM today (08/30/24) - Continue Cogentin 1 mg BID for EPS - Continue Lamictal 100 mg daily for mood stabilization -When necessary Ativan and Prolixin for agitation/aggression. -NRT -nicotine patch -SW on board for discharge planning. Encouraged the patient to participate in milieu. Court order continued until 08/06/2025.
--- NOTE | 2024-08-31 14:02 | P.PN ---
Progress Note - Text Interval History: Patient was seen resting in bed and was directable and agreeable to speak with residential mortgage underwriter. She reports feeling well overall today and had a difficult time describing her mood but agreed with the description of her mood as "content". She did not have any issues overnight but is concerned about foul-smelling vaginal discharge and discomfort. When asked about auditory hallucinations today she explained "not so much" and felt that this was because the "voices are busy" and thus unable to bother her today. At this time patient denies any suicidal or homicidal ideations, intent or plan. She denies visual hallucinations. Patient denies any side effects from the medications and has been compliant with meds. Mental Status Exam: General Appearance: Patient appears to be stated age is alert, directable, and cooperative. Behavior: Patient is calmly resting in bed without any agitated behavior. Speech: Patient's speech is fluent and nonpressured. Mood/Affect: Mood is content, affect is congruent and constricted. Suicidality/Homicidality: Patient denies having any suicidal or homicidal ideation intent or plan. Perceptions: Patient denies any visual hallucinations. No auditory hallucinations today because the "voices are busy" Though content/process: No overt delusions voiced today. Thought process is linear and goal-directed overall. Able to answer questions. Memory and concentration: AOX3, grossly intact for the purposes of this session Judgment and insight: Chronically poor, but improving ASSESSMENT: - Schizoaffective disorder, bipolar type - Cannabis use disorder, in sustained remission - Nicotine dependence - Nonadherent with medications PLAN: -Patient continues to meet criteria for inpatient psychiatric admission for symptom stabilization and safety. Patient has not signed adult voluntary form. Currently on court order. -Medications: - Continue Prolixin decanoate 50 mg IM every 10 days (given 08/29/24) - Continue Invega 12 mg at bedtime for psychosis; Received Invega Sustenna 234 mg IM on 08/30/24 - Continue Cogentin 1 mg BID for EPS - Continue Lamictal 100 mg daily for mood stabilization - Will alert nursing re: patient's concerns about vaginal discharge and discomfort for input from Medicine colleagues -When necessary Ativan and Prolixin for agitation/aggression. -NRT -nicotine patch -SW on board for discharge planning. Encouraged the patient to participate in milieu. Court order continued until 08/06/2025.
[2024-08-31] MEDS: LORazepam 1 MG TAB PO PRN (23:38)
--- NOTE | 2024-09-01 13:01 | P.PN ---
Progress Note - Text Progress Note Date: 09/01/24 Interval History: Patient was seen wandering the hallways and was directable and agreeable to sp clarita with publications writer in the office. She has been tending to her ADLs, going to groups and adherent with all of her medications. Patient notably displayed bright affect today. She does report experiencing some restlessness overnight but improved with as needed Ativan. She was agreeable with restarting trazodone as this was effective for her insomnia in the past. She reports stability in terms of her auditory hallucinations, denying any worsening in them. She reports arm soreness related to receiving Invega Sustenna shot however is denying any other adverse effects. She is still on board with returning back to [facility] later this week and following up with [facility], noting that she has an upcoming appointment that will have to be rescheduled as she is still likely going to be here. At this time patient denies any suicidal or homicidal ideations, intent or plan. Patient denies any side effects from the medications and has been compliant with meds. Mental Status Exam: General Appearance: Patient appears to be stated age is alert, directable, and cooperative. Behavior:There Is evidence of slight restlessness Speech: Patient's speech is fluent and nonpressured. Mood/Affect: Mood is improving mildly, affect is congruent and reactive, bright. Suicidality/Homicidality: Patient denies having any suicidal or homicidal ideation intent or plan. Perceptions: Patient denies any visual hallucinations however continues to report auditory hallucinations, stable and chronic Though content/process: Superficially there were no overt delusions today, patient was goal oriented Memory and concentration: AOX3, grossly intact for the purposes of this session Judgment and insight: Chronically poor however improving mildly Assessment Schizoaffective disorder, bipolar type Cannabis use disorder, in sustained remission Nicotine dependence Nonadherent with medication Plan: -Patient continues to meet criteria for inpatient psychiatric admission for symptom stabilization and safety. Patient has not signed adult voluntary form and medication consent and was placed in patient's chart. -Medications: Continue Invega 12 mg at bedtime for psychosis, patient received first loading dose on 08/30 and will receive the second loading dose tomorrow. Continue Prolixin decanoate 50 mg IM every 10 days, last given on 08/29 and next due on 09/08, Lamictal 100 mg daily for mood stabilization, Cogentin 1 mg twice daily for EPS -When necessary Ativan and Prolixin for agitation/aggression. -Labs: Reviewed -NRT -nicotine patch -SW on board for discharge planning. Encouraged the patient to participate in milieu. Court order continued until 08/06/2025
[2024-09-01] MEDS: traZODone HCL 50 MG TAB PO SCH (20:12)
[2024-09-02 07:06] VITALS: RESP 16
[2024-09-02] MEDS: IBUPROFEN 600 MG TAB PO PRN (07:08)
[2024-09-02] MEDS: MAG HYDROX/AL HYDROX/SIMETH 355 ML BOTTLE PO PRN (10:47)
--- NOTE | 2024-09-02 11:34 | P.PN ---
Progress Note - Text Progress Note Date: 09/02/24 Interval History: Patient was seen wandering the hallways and was directable and agreeable to sp clarita with curriculum writer in the office. Patient continues to be adherent with medications, attending groups. Patient did not display any overt delusional thoughts, no longer stating she is , and asked thoughtful questions regarding outpatient planning. Patient states sleeping better last night with the trazodone. She reports experiencing some belly pain today but did mention she has not had a bowel movement was encouraged to take as needed MiraLAX as she has already taken Colace for this. When asked about her voices, she states "what voices" and did not appear internally preoccupied. She is agreeable with the second loading dose of Invega Sustenna today with a tentative discharge for tomorrow. At this time patient denies any suicidal or homicidal ideations, intent or plan. Patient denies any auditory, visual hallucinations and denies any paranoia or delusions. Patient denies any side effects from the medications and has been compliant with meds. Mental Status Exam: General Appearance: Patient appears to be stated age is alert, directable, and cooperative. Behavior: There is evidence of slight restlessness Speech: Patient's speech is fluent and nonpressured. Mood/Affect: Mood is improving mildly, affect is congruent and reactive, bright. Suicidality/Homicidality: Patient denies having any suicidal or homicidal ideation intent or plan. Perceptions: Patient denies any visual hallucinations and denies any auditory hallucinations Though content/process: There is no evidence of any delusional thought content and thought process is linear and goal-directed. Memory and concentration: AOX3, grossly intact for the purposes of this session Judgment and insight: Historically poor however improving mildly Assessment Schizoaffective disorder, bipolar type Cannabis use disorder, in sustained remission Nicotine dependence Nonadherent with medications Plan: -Patient continues to meet criteria for inpatient psychiatric admission for symptom stabilization and safety. Patient has not signed adult voluntary form and medication consent and was placed in patient's chart. Court order continued until 08/06/2025 -Medications: Invega Sustenna 156 mg IM to be given today, decreased p.o. Invega to 3 mg at bedtime and continue Lamictal 100 mg daily for mood stabilization, Cogentin 1 mg twice daily for EPS, Prolixin decanoate 50 mg IM every 10 days, last given on 08/29 and next due on 09/08. Continue trazodone 50 mg at bedtime for sleep -When necessary Ativan and Prolixin for agitation/aggression. -Labs: Reviewed -NRT -nicotine patch -SW on board for discharge planning. Encouraged the patient to participate in milieu. [facility]. Meeting scheduled for 11 AM tomorrow
[2024-09-02] MEDS: PALIPERIDONE IM 156 MG/ML SYG IM ONE (13:43)
[2024-09-02] MEDS: MAGNESIUM HYDROXIDE 2,400 MG/30 ML CUP PO PRN (13:43)
[2024-09-02] MEDS: PALIPERIDONE 3 MG TAB.ER.24 PO SCH (21:38)
[2024-09-02] MEDS: MELATONIN 3 MG TABLET PO SCH (21:38)
[2024-09-03 06:53] VITALS: BP 113/58; PULSE 65; TEMP 97.8
--- NOTE | 2024-09-03 11:40 | P.DS ---
Providers Date of admission: 08/25/24 23:43 Expected date of discharge: 09/03/24 Attending physician: Ayesha Sales MD Consults: 08/26/24 00:02 Consult Physician Routine Consulting Provider: [facility] Hospitalists Consult Reason/Comments: Medical H&P Do you want consulting provider notified?: Yes Primary care physician: Gwen Hogan - Discharge Diagnosis(es) (1) Schizoaffective disorder, bipolar type Current Visit: Yes Status: Acute Priority: High (2) Nonadherence to medication Current Visit: Yes Status: Acute Priority: Medium (3) Cannabis use disorder in remission Current Visit: No Status: Chronic Priority: Low (4) Nicotine dependence Current Visit: Yes Status: Chronic Priority: Low Hospital Course: Admission HPI: Admission note was completed by account underwriter "Patient presented to the hospital with mental health concerns. Per ED note, "This is a 53-year-old female with history of bipolar disorder, schizoaffective disorder and PTSD presenting via PD for compliance with medication. Patient states that she is not taking her Colace because it is poisoning the baby that she has been caring for the past 2 months. Patient states that she is still taking her Lamictal but stopped taking Thorazine seen, claiming it is causing swelling of her tongue and throat. Patient states the baby is moving and talking to her, saying that she loves her. Patient states that the father's name is Alexi, who she has known for the past 8 months and they are still together. Patient states that she has 2 other children. Patient endorses subsequent constipation since stopping the Colace. When asked if other medications are poison to her baby, patient states "God will be here soon to answer". Patient endorses anger and district associate judge ordered her to take her medication, stating that she wants to call to have the district associate judge arrested. Patient otherwise denies SI/HI. Denies alcohol/drug use, stating that she only smokes." Patient seen and evaluated on the unit and was agreeable with speaking to account underwriter in her room. She states she has been nonadherent with Thorazine due to her being 2 months and not wanting any medications to interfere with her . Patient also reports swallowing difficulties due to the Thorazine. She states her ex "Alexi" is the father however she just found out yesterday that he cheated on her with another male. Patient notably less religiously preoccupied than recent admission however does report auditory hallucinations described as hearing her daughter and son speak. She states having an uneventful Thanksgiving of that she did not spend it with her family given her [id number] threatening her in the past. Patient denies any suicidal or homicidal ideations intent or plan. Patient denies any flight of ideas racing thoughts and increased in goal directed behavior. Patient admits to using no substances." Hospital course: Upon admission to the unit patient was admitted on a court order with an expiration date for 07/2025.. Patient got along well with other patients on the unit and followed unit protocol. Patient was compliant with the medications and denied any side effects throughout hospital course. Patient was started on Invega and this was increased to 12 mg at bedtime for psychosis. Patient was transitioned to Invega Sustenna receiving 2 loading doses with a monthly maintenance dose of 234 mg IM, last given on 09/02/2024 and next due on 09/30/2024. Invega p.o. was decreased and eventually discontinued. Patient also on Prolixin decanoate 50 mg IM every 10 days, last given on 08/29 and next due on 09/08. Patient was continued on Lamictal 100 mg daily for mood stabilization, Cogentin 1 mg twice daily for EPS, trazodone 50 mg at bedtime for sleep, melatonin 6 mg at bedtime for sleep. Patient spoke of her stressors and engaged in therapy both group and individual. Patient was also seen by medical team for history and physical exam. Throughout the course of the hospitalization patient gradually improved with regards to mood, anxiety, sleep and returned back to their baseline level of functioning. On the day of discharge patient denied any suicidal or homicidal ideations intent or plan denied any auditory or visual hallucinations. The patient denied any access to guns or weapons. Patient denied any paranoia and did not endorse any delusions. Patient does not have a significant history of substance abuse and was counseled on abstaining from all substances including alcohol and marijuana. Patient was also counseled on the medications and need for regular compliance and was encouraged to follow-up with their outpatient appointment for mental health and also for primary care. Patient to be discharged back to long-term with [facility] follow-up. Mental status exam: General Appearance: Patient appears to be stated age is alert, pleasant, and cooperative. Patient is in no acute distress and has good hygiene and grooming Behavior: Patient is calmly seated without any agitated behavior. Speech: Patient's speech is fluent and nonpressured. Mood/Affect: Patient reports their mood is "good", affect is congruent and euthymic, reactive. Suicidality/Homicidality: Patient denies having any suicidal or homicidal ideation intent or plan. Perceptions: Patient denies any auditory or visual hallucinations. Though content/process: There is no evidence of any delusional thought content and thought process is linear and goal-directed. Memory and concentration: AOX3, grossly intact for the purposes of this session. Can spell "WORLD" backwards correctly. Judgment and insight: Chronically poor, however has improved with guarded prognosis Impression: Schizoaffective disorder, bipolar type Cannabis use disorder, in sustained remission Nicotine dependence Nonadherent with medications Plan: -Continue with discharge today as patient has improved and stabilized psychiatrically and is not currently an imminent threat to themself and/or others. -Continue medications: Prolixin decanoate 50 mg IM every 10 days, last given on 08/29 and next due on 09/08. Invega Sustenna 234 mg IM every 4 weeks, last given on 09/02/24 and next due on 09/30/2024. Continue Lamictal 100 mg daily, Cogentin 1 mg twice daily, trazodone 50 mg at bedtime, melatonin 6 mg at bedtime -Patient was counseled on the need for medication compliance and appropriate follow-up at mental health and also primary care for medical issues. Patient verbalized understanding and agreed. -Social work to help coordinate patients discharge today. also to ensure safe home environment that guns/weapons are either removed from the home or locked away. Social work also to arrange for patients follow up appointments with [facility] for psychiatric care along with follow up with primary care provider. -Patient counseled on abstaining from recreational drugs and marijuana and alcohol. Was informed/educated on the adverse effects on their physical and mental health. Patient verbally agreed and understood. -Patient was instructed to return to the hospital or seek immediate medical care if their psychiatric or medical symptoms do worsen or reoccur. Abnormal Labs 08/27/24 08/27/24 07:47 07:47 Sodium 136 L Carbon Dioxide 21 L Glucose 135 H Hemoglobin A1c 6.1 H Total Protein 6.1 L HDL Cholesterol 33.10 L Vital Signs Temp 97.8 F 09/03/24 06:18 Pulse 65 09/03/24 06:18 Resp 16 09/03/24 06:18 BP 113/58 09/03/24 06:18 Pulse Ox 97 09/03/24 06:18 FiO2 Allergies Allergy/AdvReac Type Severity Reaction Status Date / Time codeine Allergy Unknown Verified 08/25/24 19:03 divalproex sodium Allergy Rash/Hives Verified 08/25/24 19:03 [From Depakote] varenicline [From Chantix] Allergy Unknown Verified 08/25/24 19:03 adhesive AdvReac Intermediate Rash/Hives Verified 08/25/24 19:03 Plan - Discharge Summary Discharge Rx Participant: Yes New Discharge Prescriptions: New Paliperidone IM [Invega Sustenna] 234 mg IM QMONTHLY #1 each traZODone HCL [Desyrel] 50 mg PO HS 30 Days #30 tab Melatonin 6 mg PO HS 30 Days #60 tab Continue Nicotine Gum (Polacrilex) [Nicorette] 2 mg BUCCAL Q4HR PRN pieceofgum PRN Reason: Nicotine Cravings oxyBUTYnin chloride [Ditropan] 5 mg PO BID@0800,2099 30 Days #60 tab Famotidine 20 mg PO BID@0800,2099 30 Days #60 tab metFORMIN HCL [Glucophage] 850 mg PO DAILY@0800 30 Days #30 tab Atorvastatin [Lipitor] 20 mg PO HS@2099 30 Days #30 tab Aspirin 81 mg PO HS@2099 30 Days #30 tab Docusate [Colace] 100 mg PO DAILY@0800 30 Days #30 cap Cholecalciferol (Vitamin D3) [Vitamin D3 (50 Mcg = 2000 Iu)] 50 mcg PO DAILY@0800 30 Days #30 tab Changed lamoTRIgine [LaMICtal] 100 mg PO DAILY@0800 30 Days #30 tab Benztropine Mesylate [Cogentin] 1 mg PO BID@0800,2099 30 Days #60 tab fluPHENAZine decanoate [Prolixin Decanoate] 50 mg IM Q10D #1 ml Discontinued Ibuprofen [Motrin] 800 mg PO Q8H PRN PRN Reason: Pain chlorproMAZINE [Thorazine] 200 mg PO HS@2100 Sennosides [Senokot] 17.2 mg PO HS PRN 30 Days #60 tab PRN Reason: Constipation Discharge Medication List Nicotine Gum (Polacrilex) [Nicorette] 2 mg BUCCAL Q4HR PRN pieceofgum 08/19/24 [Rx] Aspirin 81 mg PO HS@2099 30 Days #30 tab 09/03/24 [Rx] Atorvastatin [Lipitor] 20 mg PO HS@2099 30 Days #30 tab 09/03/24 [Rx] Benztropine Mesylate [Cogentin] 1 mg PO BID@0800,2099 30 Days #60 tab 09/03/24 [Rx] Cholecalciferol (Vitamin D3) [Vitamin D3 (50 Mcg = 2000 Iu)] 50 mcg PO DAILY@00 30 Days #30 tab 09/03/24 [Rx] Docusate [Colace] 100 mg PO DAILY@0800 30 Days #30 cap 09/03/24 [Rx] Famotidine 20 mg PO BID@799,2099 30 Days #60 tab 09/03/24 [Rx] Melatonin 6 mg PO HS 30 Days #60 tab 09/03/24 [Rx] Paliperidone IM [Invega Sustenna] 234 mg IM QMONTHLY #1 each 09/03/24 [Rx] fluPHENAZine decanoate [Prolixin Decanoate] 50 mg IM Q10D #1 ml 09/03/24 [Rx] lamoTRIgine [LaMICtal] 100 mg PO DAILY@0800 30 Days #30 tab 09/03/24 [Rx] metFORMIN HCL [Glucophage] 850 mg PO DAILY@0800 30 Days #30 tab 09/03/24 [Rx] oxyBUTYnin chloride [Ditropan] 5 mg PO BID@0800,2099 30 Days #60 tab 09/03/24 [Rx] traZODone HCL [Desyrel] 50 mg PO HS 30 Days #30 tab 09/03/24 [Rx] Follow up Appointment(s)/Referral(s): [facility] [Outside] - 09/05/24 1:00 pm (09/05/2024 1:00PM - 2:00PM MAKENNA PANIAGUA 09/09/2024 3:00PM - 3:30PM VIKY HUBER ) Gwen Hogan MD [Primary Care Provider] - 1-2 days Patient Instructions/Handouts: How to Stop Smoking (DC), Constipation (ED), Schizoaffective Disorder (DC) Activity/Diet/Wound Care/Special Instructions: Avoid the use of street drugs and alcohol. Take all medications as prescribed. When you are in need of refills on your medications, please contact your medical provider and/or outpatient psychiatrist/provider to have this done. Please go to your scheduled outpatient appointment for aftercare treatment. If symptoms return or become worse, call the crisis line at and/or go to the nearest emergency room for evaluation. National Suicide Hotline 988 Discharge Disposition: HOME SELF-CARE
== END 2024-09-03 13:19 | disposition home or self-care (01) | DRG 885 ==
LOC: EC 17:20 → 3MHU 23:43
PROVIDERS: ADMIT Psychiatry & Neurology Psychiatry; ATTEND Psychiatry & Neurology Psychiatry
DX: F25.0 Schizoaffective disorder, bipolar type (principal); R45.851 Suicidal ideations; F17.210 Nicotine dependence, cigarettes, uncomplicated; F41.9 Anxiety disorder, unspecified; F43.10 Post-traumatic stress disorder, unspecified; G40.909 Epilepsy, unspecified, not intractable, without status epilepticus; I10 Essential (primary) hypertension; F12.11 Cannabis abuse, in remission; E66.9 Obesity, unspecified; E78.5 Hyperlipidemia, unspecified; J45.909 Unspecified asthma, uncomplicated; K21.9 Gastro-esophageal reflux disease without esophagitis; K59.00 Constipation, unspecified; Z11.52 Encounter for screening for COVID-19; R13.10 Dysphagia, unspecified; Z68.32 Body mass index [BMI] 32.0-32.9, adult; Z79.82 Long term (current) use of aspirin; Z79.84 Long term (current) use of oral hypoglycemic drugs; Z79.899 Other long term (current) drug therapy; Z82.49 Family history of ischemic heart disease and other diseases of the circulatory system; Z91.148 Patient's other noncompliance with medication regimen for other reason; Z88.5 Allergy status to narcotic agent; Z88.8 Allergy status to other drugs, medicaments and biological substances; Z91.048 Other nonmedicinal substance allergy status; Z98.51 Tubal ligation status
CPT/HCPCS: 36415; 80053; 80061; 80306; 80320; 81025; 82075; 83036; 84443; 85025; 87635

== ENCOUNTER → 2024-10-06 | Outpatient (CLI) | payer MEDICARE, OTHER ==
[2024-10-06 13:31] LABS: African American GFR (CKD) >90 (>60 ml/min/1.73 sqM); Blood Urea Nitrogen 10 mg/dL (7-17); Non-African American GFR(CKD) >90 (>60 ml/min/1.73 sqM)
--- NOTE | 2024-10-06 14:04 | CT ---
EXAMINATION TYPE: CT chest wo/w con CT DLP: 972.3 mGycm, Automated exposure control for dose reduction was used. DATE OF EXAM: 10/06/2024 1:53 PM COMPARISON: Chest radiograph 05/13/2023 CLINICAL INDICATION:Female, 54 years old with history of R91.8 OTHER NONSPECIFIC ABNORMAL FINDING OF LUNG F; PHH, abnormal lung findings TECHNIQUE: Multiple axial images were obtained through the chest before and after the uneventful admi nistration of 100 mL of Isovue-300 intravenously . Coronal and sagittal reformats reviewed. FINDINGS: LUNGS/ PLEURA: No pleural effusion, pneumothorax, or focal consolidation. No suspicious pulmonary nod ule or mass. AIRWAY: Patent and unremarkable.. HEART: Size within normal limits.Trace pericardial effusion. MEDIASTINUM: No gross evidence of adenopathy. VASCULATURE: No aortic aneurysm. MUSCULOSKELETAL: No acute osseous abnormalities SOFT TISSUES/LYMPH NODES: Unremarkable. LOWER NECK: No significant findings. UPPER ABDOMEN: Diffuse low-attenuation to the liver parenchyma. Inferior right hepatic lobe 1.[address] Cholelithiasis. Right adrenal gland nodule adjacent to 2 cm with a Hounsfield unit of 4 consisten t with a benign lipid rich adenoma. IMPRESSION: 1. No acute thoracic process. 2. Hepatic steatosis. 3. Right adrenal gland 2 cm benign lipid rich adenoma. [facility] Magdalena Donato, , 10/06/2024 2:01 PM
== END | disposition home or self-care (01) ==
LOC: RADCTMAIN 12:57
PROVIDERS: ATTEND Family Medicine
DX: K76.0 Fatty (change of) liver, not elsewhere classified (principal); F17.200 Nicotine dependence, unspecified, uncomplicated; R91.8 Other nonspecific abnormal finding of lung field; D35.01 Benign neoplasm of right adrenal gland
CPT/HCPCS: 82565; 84520; 71270; 36415; Q9967

== ENCOUNTER → 2024-10-15 | Outpatient (CLI) | payer MEDICARE, OTHER ==
--- NOTE | 2024-10-15 09:28 | XR ---
EXAMINATION TYPE: XR abdomen 2V DATE OF EXAM: 10/15/2024 9:16 AM COMPARISON: None. CLINICAL INDICATION: Female, 54 years old with history of K59.03 DRUG INDUCED CONSTIPATION, TECHNIQUE: Supine and upright views of the abdomen are obtained. FINDINGS: Scattered gas is seen in non-distended small bowel loops. Gas and fecal material is seen in non-distended colon. Moderate diffuse colonic fecal prominence. No free air. Lung bases are clear. Mild vascular calcification remains present. Osseous structures are intact. IMPRESSION: Overall nonobstructive bowel gas pattern. Moderate diffuse colonic fecal prominence and/ or constipation. [facility], , 10/15/2024 9:26 AM
--- NOTE | 2024-10-15 09:30 | US ---
EXAMINATION TYPE: US abdomen complete DATE OF EXAM: 10/15/2024 COMPARISON: NONE CLINICAL INDICATION: Female, 54 years old with history of K59.03 DRUG INDUCED CONSTIPATION; Hx Gallst one, HTN, pre diabetic, and is a smoker TECHNIQUE: Grayscale and color Doppler imaging of the abdomen was performed. FINDINGS: EXAM MEASUREMENTS: Liver Length: 19.1 cm Gallbladder Wall: 0.2 cm CBD: 0.4 cm, color Doppler imaging was utilized to isolate the common bile duct for measurement. Spleen: 10.7 cm Right Kidney: 12.8 x 4.7 x 5.6 cm Left Kidney: 12.0 x 5.8 x 5.5 cm ARCHITECTURAL DESIGNER NOTES: Pancreas: wnl Liver: Increased attenuation, decreased visualization of vessels suggestive of fatty infiltrate; Ane choic circumscribed area with posterior enhancement seen right inferior mid pole = 1.8 x 1.5 x 1.8 cm Gallbladder: wnl Evidence for sonographic Scott's sign: No CBD: wnl Spleen: wnl Right Kidney: wnl, No hydronephrosis, calculi or masses seen Left Kidney: wnl, No hydronephrosis, calculi or masses seen Upper IVC: wnl Abd Aorta: wnl The intrahepatic portion of the IVC and visualized abdominal aorta are within normal limits. Visuali zed liver is heterogeneously hyperechoic. Evaluation for focal masses is suboptimal due to the hetero geneity. Technologist ramsay a 1.8 cm simple appearing thin-walled cyst in the right hepatic lobe. Th ere is no evidence of shadowing mobile cholelithiasis. The visualized portions of the pancreas are h omogenous. The spleen is unremarkable. Kidneys are symmetric and free of hydronephrosis. No renal lesions are seen. IMPRESSION: No acute findings are seen. Hepatomegaly is present along with diffuse fatty infiltrated hepatocellular disease. [facility], , 10/15/2024 9:28 AM
--- NOTE | 2024-10-15 09:33 | US ---
EXAMINATION TYPE: US pelvic complete DATE OF EXAM: 10/15/2024 COMPARISON: NONE CLINICAL INDICATION: Female, 54 years old with history of Drug induced constipation; Hx cervical canc er, tubal ligation TECHNIQUE: Transabdominal (TA). Doppler imaging: Not performed. FINDINGS: Date of LMP: 20 years ago EXAM MEASUREMENTS: Uterus: 7.3 x 2.6 x 4.0 cm Endometrial Stripe: 0.2 cm Right Ovary: 2.3 x 1.3 x 1.6 cm Left Ovary: 3.1 x 1.9 x 1.8 cm 1. Uterus: Anteverted wnl 2. Endometrium: wnl 3. Right Ovary: wnl 4. Left Ovary: wnl 5. Bilateral Adnexa: wnl 6. Posterior cul-de-sac: wnl IMPRESSION: Unremarkable transabdominal pelvic ultrasound study. [facility], , 10/15/2024 9:31 AM
== END | disposition home or self-care (01) ==
LOC: RADUSWWP 08:04
PROVIDERS: ATTEND Family Medicine
DX: K59.03 Drug induced constipation (principal); R44.2 Other hallucinations; K80.80 Other cholelithiasis without obstruction; I10 Essential (primary) hypertension; R73.03 Prediabetes; R16.0 Hepatomegaly, not elsewhere classified; Z85.41 Personal history of malignant neoplasm of cervix uteri; Z87.891 Personal history of nicotine dependence
CPT/HCPCS: 74019; 76700; 76856

== ENCOUNTER → 2024-10-27 | Outpatient (CLI) | payer MEDICARE, OTHER ==
[2024-10-27 16:55] LABS: Basophils % (A) 1.1 %; Eosinophils % (A) 3.2 %; HCT 47.4 % (37.2-46.3); HGB 15.3 g/dL (12.0-15.0); Lymphocytes # (A) 1.78 X 10*3/uL (0.90-5.00); MCH 27.4 pg (27.0-32.0); MCHC 32.3 g/dL (32.0-37.0); MCV 84.8 FL (80.0-97.0); Mean Platelet Volume 12.3 FL (9.5-12.2); Monocytes # (A) 0.62 X 10*3/uL (0.20-1.00); Monocytes % (A) 6.6 %; NRBC Per 100 WBC 0 X 10*3/uL (0.00-0.01); Neutrophils # (A) 6.55 X 10*3/uL (1.80-7.70); Neutrophils % (A) 69.8 %; Platelet Count 218 X 10*3/uL (140-440); RBC 5.59 X 10*6/uL (4.10-5.20); RDW 14.3 % (11.5-14.5); WBC 9.38 X 10*3/uL (4.50-10.00)
[2024-10-27 18:00] LABS: ALT 39 U/L (8-44); AST 25 U/L (13-35); Albumin 4.3 g/dL (3.8-4.9); Albumin/Globulin Ratio 1.72 Ratio (1.60-3.17); Alkaline Phosphatase 93 U/L (41-126); BUN/Creat Ratio 15.67 Ratio (12.00-20.00); Blood Urea Nitrogen 14.1 mg/dL (9.0-27.0); Calcium 10.2 mg/dL (8.7-10.3); Carbon Dioxide 22.2 mmol/L (21.6-31.8); Chloride 103 mmol/L (96-109); Globulin 2.5 g/dL (1.6-3.3); Glucose 109 mg/dL (70-110); LDL Cholesterol,Calculated 86.7 mg/dL (0.0-131.0); Potassium 4.6 mmol/L (3.5-5.5); Sodium 139 mmol/L (135-145); T4, Free (Free Thyroxine) 1.35 ng/dL (0.80-1.80); Total Bilirubin 0.3 mg/dL (0.3-1.2); Total Protein 6.8 g/dL (6.2-8.2)
[2024-10-27 18:49] LABS: Hepatitis A Antibody IgM Nonreactive (Nonreactive); Hepatitis B Core IgM Nonreactive (Nonreactive); Hepatitis B Surface Antigen Nonreactive (Nonreactive); Hepatitis C IgG Antibody Nonreactive (Nonreactive)
== END | disposition home or self-care (01) ==
LOC: LABWHC1 09:00
PROVIDERS: ATTEND Internal Medicine Gastroenterology
DX: K76.0 Fatty (change of) liver, not elsewhere classified (principal); F25.0 Schizoaffective disorder, bipolar type; F43.10 Post-traumatic stress disorder, unspecified; Z79.899 Other long term (current) drug therapy
CPT/HCPCS: 36415; 80053; 80061; 80074; 81596; 82607; 82746; 83036; 84439; 84443; 85025

== ENCOUNTER → 2024-12-24 | Outpatient (CLI) | payer MEDICARE, OTHER ==
--- NOTE | 2024-12-24 14:37 | XR ---
EXAMINATION TYPE: XR forearm RT, XR elbow complete RT DATE OF EXAM: 12/24/2024 2:19 PM COMPARISON: None CLINICAL INDICATION: Female, 54 years old with history of M25.521, M79.601, pain TECHNIQUE: XR forearm RT, XR elbow complete RT; was examined in AP and lateral projections. FINDINGS: No acute osseous pathology, soft tissue swelling or joint dislocations are seen. IMPRESSION: No evidence of acute fracture. [facility], , 12/24/2024 2:35 PM
== END | disposition home or self-care (01) ==
LOC: RADXRMAIN 13:53
PROVIDERS: ATTEND Registered Nurse
DX: M25.521 Pain in right elbow (principal); M79.601 Pain in right arm

== ENCOUNTER → 2024-12-24 | Outpatient (CLI) | payer MEDICARE, OTHER ==
[2024-12-25 00:03] LABS: Cryptosporidium Antigen Negative (Negative)
== END | disposition home or self-care (01) ==
LOC: LABWHC1 14:40
PROVIDERS: ATTEND Registered Nurse
DX: R19.7 Diarrhea, unspecified (principal); R10.9 Unspecified abdominal pain
CPT/HCPCS: 82705; 83993; 87045; 87046; 87324; 87328; 87329

== ENCOUNTER → 2025-01-21 | Outpatient (CLI) | payer MEDICARE, OTHER ==
--- NOTE | 2025-01-21 13:43 | XR ---
EXAMINATION TYPE: XR abdomen 2V DATE OF EXAM: 01/21/2025 11:52 AM COMPARISON: 10/15/2024 CLINICAL INDICATION: Female, 54 years old with history of R19.7 diarrhea R19.5 watery stools; [facility] TECHNIQUE: Two views of the abdomen were obtained. FINDINGS: No evidence for free intraperitoneal air. No obvious airspace opacity at the lung bases. No dilated small bowel or air-fluid levels. An oval 1.1 cm calcification projecting at the right paramedian upper abdomen. No other suspicious ca lcifications are seen. Prominent appearance to the hepatic shadow. Mild stool in the left side of the abdomen. . IMPRESSION: 1. Underlying cholelithiasis with at least a 1.1 cm gallstone present. 2. Prominent appearance to the hepatic shadow, possible hepatomegaly and hepatic steatosis. Correlate with LFTs, lipid profile, and patient risk factors. 3. No evidence for free air or bowel obstruction. Mild stool in the left side of the abdomen. [facility], , 01/21/2025 1:41 PM
== END | disposition home or self-care (01) ==
LOC: RADXRMAIN 11:28
PROVIDERS: ATTEND Family Medicine
DX: K80.20 Calculus of gallbladder without cholecystitis without obstruction (principal)
CPT/HCPCS: 74019

== ENCOUNTER → 2025-01-29 | Outpatient (CLI) | payer MEDICARE, OTHER ==
--- NOTE | 2025-01-29 09:52 | US ---
EXAMINATION TYPE: US abdomen complete DATE OF EXAM: 01/29/2025 COMPARISON: CT & US CLINICAL INDICATION: Female, 54 years old with history of R19.7 DIARRHEA R19.5 WATERY STOOLS; Pain TECHNIQUE: Grayscale and color Doppler imaging of the abdomen was performed. FINDINGS: EXAM MEASUREMENTS: Liver Length: 18.4 cm Gallbladder Wall: 0.2 cm CBD: 0.5 cm, color Doppler imaging was utilized to isolate the common bile duct for measurement. Spleen: 9.3 cm Right Kidney: 11.6 x 4.2 x 4.9 cm Left Kidney: 12.4 x 5.7 x 4.4 cm TOBACCO SORTER NOTES: Pancreas: possible 4mm panc duct visualized, possible hypoechoic area anterior body= 2.2 x 1.3 x 2.7 cm Liver: Enlarged, heterogeneous, cystic lesion right lobe= 1.6 x 1.3 x 1.9 cm Gallbladder: Contracted, pt states she is NPO, possible small stones at dependent portion, wall not thickened Evidence for sonographic Scott's sign: No CBD: wnl Spleen: wnl Right Kidney: wnl, No hydronephrosis, Possible echogenic foci upper pole= 0.5 cm Left Kidney: wnl, No hydronephrosis, calculi or masses seen Upper IVC: wnl Abd Aorta: wnl Possible hypoechoic lesion within the anterior body of the pancreas measuring up to 2.7 cm. Mildly pr ominent distal pancreatic duct measuring 4 mm. Liver is enlarged and heterogenous increased echogenic ity without surface nodularity. There is a simple appearing cyst within the right hepatic lobe measur ing up to 1.9 cm. Gallbladder is contracted with possible stones with possible layering stones. No ga llbladder wall thickening or surrounding fluid. Negative sonographic Scott sign. The intrahepatic po rtion of the IVC and proximal abdominal aorta are within normal limits. Common bile duct is unremark able. The spleen is unremarkable. Kidneys are symmetric and free of hydronephrosis. No left renal c alculi. Nonobstructing right renal upper pole calculus. No suspicious renal mass. IMPRESSION: 1. No ultrasound evidence for acute process. 2. Possible pancreatic body 2.7 cm lesion with distal mild pancreatic ductal dilatation. Recommend fu rther evaluation with CT or MR abdomen with IV contrast (pancreatic mass protocol). 3. Contracted gallbladder with possible layering stones. No evidence for acute cholecystitis. 4. Hepatomegaly with heterogenous increased echogenicity suggesting hepatic steatosis. Simple appeari ng cyst identified within the right hepatic lobe. 5. Nonobstructing right renal calculus. [facility], , 01/29/2025 9:49 AM
== END | disposition home or self-care (01) ==
LOC: RADUSWWP 08:55
PROVIDERS: ATTEND Family Medicine
DX: N20.0 Calculus of kidney (principal); R16.0 Hepatomegaly, not elsewhere classified; K76.89 Other specified diseases of liver
CPT/HCPCS: 76700

== ENCOUNTER → 2025-03-26 | Outpatient (CLI) | payer MEDICARE, OTHER ==
--- NOTE | 2025-03-26 13:51 | MR ---
EXAMINATION TYPE: MR abdomen wo/w con DATE OF EXAM: 03/26/2025 12:04 PM INDICATION: Patient age:Female; 54 years old; Reason for study: K76.89,K86.9 DISEASE OF PANCREAS, UNSPECIFIED; [facility]. COMPARISON: Abdominal ultrasound 01/29/2025, 10/15/2024 TECHNIQUE: Multiplanar multi-sequence imaging was performed without and with IV contrast. The patie nt was given 10 ccs of Gadobutrol intravenously and dynamic imaging was performed. Post IV contrast s ubtraction images were also submitted for review. FINDINGS: LOWER CHEST: No gross irregularity. ABDOMEN Liver: Noncirrhotic morphology. Inferior right hepatic lobe 1.5 cm thin-walled T2 hyperintense cyst. Subcentimeter anterior left hepatic lobe 0.6 cm thin-walled T2 hyperintense cyst. At none of these 2 lesions demonstrate suspicious enhancement enhancement. Additional inferior left hepatic lobe 1.2 cm lobulated thin-walled T2 hyperintense cyst. Demonstrates peripheral nodular discontinuous enhancement and fills in on delayed imaging. Diffuse dropout of signal on out of phase imaging involving the briseyda er. Gallbladder and Bile ducts: Unremarkable. The common bile duct measures up to 4.0 cm at the pancreati c head. Pancreas: Unremarkable. No suspicious pancreatic lesion. No ductal dilatation. Spleen: Unremarkable. Adrenal glands: Unremarkable. Kidneys: No hydronephrosis. No suspicious enhancing renal lesions. Prominent right extrarenal pelvis. . Stomach and Bowel: Unremarkable as visualized. Peritoneum: No evidence of pneumoperitoneum, free fluid, or adenopathy. Vasculature: Unremarkable. No aortic aneurysm. Abdominal wall: Unremarkable. Musculoskeletal: The osseous structures appear intact. IMPRESSION: 1. No evidence of suspicious pancreatic mass or pancreatic duct dilatation. 2. Couple of hepatic cysts with additional benign hepatic hemangioma. 3. Hepatic steatosis. [facility], , 03/26/2025 1:49 PM
== END | disposition home or self-care (01) ==
LOC: RADMRIMAIN 11:13
PROVIDERS: ATTEND Family Medicine
DX: K86.9 Disease of pancreas, unspecified (principal); K76.89 Other specified diseases of liver; D18.03 Hemangioma of intra-abdominal structures; K76.0 Fatty (change of) liver, not elsewhere classified
CPT/HCPCS: 74183; A9585